=== PATIENT | male | born 1945 | race Caucasian/White ===

== ENCOUNTER 2017-02-13 12:50 | Inpatient (IN) | payer OTHER, MEDICARE ==
[~2017-02-13] VITALS: Ht 165.1 cm; Wt 78.1 kg
[~2017-02-13 12:50] MED LIST: ADVIN25050; ALBU1AER9; BAYER ASPIRIN PO; CARV3.122 PO; CENTRU2 PO; CHOL1000 PO; GABA-112 PO; GLC500 PO; NTRGSL/4 UT; PANT40TA PO; PLV75 PO; ROSU40TA PO
[2017-02-13] MEDS ORDERED: SODIUM CHLORIDE 0.9% 1000ML 500 ML IV STA (13:47)
[2017-02-13] MEDS ORDERED: SODIUM CHLORIDE 0.9% 1000ML 1,000 ML IV STA (13:47)
[2017-02-13 13:49] LABS: ISTAT CREATININE 1.4 mg/dl (0.6-1.3); ISTAT HEMOGLOBIN 10.5 g/dl (14.0-18.0); ISTAT IONIZED CALCIUM 1.14 mmol/l (1.12-1.32)
[2017-02-13 14:01] LABS: HEMATOCRIT 30.3 % (42-52); MEAN CELL VOLUME 107.4 fL (80-100); MEAN CORPUSCULAR HEMOGLOBIN 36.5 pg (25-34); MEAN PLATELET VOLUME 11.5 fL (7.4-10.4); PLATELET COUNT 134 K/uL (130-400); RED BLOOD COUNT 2.82 M/uL (4.7-6.1)
[2017-02-13 14:11] LABS: ALT/SGPT 18 U/L (12-78); AST/SGOT 21 U/L (15-37); BLOOD UREA NITROGEN 19 mg/dl (7-18); BUN/CREATININE RATIO 12.9 (10-20); CALCIUM 8.2 mg/dl (8.5-10.1); CARBON DIOXIDE 24 mmol/L (21-32); CHLORIDE 100 mmol/L (98-107); GLUCOSE 162 mg/dl (70-99); MAGNESIUM 1.4 mg/dl (1.8-2.4); POTASSIUM 3.2 mmol/L (3.5-5.1); SODIUM 133 mmol/L (136-145)
[2017-02-13 14:16] LABS: ALB/GLOB RATIO 0.6 (0.9-2); ALKALINE PHOSPHATASE 67 U/L (45-117)
[2017-02-13 14:19] LABS: BASO ABS # 0.01 K/uL (0-0.2); COMPLETE YES; DOHLE BODIES 1+; HYPOSEGMENTED POLYS 1+; IG% 0.6 %; LYMPH % 6.1 %; LYMPH ABS # 1.32 K/uL (1.2-3.4); MONO % 2.7 %; NEUT % 90.6 %
--- NOTE | 2017-02-13 14:25 | DIAGNOSTIC IMAGING REPORT ---
CHEST ONE VIEW PORTABLE CLINICAL HISTORY: FEVER, WEAKNESS, SOB dyspnea COMPARISON STUDY: 02/13/2017 FINDINGS: Mild interstitial change throughout both hemithoraces. No prior exam. Diaphragms smooth. Calcifications are sharp. IMPRESSION: Prominent basilar interstitial change possibly inflammatory. Electronically signed by: Shawn Gold M.D. 02/13/2017 2:23 PM Dictated Date/Time: 02/13/2017 2:22 PM
[2017-02-13] MEDS ORDERED: ATOR-26 PO (14:33)
[2017-02-13] MEDS ORDERED: ALBUAER INH (14:33)
[2017-02-13] MEDS ORDERED: ASPI81TA28 PO (14:33)
[2017-02-13] MEDS ORDERED: SYMIN160 INH (14:33)
[2017-02-13] MEDS ORDERED: LISI-729 PO (14:34)
[2017-02-13] MEDS ORDERED: ALBUT/IPRATROP 3MG/0.5MG NEB 3 ML VIAL INH STA (14:34)
[2017-02-13 14:45] LABS: URINE APPEARANCE CLEAR (CLEAR); URINE BILIRUBIN NEG (NEG); URINE COLOR YELLOW; URINE NITRITE NEG (NEG); URINE PH 6.5 (4.5-7.5); URINE SPECIFIC GRAVITY 1.007 (1.000-1.030); UROBILINOGEN NEG (NEG)
[2017-02-13 14:47] LABS: MANUAL MICROSCOPIC REQUIRED? NO; REVIEW REQ? NO
--- NOTE | 2017-02-13 15:00 | EMERGENCY ROOM VISIT NOTE ---
ED Visit Note First contact with patient: 13:29 I did evaluate and examine this patient myself. I did guide management for the patient. I agree with the PA's assessment as discussed. Please see the PAs dictation for further details. I did independently review the 12-lead EKG, chest x-ray and blood work. He is presenting with fever and malaise for the past several days. He feels very weak and cannot function normally at home. His white count is over 20,000. Chest x-ray demonstrates questionable and filtrates at the bases. Urinalysis on unremarkable. We will consult the hospitalist for further evaluation and care in the hospital.
[2017-02-13] MEDS ORDERED: CEFTRIAXONE SOD INJ 1 GM ADDVIAL IV STA (15:07)
[2017-02-13] MEDS ORDERED: AZITHROMYCIN IV 500 MG in DEXTROSE 5% 250ML 250 ML IV ONE (15:15)
[2017-02-13] MEDS ORDERED: POTASSIUM CHLORIDE 10 MEQ TABCR PO STA (15:47)
[2017-02-13] MEDS ORDERED: ONDANSETRON INJ 2 MG/ML 2 ML VIAL IV PRN (16:45)
[2017-02-13] MEDS ORDERED: MULTTAB58 PO (16:59)
[2017-02-13] MEDS ORDERED: FURO40TA3 PO (16:59)
[2017-02-13] MEDS ORDERED: TRAM-10 PO (16:59)
[2017-02-13] MEDS ORDERED: FEXO1TAB46 PO (16:59)
[2017-02-13] MEDS ORDERED: GLUCOSE 10 TABS/TUBE PO PRN (17:00)
[2017-02-13] MEDS ORDERED: GLUCOSE 40% GEL 15 GM TUBE PO PRN (17:00)
[2017-02-13] MEDS ORDERED: TRAMADOL HCL 50 MG TAB PO PRN (17:00)
[2017-02-13] MEDS ORDERED: NITROGLYCERIN 0.4 MG SL PER TAB CHARGE UT PRN (17:00)
[2017-02-13] MEDS ORDERED: FEXOFENADINE HCL 180 MG TAB PO PRN (17:00)
[2017-02-13] MEDS ORDERED: DEXTROSE 50% 50 ML SYR IV PRN (17:00)
[2017-02-13] MEDS ORDERED: LEVALBUTEROL/IPRATROPIUM NEB INH PRN (17:00)
[2017-02-13] MEDS ORDERED: GLUCAGON FOR INJ 1 MG VIAL SQ PRN (17:00)
[2017-02-13 17:41] LABS: FERRITIN 526.4 ng/ml (8.0-388.0); THYROID STIMULATING HORMONE 0.44 uIu/ml (0.300-4.500)
[2017-02-13 18:25] VITALS: BP 94/62; PULSE 102; TEMP 38.2; O2SAT 93; Ht 165.1 cm; Wt 78.1 kg
[2017-02-13] MEDS ORDERED: NICOTINE 21 MG/24 HR TDSY TD ONE (19:04)
[2017-02-13] MEDS ORDERED: IPRATROPIUM BROMIDE NEB SOLN 0.02% 2.5 ML VIAL INH PRN (19:15)
[2017-02-13] MEDS ORDERED: LEVALBUTEROL 0.63MG/3 ML NEB INH PRN (19:15)
[2017-02-13] MEDS: MAGNESIUM SULFATE 1GM / D5W 1 GM in PREMIXED IN D5W 100 ML IV SCH ×4 (19:16→22:27)
[2017-02-13] MEDS: SODIUM CHLORIDE 0.9% 1000ML 1,000 ML IV SCH (19:16)
[2017-02-13 19:23] LABS: INR 1.2 (0.9-1.1); PROTHROMBIN TIME (PATIENT) 12.7 SECONDS (9.0-12.0)
[2017-02-13 19:46] VITALS: BP 116/66; PULSE 98; TEMP 37.2; O2SAT 92
--- NOTE | 2017-02-13 20:27 | History and Physical ---
History & Physical Date & Time of Service: Feb 13, 2017 at 17:03 Chief Complaint: Fever,Cold Sx, Shaking,Low Blood Pres, Weak Primary Care Physician: Abdoul Gordon M.D. History of Present Illness Source: patient, spouse ( at bedside), clinic records This is a 71 year old male with PMH of CAD s/p CABG and stent, ? chronic systolic CHF, EF 55-60% on echo 06/2013, COPD, HTN, PAD, DM 2, and other problems listed below who was sent to the ED for fever. Patient reports illness for 3 days with generalized weakness, ambulatory dysfunction, fever up to 103F, chills, diffuse myalgias, increased SANCHEZ from baseline, decreased PO intake. Had 3 episodes of liquid diarrhea this am [employer] and 1 episode in ER. Had central chest pain which over past few days, but not today. No exacerbating factors including exertion or deep inspiration. States had similar pain in the past. Denies increase in occasional baseline cough. No sputum production. Patient was seen by Phuong Bermudez PA-C in clinic today, noted to have fever 103.4, HR 100s, and was sent to the ER. Pt denies nasal congestion, sore throat, swallowing difficulty, palpitations, abdominal pain, N/V, GI bleeding, dysuria, frequency, calf pain, edema, wounds, abnormal bleeding, falls. No significant weight loss noted in Epic trend. Pt was recently treated for complicated bronchitis by Dr. Gordon in mid- December with course of Augmentin and prednisone. Lisinopril and carvedilol were held at that time due to hypotension (80/50). Patient was feeling back to baseline until 3 days ago. No sick contact or recent hospitalization. Past Medical/Surgical History Medical Problems: (1) ACEI/ARB contraindicated Permanent Comment: due to hypotension Status: Chronic (2) CAD (coronary artery disease) Status: Chronic (3) Calculus Of Kidney Status: Chronic (4) Carotid Artery Occlusion W O Cerebral Infarction Status: Chronic (5) Carotid stenosis Status: Chronic (6) Chr Airway Obstruct Nec Status: Chronic (7) Chronic systolic CHF (congestive heart failure) Permanent Comment: as per Epic problem list, although last 2 echo's in system had normal EF; (55-60% in 06/2013) + grade I diastolic dysfunction Status: Chronic (8) COPD (chronic obstructive pulmonary disease) Status: Chronic (9) Coron Atheroscler Nos Type Vessel, Rosebud Or Graft Status: Chronic (10) Diab Sofie Wo Compl, Type Ii Or Unspec Type, Not Uncntrld Status: Chronic (11) Diverticulosis Colon (W/O Ment Of Hemorrhage) Status: Chronic (12) DM type 2 (diabetes mellitus, type 2) Status: Chronic (13) Dyslipidemia Status: Chronic (14) Esophageal Reflux Status: Chronic (15) GERD (gastroesophageal reflux disease) Status: Chronic (16) HTN (hypertension) Status: Chronic (17) Hyperlipidemia Nec/Nos Status: Chronic (18) Hypertension Nos Status: Chronic (19) PAD (peripheral artery disease) Status: Chronic (20) Renal Artery Aneurysm Status: Chronic (21) Subclavian artery stenosis, right Status: Chronic (22) Tobacco abuse Status: Chronic Surgical Problems: (1) Aortocoronary Bypass Status: Resolved (2) H/O maze procedure Status: Chronic (3) History of left-sided carotid endarterectomy Status: Chronic (4) Hx of CABG Status: Chronic (5) Percutaneous Translum Coron Angioplasty Status Status: Resolved (6) S/P coronary artery stent placement Status: Chronic (7) S/p lumbar spinal surgery Status: Chronic (8) Status post femoral-popliteal bypass surgery Permanent Comment: right Status: Chronic Family History FH: CAD (coronary artery disease) FATHER FH: cancer MOTHER Social History Smoking Status: Current Every Day Smoker (1 ppd x 60 years. counselled about smoking cessation.) Alcohol Use: occasionally (2 beers 2x per week) Drug Use: none Marital Status: Housing status: lives with family Immunizations History of Influenza Vaccine: Yes Influenza Vaccine Date: Aug 07, 2012 History of Tetanus Vaccine?: Yes History of Pneumococcal: Yes Pneumococcal Date: Aug 07, 2012 History of Hepatitis B Vaccine: Yes Hepatitis Immunization Date: Sep 22, 2000 Multi-Drug Resistant Organisms History of MDRO: No Allergies Coded Allergies: No Known Allergies (Verified , 02/13/17) Home Medications Scheduled Albuterol Sulfate (Proventil Hfa), 2 PUFFS INH Q4 Aspirin (Aspirin Ec), 81 MG PO DAILY Atorvastatin (Lipitor), 80 MG PO DAILY Budesonide/Formoterol Fumarate (Symbicort 160/4.5 Inhaler ), 2 PUFFS INH BID Cholecalciferol (Vitamin D3), 1,000 UNITS PO DAILY Furosemide (Lasix), 40 MG PO DAILY Gabapentin (Neurontin), 200 MG PO BID Metformin Hcl (Glucophage *), 500 MG PO BID Multiple Vitamin (Multivitamin), 1 TAB PO DAILY Nitroglycerin (Nitrostat), 0.4 MG UT PRN Pantoprazole Sodium (Protonix), 40 MG PO DAILY Scheduled PRN Fexofenadine Hcl (Joi), 180 MG PO DAILY PRN for Itching Tramadol (Ultram), 50 MG PO Q6 PRN for Pain Review of Systems Ten point ROS performed with pertinent positives and negatives noted in HPI. Physical Exam Vital Signs Date Time Temp Pulse Resp B/P Pulse Ox O2 Delivery O2 Flow Rate FiO2 02/13/17 16:09 108 20 97/50 93 Room Air 02/13/17 14:34 36.7 95 24 125/66 95 Room Air 02/13/17 14:09 97 18 128/70 95 Room Air 100 118/84 107 96/60 02/13/17 13:58 97 02/13/17 13:37 95 Room Air 02/13/17 12:56 37.5 102 20 110/66 94 Room Air General Appearance: WD/WN, no apparent distress, + pertinent finding (alert 71 year old male, appears acutely ill but not in distress, at bedside) Head: normocephalic, atraumatic Eyes: normal inspection, PERRL, EOMI ENT: hearing grossly normal, TMs normal, pharynx normal Neck: supple, no JVD, trachea midline Respiratory/Chest: no respiratory distress, no accessory muscle use, + wheezing (trace scattered wheezes) Cardiovascular: no murmur, + tachycardia (regular, rate 100's) Abdomen/GI: normal bowel sounds, non tender, soft Extremities/Musculoskelatal: no calf tenderness, normal capillary refill, no pedal edema Neurologic/Psych: alert, normal mood/affect, oriented x 3, + pertinent finding (strength 5/5 all extremities) Skin: normal color, warm/dry, + pertinent finding (small healing scab on RUE) Diagnostics Laboratory Results Results Past 24 Hours Test 02/13/17 13:20 02/13/17 13:33 02/13/17 13:36 02/13/17 13:47 Range/Units White Blood Count 21.60 4.8-10.8 K/uL Red Blood Count 2.82 4.7-6.1 M/uL Hemoglobin 10.3 14.0-18.0 g/dL Hematocrit 30.3 42-52 % Mean Corpuscular Volume 107.4 80-100 fL Mean Corpuscular Hemoglobin 36.5 25-34 pg Mean Corpuscular Hemoglobin Concent 34.0 32-36 g/dl Platelet Count 134 130-400 K/uL Mean Platelet Volume 11.5 7.4-10.4 fL Neutrophils (%) (Auto) 90.6 % Lymphocytes (%) (Auto) 6.1 % Monocytes (%) (Auto) 2.7 % Eosinophils (%) (Auto) 0.0 % Basophils (%) (Auto) 0.0 % Neutrophils # (Auto) 19.55 1.4-6.5 K/uL Lymphocytes # (Auto) 1.32 1.2-3.4 K/uL Monocytes # (Auto) 0.59 0.11-0.59 K/uL Eosinophils # (Auto) 0.00 0-0.5 K/uL Basophils # (Auto) 0.01 0-0.2 K/uL RDW Standard Deviation 66.6 36.4-46.3 fL RDW Coefficient of Variation 17.1 11.5-14.5 % Immature Granulocyte % (Auto) 0.6 % Immature Granulocyte # (Auto) 0.13 0.00-0.02 K/uL Nucleated RBC Absolute Count (auto) 0.04 0-0 K/uL Nucleated Red Blood Cells % 0.2 % Hyposegmented Neutrophils 1+ Dohle Bodies 1+ Sodium Level 133 136-145 mmol/L Potassium Level 3.2 3.5-5.1 mmol/L Chloride Level 100 98-107 mmol/L Carbon Dioxide Level 24 21-32 mmol/L Anion Gap 9.0 19.0 16-25 mmol/L Blood Urea Nitrogen 19 7-18 mg/dl Creatinine 1.50 0.60-1.40 mg/dl Est Creatinine Clear Calc Drug Dose 44.2 ml/min Estimated GFR () 53.9 Estimated GFR (Non- 46.5 BUN/Creatinine Ratio 12.9 10-20 Random Glucose 162 70-99 mg/dl Calcium Level 8.2 8.5-10.1 mg/dl Magnesium Level 1.4 1.8-2.4 mg/dl Total Bilirubin 0.7 0.2-1 mg/dl Aspartate Amino Transf (AST/SGOT) 21 15-37 U/L Alanine Aminotransferase (ALT/SGPT) 18 12-78 U/L Alkaline Phosphatase 67 45-117 U/L Total Creatine Kinase 129 39-308 U/L Creatine Kinase MB < 0.5 0.5-3.6 ng/ml Creatine Kinase MB Ratio 0-3.0 Troponin I 0.019 0-0.045 ng/ml Pro-B-Type Natriuretic Peptide 2126 0-900 pg/ml Total Protein 7.8 6.4-8.2 gm/dl Albumin 3.0 3.4-5.0 gm/dl Globulin 4.8 2.5-4.0 gm/dl Albumin/Globulin Ratio 0.6 0.9-2 Bedside Lactic Acid Venous 1.68 0.90-1.70 mmol/L Bedside Hemoglobin 10.5 14.0-18.0 g/dl Bedside Hematocrit 31 42-52 % Bedside Sodium 133 135-144 mEq/L Bedside Potassium 3.1 3.3-5.0 mEq/L Bedside Chloride 97 101-112 mEq/L Bedside Total CO2 21 24-31 mEq/l Bedside Blood Urea Nitrogen 20 7-18 mg/dl Bedside Creatinine 1.4 0.6-1.3 mg/dl Bedside Glucose (other) 165 70-99 mg/dl Bedside Ionized Calcium (Madeleine) 1.14 1.12-1.32 mmol/l Test 02/13/17 13:50 02/13/17 16:45 Range/Units Urine Color YELLOW Urine Appearance CLEAR CLEAR Urine pH 6.5 4.5-7.5 Urine Specific [place] 1.007 1.000-1.030 Urine Protein 1+ NEG Urine Glucose (UA) NEG NEG Urine Ketones NEG NEG Urine Occult Blood 1+ NEG Urine Nitrite NEG NEG Urine Bilirubin NEG NEG Urine Urobilinogen NEG NEG Urine Leukocyte Esterase NEG NEG Urine WBC (Auto) 0 0-5 /hpf Urine RBC (Auto) 0-4 0-4 /hpf Urine Hyaline Casts (Auto) 0 0-5 /lpf Urine Epithelial Cells (Auto) 5-10 0-5 /lpf Urine Bacteria (Auto) NEG NEG Influenza Type A Antigen Neg for Influ A NEG Influenza Type B Antigen Neg for Influ B NEG Transferrin % Saturation 20-50 % Microbiology Results 02/13/17 Blood Culture, Received Pending 02/13/17 Blood Culture, Received Pending Diagnostic Radiology CHEST ONE VIEW PORTABLE CLINICAL HISTORY: FEVER, WEAKNESS, SOB dyspnea COMPARISON STUDY: 02/13/2017 FINDINGS: Mild interstitial change throughout both hemithoraces. No prior exam. Diaphragms smooth. Calcifications are sharp. IMPRESSION: Prominent basilar interstitial change possibly inflammatory. EKG sinus tachycardia with occasional PVC, rate 101, otherwise normal EKG as confirmed by cardiology read Impression Assessment and Plan SEPSIS Presents with fever 38.2, leukocytosis (WBC 21.6), tachycardia; lactic acid WNL , no hypotension No clear source- CXR- no infiltrate, UA does not appear infected; no apparent skin infection, no meningeal signs/symptoms, checking stool WBC's stool cx, C. diff; influenza antigen neg; check influenza PCR and monospot, blood cultures pending Treated with empiric ceftriaxone and azithromycin in ER Continue current antibiotics for now IVF's continued at 125 mL/hour Consult infectious disease HYPOKALEMIA/ HYPOMAGNESEMIA From poor PO intake and diarrhea Replace and monitor MACROCYTIC ANEMIA Hg 10.3; was 10.5 in 12/18/16; prior to that ran 11's-13's since 2011 Check B12, iron studies, peripheral smear Monitor CBC HX HYPERTENSION BP running low normal DARRIUS-I and BB stopped 1 month ago due to hypotension Hold Lasix Continue IVF's ? CHRONIC SYSTOLIC CHF Chart hx systolic CHF in Epic EF 55-60% on echo 06/2013 Currently hypovolemic, getting IVF's Monitor volume status CAD S/P CABG, STENT Stable; continue aspirin, statin DARRIUS-I and BB stopped 1 month ago due to hypotension DM Hold metformin during hospitalization Insulin sliding scale coverage Check A1c COPD Not in acute exacerbation Continue home inhaler GERD Continue PPI TOBACCO ABUSE Counselled for smoking cessation Nicotine patch ordered DVT PROPHYLAXIS Heparin SQ CODE STATUS Full code per my discussion with the patient. States he would not want prolonged life support. Patient seen in collaboration with Dr. Ho. Please see her addendum. I have seen and examined the patient and agree with the provider as stated above. Vic, DO Level of Care Telemetry Resuscitation Status FULL RESUSCITATION VTE Prophylaxis VTE Risk Assessment Done? Y/N: Yes Risk Level: Moderate Given or contraindicated: Unfractionated heparin SQ Social Service Consult None Apply
[2017-02-13] MEDS: GABAPENTIN 100 MG CAP PO SCH (20:36)
[2017-02-13] MEDS: BUDESONIDE/FORMOTEROL FUMARATE 160/4.5 60 PUFFS/INHALER INH SCH (20:37)
[2017-02-13] MEDS: HEPARIN SOD 5000 UNIT/0.5 ML CARP SQ SCH (21:39)
[2017-02-13] MEDS: INSULIN ASPART 100 UNITS/ML 3 ML PEN SC SCH (21:39)
--- NOTE | 2017-02-13 22:55 | EMERGENCY ROOM VISIT NOTE ---
History First contact with patient: 13:29 Chief Complaint: FLU LIKE SX Stated Complaint: FEVER,COLD SX, SHAKING,LOW BLOOD PRES, WEAK History of Present Illness Patient is a 71-year-old white male with extensive past medical history including coronary artery disease status post ID, status post CABG, hypertension , dyslipidemia, diabetes, COPD, history of CHF, among other medical problems who presents the emergency department from his primary care doctor's office for evaluation of weakness 2 days. Patient states that he had been feeling well was in his usual state of health until Thursday, 2 days ago. He states that he really just felt generally weak and very fatigued. He was in bed all day, and states that all he did was sleep. When he would try to get up, he noted feeling wobbly and off balance. patient's states that he seems like he "can't catch his breath" although the patient denies feeling short of breath. He has chronic chest pain and did experience some midsternal chest pain that radiated through to his back yesterday, but is chest pain-free presently. He states that this pain happens frequently and he "ignores it." He reported a fever of 103F last evening for which she took acetaminophen. checked his blood pressure on his home monitor and noted to be in the 90s systolic. He denies any cough or sputum production. He does not feel like he is wheezing. He does note a slight headache. He denies any abdominal pain, nausea or vomiting. He did have an episode of diarrhea this morning. He admits to anorexia. He denies any urinary symptoms. No skin rashes, swelling or pain in the lower extremities. He denies any sick contacts recently. He did receive a flu shot this season. He traveled to [place] 2 weeks ago and stayed in a hotel. He was at his primary care doctor's office today and was sent to the emergency department for evaluation. Review of Systems Review of systems as per HPI. All other systems reviewed were negative. 10 systems reviewed. Past Medical/Surgical History Medical Problems: (1) ACEI/ARB contraindicated (2) CAD (coronary artery disease) (3) Calculus Of Kidney (4) Carotid Artery Occlusion W O Cerebral Infarction (5) Carotid stenosis (6) Chr Airway Obstruct Nec (7) Chronic systolic CHF (congestive heart failure) (8) COPD (chronic obstructive pulmonary disease) (9) Coron Atheroscler Nos Type Vessel, [place] Or Graft (10) Diab Sofie Wo Compl, Type Ii Or Unspec Type, Not Uncntrld (11) Diverticulosis Colon (W/O Ment Of Hemorrhage) (12) DM type 2 (diabetes mellitus, type 2) (13) Dyslipidemia (14) Esophageal Reflux (15) Fever (16) GERD (gastroesophageal reflux disease) (17) HTN (hypertension) (18) Hyperlipidemia Nec/Nos (19) Hypertension Nos (20) PAD (peripheral artery disease) (21) Renal Artery Aneurysm (22) Sepsis (23) Subclavian artery stenosis, right (24) Tobacco abuse Surgical Problems: (1) Aortocoronary Bypass (2) H/O maze procedure (3) History of left-sided carotid endarterectomy (4) Hx of CABG (5) Percutaneous Translum Coron Angioplasty Status (6) S/P coronary artery stent placement (7) S/p lumbar spinal surgery (8) Status post femoral-popliteal bypass surgery Electronic medical records are reviewed and summarized as above/below. See Problem List. Social History Smoking Status: Former Smoker Marital Status: Housing Status: lives with significant other Occupation Status: retired Current/Historical Medications Scheduled Albuterol Sulfate (Proventil Hfa), 2 PUFFS INH Q4 Aspirin (Aspirin Ec), 81 MG PO DAILY Atorvastatin (Lipitor), 80 MG PO DAILY Budesonide/Formoterol Fumarate (Symbicort 160/4.5 Inhaler ), 2 PUFFS INH BID Cholecalciferol (Vitamin D3), 1,000 UNITS PO DAILY Furosemide (Lasix), 40 MG PO DAILY Gabapentin (Neurontin), 200 MG PO BID Metformin Hcl (Glucophage *), 500 MG PO BID Multiple Vitamin (Multivitamin), 1 TAB PO DAILY Nitroglycerin (Nitrostat), 0.4 MG UT PRN Pantoprazole Sodium (Protonix), 40 MG PO DAILY Scheduled PRN Fexofenadine Hcl (Joi), 180 MG PO DAILY PRN for Itching Tramadol (Ultram), 50 MG PO Q6 PRN for Pain Allergies Coded Allergies: No Known Allergies (Verified , 02/13/17) Physical Exam Vital Signs Date Time Temp Pulse Resp B/P Pulse Ox O2 Delivery O2 Flow Rate FiO2 02/13/17 16:09 108 20 97/50 93 Room Air 02/13/17 14:34 36.7 95 24 125/66 95 Room Air 02/13/17 14:09 97 18 128/70 95 Room Air 100 118/84 107 96/60 02/13/17 13:58 97 02/13/17 13:37 95 Room Air 02/13/17 12:56 37.5 102 20 110/66 94 Room Air Physical Exam CONSTITUTIONAL: Patient is an ill although nontoxic appearing 71-year-old white male who is awake and alert and laying on the gurney in no acute distress. Temperature 37.5C orally in triage. Oxygen saturation 94% on room air. EYES: Pupils equal, round, reactive to light and accommodation. EOMs intact without nystagmus. Sclera are anicteric. ENT: Tympanic membranes intact, with normal landmarks. External canals are clear. Oral and nasopharynx are clear. Mucous membranes are moist, no lesions , tongue and gums appear normal. NECK: No bruits auscultated. Supple without lymphadenopathy. No thyromegaly. No meningeal signs. Full active range of motion without discomfort. CARDIOVASCULAR: Well-healed sternotomy scar. Regular rate and rhythm. No carotid bruits auscultated. No JVD. Peripheral pulses easy to palpable. RESPIRATORY: Expiratory wheezes noted posteriorly. Full and equal chest expansion without accessory muscle use or retractions. GI: Bowel sounds are present. Abdomen is soft, nontender, nondistended. No organomegaly. No pulsatile masses. No guarding or rebound. MUSCULOSKELETAL: Full range of motion of extremities x 4 with good strength. No cyanosis, edema, joint tenderness or swelling. No deformity. INTEGUMENTARY: No lesions or rash, normal skin turgor. NEUROLOGICAL: Alert, oriented, and cooperative. Cranial nerves, sensation and strength grossly intact. Pupils round, equal, and react to light, EOMs are full. LYMPH: No lymphadenopathy. Medical Decision & Procedures ER Provider Diagnostic Interpretation: CHEST ONE VIEW PORTABLE CLINICAL HISTORY: FEVER, WEAKNESS, SOB dyspnea COMPARISON STUDY: 02/13/2017 FINDINGS: Mild interstitial change throughout both hemithoraces. No prior exam. Diaphragms smooth. Calcifications are sharp. IMPRESSION: Prominent basilar interstitial change possibly inflammatory. Laboratory Results 02/13/17 13:20 Red Blood Count 2.82, Mean Corpuscular Volume 107.4, Mean Corpuscular Hemoglobin 36.5, Mean Corpuscular Hemoglobin Concent 34.0, Mean Platelet Volume 11.5, Neutrophils (%) (Auto) 90.6, Lymphocytes (%) (Auto) 6.1, Monocytes (%) ( Auto) 2.7, Eosinophils (%) (Auto) 0.0, Basophils (%) (Auto) 0.0, Neutrophils # ( Auto) 19.55, Lymphocytes # (Auto) 1.32, Monocytes # (Auto) 0.59, Eosinophils # ( Auto) 0.00, Basophils # (Auto) 0.01 02/13/17 13:20 Test 02/13/17 13:20 02/13/17 13:33 02/13/17 13:36 02/13/17 13:47 White Blood Count 21.60 K/uL (4.8-10.8) Red Blood Count 2.82 M/uL (4.7-6.1) Hemoglobin 10.3 g/dL (14.0-18.0) Hematocrit 30.3 % (42-52) Mean Corpuscular Volume 107.4 fL (80-100) Mean Corpuscular Hemoglobin 36.5 pg (25-34) Mean Corpuscular Hemoglobin Concent 34.0 g/dl (32-36) Platelet Count 134 K/uL (130-400) Mean Platelet Volume 11.5 fL (7.4-10.4) Neutrophils (%) (Auto) 90.6 % Lymphocytes (%) (Auto) 6.1 % Monocytes (%) (Auto) 2.7 % Eosinophils (%) (Auto) 0.0 % Basophils (%) (Auto) 0.0 % Neutrophils # (Auto) 19.55 K/uL (1.4-6.5) Lymphocytes # (Auto) 1.32 K/uL (1.2-3.4) Monocytes # (Auto) 0.59 K/uL (0.11-0.59) Eosinophils # (Auto) 0.00 K/uL (0-0.5) Basophils # (Auto) 0.01 K/uL (0-0.2) RDW Standard Deviation 66.6 fL (36.4-46.3) RDW Coefficient of Variation 17.1 % (11.5-14.5) Immature Granulocyte % (Auto) 0.6 % Immature Granulocyte # (Auto) 0.13 K/uL (0.00-0.02) Nucleated RBC Absolute Count (auto) 0.04 K/uL (0-0) Nucleated Red Blood Cells % 0.2 % Hyposegmented Neutrophils 1+ Dohle Bodies 1+ Prothrombin Time 12.7 SECONDS (9.0-12.0) Prothromb Time International Ratio 1.2 (0.9-1.1) Est Creatinine Clear Calc Drug Dose 44.2 ml/min Estimated GFR () 53.9 Estimated GFR (Non- 46.5 BUN/Creatinine Ratio 12.9 (10-20) Calcium Level 8.2 mg/dl (8.5-10.1) Magnesium Level 1.4 mg/dl (1.8-2.4) Total Bilirubin 0.7 mg/dl (0.2-1) Aspartate Amino Transf (AST/SGOT) 21 U/L (15-37) Alanine Aminotransferase (ALT/SGPT) 18 U/L (12-78) Alkaline Phosphatase 67 U/L (45-117) Total Creatine Kinase 129 U/L (39-308) Creatine Kinase MB < 0.5 ng/ml (0.5-3.6) Troponin I 0.019 ng/ml (0-0.045) Pro-B-Type Natriuretic Peptide 2126 pg/ml (0-900) Total Protein 7.8 gm/dl (6.4-8.2) Albumin 3.0 gm/dl (3.4-5.0) Globulin 4.8 gm/dl (2.5-4.0) Albumin/Globulin Ratio 0.6 (0.9-2) Monoscreen NEG (NEG) Bedside Lactic Acid Venous 1.68 mmol/L (0.90-1.70) Bedside Hemoglobin 10.5 g/dl (14.0-18.0) Bedside Hematocrit 31 % (42-52) Bedside Sodium 133 mEq/L (135-144) Bedside Potassium 3.1 mEq/L (3.3-5.0) Bedside Chloride 97 mEq/L (101-112) Bedside Total CO2 21 mEq/l (24-31) Anion Gap 19.0 mmol/L (16-25) Bedside Blood Urea Nitrogen 20 mg/dl (7-18) Bedside Creatinine 1.4 mg/dl (0.6-1.3) Bedside Glucose (other) 165 mg/dl (70-99) Bedside Ionized Calcium (Madeleine) 1.14 mmol/l (1.12-1.32) Creatine Kinase MB Ratio (0-3.0) Test 02/13/17 13:50 Urine Color YELLOW Urine Appearance CLEAR (CLEAR) Urine pH 6.5 (4.5-7.5) Urine Specific [place] 1.007 (1.000-1.030) Urine Protein 1+ (NEG) Urine Glucose (UA) NEG (NEG) Urine Ketones NEG (NEG) Urine Occult Blood 1+ (NEG) Urine Nitrite NEG (NEG) Urine Bilirubin NEG (NEG) Urine Urobilinogen NEG (NEG) Urine Leukocyte Esterase NEG (NEG) Urine WBC (Auto) 0 /hpf (0-5) Urine RBC (Auto) 0-4 /hpf (0-4) Urine Hyaline Casts (Auto) 0 /lpf (0-5) Urine Epithelial Cells (Auto) 5-10 /lpf (0-5) Urine Bacteria (Auto) NEG (NEG) Influenza Type A Antigen Neg for Influ A (NEG) Influenza Type B Antigen Neg for Influ B (NEG) Medications Administered Medications (Trade) Dose Ordered Sig/Timbo Route Start Time Stop Time Status Last Admin Dose Admin Sodium Chloride 500 ml @ 999 mls/hr Q31M STAT IV 02/13/17 13:47 02/13/17 14:17 DC 02/13/17 14:43 999 MLS/HR Sodium Chloride (Nss 1000ml) 1,000 ml @ 200 mls/hr Q5H STAT IV 02/13/17 13:47 02/13/17 18:46 DC 02/13/17 14:43 200 MLS/HR Albuterol/ Ipratropium (Duoneb) 3 ml NOW STAT INH 02/13/17 14:34 02/13/17 14:35 DC 02/13/17 14:42 3 ML Ceftriaxone Sodium 1 gm 1 gm NOW STAT IV 02/13/17 15:07 02/13/17 15:08 DC 02/13/17 15:19 1 GM Azithromycin/ Dextrose (Zithromax IV/D5 250ml) 255 ml @ 125 mls/hr ONE ONCE IV 02/13/17 15:15 02/13/17 17:17 DC 02/13/17 16:08 125 MLS/HR Potassium Chloride (Klor-Con M10) 40 meq NOW STAT PO 02/13/17 15:47 02/13/17 16:04 DC 02/13/17 16:08 40 MEQ ECG Indication: SOB/dyspnea, weakness Rate (beats per minute): 101 Rhythm: sinus tachycardia Findings: PVC, no acute ischemic change Change: no significant change ED Course The patient was seen and evaluated as above. His old records were reviewed. He was noted to be afebrile upon presentation in the emergency department, slightly tachycardic. IV access was obtained. Laboratory studies were collected. Given his cardiac history and history of CHF, he was given a 500 mL bolus of normal saline solution, then ordered 200 mL per hour. He was given a DuoNeb treatment. EKG was performed and was as noted above. Laboratory studies were collected including CBC with differential, CMP, magnesium, BNP, CK, CK-MB and troponin, urinalysis, [id number] lactic acid and blood cultures 2. [id number]-[id number] lactic acid was nondistended above acidosis at 1.68. White count was markedly elevated at 21,600, with left shift. He was noted to be anemic with an H&H of 10 and 30. Electrolytes noted a sodium of 133, potassium 3.2, chloride 100, contact the 24, BUN 19 and creatinine 1.5, which do appear to be an increase from his baseline, likely related to some mild dehydration due to poor oral intake and his recent diarrhea. Magnesium also slightly low at 1.4. Rapid influenza swab was negative. Urinalysis is not overly indicative of infectious process. Orthostatic vital signs were performed and the patient was noted to be orthostatic and symptomatic with position changes. Chest x-ray was not overly indicative of infectious process, prominent basilar interstitial changes possibly inflammatory in nature. All laboratory and diagnostic imaging studies were reviewed with attending physician, who also independently evaluated the patient. His presentation is concerning for infection, source is unclear at this time, I suspect due to the fever, cough and wheezing could be pulmonary in nature and therefore was given azithromycin 500 mg IV and ceftriaxone 1 g IV. The patient otherwise remained hemodynamically stable while in the emergency department. Heart rate was in the 90s. Temperature was rechecked and he remained afebrile. Patient was reviewed with the manager cleaning, [facility]. Differential diagnoses entertained included viral illness including influenza, pneumonia, COPD exacerbation, congestive heart failure, ACS, sepsis, SIRS, UTI, pyelonephritis, infectious versus inflammatory colitis/enteritis, food borne illness, among others. Medical Decision See ED course. Impression Primary Impression: Acute febrile illness Additional Impression: Leukocytosis Departure Information Referrals Abdoul Gordon M.D. (PCP) Patient Instructions My [facility] Problem Qualifiers
[2017-02-13 22:59] VITALS: BP 93/54; PULSE 89; TEMP 38.2; O2SAT 94
[2017-02-13] MEDS: POTASSIUM CHLR 10 MEQ / WTR 10 MEQ in PREMIXED WATER 100 ML IV SCH (23:38)
[2017-02-13 23:59] VITALS: O2SAT 94
[2017-02-14] VITALS (14 sets, daily range): BP systolic 95–108; BP diastolic 52–62; PULSE 62–94; TEMP 36.3–39.4; O2SAT 96–99
[2017-02-14] MEDS: SODIUM CHLORIDE 0.9% 1000ML 1,000 ML IV SCH (00:47)
[2017-02-14] MEDS: POTASSIUM CHLR 10 MEQ / WTR 10 MEQ in PREMIXED WATER 100 ML IV SCH (00:47)
[2017-02-14 01:13] LABS: INFLUENZA A PCR Neg for Influ A (NEG); INFLUENZA B PCR Neg for Influ B (NEG)
[2017-02-14] MEDS: ACETAMINOPHEN 325 MG TAB PO PRN ×2 (02:45→12:30)
[2017-02-14] MEDS: HEPARIN SOD 5000 UNIT/0.5 ML CARP SQ SCH ×2 (05:59→13:43)
[2017-02-14 06:14] LABS: MEAN CELL VOLUME 108.1 fL (80-100); MEAN CORPUSCULAR HEMOGLOBIN 37.1 pg (25-34); MEAN CORPUSCULAR HGB CONC 34.3 g/dl (32-36); MEAN PLATELET VOLUME 11.4 fL (7.4-10.4); PLATELET COUNT 105 K/uL (130-400); RED BLOOD COUNT 2.59 M/uL (4.7-6.1); WHITE BLOOD COUNT 14.62 K/uL (4.8-10.8)
[2017-02-14 06:36] LABS: BUN/CREATININE RATIO 11.8 (10-20); CALCIUM 7.8 mg/dl (8.5-10.1); CREATININE 1.1 mg/dl (0.60-1.40); MAGNESIUM 2.6 mg/dl (1.8-2.4); POTASSIUM 3.6 mmol/L (3.5-5.1)
[2017-02-14 06:51] LABS: COMPLETE YES; DOHLE BODIES 1+; HYPOSEGMENTED POLYS 1+; LYMPH ABS # 0.89 K/uL (1.2-3.4); LYMPHOCYTE % 6.1 %; NEUTROPHILS % 89.6 %
[2017-02-14] MEDS: INSULIN ASPART 100 UNITS/ML 3 ML PEN SC SCH ×4 (07:00→21:00)
[2017-02-14] MEDS: BUDESONIDE/FORMOTEROL FUMARATE 160/4.5 60 PUFFS/INHALER INH SCH ×2 (08:11→19:29)
[2017-02-14] MEDS: MULTIVITAMIN TAB PO SCH (08:12)
[2017-02-14] MEDS: PANTOprazole SOD 40 MG TAB PO SCH (08:12)
[2017-02-14] MEDS: CHOLECALCIFEROL 1000 INTER.UNIT TAB PO SCH (08:12)
[2017-02-14] MEDS: GABAPENTIN 100 MG CAP PO SCH ×2 (08:12→19:30)
[2017-02-14] MEDS: ATORVASTATIN 40 MG TAB PO SCH (08:12)
[2017-02-14] MEDS: NICOTINE 21 MG/24 HR TDSY TD SCH (08:13)
[2017-02-14] MEDS ORDERED: ASPIRIN 81 MG ECTAB PO SCH (09:00)
[2017-02-14 10:43] LABS: ESTIMATED AVERAGE GLUCOSE 120 mg/dl; HA1C FLAG Normal (Normal)
--- NOTE | 2017-02-14 11:08 | Progress Note ---
Progress Note Date of Service Feb 14, 2017. Progress Note ID Consult Dictated #[id number] A/P: 1. Fever 2. Leukocytosis -? source, GI (? viral illness) ? bronchitis -Continue abx, pt asking to go home, feeling better today, would like to be [facility] -If pt to be d/c home, would complete course yennifer espanai -thank you
--- NOTE | 2017-02-14 13:16 | INFECT. DISEASE CONSULTATION ---
DATE OF CONSULTATION: 02/14/2017 DATE OF CONSULTATION: 02/14/2017. REQUESTING PHYSICIAN: Dr. Ho. HISTORY OF PRESENT ILLNESS: This is a 71-year-old gentleman who was admitted yesterday after he had 1-2 days of feeling weak and having fevers up to 103 degrees at home. He states he had poor p.o. intake but denies any vomiting or nausea. He did have some diarrhea prior to admission. this is resolving. His fevers have resolved. His fatigue has resolved. He is currently with his family at the bedside and he has been up ambulating in the room this morning and is feeling "100% better". He was started initially on Rocephin and azithromycin for question bronchitis versus early pneumonia. The chest x-ray did show interstitial inflammation. He states he has chronic shortness of breath secondary to tobacco use but he has not had productive cough. He denies any headache or visual changes. He denies any neck stiffness or swollen glands. He denies any chest pain or dyspnea on exertion. He has no pleuritic chest pain. He has no cough. He denies any nausea or vomiting. He did have clear liquids for breakfast and he is hungry and is asking for solid food. He denies any additional diarrhea. He has no urinary symptoms. Urinalysis was unremarkable. He is asking to go home. Blood cultures were obtained in the Emergency Room and are pending. All remaining review of systems are reviewed and are negative. PAST MEDICAL HISTORY: Significant for coronary artery disease, kidney stones, carotid artery occlusion, carotid stenosis, CHF, COPD, type 2 diabetes, diverticulosis, dyslipidemia, GERD, hypertension, peripheral arterial disease, renal artery aneurysm, subclavian stenosis. PAST SURGICAL HISTORY: Significant for aortocoronary bypass Maze procedure, left sided carotid endarterectomy, CABG, angioplasty, stent placement, lumbar surgery, fem-pop bypass. FAMILY HISTORY: Noncontributory. SOCIAL HISTORY: Significant for daily tobacco use. He drinks occasionally. He is and lives with his family. He denies any sick contacts. He states he did have flu vaccine this year. He has no known drug allergies. CURRENT MEDICATIONS: Include azithromycin, ceftriaxone, aspirin, Lipitor, vitamin D, multivitamins, Protonix, nicotine patch, subQ heparin, Symbicort, Neurontin, Atrovent, Xopenex, Joi, ultram, Zofran, Tylenol. PHYSICAL EXAMINATION: VITAL SIGNS: Current temperature is 37.6, T-max overnight is 39.4, pulse 62, respiratory rate 20, blood pressure 95/59, oxygen saturation 98% on 2 liters. He is awake, alert and oriented x3. He is in no acute distress. HEAD, EYES, EARS, NOSE, AND THROAT: Mucous membranes are moist. Extraocular muscles are intact. There is no cervical lymphadenopathy. HEART: Regular. LUNGS: Clear bilaterally. There is no wheezing. ABDOMEN: Soft, nontender, nondistended. There is no lower extremity edema bilaterally. Skin is without rash. LABORATORY DATA: CBC today reveals a white blood cell count of 14.6 down from 21.6 yesterday. Hemoglobin 9.7, platelets 105, chemistry panel reveals a sodium of 238, potassium 3.6, chloride 107, bicarb 25, BUN 13, creatinine 1.1, glucose 107. LFTs are within normal limits. On admission lactic acid was normal at 1.6, urinalysis is negative. A mono screen is negative. Flu swab is negative. C. diff specimen was done and is negative. Stool culture is pending. Blood cultures are ordered and are pending. The chest x-ray again shows interstitial inflammation but no consolidative changes. ASSESSMENT AND PLAN: 1. Fever. 2. Leukocytosis improved. At this time I do not see any clear source of bacterial infection. Certainly this could be early pneumonia and/or bronchitis. He is on appropriate antibiotics for this. He does not have any clinical findings to suggest sinusitis. This certainly could be a viral GI illness. His stool culture is pending but he has had significant improvement in symptoms. He can continue on IV antibiotics. If the decision is made to discharge the patient to home he could complete a course of azithromycin for suspected bronchitis. Thank you for this consultation.
[2017-02-14] MEDS ORDERED: CEFTRIAXONE SOD INJ 1 GM in DEXTROSE 5% ADD-VANTAGE 50ML 50 ML IV SCH (14:00)
[2017-02-14] MEDS ORDERED: AZITHROMYCIN IV 500 MG in DEXTROSE 5% 250ML 250 ML IV SCH (16:00)
--- NOTE | 2017-02-14 17:59 | Discharge Instructions ---
Discharge Instructions Date of Service Feb 14, 2017. Admission Reason for Admission: Fever, Sepsis Discharge Discharge Diagnosis / Problem: SEPSIS /CAMPYLOBACTER JEJUNI GASTROENTERITIS Discharge Goals Goal(s): Improve function, Improve disease control, Diagnostic testing, Therapeutic intervention Activity Recommendations Activity Limitations: resume your previous activity . Instructions / Follow-Up Instructions / Follow-Up HOSPITAL FOLLOW UP WITH DR ZAVALETA , OFFICE WILL CALL WITH APPOINTMENT CONTINUE TO DRINK PLENTY OF FLUID -SPORTS DRINK -GATORADE IS BETTER -HAS ELECTROLYTE SUPPLEMENTS TAKE LACTOBACILLUS ( OVER THE COUNTER ) FOR 1 WEEK OR TILL DIARRHEA IS BETTER PLEASE AVOID MILK /DAIRY PRODUCTS FOR AT LEAST 1 WEEK OR TILL YOUR DIARRHEA GETS BETTER AVOID TAKING IMODIUM -WITH INFECTION IN STOOL PLEASE NOTIFY YOUR FAMILY PHYSICIAN IF YOUR ARE DEVELOPING FEVER , CHILL , WORSENING OF ABDOMINAL PAIN , NAUSEA , ONGOING DIARRHEA WITH BLOOD IN STOOL CAN FOLLOW BRAT DIET ( BREAD/RICE /APPLE SAUCE /TEA ) BLAND DIET FOR 2-3 DAYS TILL DIARRHEA GETS BETTER Current Hospital Diet Patient's current hospital diet: AHA Diet Discharge Diet Recommended Diet: AHA Diet (Heart Healthy), Low Lactose Diet Pending Studies Studies pending at discharge: no Laboratory Results Hemoglobin A1c Test 02/14/17 05:52 Range/Units Estimated Average Glucose 120 mg/dl Hemoglobin A1c 5.8 H 4.5-5.6 % Medical Emergencies . Who to Call and When: Medical Emergencies: If at any time you feel your situation is an emergency, please call 911 immediately. . Non-Emergent Contact Non-Emergency issues call your: Primary Care Provider . . "Provider Documentation" section prepared by Ifeoma Lott. VTE Core Measure Inpt VTE Proph given/why not?: Unfractionated heparin SQ
--- NOTE | 2017-02-14 18:43 | Progress Note ---
Internal Med Progress Note Date of Service: Feb 14, 2017. Provider Documentation: SUBJECTIVE: feels much better today no cough or SOB still having loose stool , but improved from prior had minimum pain in lower abdomen no fever or chills OBJECTIVE: Vital Signs-as noted below Exam: General-no sign of distress Eyes-sclera non icteric Lungs-CTA Heart-regular S1/S2 Abdomen-soft, mild tenderness on lower abdomen Extremities-no lower ext edema Neuro-no focal neurological deficit Lab data as noted below. ASSESSMENT & PLAN: SEPSIS Presents with fever 38.2, leukocytosis (WBC 21.6), tachycardia; lactic acid WNL , no hypotension improved since admission afebrile , Leukocytosis has improved 21 -> 14 K possible GI source ? stool C diff negative, stool gram stain positive for Campylobacter culture shows no growth pt presented with typical picture of sever gastroenteritis , diarrhea, lower abdominal pain , weakness .fever and chills on Zithromax which will provide adequate coverage for Campylobacter D/C Rocephin follow blood culture , check CBC in AM appreciate input form ID CT abdomen /pelvis ordered to asses for Colitis HYPOKALEMIA/ HYPOMAGNESEMIA corrected From poor PO intake and diarrhea MACROCYTIC ANEMIA Hg 10.3; was 10.5 in 12/18/16; prior to that ran 11's-13's since 2011 B12, iron studies, peripheral smear-wnl Monitor CBC added Fe supplement out pt colonoscopy CAD S/P CABG, STENT Stable; continue aspirin, statin DARRIUS-I and BB stopped 1 month ago due to hypotension DM Hold metformin during hospitalization Insulin sliding scale coverage COPD Not in acute exacerbation Continue home inhaler GERD Continue PPI TOBACCO ABUSE Counselled for smoking cessation Nicotine patch ordered DVT PROPHYLAXIS scd and teds ambulate hold Sub q Heparin for mild thrombocytopenia CODE STATUS Full code DISPOSITION Discharge home when medically stable Vital Signs: Date Time Temp Pulse Resp B/P Pulse Ox O2 Delivery O2 Flow Rate FiO2 02/14/17 16:00 98 Room Air 02/14/17 15:42 36.3 69 18 104/62 96 Room Air 02/14/17 12:00 98 Nasal Cannula 2.0 02/14/17 11:42 36.4 76 20 104/56 98 Room Air 02/14/17 08:00 98 Nasal Cannula 2.0 02/14/17 07:50 36.3 62 20 95/59 98 Nasal Cannula 2.0 02/14/17 04:01 36.8 02/14/17 04:00 97 Nasal Cannula 2.0 02/14/17 03:50 94 22 107/58 97 Room Air 02/14/17 02:45 39.4 02/13/17 23:59 94 Room Air 02/13/17 22:59 38.2 89 19 93/54 94 Room Air 02/13/17 19:46 37.2 98 18 116/66 92 Room Air Lab Results: Results Past 24 Hours Test 02/13/17 20:45 02/13/17 23:40 02/14/17 05:52 02/14/17 06:27 Range/Units Bedside Glucose 178 101 70-99 mg/dl Influenza Type A (RT-PCR) Neg for Influ A NEG Influenza Type B (RT-PCR) Neg for Influ B NEG White Blood Count 14.62 4.8-10.8 K/uL Red Blood Count 2.59 4.7-6.1 M/uL Hemoglobin 9.6 14.0-18.0 g/dL Hematocrit 28.0 42-52 % Mean Corpuscular Volume 108.1 80-100 fL Mean Corpuscular Hemoglobin 37.1 25-34 pg Mean Corpuscular Hemoglobin Concent 34.3 32-36 g/dl Platelet Count 105 130-400 K/uL Mean Platelet Volume 11.4 7.4-10.4 fL RDW Standard Deviation 67.3 36.4-46.3 fL RDW Coefficient of Variation 17.2 11.5-14.5 % Neutrophils % (Manual) 89.6 % Lymphocytes % (Manual) 6.1 % Monocytes % (Manual) 4.3 % Neutrophils # (Manual) 13.10 1.4-6.5 K/uL Total Absolute Neutrophils 13.10 1.4-6.5 K/uL Lymphocytes # (Manual) 0.89 1.2-3.4 K/uL Total Absolute Lymphocytes 0.89 1.2-3.4 K/uL Monocytes # (Manual) 0.63 0.11-0.59 K/uL Hyposegmented Neutrophils 1+ Dohle Bodies 1+ Sodium Level 138 136-145 mmol/L Potassium Level 3.6 3.5-5.1 mmol/L Chloride Level 107 98-107 mmol/L Carbon Dioxide Level 25 21-32 mmol/L Anion Gap 6.0 3-11 mmol/L Blood Urea Nitrogen 13 7-18 mg/dl Creatinine 1.10 0.60-1.40 mg/dl Est Creatinine Clear Calc Drug Dose 60.3 ml/min Estimated GFR () 78.4 Estimated GFR (Non- 67.7 BUN/Creatinine Ratio 11.8 10-20 Random Glucose 106 70-99 mg/dl Estimated Average Glucose 120 mg/dl Hemoglobin A1c 5.8 4.5-5.6 % Calcium Level 7.8 8.5-10.1 mg/dl Magnesium Level 2.6 1.8-2.4 mg/dl Test 02/14/17 10:52 02/14/17 16:29 Range/Units Bedside Glucose 148 116 70-99 mg/dl Microbiology Results 02/13/17 C.difficile Toxin B Gene (PCR) - Final, Complete No C. difficile toxin B gene detected 02/13/17 WBC Smear - Final, Resulted 02/13/17 Shiga Toxin Test - Preliminary, Resulted 02/13/17 Stool Culture - Preliminary, Resulted NO SALMONELLA ISOLATED TO DATE,...
[2017-02-14] MEDS ORDERED: SODIUM CHLORIDE 0.9% 1000ML 1,000 ML IV SCH (19:00)
--- NOTE | 2017-02-14 21:53 | DIAGNOSTIC IMAGING REPORT ---
CT OF THE ABDOMEN AND PELVIS WITH ORAL CONTRAST CT DOSE: 427.12 mGy.cm CLINICAL HISTORY: Sepsis. Fever and diarrhea. TECHNIQUE: Axial images of the abdomen and pelvis were obtained without IV contrast. Oral contrast was administered. COMPARISON STUDY: CT of the abdomen and pelvis December 15, 2008 and right upper quadrant ultrasound July 01, 2012. FINDINGS: Imaged portions of the lower chest partially visualize a left lower lobe nodular airspace opacity which measures at least 1.3 cm. Hyperdense material along the pericardium is noted. There is fatty infiltration of the liver. A 1.9 cm left adrenal nodule is unchanged. This represents an adenoma. Unenhanced images of the right adrenal gland and pancreas are normal as is the left kidney. There are calcifications within the right kidney. There is multifocal scarring of the right kidney. There is no hydronephrosis. No pneumatosis, free air or portal venous gas is present. There is moderate atherosclerotic plaque of the abdominal aorta and branch vessels. There is moderate wall thickening of the ascending colon as well as the proximal to mid transverse colon. There is mild wall thickening of the remainder of the colon. The appendix is mildly dilated, measuring 8 mm in caliber. However, there is no periappendiceal infiltration. There is no evidence for acute appendicitis. No lymphadenopathy is present. IMPRESSION: 1. Moderate wall thickening of the ascending colon and transverse colon with mild wall thickening of the remainder of the colon. The findings reflect a nonspecific colitis. 2. Mild appendiceal dilatation. No periappendiceal infiltration. No evidence of acute appendicitis. 3. Partially visualized left lower lobe nodular opacity. This could reflect an area of pneumonia. However, a follow-up chest CT in one month is recommended to exclude a nodule. Electronically signed by: Maninder Meyer M.D. 02/14/2017 9:50 PM Dictated Date/Time: 02/14/2017 9:40 PM
[2017-02-15 04:00] VITALS: BP 103/59; PULSE 67; TEMP 37; O2SAT 97
[2017-02-15] MEDS: INSULIN ASPART 100 UNITS/ML 3 ML PEN SC SCH ×2 (07:00→11:00)
[2017-02-15 07:27] VITALS: BP 103/64; PULSE 69; TEMP 37.4; O2SAT 96
[2017-02-15] MEDS: LACTOBACILLUS ACIDOPHILUS (FLORANEX) TAB PO SCH ×2 (08:08→11:49)
[2017-02-15] MEDS: MULTIVITAMIN TAB PO SCH (08:09)
[2017-02-15] MEDS: GABAPENTIN 100 MG CAP PO SCH (08:09)
[2017-02-15] MEDS: PANTOprazole SOD 40 MG TAB PO SCH (08:09)
[2017-02-15] MEDS: BUDESONIDE/FORMOTEROL FUMARATE 160/4.5 60 PUFFS/INHALER INH SCH (08:09)
[2017-02-15] MEDS: ATORVASTATIN 40 MG TAB PO SCH (08:10)
[2017-02-15] MEDS: CHOLECALCIFEROL 1000 INTER.UNIT TAB PO SCH (08:10)
[2017-02-15] MEDS: NICOTINE 21 MG/24 HR TDSY TD SCH (08:10)
[2017-02-15] MEDS ORDERED: AZITHROMYCIN 250 MG TAB PO SCH ×3 (09:00→11:45)
[2017-02-15 09:45] LABS: HEMATOCRIT 27.4 % (42-52); MEAN CELL VOLUME 109.2 fL (80-100); MEAN CORPUSCULAR HEMOGLOBIN 37.1 pg (25-34); MEAN CORPUSCULAR HGB CONC 33.9 g/dl (32-36); MEAN PLATELET VOLUME 11.4 fL (7.4-10.4); PLATELET COUNT 107 K/uL (130-400); RED BLOOD COUNT 2.51 M/uL (4.7-6.1); WHITE BLOOD COUNT 4.18 K/uL (4.8-10.8)
[2017-02-15 09:55] VITALS: BP 132/76; PULSE 75; O2SAT 96
[2017-02-15 11:12] VITALS: BP 132/76; PULSE 75; TEMP 37.4; O2SAT 96
[2017-02-15] MEDS ORDERED: NURSING VERBAL MED ORDER ONE (11:15)
[2017-02-15] MEDS ORDERED: AZIT500T PO (11:40)
[2017-02-15] MEDS ORDERED: LCTX PO (11:40)
--- NOTE | 2017-02-15 12:55 | Discharge Summary ---
Discharge Summary Date of Service Feb 15, 2017. Discharge Summary Admission Date: Feb 13, 2017 at 16:27 Discharge Date: Feb 15, 2017 Discharge Disposition: Home Principal Diagnosis: SEPSIS /CAMPYLOBACTER JEJUNI GASTROENTERITIS Procedures: CT ABDOMEN /PELVIS WITH PO CONTRAST : IMPRESSION: 1. Moderate wall thickening of the ascending colon and transverse colon with mild wall thickening of the remainder of the colon. The findings reflect a nonspecific colitis. 2. Mild appendiceal dilatation. No periappendiceal infiltration. No evidence of acute appendicitis. 3. Partially visualized left lower lobe nodular opacity. This could reflect an area of pneumonia. However, a follow-up chest CT in one month is recommended to exclude a nodule. Consultations: ID DR CARRASCO Pending Studies/Follow-Up: HOSPITAL FOLLOW UP WITH DR ZAVALETA , OFFICE WILL CALL WITH APPOINTMENT CONTINUE TO DRINK PLENTY OF FLUID -SPORTS DRINK -GATORADE IS BETTER -HAS ELECTROLYTE SUPPLEMENTS TAKE LACTOBACILLUS ( OVER THE COUNTER ) FOR 1 WEEK OR TILL DIARRHEA IS BETTER PLEASE AVOID MILK /DAIRY PRODUCTS FOR AT LEAST 1 WEEK OR TILL YOUR DIARRHEA GETS BETTER AVOID TAKING IMODIUM -WITH INFECTION IN STOOL PLEASE NOTIFY YOUR FAMILY PHYSICIAN IF YOUR ARE DEVELOPING FEVER , CHILL , WORSENING OF ABDOMINAL PAIN , NAUSEA , ONGOING DIARRHEA WITH BLOOD IN STOOL CAN FOLLOW BRAT DIET ( BREAD/RICE /APPLE SAUCE /TEA ) BLAND DIET FOR 2-3 DAYS TILL DIARRHEA GETS BETTER Medication Reconciliation New Medications: Azithromycin (Zithromax) 500 Mg Tab 1 TAB PO DAILY for 3 Days, #3 TAB Lactobacillus Acidophilus (Lactinex) Tab 1 TAB PO TIDM for 7 Days, TAB OVER THE COUNTER Continued Medications: Albuterol Sulfate (Proventil Hfa) 108 Mcg/Act Aer 2 PUFFS INH Q4 Aspirin (Aspirin Ec) 81 Mg Tab 81 MG PO DAILY Atorvastatin (Lipitor) 80 Mg Tab 80 MG PO DAILY, TAB Budesonide/Formoterol Fumarate (Symbicort 160/4.5 Inhaler ) Aero 2 PUFFS INH BID, INHALER Cholecalciferol (Vitamin D3) 1,000 Unit Tab 1000 UNITS PO DAILY Fexofenadine Hcl (Joi) 180 Mg Tab 180 MG PO DAILY PRN for Itching, TAB Furosemide (Lasix) 40 Mg Tab 40 MG PO DAILY, TAB Gabapentin (Neurontin) 100 Mg Cap 200 MG PO BID, CAP Metformin Hcl (Glucophage *) 500 Mg Tab 500 MG PO BID, 0 Refills Multiple Vitamin (Multivitamin) 1 Tab Tab 1 TAB PO DAILY for 90 Days, #90 TAB 3 Refills Nitroglycerin (Nitrostat) 0.4 Mg Tab 0.4 MG UT PRN, BTL NEEDED FOR CHEST PAIN - ONE TABLET UNDER THE TONGUE EVERY 5 MINUTES UP TO THREE DOSES. Pantoprazole Sodium (Protonix) 40 Mg Tab 40 MG PO DAILY, TAB Tramadol (Ultram) 50 Mg Tab 50 MG PO Q6 PRN for Pain, TAB Admission Information HPI (per Admitting provider): This is a 71 year old male with PMH of CAD s/p CABG and stent, ? chronic systolic CHF, EF 55-60% on echo 06/2013, COPD, HTN, PAD, DM 2, and other problems listed below who was sent to the ED for fever. Patient reports illness for 3 days with generalized weakness, ambulatory dysfunction, fever up to 103F, chills, diffuse myalgias, increased SANCHEZ from baseline, decreased PO intake. 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 Had central chest pain which over past few days, but not today. No exacerbating factors including exertion or deep inspiration. States had similar pain in the past. Denies increase in occasional baseline cough. No sputum production. Patient was seen by Phuong Bermudez PA-C in clinic today, noted to have fever 103.4, HR 100s, and was sent to the ER. Pt denies nasal congestion, sore throat, swallowing difficulty, palpitations, abdominal pain, N/V, GI bleeding, dysuria, frequency, calf pain, edema, wounds, abnormal bleeding, falls. No significant weight loss noted in Epic trend. Pt was recently treated for complicated bronchitis by Dr. Gordon in mid- December with course of Augmentin and prednisone. Lisinopril and carvedilol were held at that time due to hypotension (80/50). Patient was feeling back to baseline until 3 days ago. No sick contact or recent hospitalization. Physical Exam (per Admitting): General Appearance: WD/WN, no apparent distress, + pertinent finding (alert 71 year old male, appears acutely ill but not in distress, at bedside) Head: normocephalic, atraumatic Eyes: normal inspection, PERRL, EOMI ENT: hearing grossly normal, TMs normal, pharynx normal Neck: supple, no JVD, trachea midline Respiratory/Chest: no respiratory distress, no accessory muscle use, + wheezing (trace scattered wheezes) Cardiovascular: no murmur, + tachycardia (regular, rate 100's) Abdomen/GI: normal bowel sounds, non tender, soft Extremities/Musculoskelatal: no calf tenderness, normal capillary refill, no pedal edema Neurologic/Psych: alert, normal mood/affect, oriented x 3, + pertinent finding (strength 5/5 all extremities) Skin: normal color, warm/dry, + pertinent finding (small healing scab on RUE ) Hospital Course SEPSIS resolved Presents with fever 38.2, leukocytosis (WBC 21.6), tachycardia; lactic acid WNL , no hypotension improved since admission afebrile , Leukocytosis resolved 21 -> 14 K -> 4 K possible GI source stool C diff negative, stool culture positive for Campylobacter pt presented with typical picture of sever gastroenteritis , diarrhea, lower abdominal pain , weakness .fever and chills on Zithromax which will provide adequate coverage for Campylobacter appreciate input form ID CT abdomen /pelvis shows -colonic wall thickening -suggestive of non specific colitis symptomatically improved, no fever , abdominal pain or nausea Diarrhea has improved had 2 soft bowel movement earlier this AM no blood is stool pt will be discharged with PO Zithromax ( concern for increased quinolone resistance-Ciprofloxacin/Levaquin avoided ) out pt follow up with Family physician pt is asked to continue to take Lactobacillus HYPOKALEMIA/ HYPOMAGNESEMIA corrected From poor PO intake and diarrhea MACROCYTIC ANEMIA Hg 10.3; was 10.5 in 12/18/16; prior to that ran 11's-13's since 2011 B12, iron studies, peripheral smear-wnl Monitor CBC added Fe supplement will need out pt colonoscopy CAD S/P CABG, STENT Stable; continue aspirin, statin DARRIUS-I and BB stopped 1 month ago due to hypotension DM 2 HB a1C 5.8 Hold metformin during hospitalization will be resumed on discharged Insulin sliding scale coverage COPD Not in acute exacerbation Continue home inhaler GERD Continue PPI TOBACCO ABUSE Counselled for smoking cessation Nicotine patch ordered DVT PROPHYLAXIS scd and teds ambulate hold Sub q Heparin for mild thrombocytopenia CODE STATUS Full code DISPOSITION Discharge home TODAY Total time spent on discharge = 3O MINS This includes examination of the patient, discharge planning, medication reconciliation, and communication with other providers. Discharge Instructions Discharge Instructions Date of Service Feb 14, 2017. Admission Reason for Admission: Fever, Sepsis Discharge Discharge Diagnosis / Problem: SEPSIS /CAMPYLOBACTER JEJUNI GASTROENTERITIS Discharge Goals Goal(s): Improve function, Improve disease control, Diagnostic testing, Therapeutic intervention Activity Recommendations Activity Limitations: resume your previous activity . Instructions / Follow-Up Instructions / Follow-Up HOSPITAL FOLLOW UP WITH DR ZAVALETA , OFFICE WILL CALL WITH APPOINTMENT CONTINUE TO DRINK PLENTY OF FLUID -SPORTS DRINK -GATORADE IS BETTER -HAS ELECTROLYTE SUPPLEMENTS TAKE LACTOBACILLUS ( OVER THE COUNTER ) FOR 1 WEEK OR TILL DIARRHEA IS BETTER PLEASE AVOID MILK /DAIRY PRODUCTS FOR AT LEAST 1 WEEK OR TILL YOUR DIARRHEA GETS BETTER AVOID TAKING IMODIUM -WITH INFECTION IN STOOL PLEASE NOTIFY YOUR FAMILY PHYSICIAN IF YOUR ARE DEVELOPING FEVER , CHILL , WORSENING OF ABDOMINAL PAIN , NAUSEA , ONGOING DIARRHEA WITH BLOOD IN STOOL CAN FOLLOW BRAT DIET ( BREAD/RICE /APPLE SAUCE /TEA ) BLAND DIET FOR 2-3 DAYS TILL DIARRHEA GETS BETTER Current Hospital Diet Patient's current hospital diet: AHA Diet Discharge Diet Recommended Diet: AHA Diet (Heart Healthy), Low Lactose Diet Pending Studies Studies pending at discharge: no Laboratory Results Hemoglobin A1c Test 02/14/17 05:52 Range/Units Estimated Average Glucose 120 mg/dl Hemoglobin A1c 5.8 H 4.5-5.6 % Medical Emergencies . Who to Call and When: Medical Emergencies: If at any time you feel your situation is an emergency, please call 911 immediately. . Non-Emergent Contact Non-Emergency issues call your: Primary Care Provider . . "Provider Documentation" section prepared by Ifeoma Lott. VTE Core Measure Inpt VTE Proph given/why not?: Unfractionated heparin SQ Additional Copies To Abdoul Gordon M.D. Patterson, Jennifer., D.O.
[2017-02-18 18:37] LABS: UFH HIGH DOSE 100 IU/ML 0 % Release; UFH SEROTONIN RELEASING ASSAY Negative (Negative)
[2017-08-03] MEDS ORDERED: ONDA8TAB62 SL (14:01)
[2017-08-03] MEDS ORDERED: AMOX875T PO (14:01)
== END 2017-02-15 12:22 | disposition home or self-care (01) | DRG 872 ==
LOC: ENRESERVTM → ENRESERVDT → C.EDB 12:53 → C.2T 16:27
PROVIDERS: ADMIT Hospitalist; ATTEND Hospitalist
DX: A41.9 Sepsis, unspecified organism (principal); I50.22 Chronic systolic (congestive) heart failure; E83.42 Hypomagnesemia; E87.6 Hypokalemia; D53.9 Nutritional anemia, unspecified; I25.10 Atherosclerotic heart disease of native coronary artery without angina pectoris; J44.9 Chronic obstructive pulmonary disease, unspecified; E11.9 Type 2 diabetes mellitus without complications; K21.9 Gastro-esophageal reflux disease without esophagitis; E78.5 Hyperlipidemia, unspecified; I10 Essential (primary) hypertension; D72.829 Elevated white blood cell count, unspecified; F17.200 Nicotine dependence, unspecified, uncomplicated; Z79.82 Long term (current) use of aspirin; Z95.1 Presence of aortocoronary bypass graft

== ENCOUNTER → 2017-07-17 | Outpatient (CLI) | payer OTHER, MEDICARE ==
[~2017-07-17] MED LIST changes: -ADVIN25050; -ALBU1AER9; +ALBUAER INH; +AMOX875T PO; +ASPI81TA28 PO; +ATOR-26 PO; +AZIT500T PO; -BAYER ASPIRIN PO; -CARV3.122 PO; -CENTRU2 PO; +FEXO1TAB46 PO; +FURO40TA3 PO; +MULTTAB58 PO; +ONDA8TAB62 SL; -PLV75 PO; -ROSU40TA PO; +SYMIN160 INH; +TRAM-10 PO
[2017-07-17 17:10] LABS: BLOOD UREA NITROGEN 25 mg/dl (7-18)
== END | disposition home or self-care (01) ==
LOC: C.LABPBG 11:24
PROVIDERS: ATTEND Surgery Vascular Surgery
DX: I70.213 Atherosclerosis of native arteries of extremities with intermittent claudication, bilateral legs (principal); I65.23 Occlusion and stenosis of bilateral carotid arteries; I77.1 Stricture of artery

== ENCOUNTER → 2017-07-21 | Outpatient (CLI) | payer OTHER, MEDICARE ==
[~2017-07-21] MED LIST changes: +OPTIRAY 320 IV PRN
--- NOTE | 2017-07-21 13:48 | DIAGNOSTIC IMAGING REPORT ---
CT ANGIO AA NEIL LE RUNOFF CT DOSE: 2080.46 mGy.cm CLINICAL HISTORY: Bilateral claudication TECHNIQUE: CT angiography was performed of the abdominal aorta and lower extremities in a dynamic helical fashion during intravenous administration 118 cc of Optiray 320. MIP imaging was performed. A dose lowering technique was utilized adhering to the principles of ALARA. COMPARISON STUDY: None. FINDINGS: The visualized portions the lung bases are unremarkable. No hepatic masses are visualized the central phase study. No splenic masses are visualized. No gallbladder abnormalities are visualized. No pancreatic lesions are visualized. There are multiple nonobstructing right renal calculi. No solid renal masses are visualized this arterial phase study. There is a 19 mm left adrenal adenoma. The prostate is enlarged. There are no transition zones indicate bowel obstruction. There is no evidence of pathologic adenopathy. 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 There is a 25% diameter narrowing of the proximal superior mesenteric artery. There is dense calcific plaque at the arch in the right renal artery, but a unilaterally significant stenosis is not identified. There is no evidence of left renal artery stenosis. There are advanced atheromatous changes present within the abdominal aorta, with multifocal ulcerated plaques. There is mild to moderate atheromatous disease within the right common and external iliac artery, without evidence of a healed internally significant stenosis. There is moderate atheromatous disease within the common femoral artery on the right. There is a 70% diameter stenosis of the proximal right superficial femoral artery. There is moderate diffuse atheromatous disease within the superficial femoral artery with multifocal moderate stenoses. There is moderate atheromatous disease within the popliteal with a estimated 80% stenotic lesion. There is multifocal atheromatous change within the runoff vessels which can be followed down to the distal calf region. The posterior tibial artery can be followed to the ankle. On the left, there is an ulcerated plaque within the common iliac artery. There is moderate multifocal atheromatous disease. There is no hidden avidly significant stenosis within the left common or external iliac artery. There is a 40% diameter narrowing of the left common femoral artery. There is moderate multifocal disease within the left superficial femoral artery with a 90% mid to distal narrowing. There are multifocal atheromatous changes in the popliteal with several 50% stenotic lesions. There is multifocal atheromatous disease within the left calf runoff vessels, which can be followed to the level the ankle. IMPRESSION: 1. 8% diameter stenosis of celiac artery 2. Advanced atheromatous changes within the abdominal aorta with multifocal ulcerated plaques 3. Moderately extensive bilateral runoff disease with multifocal superficial femoral artery stenoses bilaterally, bilateral popliteal stenoses, and multifocal atheromatous disease within the runoff vessels bilaterally Electronically signed by: Vamshi Gar M.D. 07/21/2017 1:47 PM Dictated Date/Time: 07/21/2017 1:33 PM
== END | disposition home or self-care (01) ==
LOC: C.CTS 10:56
PROVIDERS: ATTEND Physician Assistant
DX: I70.213 Atherosclerosis of native arteries of extremities with intermittent claudication, bilateral legs (principal); I65.23 Occlusion and stenosis of bilateral carotid arteries; I77.1 Stricture of artery

== ENCOUNTER 2017-07-30 14:41 | Inpatient (IN) | payer OTHER, MEDICARE ==
[~2017-07-30] VITALS: Ht 162.6 cm; Wt 77.1 kg
[~2017-07-30 14:41] MED LIST changes: -AMOX875T PO; -ONDA8TAB62 SL; -OPTIRAY 320 IV PRN
[2017-07-30] MEDS ORDERED: ALBUT/IPRATROP 3MG/0.5MG NEB 3 ML VIAL INH STA (15:16)
[2017-07-30] MEDS ORDERED: SODIUM CHLORIDE 0.9% 500ML 500 ML IV STA (15:16)
--- NOTE | 2017-07-30 15:18 | EMERGENCY ROOM VISIT NOTE ---
History Report prepared by Idalmis: Merlene Abebe Under the Supervision of: Dr. Zaire Ross M.D. First contact with patient: 15:00 Chief Complaint: ILLNESS Stated Complaint: FEVER, LOW BP, LOW SUGAR, DIZZY History of Present Illness The patient is a 71 year old male who presents to the Emergency Room with complaints of weakness beginning 1 week ago. The patient has also had fevers, vomiting, a cough, dizziness, and low glucose levels. The patient also reports having a loss of appetite, and states that he becomes nauseous when he does eat. He denies having diarrhea, abdominal pain, or any urinary symptoms. The patient states that he was diagnosed with lung cancer in May, and that he has had had 5 radiation treatments, the last of which was June 30. He denies any surgeries for his lung cancer or any chemotherapy. He reports that his oncologist is Dr. Orozco and his radiologist is Dr. Galvez at [facility]. Per his niece, the patient has had double bypass surgery. The patient states that he is on a water pill, but does not believe that he is on any blood thinners. Source of History: patient, family (niece) Onset: 1 week ago Position: other (global) Quality: other (weakness ) Associated Symptoms: + fevers, + cough, + nausea, + vomiting, No abdominal pain, No diarrhea, No urinary symptoms Note: additional symptoms: dizziness and low glucose Review of Systems See HPI for pertinent positives and negatives. A total of ten systems were reviewed and were otherwise negative. Past Medical & Surgical Medical Problems: (1) ACEI/ARB contraindicated (2) CAD (coronary artery disease) (3) Calculus Of Kidney (4) Carotid Artery Occlusion W O Cerebral Infarction (5) Carotid stenosis (6) Chr Airway Obstruct Nec (7) Chronic systolic CHF (congestive heart failure) (8) COPD (chronic obstructive pulmonary disease) (9) Coron Atheroscler Nos Type Vessel, [place] Or Graft (10) Diab Sofie Wo Compl, Type Ii Or Unspec Type, Not Uncntrld (11) Diverticulosis Colon (W/O Ment Of Hemorrhage) (12) DM type 2 (diabetes mellitus, type 2) (13) Dyslipidemia (14) Esophageal Reflux (15) Fever (16) GERD (gastroesophageal reflux disease) (17) HCAP (healthcare-associated pneumonia) (18) HTN (hypertension) (19) Hyperlipidemia Nec/Nos (20) Hypertension Nos (21) Lung cancer (22) PAD (peripheral artery disease) (23) Renal Artery Aneurysm (24) Sepsis (25) Subclavian artery stenosis, right (26) Tobacco abuse Surgical Problems: (1) Aortocoronary Bypass (2) H/O maze procedure (3) History of left-sided carotid endarterectomy (4) Hx of CABG (5) Percutaneous Translum Coron Angioplasty Status (6) S/P coronary artery stent placement (7) S/p lumbar spinal surgery (8) Status post femoral-popliteal bypass surgery Family History FH: CAD (coronary artery disease) FATHER FH: cancer MOTHER Social History Smoking Status: Current Every Day Smoker Drug Use: none Marital Status: Housing Status: lives with significant other Occupation Status: retired Current/Historical Medications Scheduled Albuterol Sulfate (Proventil Hfa), 2 PUFFS INH Q4 Aspirin (Aspirin Ec), 81 MG PO DAILY Atorvastatin (Lipitor), 40 MG PO BID Budesonide/Formoterol Fumarate (Symbicort 160/4.5 Inhaler ), 2 PUFFS INH BID Cholecalciferol (Vitamin D3), 1,000 UNITS PO DAILY Furosemide (Lasix), 40 MG PO DAILY Gabapentin (Neurontin), 200 MG PO BID Multiple Vitamin (Multivitamin), 1 TAB PO DAILY Nitroglycerin (Nitrostat), 0.4 MG UT PRN Pantoprazole Sodium (Protonix), 40 MG PO DAILY Scheduled PRN Fexofenadine Hcl (Joi), 180 MG PO DAILY PRN for Itching Tramadol (Ultram), 50 MG PO Q6 PRN for Pain Allergies Coded Allergies: No Known Allergies (Verified , 07/30/17) Physical Exam Vital Signs Date Time Temp Pulse Resp B/P (MAP) Pulse Ox O2 Delivery O2 Flow Rate FiO2 07/30/17 21:14 85 07/30/17 20:07 80 18 87/54 93 07/30/17 18:15 85 18 109/43 91 Room Air 07/30/17 16:31 82/45 07/30/17 16:31 76/52 07/30/17 16:23 90 20 65/45 94 Room Air 07/30/17 15:56 83 17 76/47 92 Room Air 07/30/17 15:52 92 Room Air 07/30/17 15:49 96 9/28/17 15:47 92 Room Air 07/30/17 14:44 37.1 58 24 84/54 94 Room Air Physical Exam GENERAL: Awake, alert, well-appearing, in no distress HENT: Normocephalic, atraumatic. Oropharynx unremarkable. Dry mucous membranes. EYES: Normal conjunctiva. Sclera non-icteric. NECK: Supple. No nuchal rigidity. FROM. No JVD. RESPIRATORY: Diminished at bases and scattered wheezes. CARDIAC: Regular rate and rhythm, 2/6 systolic murmur. Extremities warm and well perfused. Pulses equal. ABDOMEN: Soft, non-distended. No tenderness to palpation. No rebound or guarding. No masses. RECTAL: Deferred. MUSCULOSKELETAL: Chest examination reveals no tenderness. The back is symmetrical on inspection without obvious abnormality. There is no CVA tenderness to palpation. No joint edema. LOWER EXTREMITIES: Calves are equal size bilaterally and non-tender. No edema. No discoloration. NEURO: Normal sensorium. No sensory or motor deficits noted. SKIN: Slight jaundice to skin. No rash noted. Medical Decision & Procedures ER Provider Diagnostic Interpretation: X-ray: Per my interpretation, radiologist review. CHEST ONE VIEW PORTABLE CLINICAL HISTORY: 71 years-old Male presenting with CHEST PAIN. TECHNIQUE: Portable upright AP view of the chest was obtained. COMPARISON: 02/13/2017. FINDINGS: Cardiomediastinal silhouette normal. Left mid and lower lung hazy and reticular opacities stable to slightly increased in prominence since the prior exam. Right lung essentially clear. No pleural effusion or pneumothorax. Degenerative changes of the thoracic spine. Upper abdomen normal. IMPRESSION: 1. Stable to slight interval decrease in left mid and lower lung hazy and reticular opacities, which suggest underlying chronic lung disease. Electronically signed by: Clifford Wiseman M.D. 07/30/2017 3:38 PM Dictated Date/Time: 07/30/2017 3:37 PM BEDSIDE US: Completely collapsed LVC. Mildly dilated RV and LV, but grossly preserved function. No overt signs of heart strain. Radiology results as stated below per my review and radiologist interpretation: (CHEST FOR PE) ANGIO WITH CT DOSE: 1132.96 mGycm HISTORY: Chest pain dyspnea TECHNIQUE: Multiaxial CT images of the chest were performed following the intravenous administration of contrast to evaluate the pulmonary arteries. Maximal intensity projection images were also obtained. A dose lowering technique was utilized adhering to the principles of ALARA. COMPARISON STUDY: None. FINDINGS: Thoracic aorta is normal in course and caliber. Mild left ischemic change thoracic aorta with no evidence for aneurysm or dissection. Baseline emphysematous changes present. Pulmonary vasculature enhances appropriately. There are no significant filling defects. There is a diffuse infiltrative process throughout the left mid to lower lung. There is a focus of consolidation medial aspect left lower lobe measuring 3.5 x 3.0 cm. There is a trace amount pleural fluid left lung base. Mild peribronchial prominence is noted bilaterally. Moderate mediastinal adenopathy is noted. Precarinal nodes measuring up to 9 mm are present. Several subcarinal nodes measuring to 1 cm present. Several periaortic as well as aortopulmonary window nodes are also present. Pulmonary apices show mild emphysematous and interstitial change. No focal infiltrative changes. Minimal 3 mm nodularity posterior aspect superior segment right lower lobe are present. Limited evaluation of the upper abdomen shows a 2.3 cm left adrenal nodule. The right adrenal is unremarkable. IMPRESSION: 1. Study is negative for pulmonary embolus. 2. Emphysematous change with mild interstitial and peribronchial prominence throughout both hemithoraces. 3. Diffuse left mid to lower lung infiltrate with evidence for a 3.5 cm consolidative focus medial left lower lobe. 4. This should be closely monitored to exclude any possibility of underlying neoplastic process. 5. Trace pleural fluid left lung base. 6. Moderate mediastinal adenopathy 7. Left adrenal nodule. The above report was generated using voice recognition software. It may contain grammatical, syntax or spelling errors. Electronically signed by: Shawn Gold M.D. 07/30/2017 6:01 PM Dictated Date/Time: 07/30/2017 5:43 PM ABDOMEN AND PELVIS CT WITH IV CONTRAST CT DOSE: HISTORY: sob, hypoglycemia r/o metastases. TECHNIQUE: Multiaxial CT images of the abdomen and pelvis were performed following the use of intravenous contrast. A dose lowering technique was utilized adhering to the principles of ALARA. COMPARISON STUDY: CTA abdomen and pelvis 07/21/2017. FINDINGS: Emphysema at the lung bases. Progressive left lower lobe airspace opacity which are partially visualized on this study. Trace left pleural effusion. This is better appreciated on the same day chest CTA. No pneumoperitoneum. No pneumatosis. Posterior decompression fusion at L4-L5 with pedicle screws and rods. Small amount of pericardial calcifications. This remains unchanged. Small hiatus hernia. The liver, spleen, right adrenal gland, and pancreas are unremarkable. Stable 1.9 cm left adrenal gland nodule. Moderate atrophy plaque within the abdominal aorta. 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 No retroperitoneal lymphadenopathy. Normal bladder. Colonic diverticulosis. No bowel wall thickening or obstruction. Normal appendix. Multiple right renal punctate calcifications, unchanged. The majority of these appear to be cortical calcifications. A few may represent renal stones. No ureteral stones. Mild fullness within the bilateral ureters is not significantly changed. IMPRESSION: 1. Progressive airspace opacities and a trace left pleural effusion within the left lung base. This is only partially imaged on this study. This is better appreciated on the same day chest CTA. 2. No bowel wall thickening or obstruction. 3. Normal appendix. 4. Colonic diverticulosis. 5. Stable right renal calculi. No hydronephrosis. 6. Stable left adrenal gland nodule. Electronically signed by: Colby Yeboah M.D. 07/30/2017 6:17 PM Dictated Date/Time: 07/30/2017 6:02 PM Laboratory Results 07/30/17 15:20 Red Blood Count 2.26, Mean Corpuscular Volume 107.5, Mean Corpuscular Hemoglobin 35.0, Mean Corpuscular Hemoglobin Concent 32.5, Mean Platelet Volume 9.8, Neutrophils (%) (Auto) 66.1, Lymphocytes (%) (Auto) 19.1, Monocytes (%) ( Auto) 8.7, Eosinophils (%) (Auto) 5.4, Basophils (%) (Auto) 0.0, Neutrophils # ( Auto) 1.97, Lymphocytes # (Auto) 0.57, Monocytes # (Auto) 0.26, Eosinophils # ( Auto) 0.16, Basophils # (Auto) 0.00 07/30/17 20:30 07/30/17 15:20 Test 07/30/17 15:20 07/30/17 15:26 07/30/17 17:35 07/30/17 19:30 White Blood Count 2.98 K/uL (4.8-10.8) Red Blood Count 2.26 M/uL (4.7-6.1) Hemoglobin 7.9 g/dL (14.0-18.0) Hematocrit 24.3 % (42-52) Mean Corpuscular Volume 107.5 fL (80-100) Mean Corpuscular Hemoglobin 35.0 pg (25-34) Mean Corpuscular Hemoglobin Concent 32.5 g/dl (32-36) Platelet Count 184 K/uL (130-400) Mean Platelet Volume 9.8 fL (7.4-10.4) Neutrophils (%) (Auto) 66.1 % Lymphocytes (%) (Auto) 19.1 % Monocytes (%) (Auto) 8.7 % Eosinophils (%) (Auto) 5.4 % Basophils (%) (Auto) 0.0 % Neutrophils # (Auto) 1.97 K/uL (1.4-6.5) Lymphocytes # (Auto) 0.57 K/uL (1.2-3.4) Monocytes # (Auto) 0.26 K/uL (0.11-0.59) Eosinophils # (Auto) 0.16 K/uL (0-0.5) Basophils # (Auto) 0.00 K/uL (0-0.2) RDW Standard Deviation 61.8 fL (36.4-46.3) RDW Coefficient of Variation 15.9 % (11.5-14.5) Immature Granulocyte % (Auto) 0.7 % Immature Granulocyte # (Auto) 0.02 K/uL (0.00-0.02) Dohle Bodies 1+ Anion Gap 9.0 mmol/L (3-11) Est Creatinine Clear Calc Drug Dose 40.6 ml/min Estimated GFR () 49.9 Estimated GFR (Non- 43.0 BUN/Creatinine Ratio 13.4 (10-20) Calcium Level 8.9 mg/dl (8.5-10.1) Phosphorus Level 2.8 mg/dl (2.5-4.9) Magnesium Level 1.8 mg/dl (1.8-2.4) Total Bilirubin 0.6 mg/dl (0.2-1) Direct Bilirubin 0.2 mg/dl (0-0.2) Aspartate Amino Transf (AST/SGOT) 24 U/L (15-37) Alanine Aminotransferase (ALT/SGPT) 21 U/L (12-78) Alkaline Phosphatase 89 U/L (45-117) Troponin I < 0.015 ng/ml (0-0.045) Pro-B-Type Natriuretic Peptide 521 pg/ml (0-900) Total Protein 8.1 gm/dl (6.4-8.2) Albumin 2.6 gm/dl (3.4-5.0) Lipase 148 U/L (73-393) Thyroid Stimulating Hormone (TSH) 2.720 uIu/ml (0.300-4.500) Activated Partial Thromboplast Time 32.9 SECONDS (21.0-31.0) Partial Thromboplastin Ratio 1.3 Urine Color YELLOW Urine Appearance CLEAR (CLEAR) Urine pH 6.0 (4.5-7.5) Urine Specific [place] 1.010 (1.000-1.030) Urine Protein NEG (NEG) Urine Glucose (UA) NEG (NEG) Urine Ketones NEG (NEG) Urine Occult Blood NEG (NEG) Urine Nitrite NEG (NEG) Urine Bilirubin NEG (NEG) Urine Urobilinogen NEG (NEG) Urine Leukocyte Esterase NEG (NEG) Lactic Acid Level 1.3 mmol/L (0.4-2.0) Laboratory results reviewed by me Medications Administered Medications (Trade) Dose Ordered Sig/Timbo Route Start Time Stop Time Status Last Admin Dose Admin Sodium Chloride 500 ml @ 999 mls/hr Q31M STAT IV 07/30/17 15:16 07/30/17 15:46 DC 07/30/17 15:16 999 MLS/HR Albuterol/ Ipratropium (Duoneb) 3 ml NOW STAT INH 07/30/17 15:16 07/30/17 15:19 DC 07/30/17 15:55 3 ML Sodium Chloride 1,000 ml @ 999 mls/hr Q1H1M STAT IV 07/30/17 16:27 07/30/17 17:27 DC 07/30/17 16:27 999 MLS/HR Sodium Chloride 1,000 ml @ 125 mls/hr Q8H STAT IV 07/30/17 18:57 07/30/17 22:09 DC 07/30/17 18:57 125 MLS/HR Piperacillin Sod/ Tazobactam Sod (Zosyn Iv) 4.5 gm NOW STAT IV 07/30/17 18:57 07/30/17 18:59 DC 07/30/17 19:49 4.5 GM Vancomycin HCl 1500 mg/Sodium Chloride 530 ml @ 200 mls/hr ONE STAT IV 07/30/17 19:03 07/30/17 21:41 DC 07/30/17 20:36 200 MLS/HR ECG Indication: weakness Rate (beats per minute): 80 Rhythm: normal sinus Findings: no acute ischemic change, other (normal axis) ED Course 1503: The patient was evaluated in room C5. A complete history and physical exam was performed. 1516: Ordered Duoneb 3 ml INH, Sodium Chloride 500 ml @ 999 mls/hr IV. 1627: Ordered Sodium Chloride 1,000 ml @ 999 mls/hr IV. 1700: I performed a bedside ultrasound. 1857: Ordered Zosyn Iv 4.5 gm IV, Vancomycin HCl 1.5 mg/Sodium Chloride 500.03ml @ 200 mls/hr IV, Sodium Chloride 1,000 ml @ 125 mls/hr IV. 190: Discussed the patient's case with Es Giraldo PA-C. The patient will be evaluated for further treatment and disposition. 1902: Ordered Vancomycin HCl 1,500 mg/Sodium Chloride 530 ml @ 200 mls/hr IV. 1910: Upon reexamination, the patient was resting. I discussed the test results and treatment plan with him. The patient will be evaluated for further management. Medical Decision I reviewed the patient's past medical history, medications, and the nursing notes as described above. Differentials include: worsening malignancy, pneumonia , bronchitis, pulmonary embolism, CHF, ACS, biliary etiology, pancreatic tumor , and gastroenteritis. The patient is a 71-year-old gentleman with a past medical history of lung cancer who presents emergency Department with fatigue, low blood sugars and worsening shortness of breath per history of present illness. On arrival the patient is uncomfortable but in no acute distress, afebrile, stable vital signs. Labs show mild leukopenia but not neutropenic. Cr at baseline. CT shows Diffuse left mid to lower lung infiltrate with evidence for a 3.5 cm consolidative focus medial left lower lobe concerning for infection vs new/ worse malignancy. Given broad spectrum ABX given comorbidities and leukopenia. Of note patient did developed brief hypotension with SBP 70s however likely somewhat inacurrate 2/2 known PAD. However, bedside US shows collapsed IVC indicated intravascular depletion. Given IVF bolus with good effect. Otherwise, mentating normally and HD stable thereafter. Case d/w Es Giraldo PA-C who will admit the patient to medicine service for further management. Medication Reconcilliation Current Medication List: was personally reviewed by me Blood Pressure Screening Patient's blood pressure: Low blood pressure Consults Time Called: 1849 Consulting Physician: Janes Kingston PA-C Returned Call: [phone] Discussed the patient's case. The patient will be evaluated for further treatment and disposition. Impression Primary Impression: Pneumonia Scribe Attestation The scribe's documentation has been prepared under my direction and personally reviewed by me in its entirety. I confirm that the note above accurately reflects all work, treatment, procedures, and medical decision making performed by me. Departure Information Dispostion Being Evaluated By Hospitalist Referrals Abdoul Gordon M.D. (PCP) Patient Instructions [facility]
[2017-07-30 15:37] LABS: EOS % 5.4 %; HEMATOCRIT 24.3 % (42-52); IG% 0.7 %; LYMPH % 19.1 %; LYMPH ABS # 0.57 K/uL (1.2-3.4); MEAN CELL VOLUME 107.5 fL (80-100); MEAN CORPUSCULAR HGB CONC 32.5 g/dl (32-36); MEAN PLATELET VOLUME 9.8 fL (7.4-10.4); MONO % 8.7 %; NEUT % 66.1 %; PLATELET COUNT 184 K/uL (130-400); RED BLOOD COUNT 2.26 M/uL (4.7-6.1); WHITE BLOOD COUNT 2.98 K/uL (4.8-10.8)
--- NOTE | 2017-07-30 15:39 | DIAGNOSTIC IMAGING REPORT ---
CHEST ONE VIEW PORTABLE CLINICAL HISTORY: 71 years-old Male presenting with CHEST PAIN. TECHNIQUE: Portable upright AP view of the chest was obtained. COMPARISON: 02/13/2017. FINDINGS: Cardiomediastinal silhouette normal. Left mid and lower lung hazy and reticular opacities stable to slightly increased in prominence since the prior exam. Right lung essentially clear. No pleural effusion or pneumothorax. Degenerative changes of the thoracic spine. Upper abdomen normal. IMPRESSION: 1. Stable to slight interval decrease in left mid and lower lung hazy and reticular opacities, which suggest underlying chronic lung disease. Electronically signed by: Clifford Wiseman M.D. 07/30/2017 3:38 PM Dictated Date/Time: 07/30/2017 3:37 PM
[2017-07-30 15:55] LABS: ALT/SGPT 21 U/L (12-78); AST/SGOT 24 U/L (15-37); BLOOD UREA NITROGEN 22 mg/dl (7-18); BUN/CREATININE RATIO 13.4 (10-20); CALCIUM 8.9 mg/dl (8.5-10.1); CARBON DIOXIDE 22 mmol/L (21-32); CHLORIDE 100 mmol/L (98-107); GLUCOSE 82 mg/dl (70-99); MAGNESIUM 1.8 mg/dl (1.8-2.4); POTASSIUM 4.5 mmol/L (3.5-5.1); SODIUM 131 mmol/L (136-145)
[2017-07-30 15:58] LABS: ALKALINE PHOSPHATASE 89 U/L (45-117); PHOSPHORUS 2.8 mg/dl (2.5-4.9)
[2017-07-30 16:11] LABS: COMPLETE YES; DOHLE BODIES 1+
[2017-07-30] MEDS ORDERED: OPTIRAY 320 IV PRN (16:15)
[2017-07-30] MEDS ORDERED: SODIUM CHLORIDE 0.9% 1000ML 1,000 ML IV STA ×2 (16:27→18:57)
[2017-07-30 17:56] LABS: URINE APPEARANCE CLEAR (CLEAR); URINE BILIRUBIN NEG (NEG); URINE COLOR YELLOW; URINE NITRITE NEG (NEG); UROBILINOGEN NEG (NEG); ZZUR CULT IF INDIC CLEAN CATCH NO
[2017-07-30 17:57] LABS: MANUAL MICROSCOPIC REQUIRED? NO; REVIEW REQ? NO
--- NOTE | 2017-07-30 18:02 | DIAGNOSTIC IMAGING REPORT ---
(CHEST FOR PE) ANGIO WITH CT DOSE: 1132.96 mGycm HISTORY: Chest pain dyspnea TECHNIQUE: Multiaxial CT images of the chest were performed following the intravenous administration of contrast to evaluate the pulmonary arteries. Maximal intensity projection images were also obtained. A dose lowering technique was utilized adhering to the principles of ALARA. COMPARISON STUDY: None. FINDINGS: Thoracic aorta is normal in course and caliber. Mild left ischemic change thoracic aorta with no evidence for aneurysm or dissection. Baseline emphysematous changes present. Pulmonary vasculature enhances appropriately. There are no significant filling defects. There is a diffuse infiltrative process throughout the left mid to lower lung. There is a focus of consolidation medial aspect left lower lobe measuring 3.5 x 3.0 cm. There is a trace amount pleural fluid left lung base. Mild peribronchial prominence is noted bilaterally. Moderate mediastinal adenopathy is noted. Precarinal nodes measuring up to 9 mm are present. Several subcarinal nodes measuring to 1 cm present. Several periaortic as well as aortopulmonary window nodes are also present. Pulmonary apices show mild emphysematous and interstitial change. No focal infiltrative changes. Minimal 3 mm nodularity posterior aspect superior segment right lower lobe are present. Limited evaluation of the upper abdomen shows a 2.3 cm left adrenal nodule. The right adrenal is unremarkable. IMPRESSION: 1. Study is negative for pulmonary embolus. 2. Emphysematous change with mild interstitial and peribronchial prominence throughout both hemithoraces. 3. Diffuse left mid to lower lung infiltrate with evidence for a 3.5 cm consolidative focus medial left lower lobe. 4. This should be closely monitored to exclude any possibility of underlying neoplastic process. 5. Trace pleural fluid left lung base. 6. Moderate mediastinal adenopathy 7. Left adrenal nodule. The above report was generated using voice recognition software. It may contain grammatical, syntax or spelling errors. Electronically signed by: Shawn Gold M.D. 07/30/2017 6:01 PM Dictated Date/Time: 07/30/2017 5:43 PM
--- NOTE | 2017-07-30 18:18 | DIAGNOSTIC IMAGING REPORT ---
ABDOMEN AND PELVIS CT WITH IV CONTRAST CT DOSE: HISTORY: sob, hypoglycemia r/o metastases. TECHNIQUE: Multiaxial CT images of the abdomen and pelvis were performed following the use of intravenous contrast. A dose lowering technique was utilized adhering to the principles of ALARA. COMPARISON STUDY: CTA abdomen and pelvis 07/21/2017. FINDINGS: Emphysema at the lung bases. Progressive left lower lobe airspace opacity which are partially visualized on this study. Trace left pleural effusion. This is better appreciated on the same day chest CTA. No pneumoperitoneum. No pneumatosis. Posterior decompression fusion at L4-L5 with pedicle screws and rods. Small amount of pericardial calcifications. This remains unchanged. Small hiatus hernia. The liver, spleen, right adrenal gland, and pancreas are unremarkable. Stable 1.9 cm left adrenal gland nodule. Moderate atrophy plaque within the abdominal aorta. 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 No retroperitoneal lymphadenopathy. Normal bladder. Colonic diverticulosis. No bowel wall thickening or obstruction. Normal appendix. Multiple right renal punctate calcifications, unchanged. The majority of these appear to be cortical calcifications. A few may represent renal stones. No ureteral stones. Mild fullness within the bilateral ureters is not significantly changed. IMPRESSION: 1. Progressive airspace opacities and a trace left pleural effusion within the left lung base. This is only partially imaged on this study. This is better appreciated on the same day chest CTA. 2. No bowel wall thickening or obstruction. 3. Normal appendix. 4. Colonic diverticulosis. 5. Stable right renal calculi. No hydronephrosis. 6. Stable left adrenal gland nodule. Electronically signed by: Colby Yeboah M.D. 07/30/2017 6:17 PM Dictated Date/Time: 07/30/2017 6:02 PM
[2017-07-30] MEDS ORDERED: VANCOMYCIN IV STA (18:57)
[2017-07-30] MEDS ORDERED: PIPERACILLIN/TAZOBACTAM 4.5 GM/100ML D5W IV STA (18:57)
[2017-07-30] MEDS ORDERED: SODIUM CHLORIDE 0.9% IV STA (18:57)
[2017-07-30] MEDS ORDERED: VANCOMYCIN INJ 1,500 MG in SODIUM CHLORIDE 0.9% 500ML 500 ML IV STA (19:03)
[2017-07-30 20:35] LABS: PARTIAL THROMBOPLASTIN RATIO 1.3
[2017-07-30 20:41] LABS: HEMATOCRIT 21.7 % (42-52)
--- NOTE | 2017-07-30 21:15 | DIAGNOSTIC IMAGING REPORT ---
HEAD CT NONCONTRAST CT DOSE: 601.98 mGy.cm HISTORY: Headache. TECHNIQUE: Multiaxial CT images of the head were performed without the use of intravenous contrast. Automated exposure control was utilized for this study. A dose lowering technique was utilized adhering to the principles of ALARA. Comparison: Head CT 06/06/2013. Findings: The paranasal sinuses and mastoid air cells are clear. The calvarium and skull base are intact. The ventricles and sulci are within normal limits. There is no mass, hematoma, midline shift, or acute infarct. Small amount of residual contrast within the brain. This limits evaluation for intracranial hemorrhage. Impression: No definite acute intracranial abnormality. Electronically signed by: Colby Yeboah M.D. 07/30/2017 9:14 PM Dictated Date/Time: 07/30/2017 9:04 PM
[2017-07-30] MEDS ORDERED: TRAMADOL HCL 50 MG TAB PO PRN (22:00)
[2017-07-30] MEDS ORDERED: HYDROmorphone INJ 0.5 MG/0.5 ML SYR IV PRN (22:00)
[2017-07-30] MEDS ORDERED: PROMETHAZINE HCL INJ 12.5 MG in SODIUM CHLORIDE 0.9% 50ML 50 ML IV PRN (22:00)
[2017-07-30] MEDS ORDERED: ALBUT/IPRATROP 3MG/0.5MG NEB 3 ML VIAL INH PRN (22:00)
[2017-07-30] MEDS ORDERED: AMPICILLIN/SULBACTAM CONSULT ACTIVE PRN ×2 (22:15)
[2017-07-30 22:24] VITALS: BP 108/48; PULSE 119; TEMP 39; O2SAT 91; BMI 29.6
[2017-07-30 22:45] VITALS: TEMP 39.4
[2017-07-30] MEDS: ACETAMINOPHEN 325 MG TAB PO PRN (22:45)
[2017-07-30] MEDS ORDERED: SODIUM CHLORIDE 0.9% 500ML 500 ML IV ONE (23:00)
[2017-07-30 23:54] VITALS: TEMP 36.9
[2017-07-31] VITALS (12 sets, daily range): BP systolic 93–110; BP diastolic 41–64; PULSE 77–96; TEMP 36.2–38; O2SAT 91–96; Ht 162.6 cm; Wt 77.1 kg
[2017-07-31] MEDS: AMPICILLIN/SULBACTAM SOD INJ 3,000 MG in SODIUM CHLORIDE 0.9% 100ML 100 ML IV SCH ×4 (00:38→17:24)
[2017-07-31 05:37] LABS: BASO % 0.3 %; BASO ABS # 0.01 K/uL (0-0.2); EOS % 6.2 %; HEMATOCRIT 25.8 % (42-52); IG% 0.3 %; LYMPH % 13.6 %; LYMPH ABS # 0.48 K/uL (1.2-3.4); MEAN CELL VOLUME 105.3 fL (80-100); MEAN CORPUSCULAR HEMOGLOBIN 35.9 pg (25-34); MEAN CORPUSCULAR HGB CONC 34.1 g/dl (32-36); MONO % 6.5 %; NEUT % 73.1 %; PLATELET COUNT 164 K/uL (130-400); RED BLOOD COUNT 2.45 M/uL (4.7-6.1); WHITE BLOOD COUNT 3.54 K/uL (4.8-10.8)
[2017-07-31 06:01] LABS: COMPLETE YES; DOHLE BODIES 1+; POLYCHROMASIA 1+
--- NOTE | 2017-07-31 06:27 | HISTORY & PHYSICAL EXAMINATION ---
DATE OF ADMISSION: 07/30/2017 PRIMARY CARE DOCTOR: Dr. Gordon CHIEF COMPLAINT: Cough, shortness of breath. HISTORY OF PRESENT ILLNESS: History was obtained from the patient's records and family. Medical history is significant for chronic systolic/diastolic heart failure with EF of 55% in 2013. recent diagnosis of non-small cell lung cancer status post radiation, CAD sp CABG, PVD, HTN, COPD, past tobacco abuse, chronic anemia (baseline hemoglobin of 9), prediabetes, Recent confinement was last January 2017 for sepsis secondary to campylobacter jejuni gastroenteritis. One week's history of generalized weakness, fever and vomiting later followed by junky cough, dizziness and poor appetite. No chest pain. some sob. Had some shortness of breath. Denies abdominal pain or diarrhea. Blood pressure is on the lower side. Hypoglycemic at home. Patient also complaining of posterior headache symptoms en route to the hospital. Patient was brought to the hospital. At the Emergency Room, CT scan of the chest showed progressive airspace opacity in the left lung base. Patient received Vancomycin and Zosyn in the Emergency Room. MEDICAL HISTORY: As above. 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 PET-CT showed a pleural based mass and hilar lymph nodes. MRI of brain; negative for malignancy. Patient has undergone radiotherapy in [place]. Last RT was about last month. SURGERIES: He has had CABG vascular procedures and back surgery. MAZE procedure. HOME MEDICATIONS: Include; Lasix, Neurontin, multivitamins, Nitrostat, Protonix, Ultram, aspirin, Proventil, Lipitor, Symbicort, vitamin D3 and Joi. ALLERGIES: No known drug allergies. FAMILY HISTORY: Heart disease and colon cancer. PERSONAL AND SOCIAL HISTORY: Past tobacco abuse. 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 REVIEW OF SYSTEMS: As per HPI, all other ROS negative. PHYSICAL EXAMINATION: VITAL SIGNS: Blood pressure was noted to be initially 65/45 later 109/43, pulse rate 90, RR 18, temperature 36.3 and O2 sats 92 on room air. GENERAL: Noted to be comfortable, in no respiratory distress. SKIN: Pallor, dry skin HEENT: Pale palpebral conjunctivae. Dry mucosa. NECK: Short neck. No tenderness. CHEST: Decreased breath sounds. No tenderness. HEART: Regular rate and rhythm, palpable LE pulses CV: Some distention, nontender. No hepatomegaly. EXTREMITIES: No edema, no tenderness on exam. NEUROLOGIC: No gross focality, coherent. LABORATORIES: Hemoglobin was noted to be 7.9, hematocrit 24.3, white cell count 2.98 and platelets 184. Sodium was noted to be 131, potassium 4.5, chloride 100, CO2 22, BUN 20 creatinine 1.6. Lactic acid was normal. CT of the head; no acute pathology. CT abdomen and pelvis; progressive airspace opacities, no bowel wall thickening. CT chest; negative for PE and COPD. Interstitial peribronchial prominence, left lower lobe infiltrate, pneumonia, adenopathy ASSESSMENT: 1. Postobstructive pneumonia/possible aspiration pneumonia on account of patient history history of NSCLC sp radiation No sepsis. 2. Hypertension SBP has been on the lower side since January 2017 3. acute on chronic anemia rule out occult GI bleed 4. coronary artery disease status post coronary artery bypass graft 5. peripheral vascular disease 6. chronic obstructive pulmonary disease, not in acute exacerbation 7. ARF 2 to illness 8. past tobacco abuse 9. prediabetes PLAN. F Unasyn. Hold home diuretics for now. Monitor creatinine response IV fluids. Anemia workup. Transfuse pRBC to maintain hemoglobin greater than 8. (hx CAD/ PVD) Resume home aspirin until occult GI bleed ruled out. PT/OT eval. DVT prophylaxis, SCDs RE anemia. DNR. Patient's is requesting for updates from providers. Mrs. Mirna Kirkland at [phone] and [phone]. Secondary contacts : Toshia (px niece) at [phone]. Power (px son) at [phone]. [facility]
[2017-07-31 06:29] LABS: BUN/CREATININE RATIO 12.3 (10-20); CALCIUM 8.4 mg/dl (8.5-10.1); CREATININE 1.5 mg/dl (0.60-1.40); POTASSIUM 4.6 mmol/L (3.5-5.1)
[2017-07-31 06:34] LABS: FERRITIN 750.3 ng/ml (8.0-388.0)
[2017-07-31 06:56] LABS: ESTIMATED AVERAGE GLUCOSE 123 mg/dl; HA1C FLAG Normal (Normal)
[2017-07-31] MEDS: BUDESONIDE/FORMOTEROL FUMARATE 160/4.5 60 PUFFS/INHALER INH SCH ×2 (07:07→19:48)
[2017-07-31] MEDS: MULTIVITAMIN TAB PO SCH (07:08)
[2017-07-31] MEDS: PANTOprazole SOD 40 MG TAB PO SCH (07:08)
[2017-07-31] MEDS: GABAPENTIN 100 MG CAP PO SCH ×2 (07:09→19:49)
[2017-07-31] MEDS: ATORVASTATIN 40 MG TAB PO SCH ×2 (07:09→19:49)
[2017-07-31] MEDS ORDERED: INFLUENZA ADMINISTRATION CHARGE ONE (08:00)
[2017-07-31] MEDS ORDERED: INFLUENZA VACCINE HIGH DOSE 65+ 0.5 ML SYR IM. ONE (08:00)
[2017-07-31] MEDS ORDERED: PNEUMOCOCCAL ADMINISTRATION CHARGE ONE (08:00)
[2017-07-31] MEDS ORDERED: PNEUMOCOCCAL POLYSACCHARIDES 25 MCG/0.5 ML VIAL/SYR IM. ONE (08:00)
[2017-07-31 12:43] LABS: HEMATOCRIT 25.3 % (42-52)
[2017-07-31] MEDS: ACETAMINOPHEN 325 MG TAB PO PRN ×2 (13:35→19:47)
--- NOTE | 2017-07-31 17:06 | Progress Note ---
Subjective Date of Service: Jul 31, 2017. Problem List Medical Problems: (1) Acute febrile illness Status: Acute (2) Calculus Of Kidney Status: Chronic (3) Carotid Artery Occlusion W O Cerebral Infarction Status: Chronic (4) Chr Airway Obstruct Nec Status: Chronic (5) Coron Atheroscler Nos Type Vessel, [place] Or Graft Status: Chronic (6) Diab Sofie Wo Compl, Type Ii Or Unspec Type, Not Uncntrld Status: Chronic (7) Diverticulosis Colon (W/O Ment Of Hemorrhage) Status: Chronic (8) Esophageal Reflux Status: Chronic (9) Hyperlipidemia Nec/Nos Status: Chronic (10) Hypertension Nos Status: Chronic (11) Leukocytosis Status: Acute (12) PAD (peripheral artery disease) Status: Chronic (13) Pneumonia Status: Acute (14) Renal Artery Aneurysm Status: Chronic Objective Vital Signs Date Time Temp Pulse Resp B/P (MAP) Pulse Ox O2 Delivery O2 Flow Rate FiO2 07/31/17 15:43 37.1 93 20 107/52 (70) 92 07/31/17 13:30 37.7 07/31/17 11:31 36.9 90 20 110/64 (79) 95 07/31/17 08:00 Nasal Cannula 2.0 07/31/17 07:40 36.8 96 20 104/58 (73) 96 Nasal Cannula 2.0 07/31/17 07:15 37.1 07/31/17 03:19 36.2 92 18 96/52 (67) 91 Nasal Cannula 1.0 07/31/17 02:15 36.9 81 19 93/41 (58) 94 Nasal Cannula 1.0 07/31/17 01:15 36.8 91 18 94/53 (67) 93 Nasal Cannula 1.0 07/31/17 00:50 36.8 77 17 101/56 (71) 94 Nasal Cannula 1.0 07/31/17 00:34 36.9 83 18 97/55 (69) 94 Nasal Cannula 1.0 07/31/17 00:15 36.8 91 18 94/53 93 1.0 07/31/17 00:00 Nasal Cannula 1.0 07/30/17 23:54 36.9 07/30/17 22:45 39.4 07/30/17 22:24 39.0 119 20 108/48 91 Nasal Cannula 9/28/17 21:35 129/56 07/30/17 21:14 85 07/30/17 20:07 80 18 87/54 93 07/30/17 18:15 85 18 109/43 91 Room Air Laboratory Results Last 24 Hours Test 07/30/17 17:35 07/30/17 19:30 07/30/17 20:30 07/30/17 21:26 Urine Color YELLOW Urine Appearance CLEAR Urine pH 6.0 Urine Specific [place] 1.010 Urine Protein NEG Urine Glucose (UA) NEG Urine Ketones NEG Urine Occult Blood NEG Urine Nitrite NEG Urine Bilirubin NEG Urine Urobilinogen NEG Urine Leukocyte Esterase NEG Lactic Acid Level 1.3 mmol/L Hemoglobin 7.2 g/dL Hematocrit 21.7 % Bedside Glucose 72 mg/dl Test 07/31/17 05:20 07/31/17 12:20 White Blood Count 3.54 K/uL Red Blood Count 2.45 M/uL Hemoglobin 8.8 g/dL 8.5 g/dL Hematocrit 25.8 % 25.3 % Mean Corpuscular Volume 105.3 fL Mean Corpuscular Hemoglobin 35.9 pg Mean Corpuscular Hemoglobin Concent 34.1 g/dl Platelet Count 164 K/uL Mean Platelet Volume 10.0 fL Neutrophils (%) (Auto) 73.1 % Lymphocytes (%) (Auto) 13.6 % Monocytes (%) (Auto) 6.5 % Eosinophils (%) (Auto) 6.2 % Basophils (%) (Auto) 0.3 % Neutrophils # (Auto) 2.59 K/uL Lymphocytes # (Auto) 0.48 K/uL Monocytes # (Auto) 0.23 K/uL Eosinophils # (Auto) 0.22 K/uL Basophils # (Auto) 0.01 K/uL RDW Standard Deviation 67.2 fL RDW Coefficient of Variation 17.3 % Immature Granulocyte % (Auto) 0.3 % Immature Granulocyte # (Auto) 0.01 K/uL Dohle Bodies 1+ Polychromasia 1+ Macrocytosis PRESENT Absolute Reticulocyte Count 0.03 10^6/uL Percent Reticulocyte Count 1.4 % Sodium Level 138 mmol/L Potassium Level 4.6 mmol/L Chloride Level 109 mmol/L Carbon Dioxide Level 22 mmol/L Anion Gap 7.0 mmol/L Blood Urea Nitrogen 19 mg/dl Creatinine 1.50 mg/dl Est Creatinine Clear Calc Drug Dose 43.1 ml/min Estimated GFR () 53.9 Estimated GFR (Non- 46.5 BUN/Creatinine Ratio 12.3 Random Glucose 78 mg/dl Calcium Level 8.4 mg/dl Iron Level 38 mcg/dl Total Iron Binding Capacity 151 mcg/dl Transferrin 123 mg/dl Transferrin % Saturation 22 % Ferritin 750.3 ng/ml Vitamin B12 Level 545 pg/mL Folate 6.87 ng/mL Assessment and Plan This is a 71 year old male with a PMH of non-small cell lung carcinoma s/p radiation, hx. of tobacco use and mild COPD, CKD stage 3, HTN, HLD, chronic systolic CHF, CAD s/p CABG presents with weakness, lethargy, nausea - found to have pneumonia Pneumonia possible HCAPs vs. radiation-induced will treat with empiric antibiotics monitor WBC and labs will need 1-2 days of IV antibiotics prior to switching to PO Anemia of Chronic Disease, Acute on Chronic unsure of the cause of Hgb drop; no active bleed patient does have cancer and chronic disease and infection will likely do this s/p one unit PRBCs Hgb >8 currently, monitor H/H hold Aspirin for today, restart in AM if Hgb stable HTN blood pressure on the lower side last SBP >100 CKD stage 3 creatinine is around 1.5 today, close to baseline avoid nephrotoxic agents when able Chronic Systolic CHF hold Lasix restart in 1-2 days, when BP and infection better controlled DVT ppx SCDs DNR
[2017-07-31] MEDS ORDERED: PIPERACILLIN/TAZOBACTAM 4.5 GM/100ML D5W IV STA (21:51)
[2017-07-31] MEDS ORDERED: PIPERACILL/TAZOBAC CONSULT ACTIVE PRN (22:00)
[2017-08-01] VITALS (7 sets, daily range): BP systolic 99–115; BP diastolic 51–67; PULSE 83–94; TEMP 36.8–37.8; O2SAT 90–97
[2017-08-01] MEDS: ACETAMINOPHEN 325 MG TAB PO PRN ×2 (00:17→23:35)
[2017-08-01] MEDS: PIPERACILL/TAZOBAC IV 3.375 GM in DEXTROSE 5% 100ML IV SCH ×3 (04:27→19:41)
[2017-08-01 06:57] LABS: HEMATOCRIT 24.2 % (42-52); MEAN CELL VOLUME 105.2 fL (80-100); MEAN CORPUSCULAR HEMOGLOBIN 33.9 pg (25-34); MEAN CORPUSCULAR HGB CONC 32.2 g/dl (32-36); PLATELET COUNT 134 K/uL (130-400); WHITE BLOOD COUNT 8.07 K/uL (4.8-10.8)
[2017-08-01 07:29] LABS: BUN/CREATININE RATIO 12.3 (10-20); CALCIUM 8.3 mg/dl (8.5-10.1); CREATININE 1.5 mg/dl (0.60-1.40); POTASSIUM 3.9 mmol/L (3.5-5.1)
[2017-08-01 07:41] LABS: BASO % 0.1 %; BASO ABS # 0.01 K/uL (0-0.2); COMPLETE YES; EOS % 1.9 %; IG% 0.4 %; LYMPH % 8.4 %; LYMPH ABS # 0.68 K/uL (1.2-3.4); MONO % 4.7 %; NEUT % 84.5 %
[2017-08-01] MEDS: BUDESONIDE/FORMOTEROL FUMARATE 160/4.5 60 PUFFS/INHALER INH SCH ×2 (08:09→19:41)
[2017-08-01] MEDS: GABAPENTIN 100 MG CAP PO SCH ×2 (08:09→19:41)
[2017-08-01] MEDS: PANTOprazole SOD 40 MG TAB PO SCH (08:09)
[2017-08-01] MEDS: ATORVASTATIN 40 MG TAB PO SCH ×2 (08:09→19:41)
[2017-08-01] MEDS: MULTIVITAMIN TAB PO SCH (08:09)
--- NOTE | 2017-08-01 17:38 | Progress Note ---
Subjective Date of Service: Aug 01, 2017. Subjective Pt evaluation today including: conversation w/ patient, physical exam, lab review, review of studies, review of inpatient medication list Saw/examined the patient in room 416 He's doing well today +weak no fevers/chills no cough, no diarrhea Problem List Medical Problems: (1) Acute febrile illness Status: Acute (2) Calculus Of Kidney Status: Chronic (3) Carotid Artery Occlusion W O Cerebral Infarction Status: Chronic (4) Chr Airway Obstruct Nec Status: Chronic (5) Coron Atheroscler Nos Type Vessel, [place] Or Graft Status: Chronic (6) Diab Sofie Wo Compl, Type Ii Or Unspec Type, Not Uncntrld Status: Chronic (7) Diverticulosis Colon (W/O Ment Of Hemorrhage) Status: Chronic (8) Esophageal Reflux Status: Chronic (9) Hyperlipidemia Nec/Nos Status: Chronic (10) Hypertension Nos Status: Chronic (11) Leukocytosis Status: Acute (12) PAD (peripheral artery disease) Status: Chronic (13) Pneumonia Status: Acute (14) Renal Artery Aneurysm Status: Chronic Review of Systems Constitutional: + weakness, No fever, No chills Respiratory: No cough, No sputum, No shortness of breath Cardiac: No chest pain Abdomen: No pain, No nausea, No vomiting, No diarrhea Medications Current Inpatient Medications Medications (Trade) Dose Ordered Sig/Timbo Route Start Time Stop Time Status Last Admin Dose Admin Ioversol (Optiray 320) 125 ml UD PRN IV 07/30/17 16:15 08/03/17 16:14 Acetaminophen (Tylenol Tab) 650 mg Q4H PRN PO 07/30/17 22:00 08/29/17 21:59 08/01/17 00:17 650 MG Tramadol HCl (Ultram Tab) 25 mg Q6H PRN PO 07/30/17 22:00 08/29/17 21:59 Hydromorphone HCl (Dilaudid Inj) 0.5 mg Q3H PRN IV 07/30/17 22:00 08/13/17 21:59 Atorvastatin Calcium (Lipitor Tab) 40 mg BID PO 07/31/17 08:00 08/30/17 07:59 08/01/17 08:09 40 MG Budesonide/ Formoterol Fumarate (Symbicort 160/ 4.5 Inh) 2 puffs BID INH 07/31/17 08:00 08/30/17 07:59 08/01/17 08:09 2 PUFFS Gabapentin (Neurontin Cap) 200 mg BID PO 07/31/17 08:00 08/30/17 07:59 08/01/17 08:09 200 MG Multivitamins (Multivitamin Tab) 1 tab DAILY PO 07/31/17 08:00 08/30/17 07:59 08/01/17 08:09 1 TAB Pantoprazole Sodium (Protonix Tab) 40 mg DAILY PO 07/31/17 08:00 08/30/17 07:59 08/01/17 08:09 40 MG Albuterol/ Ipratropium (Duoneb) 3 ml Q2H PRN INH 07/30/17 22:00 08/29/17 21:59 Promethazine HCl 12.5 mg/Sodium Chloride 50.5 ml @ 204 mls/hr Q6H PRN IV 07/30/17 22:00 08/29/17 21:59 Piperacillin Sod/ Tazobactam Sod (Consult) 1 ea UD PRN N/A 07/31/17 22:00 08/30/17 21:59 Piperacillin Sod/ Tazobactam Sod 3.375 gm/Dextrose 115 ml @ 28.75 mls/ hr Q8H IV 08/01/17 04:00 08/08/17 03:59 08/01/17 11:30 28.75 MLS/HR Objective Vital Signs Date Time Temp Pulse Resp B/P (MAP) Pulse Ox O2 Delivery O2 Flow Rate FiO2 08/01/17 16:31 36.8 84 16 107/62 (77) 97 Nasal Cannula 2.0 08/01/17 11:31 89 16 102/51 (68) 96 Nasal Cannula 2.0 08/01/17 11:29 37.2 94 20 99/51 (67) 94 Nasal Cannula 2.0 08/01/17 08:00 Nasal Cannula 2.0 08/01/17 04:10 37.3 85 20 100/54 (69) 95 Nasal Cannula 2.0 08/01/17 00:26 37.5 90 20 101/59 (73) 95 Nasal Cannula 2.0 08/01/17 00:00 Nasal Cannula 2.0 07/31/17 20:00 Nasal Cannula 2.0 07/31/17 19:15 38.0 93 20 105/52 (69) 92 Nasal Cannula 2.0 Physical Exam General Appearance: no apparent distress Respiratory/Chest: lungs clear, normal breath sounds, no respiratory distress, no accessory muscle use Cardiovascular: regular rate, rhythm, no edema, no murmur Laboratory Results Last 24 Hours Test 07/31/17 20:00 08/01/17 06:18 Stool Occult Blood NEGATIVE White Blood Count 8.07 K/uL Red Blood Count 2.30 M/uL Hemoglobin 7.8 g/dL Hematocrit 24.2 % Mean Corpuscular Volume 105.2 fL Mean Corpuscular Hemoglobin 33.9 pg Mean Corpuscular Hemoglobin Concent 32.2 g/dl Platelet Count 134 K/uL Mean Platelet Volume 10.0 fL Neutrophils (%) (Auto) 84.5 % Lymphocytes (%) (Auto) 8.4 % Monocytes (%) (Auto) 4.7 % Eosinophils (%) (Auto) 1.9 % Basophils (%) (Auto) 0.1 % Neutrophils # (Auto) 6.82 K/uL Lymphocytes # (Auto) 0.68 K/uL Monocytes # (Auto) 0.38 K/uL Eosinophils # (Auto) 0.15 K/uL Basophils # (Auto) 0.01 K/uL RDW Standard Deviation 67.3 fL RDW Coefficient of Variation 17.6 % Immature Granulocyte % (Auto) 0.4 % Immature Granulocyte # (Auto) 0.03 K/uL Red Blood Cell Morphology Unremarkable Sodium Level 136 mmol/L Potassium Level 3.9 mmol/L Chloride Level 105 mmol/L Carbon Dioxide Level 22 mmol/L Anion Gap 9.0 mmol/L Blood Urea Nitrogen 18 mg/dl Creatinine 1.50 mg/dl Est Creatinine Clear Calc Drug Dose 43.0 ml/min Estimated GFR () 53.9 Estimated GFR (Non- 46.5 BUN/Creatinine Ratio 12.3 Random Glucose 91 mg/dl Calcium Level 8.3 mg/dl Assessment and Plan This is a 71 year old male with a PMH of non-small cell lung carcinoma s/p radiation, hx. of tobacco use and mild COPD, CKD stage 3, HTN, HLD, chronic systolic CHF, CAD s/p CABG presents with weakness, lethargy, nausea - found to have pneumonia Pneumonia 08/01 continue IV abx today possibly switch to PO abx. in AM (Augmentin) d/c planning in 1-2 days 07/31 possible HCAPs vs. radiation-induced will treat with empiric antibiotics monitor WBC and labs will need 1-2 days of IV antibiotics prior to switching to PO Anemia of Chronic Disease, Acute on Chronic unsure of the cause of Hgb drop; no active bleed patient does have cancer and chronic disease and infection will likely do this s/p one unit PRBCs Hgb >8 currently, monitor H/H hold Aspirin for today, restart in AM if Hgb stable HTN blood pressure on the lower side last SBP >100 CKD stage 3 creatinine is around 1.5 today, close to baseline avoid nephrotoxic agents when able Chronic Systolic CHF hold Lasix restart in 1-2 days, when BP and infection better controlled DVT ppx SCDs DNR
[2017-08-02 03:44] VITALS: BP 96/56; PULSE 71; TEMP 36.5; O2SAT 91
[2017-08-02] MEDS: PIPERACILL/TAZOBAC IV 3.375 GM in DEXTROSE 5% 100ML IV SCH ×3 (03:54→19:53)
[2017-08-02 06:37] LABS: BASO % 0.2 %; BASO ABS # 0.01 K/uL (0-0.2); EOS % 2.1 %; HEMATOCRIT 22.5 % (42-52); IG% 0.3 %; LYMPH % 11.7 %; LYMPH ABS # 0.68 K/uL (1.2-3.4); MEAN CELL VOLUME 105.6 fL (80-100); MEAN CORPUSCULAR HEMOGLOBIN 36.2 pg (25-34); MEAN CORPUSCULAR HGB CONC 34.2 g/dl (32-36); MEAN PLATELET VOLUME 10.4 fL (7.4-10.4); NEUT % 80.7 %; PLATELET COUNT 119 K/uL (130-400); RED BLOOD COUNT 2.13 M/uL (4.7-6.1)
[2017-08-02 07:03] LABS: BUN/CREATININE RATIO 12.9 (10-20); CALCIUM 8.3 mg/dl (8.5-10.1); CREATININE 1.5 mg/dl (0.60-1.40); POTASSIUM 3.8 mmol/L (3.5-5.1)
[2017-08-02] MEDS: BUDESONIDE/FORMOTEROL FUMARATE 160/4.5 60 PUFFS/INHALER INH SCH ×2 (07:28→19:53)
[2017-08-02] MEDS: PANTOprazole SOD 40 MG TAB PO SCH (07:29)
[2017-08-02] MEDS: MULTIVITAMIN TAB PO SCH (07:29)
[2017-08-02] MEDS: GABAPENTIN 100 MG CAP PO SCH ×2 (07:29→19:54)
[2017-08-02] MEDS: ATORVASTATIN 40 MG TAB PO SCH ×2 (07:29→19:53)
[2017-08-02 07:37] LABS: COMPLETE YES; DOHLE BODIES 1+; ECHINOCYTES 1+
[2017-08-02 08:32] VITALS: BP 91/54; PULSE 72; TEMP 36.1; O2SAT 93
--- NOTE | 2017-08-02 11:35 | Progress Note ---
Subjective Date of Service: Aug 02, 2017. Subjective Pt evaluation today including: conversation w/ patient, physical exam, lab review, review of studies, review of inpatient medication list Saw/examined the patient in room 416 he states he's doing well while laying down, no SOB; no chest pain he gets short of breath with short distances and exertion Problem List Medical Problems: (1) Acute febrile illness Status: Acute (2) Calculus Of Kidney Status: Chronic (3) Carotid Artery Occlusion W O Cerebral Infarction Status: Chronic (4) Chr Airway Obstruct Nec Status: Chronic (5) Coron Atheroscler Nos Type Vessel, [place] Or Graft Status: Chronic (6) Diab Sofie Wo Compl, Type Ii Or Unspec Type, Not Uncntrld Status: Chronic (7) Diverticulosis Colon (W/O Ment Of Hemorrhage) Status: Chronic (8) Esophageal Reflux Status: Chronic (9) Hyperlipidemia Nec/Nos Status: Chronic (10) Hypertension Nos Status: Chronic (11) Leukocytosis Status: Acute (12) PAD (peripheral artery disease) Status: Chronic (13) Pneumonia Status: Acute (14) Renal Artery Aneurysm Status: Chronic Review of Systems Constitutional: No fever, No chills Respiratory: + shortness of breath, + dyspnea on exertion, No cough, No sputum , No wheezing, No dyspnea at rest, No hemoptysis Cardiac: No chest pain, No edema, No palpitations Abdomen: No pain, No nausea, No vomiting, No diarrhea Medications Current Inpatient Medications Medications (Trade) Dose Ordered Sig/Timbo Route Start Time Stop Time Status Last Admin Dose Admin Ioversol (Optiray 320) 125 ml UD PRN IV 07/30/17 16:15 08/03/17 16:14 Acetaminophen (Tylenol Tab) 650 mg Q4H PRN PO 07/30/17 22:00 08/29/17 21:59 08/01/17 23:35 650 MG Tramadol HCl (Ultram Tab) 25 mg Q6H PRN PO 07/30/17 22:00 08/29/17 21:59 Hydromorphone HCl (Dilaudid Inj) 0.5 mg Q3H PRN IV 07/30/17 22:00 08/13/17 21:59 Atorvastatin Calcium (Lipitor Tab) 40 mg BID PO 07/31/17 08:00 08/30/17 07:59 08/02/17 07:29 40 MG Budesonide/ Formoterol Fumarate (Symbicort 160/ 4.5 Inh) 2 puffs BID INH 07/31/17 08:00 08/30/17 07:59 08/02/17 07:28 2 PUFFS Gabapentin (Neurontin Cap) 200 mg BID PO 07/31/17 08:00 08/30/17 07:59 08/02/17 07:29 200 MG Multivitamins (Multivitamin Tab) 1 tab DAILY PO 07/31/17 08:00 08/30/17 07:59 08/02/17 07:29 1 TAB Pantoprazole Sodium (Protonix Tab) 40 mg DAILY PO 07/31/17 08:00 08/30/17 07:59 08/02/17 07:29 40 MG Albuterol/ Ipratropium (Duoneb) 3 ml Q2H PRN INH 07/30/17 22:00 08/29/17 21:59 Promethazine HCl 12.5 mg/Sodium Chloride 50.5 ml @ 204 mls/hr Q6H PRN IV 07/30/17 22:00 08/29/17 21:59 Piperacillin Sod/ Tazobactam Sod (Consult) 1 ea UD PRN N/A 07/31/17 22:00 08/30/17 21:59 Piperacillin Sod/ Tazobactam Sod 3.375 gm/Dextrose 115 ml @ 28.75 mls/ hr Q8H IV 08/01/17 04:00 08/08/17 03:59 08/02/17 03:54 28.75 MLS/HR Objective Vital Signs Date Time Temp Pulse Resp B/P (MAP) Pulse Ox O2 Delivery O2 Flow Rate FiO2 08/02/17 08:32 36.1 72 18 91/54 (66) 93 Room Air 08/02/17 08:00 Room Air 08/02/17 03:44 36.5 71 20 96/56 (69) 91 Room Air 08/02/17 00:00 Room Air 08/01/17 23:44 37.8 83 20 108/61 (77) 93 Nasal Cannula 2.0 08/01/17 20:00 Room Air 08/01/17 19:21 37.2 89 18 115/67 (83) 90 Room Air 08/01/17 16:31 36.8 84 16 107/62 (77) 97 Nasal Cannula 2.0 08/01/17 16:00 Nasal Cannula 2.0 08/01/17 11:31 89 16 102/51 (68) 96 Nasal Cannula 2.0 Physical Exam General Appearance: no apparent distress Respiratory/Chest: chest non-tender, lungs clear, normal breath sounds, no respiratory distress, no accessory muscle use Cardiovascular: regular rate, rhythm, no edema, no murmur Abdomen: normal bowel sounds, non tender, soft Extremities: normal range of motion, non-tender, normal inspection, no pedal edema, no calf tenderness Neurologic/Psychiatric: no motor/sensory deficits, alert, normal mood/affect Laboratory Results Last 24 Hours Test 08/02/17 06:19 White Blood Count 5.80 K/uL Red Blood Count 2.13 M/uL Hemoglobin 7.7 g/dL Hematocrit 22.5 % Mean Corpuscular Volume 105.6 fL Mean Corpuscular Hemoglobin 36.2 pg Mean Corpuscular Hemoglobin Concent 34.2 g/dl Platelet Count 119 K/uL Mean Platelet Volume 10.4 fL Neutrophils (%) (Auto) 80.7 % Lymphocytes (%) (Auto) 11.7 % Monocytes (%) (Auto) 5.0 % Eosinophils (%) (Auto) 2.1 % Basophils (%) (Auto) 0.2 % Neutrophils # (Auto) 4.68 K/uL Lymphocytes # (Auto) 0.68 K/uL Monocytes # (Auto) 0.29 K/uL Eosinophils # (Auto) 0.12 K/uL Basophils # (Auto) 0.01 K/uL RDW Standard Deviation 66.0 fL RDW Coefficient of Variation 17.0 % Immature Granulocyte % (Auto) 0.3 % Immature Granulocyte # (Auto) 0.02 K/uL Dohle Bodies 1+ Echinocytes 1+ Sodium Level 138 mmol/L Potassium Level 3.8 mmol/L Chloride Level 109 mmol/L Carbon Dioxide Level 23 mmol/L Anion Gap 6.0 mmol/L Blood Urea Nitrogen 19 mg/dl Creatinine 1.50 mg/dl Est Creatinine Clear Calc Drug Dose 42.8 ml/min Estimated GFR () 53.9 Estimated GFR (Non- 46.5 BUN/Creatinine Ratio 12.9 Random Glucose 172 mg/dl Calcium Level 8.3 mg/dl Assessment and Plan This is a 71 year old male with a PMH of non-small cell lung carcinoma s/p radiation, hx. of tobacco use and mild COPD, CKD stage 3, HTN, HLD, chronic systolic CHF, CAD s/p CABG presents with weakness, lethargy, nausea - found to have pneumonia Pneumonia 08/[address] plan to check a two step in the AM continue IV abx. for now, switch to Augmentin on discharge likely d/c on 08/03 08/01 continue IV abx today possibly switch to PO abx. in AM (Augmentin) d/c planning in 1-2 days 07/31 possible HCAPs vs. radiation-induced will treat with empiric antibiotics monitor WBC and labs will need 1-2 days of IV antibiotics prior to switching to PO Anemia of Chronic Disease, Acute on Chronic 08/02 Hgb = 7.7 today monitor and transfuse as needed 08/01 unsure of the cause of Hgb drop; no active bleed patient does have cancer and chronic disease and infection will likely do this s/p one unit PRBCs Hgb >8 currently, monitor H/H hold Aspirin for today, restart in AM if Hgb stable HTN blood pressure on the lower side last SBP >100 CKD stage 3 creatinine is around 1.5 today, close to baseline avoid nephrotoxic agents when able Chronic Systolic CHF hold Lasix restart in 1-2 days, when BP and infection better controlled DVT ppx SCDs DNR
[2017-08-02 12:07] VITALS: BP 101/66; PULSE 87; TEMP 36.4; O2SAT 98
[2017-08-02] MEDS: ACETAMINOPHEN 325 MG TAB PO PRN (13:40)
[2017-08-02 16:18] VITALS: BP 105/56; PULSE 77; TEMP 36.6; O2SAT 95
[2017-08-02 19:48] VITALS: BP 111/61; PULSE 76; TEMP 36.4; O2SAT 98
[2017-08-02] MEDS: BuPROPion XL 150 MG TABCR PO SCH (19:54)
[2017-08-03 00:08] VITALS: BP 124/64; PULSE 81; TEMP 36.1; O2SAT 92
[2017-08-03] MEDS: PIPERACILL/TAZOBAC IV 3.375 GM in DEXTROSE 5% 100ML IV SCH ×2 (03:38→12:18)
[2017-08-03 04:22] VITALS: BP 107/55; PULSE 96; TEMP 37; O2SAT 92
[2017-08-03 07:12] LABS: EOS % 5.5 %; HEMATOCRIT 23.8 % (42-52); IG% 0.3 %; LYMPH ABS # 0.69 K/uL (1.2-3.4); MEAN CELL VOLUME 104.8 fL (80-100); MEAN CORPUSCULAR HEMOGLOBIN 34.4 pg (25-34); MEAN CORPUSCULAR HGB CONC 32.8 g/dl (32-36); MEAN PLATELET VOLUME 10.4 fL (7.4-10.4); MONO % 7.5 %; NEUT % 66.7 %; PLATELET COUNT 135 K/uL (130-400); RED BLOOD COUNT 2.27 M/uL (4.7-6.1); WHITE BLOOD COUNT 3.45 K/uL (4.8-10.8)
[2017-08-03 07:40] LABS: BUN/CREATININE RATIO 11.8 (10-20); CREATININE 1.4 mg/dl (0.60-1.40); POTASSIUM 3.6 mmol/L (3.5-5.1)
[2017-08-03 07:50] LABS: ANISOCYTOSIS PRESENT; COMPLETE YES; DOHLE BODIES 1+; GIANT PLATELETS 1+; VACUOLIZATION 1+
[2017-08-03 07:58] VITALS: BP 130/58; PULSE 74; TEMP 36.6; O2SAT 93
[2017-08-03] MEDS: PANTOprazole SOD 40 MG TAB PO SCH (08:24)
[2017-08-03] MEDS: BuPROPion XL 150 MG TABCR PO SCH (08:24)
[2017-08-03] MEDS: MULTIVITAMIN TAB PO SCH (08:24)
[2017-08-03] MEDS: GABAPENTIN 100 MG CAP PO SCH (08:24)
[2017-08-03] MEDS: ATORVASTATIN 40 MG TAB PO SCH (08:24)
[2017-08-03] MEDS: BUDESONIDE/FORMOTEROL FUMARATE 160/4.5 60 PUFFS/INHALER INH SCH (08:24)
[2017-08-03 08:30] VITALS: O2SAT 93
[2017-08-03 11:06] VITALS: BP 116/64; PULSE 75; TEMP 37; O2SAT 93
--- NOTE | 2017-08-03 13:57 | Progress Note ---
Subjective Date of Service: Aug 03, 2017. Subjective Pt evaluation today including: conversation w/ patient, physical exam, lab review, review of studies, review of inpatient medication list Saw/examined the patient in room 416 He is feeling much better, no weakness, eating his lunch, good PO intake Ambulated in the hallways with some dyspnea on exertion, which is chronic two-step performed and did well No other issues to note; eager to go home Problem List Medical Problems: (1) Acute febrile illness Status: Acute (2) Calculus Of Kidney Status: Chronic (3) Carotid Artery Occlusion W O Cerebral Infarction Status: Chronic (4) Chr Airway Obstruct Nec Status: Chronic (5) Coron Atheroscler Nos Type Vessel, [place] Or Graft Status: Chronic (6) Diab Sofie Wo Compl, Type Ii Or Unspec Type, Not Uncntrld Status: Chronic (7) Diverticulosis Colon (W/O Ment Of Hemorrhage) Status: Chronic (8) Esophageal Reflux Status: Chronic (9) Hyperlipidemia Nec/Nos Status: Chronic (10) Hypertension Nos Status: Chronic (11) Leukocytosis Status: Acute (12) PAD (peripheral artery disease) Status: Chronic (13) Pneumonia Status: Acute (14) Renal Artery Aneurysm Status: Chronic Review of Systems Constitutional: No fever, No chills, No weakness Respiratory: No cough, No sputum, No shortness of breath Cardiac: No chest pain Abdomen: No pain, No nausea, No vomiting, No diarrhea Heme: No abnormal bleeding/bruising Medications Current Inpatient Medications Medications (Trade) Dose Ordered Sig/Timbo Route Start Time Stop Time Status Last Admin Dose Admin Ioversol (Optiray 320) 125 ml UD PRN IV 07/30/17 16:15 08/03/17 16:14 Acetaminophen (Tylenol Tab) 650 mg Q4H PRN PO 07/30/17 22:00 08/29/17 21:59 08/02/17 13:40 650 MG Tramadol HCl (Ultram Tab) 25 mg Q6H PRN PO 07/30/17 22:00 08/29/17 21:59 Hydromorphone HCl (Dilaudid Inj) 0.5 mg Q3H PRN IV 07/30/17 22:00 08/13/17 21:59 Atorvastatin Calcium (Lipitor Tab) 40 mg BID PO 07/31/17 08:00 08/30/17 07:59 08/03/17 08:24 40 MG Budesonide/ Formoterol Fumarate (Symbicort 160/ 4.5 Inh) 2 puffs BID INH 07/31/17 08:00 08/30/17 07:59 08/03/17 08:24 2 PUFFS Gabapentin (Neurontin Cap) 200 mg BID PO 07/31/17 08:00 08/30/17 07:59 08/03/17 08:24 200 MG Multivitamins (Multivitamin Tab) 1 tab DAILY PO 07/31/17 08:00 08/30/17 07:59 08/03/17 08:24 1 TAB Pantoprazole Sodium (Protonix Tab) 40 mg DAILY PO 07/31/17 08:00 08/30/17 07:59 08/03/17 08:24 40 MG Albuterol/ Ipratropium (Duoneb) 3 ml Q2H PRN INH 07/30/17 22:00 08/29/17 21:59 Promethazine HCl 12.5 mg/Sodium Chloride 50.5 ml @ 204 mls/hr Q6H PRN IV 07/30/17 22:00 08/29/17 21:59 Piperacillin Sod/ Tazobactam Sod (Consult) 1 ea UD PRN N/A 07/31/17 22:00 08/30/17 21:59 Piperacillin Sod/ Tazobactam Sod 3.375 gm/Dextrose 115 ml @ 28.75 mls/ hr Q8H IV 08/01/17 04:00 08/08/17 03:59 08/03/17 12:18 28.75 MLS/HR Bupropion HCl (Wellbutrin-Xl Tab) 150 mg BID PO 08/02/17 20:00 09/01/17 19:59 08/03/17 08:24 150 MG Objective Vital Signs Date Time Temp Pulse Resp B/P (MAP) Pulse Ox O2 Delivery O2 Flow Rate FiO2 08/03/17 11:06 37.0 75 18 116/64 (81) 93 08/03/17 08:30 93 Room Air 08/03/17 07:58 36.6 74 18 130/58 (82) 93 Room Air 08/03/17 04:22 37.0 96 20 107/55 (72) 92 Room Air 08/03/17 00:08 36.1 81 20 124/64 (84) 92 Room Air 08/03/17 00:00 Room Air 08/02/17 20:00 Room Air 08/02/17 19:48 36.4 76 20 111/61 (78) 98 Room Air 08/02/17 16:18 36.6 77 18 105/56 (72) 95 Room Air Physical Exam General Appearance: no apparent distress Respiratory/Chest: lungs clear, normal breath sounds, no respiratory distress, no accessory muscle use Cardiovascular: regular rate, rhythm, no edema, no murmur Abdomen: normal bowel sounds, non tender, soft Extremities: normal inspection, no pedal edema Laboratory Results Last 24 Hours Test 08/03/17 06:57 White Blood Count 3.45 K/uL Red Blood Count 2.27 M/uL Hemoglobin 7.8 g/dL Hematocrit 23.8 % Mean Corpuscular Volume 104.8 fL Mean Corpuscular Hemoglobin 34.4 pg Mean Corpuscular Hemoglobin Concent 32.8 g/dl Platelet Count 135 K/uL Mean Platelet Volume 10.4 fL Neutrophils (%) (Auto) 66.7 % Lymphocytes (%) (Auto) 20.0 % Monocytes (%) (Auto) 7.5 % Eosinophils (%) (Auto) 5.5 % Basophils (%) (Auto) 0.0 % Neutrophils # (Auto) 2.30 K/uL Lymphocytes # (Auto) 0.69 K/uL Monocytes # (Auto) 0.26 K/uL Eosinophils # (Auto) 0.19 K/uL Basophils # (Auto) 0.00 K/uL RDW Standard Deviation 64.1 fL RDW Coefficient of Variation 16.7 % Immature Granulocyte % (Auto) 0.3 % Immature Granulocyte # (Auto) 0.01 K/uL Toxic Vacuolation 1+ Dohle Bodies 1+ Giant Platelets 1+ Anisocytosis PRESENT Macrocytosis PRESENT Sodium Level 138 mmol/L Potassium Level 3.6 mmol/L Chloride Level 107 mmol/L Carbon Dioxide Level 21 mmol/L Anion Gap 10.0 mmol/L Blood Urea Nitrogen 17 mg/dl Creatinine 1.40 mg/dl Est Creatinine Clear Calc Drug Dose 46.1 ml/min Estimated GFR () 58.6 Estimated GFR (Non- 50.5 BUN/Creatinine Ratio 11.8 Random Glucose 106 mg/dl Calcium Level 9.0 mg/dl Assessment and Plan This is a 71 year old male with a PMH of non-small cell lung carcinoma s/p radiation, hx. of tobacco use and mild COPD, CKD stage 3, HTN, HLD, chronic systolic CHF, CAD s/p CABG presents with weakness, lethargy, nausea - found to have pneumonia Pneumonia 08/03 two step = O2 saturation remained above 90%, no need for supplemental O2 switch to Augmentin for another 7 days as outpatient will d/c home today with Zofran tablets as well 08/02 ambulate in hallways plan to check a two step in the AM continue IV abx. for now, switch to Augmentin on discharge likely d/c on 08/03 08/01 continue IV abx today possibly switch to PO abx. in AM (Augmentin) d/c planning in 1-2 days 07/31 possible HCAPs vs. radiation-induced will treat with empiric antibiotics monitor WBC and labs will need 1-2 days of IV antibiotics prior to switching to PO Anemia of Chronic Disease, Acute on Chronic 08/02 Hgb = 7.7 today monitor and transfuse as needed 08/01 unsure of the cause of Hgb drop; no active bleed patient does have cancer and chronic disease and infection will likely do this s/p one unit PRBCs Hgb >8 currently, monitor H/H hold Aspirin for today, restart in AM if Hgb stable HTN blood pressure on the lower side last SBP >100 CKD stage 3 creatinine is around 1.5 today, close to baseline avoid nephrotoxic agents when able Chronic Systolic CHF hold Lasix restart in 1-2 days, when BP and infection better controlled DVT ppx SCDs DNR
[2017-08-03] MEDS ORDERED: ONDA8TAB62 SL (14:01)
[2017-08-03] MEDS ORDERED: AMOX875T PO (14:01)
--- NOTE | 2017-08-03 14:12 | Discharge Instructions ---
Discharge Instructions Date of Service Aug 03, 2017. Admission Reason for Admission: HCAP Discharge Discharge Diagnosis / Problem: HCAP Discharge Goals Goal(s): Decrease discomfort, Improve function, Diagnostic testing, Therapeutic intervention Activity Recommendations Activity Limitations: resume your previous activity . Instructions / Follow-Up Instructions / Follow-Up Please follow-up with Dr. Gordon on August 06 at 2:45PM * You will be on Augmentin (antibiotic) twice a day for the next seven days * Primary care should recheck blood work (CBC) - to check Hgb * You will be prescribed Zofran, only take this as needed for nausea * Follow-up with radiation oncology and hematology/oncology specialists at [facility] [place] Diet Patient's current hospital diet: AHA Diet (Heart Healthy) Discharge Diet Recommended Diet: AHA Diet (Heart Healthy) Pending Studies Studies pending at discharge: no Laboratory Results Hemoglobin A1c Test 07/30/17 15:20 Range/Units Estimated Average Glucose 123 mg/dl Hemoglobin A1c 5.9 H 4.5-5.6 % Medical Emergencies . Who to Call and When: Medical Emergencies: If at any time you feel your situation is an emergency, please call 911 immediately. . Non-Emergent Contact Non-Emergency issues call your: Primary Care Provider Call Non-Emergent contact if: you have a fever, temperature is above 101 . . "Provider Documentation" section prepared by Siva Luna. . VTE Core Measure Inpt VTE Proph given/why not?: SCD's
[2017-08-03 14:19] VITALS: BP 116/64; PULSE 75; TEMP 37; O2SAT 93
--- NOTE | 2017-08-03 14:21 | Discharge Summary ---
Discharge Summary Date of Service Aug 03, 2017. Discharge Summary Admission Date: Jul 30, 2017 at 21:18 Discharge Date: Aug 03, 2017 Discharge Disposition: Home Principal Diagnosis: Health Care Associated Pneumonia Anemia of Chronic Disease Medication Reconciliation New Medications: Amoxicillin & Pot Clavulanate (Augmentin 875-125 mg) 1 Tab Tab 1 TAB PO BID for 7 Days, #14 TAB Ondansetron Odt (Zofran Odt) 8 Mg Soltab 8 MG SL Q6H PRN for Nausea for 10 Days, #40 TAB Continued Medications: Albuterol Sulfate (Proventil Hfa) 108 Mcg/Act Aer 2 PUFFS INH Q4 Aspirin (Aspirin Ec) 81 Mg Tab 81 MG PO DAILY Atorvastatin (Lipitor) 80 Mg Tab 40 MG PO BID, TAB Budesonide/Formoterol Fumarate (Symbicort 160/4.5 Inhaler ) Aero 2 PUFFS INH BID, INHALER Cholecalciferol (Vitamin D3) 1,000 Unit Tab 1000 UNITS PO DAILY Fexofenadine Hcl (Joi) 180 Mg Tab 180 MG PO DAILY PRN for Itching, TAB Furosemide (Lasix) 40 Mg Tab 40 MG PO DAILY, TAB Gabapentin (Neurontin) 100 Mg Cap 200 MG PO BID, CAP Multiple Vitamin (Multivitamin) 1 Tab Tab 1 TAB PO DAILY for 90 Days, #90 TAB 3 Refills Nitroglycerin (Nitrostat) 0.4 Mg Tab 0.4 MG UT PRN, BTL NEEDED FOR CHEST PAIN - ONE TABLET UNDER THE TONGUE EVERY 5 MINUTES UP TO THREE DOSES. Pantoprazole Sodium (Protonix) 40 Mg Tab 40 MG PO DAILY, TAB Tramadol (Ultram) 50 Mg Tab 50 MG PO Q6 PRN for Pain, TAB Admission Information HPI (per Admitting provider): DATE OF ADMISSION: 07/30/2017 PRIMARY CARE DOCTOR: Dr. Gordon CHIEF COMPLAINT: Cough, shortness of breath. HISTORY OF PRESENT ILLNESS: History was obtained from the patient's records and family. Medical history is significant for chronic systolic/diastolic heart failure with EF of 55% in 2012. recent diagnosis of non-small cell lung cancer status post radiation, CAD sp CABG, PVD, HTN, COPD, past tobacco abuse, chronic anemia (baseline hemoglobin of 9), prediabetes, Recent confinement was last January 2017 for sepsis secondary to campylobacter jejuni gastroenteritis. One week's history of generalized weakness, fever and vomiting later followed by junky cough, dizziness and poor appetite. No chest pain. some sob. Had some shortness of breath. Denies abdominal pain or diarrhea. Blood pressure is on the lower side. Hypoglycemic at home. Patient also complaining of posterior headache symptoms en route to the hospital. Patient was brought to the hospital. At the Emergency Room, CT scan of the chest showed progressive airspace opacity in the left lung base. Patient received Vancomycin and Zosyn in the Emergency Room. MEDICAL HISTORY: As above. 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 PET-CT showed a pleural based mass and hilar lymph nodes. MRI of brain; negative for malignancy. Patient has undergone radiotherapy in [place]. Last RT was about last month. SURGERIES: He has had CABG vascular procedures and back surgery. MAZE procedure. HOME MEDICATIONS: Include; Lasix, Neurontin, multivitamins, Nitrostat, Protonix, Ultram, aspirin, Proventil, Lipitor, Symbicort, vitamin D3 and Joi. ALLERGIES: No known drug allergies. FAMILY HISTORY: Heart disease and colon cancer. PERSONAL AND SOCIAL HISTORY: Past tobacco abuse. 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 REVIEW OF SYSTEMS: As per HPI, all other ROS negative. PHYSICAL EXAMINATION: VITAL SIGNS: Blood pressure was noted to be initially 65/45 later 109/43, pulse rate 90, RR 18, temperature 36.3 and O2 sats 92 on room air. GENERAL: Noted to be comfortable, in no respiratory distress. SKIN: Pallor, dry skin HEENT: Pale palpebral conjunctivae. Dry mucosa. NECK: Short neck. No tenderness. CHEST: Decreased breath sounds. No tenderness. HEART: Regular rate and rhythm, palpable LE pulses CV: Some distention, nontender. No hepatomegaly. EXTREMITIES: No edema, no tenderness on exam. NEUROLOGIC: No gross focality, coherent. LABORATORIES: Hemoglobin was noted to be 7.9, hematocrit 24.3, white cell count 2.98 and platelets 184. Sodium was noted to be 131, potassium 4.5, chloride 100, CO2 22, BUN 20 creatinine 1.6. Lactic acid was normal. CT of the head; no acute pathology. CT abdomen and pelvis; progressive airspace opacities, no bowel wall thickening. CT chest; negative for PE and COPD. Interstitial peribronchial prominence, left lower lobe infiltrate, pneumonia, adenopathy ASSESSMENT: 1. Postobstructive pneumonia/possible aspiration pneumonia on account of patient history history of NSCLC sp radiation No sepsis. 2. Hypertension SBP has been on the lower side since January 2017 3. acute on chronic anemia rule out occult GI bleed 4. coronary artery disease status post coronary artery bypass graft 5. peripheral vascular disease 6. chronic obstructive pulmonary disease, not in acute exacerbation 7. ARF 2 to illness 8. past tobacco abuse 9. prediabetes PLAN. GMF Unasyn. Hold home diuretics for now. Monitor creatinine response IV fluids. Anemia workup. Transfuse pRBC to maintain hemoglobin greater than 8. (hx CAD/ PVD) Resume home aspirin until occult GI bleed ruled out. PT/OT eval. DVT prophylaxis, SCDs RE anemia. DNR. Patient's is requesting for updates from providers. Mrs. Mirna Kirkland at [phone] and [phone]. Secondary contacts : Toshia (px niece) at [phone]. Power (px son) at [phone]. Hospital Course This is a 71 year old male with a PMH of non-small cell lung carcinoma s/p radiation, hx. of tobacco use and mild COPD, CKD stage 3, HTN, HLD, chronic systolic CHF, CAD s/p CABG presents with weakness, lethargy, nausea - found to have pneumonia Pneumonia 08/03 two step = O2 saturation remained above 90%, no need for supplemental O2 switch to Augmentin for another 7 days as outpatient will d/c home today with Zofran tablets as well 08/02 ambulate in hallways plan to check a two step in the AM continue IV abx. for now, switch to Augmentin on discharge likely d/c on 08/03 08/01 continue IV abx today possibly switch to PO abx. in AM (Augmentin) d/c planning in 1-2 days 07/31 possible HCAPs vs. radiation-induced will treat with empiric antibiotics monitor WBC and labs will need 1-2 days of IV antibiotics prior to switching to PO Anemia of Chronic Disease, Acute on Chronic 08/02 Hgb = 7.7 today monitor and transfuse as needed 08/01 unsure of the cause of Hgb drop; no active bleed patient does have cancer and chronic disease and infection will likely do this s/p one unit PRBCs Hgb >8 currently, monitor H/H hold Aspirin for today, restart in AM if Hgb stable HTN blood pressure on the lower side last SBP >100 CKD stage 3 creatinine is around 1.5 today, close to baseline avoid nephrotoxic agents when able Chronic Systolic CHF hold Lasix restart in 1-2 days, when BP and infection better controlled DVT ppx SCDs DNR Total time spent on discharge = 45 minutes This includes examination of the patient, discharge planning, medication reconciliation, and communication with other providers. Discharge Instructions Please follow-up with Dr. Gordon on August 06 at 2:45PM * You will be on Augmentin (antibiotic) twice a day for the next seven days * Primary care should recheck blood work (CBC) - to check Hgb * You will be prescribed Zofran, only take this as needed for nausea * Follow-up with radiation oncology and hematology/oncology specialists at [facility]
== END 2017-08-03 17:24 | disposition home or self-care (01) | DRG 194 ==
LOC: C.EDB 14:42 → C.4E 21:18 → ENRESERV 21:26
PROVIDERS: ADMIT Family Medicine; ATTEND Family Medicine
DX: J18.9 Pneumonia, unspecified organism (principal); I50.22 Chronic systolic (congestive) heart failure; D62 Acute posthemorrhagic anemia; N17.9 Acute kidney failure, unspecified; C34.92 Malignant neoplasm of unspecified part of left bronchus or lung; Z66 Do not resuscitate; I12.9 Hypertensive chronic kidney disease with stage 1 through stage 4 chronic kidney disease, or unspecified chronic kidney disease; I25.10 Atherosclerotic heart disease of native coronary artery without angina pectoris; J44.9 Chronic obstructive pulmonary disease, unspecified; E11.9 Type 2 diabetes mellitus without complications; E78.5 Hyperlipidemia, unspecified; K21.9 Gastro-esophageal reflux disease without esophagitis; F17.200 Nicotine dependence, unspecified, uncomplicated; N18.3 Chronic kidney disease, stage 3 (moderate); I73.9 Peripheral vascular disease, unspecified; Z95.1 Presence of aortocoronary bypass graft; Z87.01 Personal history of pneumonia (recurrent); Z79.82 Long term (current) use of aspirin

== ENCOUNTER 2017-10-12 05:54 | Day surgery (SDC) | payer OTHER, MEDICARE ==
[~2017-10-12] VITALS: Ht 165.1 cm; Wt 82.0 kg
[2017-10-12] VITALS (8 sets, daily range): BP systolic 97–143; BP diastolic 49–68; PULSE 66–81; TEMP 36.6–37.2; O2SAT 94–98; Ht 165.1 cm; Wt 82.0 kg
[~2017-10-12 05:54] MED LIST changes: -AZIT500T PO; +CEFAZOLIN 1000MG IV PUSH 5 ML IV SCH; -GLC500 PO; +SODIUM CHLORIDE 0.9% 1000ML 1,000 ML IV SCH
[2017-10-12] MEDS ORDERED: CEFAZOLIN 1000MG IV PUSH 5 ML IV SCH (06:00)
[2017-10-12] MEDS ORDERED: SODIUM CHLORIDE 0.9% 1000ML IV SCH (06:00)
--- NOTE | 2017-10-12 06:25 | History and Physical ---
History & Physical Date Oct 12, 2017. Chief Complaint Severe bilateral leg claudication History of Present Illness The patient is a 71 year old male with bilateral lower extremity claudication. The patient recently underwent a CT angiography which demonstrates scattered atherosclerotic disease throughout his bilateral lower extremities as well as his abdomen to some extent. The patient is complaining of bilateral calf claudication at short distances and states that this is impeding his normal daily activities and is problematic for him. He is requesting intervention if possible. He denies any rest pain, nonhealing wounds or ulcers or other discoloration of his foot or toes. Allergies Coded Allergies: No Known Allergies (Verified , 07/30/17) Home Medications Scheduled Albuterol Sulfate (Proventil Hfa), 2 PUFFS INH Q4 Aspirin (Aspirin Ec), 81 MG PO DAILY Atorvastatin (Lipitor), 40 MG PO BID Budesonide/Formoterol Fumarate (Symbicort 160/4.5 Inhaler ), 2 PUFFS INH BID Cholecalciferol (Vitamin D3), 1,000 UNITS PO DAILY Furosemide (Lasix), 40 MG PO DAILY Gabapentin (Neurontin), 200 MG PO BID Multiple Vitamin (Multivitamin), 1 TAB PO DAILY Nitroglycerin (Nitrostat), 0.4 MG UT PRN Pantoprazole Sodium (Protonix), 40 MG PO DAILY Scheduled PRN Fexofenadine Hcl (Joi), 180 MG PO DAILY PRN for Itching Tramadol (Ultram), 50 MG PO Q6 PRN for Pain Problem List Medical Problems: (1) ACEI/ARB contraindicated (2) CAD (coronary artery disease) (3) Calculus Of Kidney (4) Carotid Artery Occlusion W O Cerebral Infarction (5) Carotid stenosis (6) Chr Airway Obstruct Nec (7) Chronic systolic CHF (congestive heart failure) (8) COPD (chronic obstructive pulmonary disease) (9) Coron Atheroscler Nos Type Vessel, [place] Or Graft (10) Diab Sofie Wo Compl, Type Ii Or Unspec Type, Not Uncntrld (11) Diverticulosis Colon (W/O Ment Of Hemorrhage) (12) DM type 2 (diabetes mellitus, type 2) (13) Dyslipidemia (14) Esophageal Reflux (15) Fever (16) GERD (gastroesophageal reflux disease) (17) HCAP (healthcare-associated pneumonia) (18) HTN (hypertension) (19) Hyperlipidemia Nec/Nos (20) Hypertension Nos (21) Lung cancer (22) PAD (peripheral artery disease) (23) Renal Artery Aneurysm (24) Sepsis (25) Subclavian artery stenosis, right (26) Tobacco abuse Surgical Problems: (1) Aortocoronary Bypass (2) H/O maze procedure (3) History of left-sided carotid endarterectomy (4) Hx of CABG (5) Percutaneous Translum Coron Angioplasty Status (6) S/P coronary artery stent placement (7) S/p lumbar spinal surgery (8) Status post femoral-popliteal bypass surgery Surgical / Medical History Hx Cardiac Surgery: Yes Hx Abdominal Surgery: Yes Hx Cancer Surgery: No Hx Thoracic Surgery: No Hx Orthopedic: No Hx Urinary Tract Surgery: No Family History FH: CAD (coronary artery disease) FATHER FH: cancer MOTHER Social History Smoking Status: Former Smoker Hx Tobacco Use In Past Year?: Yes Hx Alcohol Use - Type & Amnt: Yes (beer ) Hx Substance Use -Type & Amnt: No Review of Systems Constitutional: No chills, No diaphoresis, No fever, No malaise, No weakness, No weight gain, No weight loss, No sweats, No fatigue, No problem reported Respiratory: No cough, No cyanosis, No SANCHEZ, No hemoptysis, No orthopnea, No PND , No short of breath, No sputum production, No stridor, No wheezing, No dyspnea , No problem reported Cardiovascular: No chest pain, No chest tightness, No chest pressure, No palpitations, No syncope, No diaphoresis, No edema, No intermittent claudication , No orthopnea, No cyanosis, No mumur, No lightheadedness, No paroxysmal nocturnal dyspnea, No problem reported Gastrointestinal: No abdominal pain, No constipation, No diarrhea, No nausea, No vomiting, No anorexia, No appetite changes, No belching, No flatulence, No food intolerance, No hematemesis, No hemorrhoids, No hematochezia, No stool changes, No heartburn, No indigestion, No dysphagia, No rectal bleeding, No problem reported Musculoskeletal: + muscle pain Neurologic: No dizziness, No weakness, No headache, No lethargy, No numbness, No paresthesia, No pre-existing deficit, No seizures, No tics, No tingling, No tremors, No vertigo, No memory loss, No LOC, No problem reported Psychiatric: No anxiety, No alcohol abuse, No auditory hallucinations, No depression, No drug abuse, No homicidal ideation, No mood changes, No suicidal ideation, No visual hallucinations, No problem reported Physical Exam Constitutional: General Apperance: well-nourished, well-developed Level of Distress: NAD Ambulation: ambulating normally Psychiatric: Mental Status: active & alert, normal mood, normal affect Orientation: oriented except where noted, to time, to place, to person Memory: recent memory normal, remote memory normal Neck: supple Lungs: Auscultation: breath sounds normal Cardiovascular: Heart Auscultation: RRR Peripheral Pulses: Radial Pulse: normal on the left, decreased on the right Femoral Pulse: normal on the left, normal on the right Posterior Tibialis Pulse: absent on the left, absent on the right Dorsalis Pedis Pulse: absent on the left, absent on the right Abdomen: Inspection & Palpation: soft, non-distended Extremities: Upper Right: no cyanosis, no edema, no varicosities, no palpable cord, no clubbing, no ulcers, no mottling Upper Left: no cyanosis, no edema, no varicosities, no palpable cord, no clubbing, no ulcers, no mottling Lower Right: no cyanosis, no edema, no varicosities, no palpable cord, no clubbing, no ulcers, no mottling Lower Left: no cyanosis, no edema, no varicosities, no palpable cord, no clubbing, no ulcers, no mottling Neurologic: Cranial Nerves: grossly intact Assessment and Plan Imp: Bilateral superficial femoral artery occlusions with severe claudication Plan: Patient is admitted for arteriography with possible intervention. I have discussed the risks options and benefits of the procedure with the patient. The patient understands the risks options and benefits and agrees to the procedure.
[2017-10-12 07:51] LABS: CREATININE 1.11 mg/dl (0.60-1.40)
--- NOTE | 2017-10-12 07:54 | Procedure Note ---
Pre-Mod Sedation Assessment General Date of Moderate Sedation: Oct 12, 2017. Vital Signs: Vital Signs Past 12 Hours Date Time Temp Pulse Resp B/P (MAP) Pulse Ox O2 Delivery O2 Flow Rate FiO2 10/12/17 06:45 36.8 66 20 143/67 (92) 97 Room Air Pre-Sedation Airway Assessment Oral Cavity: Dentures Hx of Sleep Apnea: No Smoking Status: Former Smoker Mallampati Classification: Class I ASA Classification: Class III Notes The planned sedation has been discussed with the patient and consent obtained. I have identified the patient, determined the appropriateness of sedation and have assessed the patient immediately prior to the procedure. All medicine(s) and interventions are by my order.
--- NOTE | 2017-10-12 07:54 | History & Physical Bridge Note ---
H&P Re-Evaluation Bridge Note: I have examined the patient, reviewed the History & Physical and in the interval since the performance of the History & Physical I have noted the following changes of clinical significance: No changes noted
[2017-10-12] MEDS ORDERED: HEPARIN SOD (PORCINE) 1000 UNIT/ML 10 ML VIAL ONE (09:23)
[2017-10-12] MEDS ORDERED: FENTANYL CITRATE INJ 50 MCG/1 ML 2 ML VIAL ONE ×2 (09:23→10:12)
[2017-10-12] MEDS ORDERED: MIDAZOLAM HCL 1 MG/ML 2ML VIAL ONE ×2 (09:24→09:49)
[2017-10-12] MEDS ORDERED: CEFAZOLIN SOD 2000MG/10 ML IV PUSH IV ONE (09:30)
[2017-10-12] MEDS ORDERED: MIDAZOLAM HCL 1 MG/ML 2ML VIAL IV ONE (09:51)
[2017-10-12] MEDS ORDERED: LIDOCAINE HCL 1% 20 ML VIAL INFIL ONE (09:57)
[2017-10-12] MEDS ORDERED: FENTANYL CITRATE INJ 50 MCG/1 ML 2 ML VIAL IV ONE (10:13)
[2017-10-12] MEDS ORDERED: IODIXANOL (VISIPAQUE) 270 MG/ML 150ML IV ONE (10:16)
--- NOTE | 2017-10-12 10:20 | [facility] Post Operative Brief Note ---
Immediate Operative Summary Operative Date Oct 12, 2017. Pre-Operative Diagnosis Bilateral superficial femoral artery occlusions with severe claudication Post-Operative Diagnosis Same Procedure(s) Performed Right Lower Extremity Angiogram Machanical Closure of Left Femoral Artery Moderate Sedation [id number] Surgeon Thelma Regasification Plant Operator Surgeon(s) Brandi Estimated Blood Loss 5 Findings Right common femoral artery stenosis Specimens None Anesthesia Local with sedation Complication(s) None Disposition
--- NOTE | 2017-10-12 10:22 | Discharge Instructions ---
Discharge Instructions Date of Service Oct 12, 2017. Visit Reason for Visit: Rle Peripheral Artery Disease W/Claudication Discharge Discharge Diagnosis / Problem: Severe claudication right lower extremity Discharge Goals Goal(s): Diagnostic testing Activity Recommendations Activity Limitations: per Instructions/Follow-up section Anesthesia . Post Anesthesia Instructions: If you have had General Anesthesia or IV Sedation: * Do not drive today. * Resume driving when surgeon permits. * Do not make important decisions or sign legal documents today. * Call surgeon for: 1. Temperature elevations greater than 101 degrees F. 2. Uncontrollable pain. 3. Excessive bleeding. 4. Persistent nausea and vomiting. 5. Medication intolerance (nausea, vomiting or rash). * For nausea and vomiting use only clear liquids such as: tea, soda, bouillon until nausea subsides, then gradually increase diet as tolerated. * If you have any concerns or questions, call your surgeon's office. If physician is unavailable and it is an emergency, call 911 or go to the nearest emergency room. . Instructions / Follow-Up Instructions / Follow-Up Call [phone] to schedule a follow up appointment if one not already scheduled. SPECIAL CARE INSTRUCTIONS: Medications: * Continue to take your medications as directed. If you have been given a prescription for Plavix, please fill it immediately and take as directed. Incision Care: * Your puncture site may have some bruising and minor swelling for about one week. * You will have a small dressing covering your puncture site. You may remove the dressing after 24 hours and shower. You may let the warm soapy water run over it, but be sure to dry the puncture site well and keep it dry. * DO NOT IMMERSE THE INCISION IN A TUB/POOL/etc. UNTIL HEALED. * Puncture sites should be kept covered with a band-aid until it begins to heal. Restrictions: * Depending on whether you leg or arm was punctured to access the arteries, you will be required to lay flat, hold your arm still, or both, for about 4 hours after the procedure to prevent bleeding. * Limit your activity for the first 48 hours. You may walk and go up and down steps. Avoid excessive bending or movement at the puncture site. Possible Complications: * Excessive Swelling - after blood flow is improved you may notice increased swelling in the lower legs. This is a normal response. This usually depends on the amount of blockages in the leg, how long they have been there prior to your procedure and how much blood flow was restored. Elevating your legs will help to improve this. Please notify our office ([phone] ) if the swelling does not go away after lying in bed overnight. * Infection/Drainage/Bleeding - Drainage or bleeding from the puncture site should be minimal. If you have excessive bleeding or drainage, call our office ([phone]) right away. * Pain - You may experience some mild pain or soreness at your puncture site. If your pain does not improve, please contact our office ([phone]). Call your doctor and seek emergent treatment if you develop: * Temperature above 101 degrees * Any fever or chills * Any redness or purulent drainage from the puncture site * Any new dusky/blue colored toes or feet with coolness or sharp or aching pain. SKIN IRRITATION: * You may experience some redness and/or swelling in the area where radiation was administered. If any skin irritation occurs, please contact your family physician. FOLLOW UP VISIT: Keep any scheduled doctor appointments. Diet Recommendations Recommended Home Diet: resume previous diet Procedures Procedures Performed: Right Lower Extremity Angiogram Machanical Closure of Left Femoral Artery Moderate Sedation [id number] Pending Studies Studies pending at discharge: no Medical Emergencies . Who to Call and When: Medical Emergencies: If at any time you feel your situation is an emergency, please call 911 immediately. . Non-Emergent Contact Non-Emergency issues call your: Surgeon . . "Provider Documentation" section prepared by Cedrick Renee. .
--- NOTE | 2017-10-12 10:23 | Procedure Note ---
Post-Moderate Sedation Plan General Date of Moderate Sedation Oct 12, 2017. Vital Signs: Vital Signs Past 12 Hours Date Time Temp Pulse Resp B/P (MAP) Pulse Ox O2 Delivery O2 Flow Rate FiO2 10/12/17 09:25 36.8 66 20 143/67 97 Room Air 10/12/17 06:45 36.8 66 20 143/67 (92) 97 Room Air Review - Discharge Plan Post Moderate Sedation Plan: On clinical assessment, the patient appears to have tolerated the conscious sedation without complications. Patient is recovering as anticipated. Patient will continue to be monitored by nursing and may be discharged when conscious sedation discharge criteria are met.
--- NOTE | 2017-10-12 10:46 | DIAGNOSTIC IMAGING REPORT ---
DATE OF PROCEDURE: 10/12/2017 PREOPERATIVE DIAGNOSIS: Right lower extremity claudication. POSTOPERATIVE DIAGNOSIS: Same. PROCEDURE: 1. Ultrasound guided left common femoral arterial access. 2. Right lower extremity angiogram. 3. Percutaneous closure with StarClose device. 4. Conscious sedation for 40 minutes. ANESTHESIA: Local plus conscious sedation. ESTIMATED BLOOD LOSS: 5. CONTRAST: 32 mL. FLUOROSCOPY TIME: 1.5 minutes. MILLIGRAYS: 95. COMPLICATIONS: None apparent. CONDITION: Stable to recovery room. INDICATIONS: Mr. Josh Cat is a 71-year-old male with right lower extremity claudication. This was life limiting and he was advised of the risks, benefits of undergoing an angiogram. He agreed to undergo said procedure and was brought to the operative suite. DESCRIPTION OF PROCEDURE: The patient was placed in the operative suite. He was prepped and draped in usual fashion. A timeout occurred. The left common femoral artery was identified under ultrasound. Lidocaine was instilled and the left common femoral artery was percutaneously accessed. A 5-[place]vian sheath was inserted. A 0.25 Glidewire was then inserted into the aorta and a rim catheter was placed over this. The rim catheter was used to catheterize the right external iliac artery. Multiple angiograms were then taken. This demonstrated a widely patent right common iliac, right external iliac artery. His right common femoral artery had multiple areas of significant calcification and stenosis. His profunda and his SFA all were patent. The SFA had areas of eccentric plaque, but none greater than 50%. His popliteal was patent. His AT occludes proximally. His PT is his main runoff to the foot. The peroneal filled sluggishly and reconstitutes the dorsalis pedis at the foot. At this point, it was determined that he would need to undergo a common femoral endarterectomy so all catheter and wires were withdrawn. The left common femoral angiogram was taken. This showed that the catheter was in the common femoral artery and it was deemed acceptable for a StarClose device. The artery was closed with a StarClose device. Pressure was held. Hemostasis was obtained. The patient tolerated the procedure well and was brought to the recovery room in stable condition. Dr. Cedrick Renee was present for the entirety of this case. [facility] MEDICAL CENTERFrancisca
== END 2017-10-12 13:45 | disposition home or self-care (01) ==
LOC: C.ACU 05:54
PROVIDERS: ATTEND Surgery Vascular Surgery
DX: I70.211 Atherosclerosis of native arteries of extremities with intermittent claudication, right leg (principal); I73.9 Peripheral vascular disease, unspecified; I25.10 Atherosclerotic heart disease of native coronary artery without angina pectoris; I10 Essential (primary) hypertension; J44.9 Chronic obstructive pulmonary disease, unspecified; K21.9 Gastro-esophageal reflux disease without esophagitis; E11.9 Type 2 diabetes mellitus without complications; E78.5 Hyperlipidemia, unspecified; Z79.82 Long term (current) use of aspirin; Z79.899 Other long term (current) drug therapy; F17.200 Nicotine dependence, unspecified, uncomplicated; Z98.890 Other specified postprocedural states; Z95.1 Presence of aortocoronary bypass graft; Z82.49 Family history of ischemic heart disease and other diseases of the circulatory system; Z80.9 Family history of malignant neoplasm, unspecified

== ENCOUNTER → 2017-10-22 | Outpatient (CLI) | payer OTHER, MEDICARE ==
[~2017-10-22] VITALS: Ht 165.1 cm; Wt 83.7 kg
[~2017-10-22] MED LIST changes: +BUPR75TA20 PO; -CEFAZOLIN 1000MG IV PUSH 5 ML IV SCH; +CEFAZOLIN 2000MG IV PUSH 10 ML IV SCH
[2017-10-22 13:36] VITALS: Ht 165.1 cm; Wt 83.7 kg
--- NOTE | 2017-10-22 14:21 | PAT Medication Instructions ---
Service Date Oct 22, 2017. Current Home Medication List Albuterol Sulfate (Proventil Hfa), 2 PUFFS INH Q4 Aspirin (Aspirin Ec), 81 MG PO QAM Atorvastatin (Lipitor), 40 MG PO QAM Budesonide/Formoterol Fumarate (Symbicort 160/4.5 Inhaler ), 2 PUFFS INH BID Bupropion (Wellbutrin), 150 MG PO BID Cholecalciferol (Vitamin D3), 1,000 UNITS PO BID Gabapentin (Neurontin), 200 MG PO BID Multiple Vitamin (Multivitamin), 1 TAB PO QAM Nitroglycerin (Nitrostat), 0.4 MG UT PRN Pantoprazole Sodium (Protonix), 40 MG PO QAM Tramadol (Ultram), 50 MG PO Q6 PRN for Pain Medication Instructions For Your Scheduled Surgery - Continue as directed: Nitroglycerin (Nitrostat), 0.4 MG UT PRN - Hold the following medications the morning of surgery: Multiple Vitamin (Multivitamin), 1 TAB PO QAM Cholecalciferol (Vitamin D3), 1,000 UNITS PO BID - Take the following medications the morning of surgery with a sip of water OTHERWISE NOTHING TO EAT OR DRINK AFTER MIDNIGHT: Pantoprazole Sodium (Protonix), 40 MG PO QAM Aspirin (Aspirin Ec), 81 MG PO QAM (okay per surgeon) Tramadol (Ultram), 50 MG PO Q6 PRN for Pain (may take if needed up to 4 hours prior to surgery) Budesonide/Formoterol Fumarate (Symbicort 160/4.5 Inhaler ), 2 PUFFS INH BID Albuterol Sulfate (Proventil Hfa), 2 PUFFS INH Q4h (use if needed;BRING TO HOSPITAL) (red one) Atorvastatin (Lipitor), 40 MG PO QAM Bupropion (Wellbutrin), 150 MG PO BID Gabapentin (Neurontin), 200 MG PO BID - Take the following medications as scheduled the night before surgery: Tramadol (Ultram), 50 MG PO Q6 PRN for Pain Budesonide/Formoterol Fumarate (Symbicort 160/4.5 Inhaler ), 2 PUFFS INH BID Albuterol Sulfate (Proventil Hfa), 2 PUFFS INH Q4h Cholecalciferol (Vitamin D3), 1,000 UNITS PO BID Bupropion (Wellbutrin), 150 MG PO BID Gabapentin (Neurontin), 200 MG PO BID If you have any questions please call us at [phone] or [phone] or [phone]
--- NOTE | 2017-10-22 15:13 | DIAGNOSTIC IMAGING REPORT ---
CHEST 2 VIEWS ROUTINE CLINICAL HISTORY: Preoperative chest COMPARISON STUDY: 07/22/2017 FINDINGS: The cardiac and mediastinal contours remain stable. There are progressive left lower lobe airspace opacities consistent with a pneumonia. Follow-up document resolution is recommended to exclude an underlying mass. There are no significant pleural effusions.[ IMPRESSION: 1. Progressive left lower lobe airspace opacities consistent with a pneumonia. Films subsequent to treatment are recommended in follow-up. 2. Emphysema Electronically signed by: Vamshi Gar M.D. 10/22/2017 3:11 PM Dictated Date/Time: 10/22/2017 3:08 PM
[2017-10-22 15:14] LABS: BASO % 0.2 %; BASO ABS # 0.01 K/uL (0-0.2); EOS ABS # 0.18 K/uL (0-0.5); HEMATOCRIT 36.4 % (42-52); IG# 0.07 K/uL (0.00-0.02); LYMPH % 34.5 %; LYMPH ABS # 2.04 K/uL (1.2-3.4); MEAN CELL VOLUME 111.7 fL (80-100); MEAN CORPUSCULAR HEMOGLOBIN 36.8 pg (25-34); MEAN PLATELET VOLUME 11.1 fL (7.4-10.4); MONO % 7.1 %; MONO ABS # 0.42 K/uL (0.11-0.59); PLATELET COUNT 151 K/uL (130-400); RED CELL DISTRIBUTION WIDTH CV 16.8 % (11.5-14.5); RED CELL DISTRIBUTION WIDTH SD 67.7 fL (36.4-46.3); WHITE BLOOD COUNT 5.92 K/uL (4.8-10.8)
[2017-10-22 15:22] LABS: CALCIUM 9.3 mg/dl (8.5-10.1); CREATININE 1.73 mg/dl (0.60-1.40); POTASSIUM 4.7 mmol/L (3.5-5.1)
[2017-10-22 15:30] LABS: PTT PATIENT 25.4 SECONDS (21.0-31.0)
== END | disposition home or self-care (01) ==
LOC: C.LAB 08:00 → EDSTATUS 11-04 07:30
PROVIDERS: ATTEND Surgery Vascular Surgery
DX: Z01.818 Encounter for other preprocedural examination (principal)

== ENCOUNTER → 2017-11-09 | Outpatient (CLI) | payer OTHER, MEDICARE ==
[~2017-11-09] MED LIST changes: -CEFAZOLIN 2000MG IV PUSH 10 ML IV SCH; -FEXO1TAB46 PO; -FURO40TA3 PO; -SODIUM CHLORIDE 0.9% 1000ML 1,000 ML IV SCH
[2017-11-09 12:01] LABS: BASO % 0.3 %; BASO ABS # 0.02 K/uL (0-0.2); EOS ABS # 0.18 K/uL (0-0.5); HEMATOCRIT 33.1 % (42-52); HEMOGLOBIN 10.9 g/dL (14.0-18.0); IG# 0.12 K/uL (0.00-0.02); LYMPH % 38.4 %; LYMPH ABS # 2.34 K/uL (1.2-3.4); MEAN CORPUSCULAR HEMOGLOBIN 37.2 pg (25-34); MEAN CORPUSCULAR HGB CONC 32.9 g/dl (32-36); MEAN PLATELET VOLUME 10.8 fL (7.4-10.4); MONO % 9.9 %; NEUT % 46.4 %; NEUT ABS # 2.83 K/uL (1.4-6.5); NUCLEATED RED BLOOD CELL ABS 0.02 K/uL (0-0); PLATELET COUNT 204 K/uL (130-400); RED CELL DISTRIBUTION WIDTH CV 15.8 % (11.5-14.5); RED CELL DISTRIBUTION WIDTH SD 63.1 fL (36.4-46.3); WHITE BLOOD COUNT 6.09 K/uL (4.8-10.8)
[2017-11-09 12:10] LABS: BLOOD UREA NITROGEN 18 mg/dl (7-18); CALCIUM 9.4 mg/dl (8.5-10.1); CARBON DIOXIDE 27 mmol/L (21-32); CREATININE 1.35 mg/dl (0.60-1.40); GLUCOSE 120 mg/dl (70-99); POTASSIUM 4.3 mmol/L (3.5-5.1); SODIUM 137 mmol/L (136-145)
== END | disposition home or self-care (01) ==
LOC: C.LAB1850 10:57
PROVIDERS: ATTEND Physician Assistant
DX: R05 Cough (principal)

== ENCOUNTER → 2017-11-23 | Outpatient (CLI) | payer OTHER, MEDICARE ==
--- NOTE | 2017-11-23 10:30 | DIAGNOSTIC IMAGING REPORT ---
TWO VIEW CHEST CLINICAL HISTORY: Cough. FINDINGS: PA and lateral chest radiographs are compared to study dated 10/22/2017 and correlated with chest CT dated 07/30/2017. The cardiomediastinal silhouette is unremarkable. There is atherosclerotic calcification of the thoracic aorta. Advanced emphysema and chronic interstitial thickening are similar to previous. Airspace consolidation is seen at the left lung base. There is no pleural effusion or pneumothorax. The skeletal structures are osteopenic. Degenerative changes noted throughout the thoracic spine. Surgical clips are seen in the left lower neck mediastinum. IMPRESSION: 1. Advanced emphysema. 2. Airspace consolidation is again seen at the left lung base. The appearance is typical for pneumonia. Radiographic follow-up to resolution is recommended. Electronically signed by: Amor Jewell M.D. 11/23/2017 10:29 AM Dictated Date/Time: 11/23/2017 10:27 AM
== END | disposition home or self-care (01) ==
LOC: C.RAD1850 10:11
PROVIDERS: ATTEND Physician Assistant
DX: R05 Cough (principal); J43.9 Emphysema, unspecified; R91.8 Other nonspecific abnormal finding of lung field

== ENCOUNTER 2017-12-20 11:30 | Emergency (ER) | payer OTHER, MEDICARE ==
[~2017-12-20] VITALS: Ht 165.1 cm; Wt 84.8 kg
[2017-12-20 11:33] VITALS: TEMP 36.9; Ht 165.1 cm; Wt 84.8 kg
[2017-12-20 11:50] VITALS: O2SAT 97
--- NOTE | 2017-12-20 11:52 | EMERGENCY ROOM VISIT NOTE ---
History Report prepared by Scribe: Clary Reilly Under the Supervision of: Dr. Iban Lindsay M.D. First contact with patient: 11:41 Chief Complaint: FEVER Stated Complaint: FEVER,TROUBLE BREATHING,WEAK,CLOGGED ARTERIES History of Present Illness The patient is a 72 year old male who presents to the Emergency Room with complaints of a worsening shortness of breath for the past 4 days. He states "I always have trouble breathing, but it keeps getting worse". He has a history of lung cancer and was a smoker from the age of 17 until this past June when he quit. His inhalers have provided minimal relief. He states he is unable to walk because of chronic knee pain and bilateral lower extremity claudication. The patient has also had a fever since last night. He last had Tylenol earlier this morning. He states he only has chest pain with deep inspiration. He denies any nausea, vomiting or recent syncopal episodes. He denies any recent sick contacts and states he did get a flu shot this year. 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 A total of 10 systems reviewed and were otherwise negative. Past Medical & Surgical Medical Problems: (1) ACEI/ARB contraindicated (2) CAD (coronary artery disease) (3) Calculus Of Kidney (4) Carotid Artery Occlusion W O Cerebral Infarction (5) Carotid stenosis (6) Chr Airway Obstruct Nec (7) Chronic systolic CHF (congestive heart failure) (8) COPD (chronic obstructive pulmonary disease) (9) Coron Atheroscler Nos Type Vessel, [place] (10) Diab Sofie Wo Compl, Type Ii Or Unspec Type, Not Uncntrld (11) Diverticulosis Colon (W/O Ment Of Hemorrhage) (12) DM type 2 (diabetes mellitus, type 2) (13) Dyslipidemia (14) Esophageal Reflux (15) Fever (16) GERD (gastroesophageal reflux disease) (17) HCAP (healthcare-associated pneumonia) (18) HTN (hypertension) (19) Hyperlipidemia Nec/Nos (20) Hypertension Nos (21) Lung cancer (22) PAD (peripheral artery disease) (23) Renal Artery Aneurysm (24) Sepsis (25) Subclavian artery stenosis, right (26) Tobacco abuse Surgical Problems: (1) Aortocoronary Bypass (2) H/O maze procedure (3) History of left-sided carotid endarterectomy (4) Hx of CABG (5) Percutaneous Translum Coron Angioplasty Status (6) S/P coronary artery stent placement (7) S/p lumbar spinal surgery (8) Status post femoral-popliteal bypass surgery Family History FH: CAD (coronary artery disease) FATHER FH: cancer MOTHER Social History Smoking Status: Former Smoker Drug Use: none Marital Status: Housing Status: lives with significant other Occupation Status: retired Current/Historical Medications Scheduled Albuterol Sulfate (Proventil Hfa), 2 PUFFS INH Q4 Aspirin (Aspirin Ec), 81 MG PO QAM Budesonide/Formoterol Fumarate (Symbicort 160/4.5 Inhaler ), 2 PUFFS INH BID Bupropion (Wellbutrin), 150 MG PO BID Carvedilol (Coreg), 12.5 MG PO BID Cholecalciferol (Vitamin D3), 1,000 UNITS PO BID Clopidogrel (Plavix), 75 MG PO DAILY Doxycycline Hyclate (Vibramycin), 100 MG PO BID Fexofenadine Hcl (Joi Allergy), 1 TAB PO DAILY Gabapentin (Neurontin), 200 MG PO BID Methylprednisolone (Medrol Dosepak), 1 PKT PO UD Multiple Vitamin (Multivitamin), 1 TAB PO QAM Nitroglycerin (Nitrostat), 0.4 MG UT PRN Pantoprazole Sodium (Protonix), 40 MG PO QAM Rosuvastatin Calcium (Crestor), 40 MG PO DAILY Scheduled PRN Tramadol (Ultram), 50 MG PO Q6 PRN for Pain Allergies Coded Allergies: No Known Allergies (Verified , 12/20/17) Physical Exam Vital Signs Date Time Temp Pulse Resp B/P (MAP) Pulse Ox O2 Delivery O2 Flow Rate FiO2 12/20/17 13:46 89 22 98/47 94 Room Air 12/20/17 13:24 92 20 100/66 94 Room Air 12/20/17 12:42 91 20 95 Room Air 12/20/17 11:57 86 12/20/17 11:50 97 Room Air 12/20/17 11:33 36.9 95 20 127/91 94 Room Air Physical Exam GENERAL: Patient is chronically unwell appearing and in mild distress. HEENT: No acute trauma, normocephalic atraumatic, mucous membranes moist, no nasal congestion, no scleral icterus. NECK: No stridor, no adenopathy, no meningismus, trachea is midline. LUNGS: Dyspneic, prolonged expiratory time with mild wheezing. No rhonchi. HEART: Regular rate and rhythm. No murmurs, rubs, gallops appreciated. ABDOMEN: Soft, nontender, bowel sounds positive, no masses appreciated, no peritonitis. BACK: No midline tenderness, no CVA tenderness EXTREMITIES: Poor pulses in the feet bilaterally, states chronic. Normal motion all extremities, no cyanosis, no edema. NEUROLOGIC: Alert and oriented, no acute motor or sensory deficits, no focal weakness, cranial nerves grossly intact. SKIN: No rash, no jaundice, no diaphoresis. Medical Decision & Procedures ER Provider Diagnostic Interpretation: Radiology results and stated below per my review and radiologist interpretation: CHEST ONE VIEW PORTABLE CLINICAL HISTORY: COPD Exacerbation COMPARISON STUDY: Chest CT September 25, 2017 and chest radiograph November 23, 2017. FINDINGS: Mediastinal surgical clips are noted. Cardiomediastinal silhouette is stable. No pneumothorax is present. Left lower lung opacity and interstitial thickening has slightly increased. Right lung is clear. There is emphysema. There is no evidence for pulmonary edema. There may be a trace left pleural effusion. IMPRESSION: 1. Increase in left basilar airspace opacity and interstitial thickening at site of suspicious lesion shown on PET/CT of May 06, 2017. This could reflect pneumonia, post radiation change or recurrent tumor. 2. Trace left pleural fusion. 3. No evidence of pulmonary edema. Electronically signed by: Maninder Meyer M.D. 12/20/2017 12:19 PM Laboratory Results 12/20/17 12:00 Red Blood Count 2.69, Mean Corpuscular Volume 114.5, Mean Corpuscular Hemoglobin 37.5, Mean Corpuscular Hemoglobin Concent 32.8, Mean Platelet Volume 11.4, Neutrophils (%) (Auto) 66.9, Lymphocytes (%) (Auto) 23.4, Monocytes (%) ( Auto) 7.7, Eosinophils (%) (Auto) 1.4, Basophils (%) (Auto) 0.0, Neutrophils # ( Auto) 5.92, Lymphocytes # (Auto) 2.07, Monocytes # (Auto) 0.68, Eosinophils # ( Auto) 0.12, Basophils # (Auto) 0.00 12/20/17 12:00 Test 12/20/17 11:45 12/20/17 12:00 Influenza Type A Antigen Neg for Influ A (NEG) Influenza Type B Antigen Neg for Influ B (NEG) White Blood Count 8.84 K/uL (4.8-10.8) Red Blood Count 2.69 M/uL (4.7-6.1) Hemoglobin 10.1 g/dL (14.0-18.0) Hematocrit 30.8 % (42-52) Mean Corpuscular Volume 114.5 fL (80-100) Mean Corpuscular Hemoglobin 37.5 pg (25-34) Mean Corpuscular Hemoglobin Concent 32.8 g/dl (32-36) Platelet Count 170 K/uL (130-400) Mean Platelet Volume 11.4 fL (7.4-10.4) Neutrophils (%) (Auto) 66.9 % Lymphocytes (%) (Auto) 23.4 % Monocytes (%) (Auto) 7.7 % Eosinophils (%) (Auto) 1.4 % Basophils (%) (Auto) 0.0 % Neutrophils # (Auto) 5.92 K/uL (1.4-6.5) Lymphocytes # (Auto) 2.07 K/uL (1.2-3.4) Monocytes # (Auto) 0.68 K/uL (0.11-0.59) Eosinophils # (Auto) 0.12 K/uL (0-0.5) Basophils # (Auto) 0.00 K/uL (0-0.2) RDW Standard Deviation 69.9 fL (36.4-46.3) RDW Coefficient of Variation 16.9 % (11.5-14.5) Immature Granulocyte % (Auto) 0.6 % Immature Granulocyte # (Auto) 0.05 K/uL (0.00-0.02) Nucleated RBC Absolute Count (auto) 0.04 K/uL (0-0) Nucleated Red Blood Cells % 0.4 % Macrocytosis PRESENT Venous Blood pH 7.42 (7.36-7.41) Venous Blood Partial Pressure CO2 44 mmHg (38.0-50.0) Venous Blood Partial Pressure O2 33 mmHg Venous Blood HCO3 28 mmol/L Venous Blood Oxygen Saturation < 60.0 % Venous Blood Base Excess 3.4 mEq/L Anion Gap 8.0 mmol/L (3-11) Est Creatinine Clear Calc Drug Dose 46.8 ml/min Estimated GFR () 55.8 Estimated GFR (Non- 48.1 BUN/Creatinine Ratio 9.6 (10-20) Calcium Level 9.2 mg/dl (8.5-10.1) Troponin I < 0.015 ng/ml (0-0.045) Laboratory results as reviewed by me. Medications Administered Medications (Trade) Dose Ordered Sig/Timbo Route Start Time Stop Time Status Last Admin Dose Admin Albuterol/ Ipratropium (Duoneb) 12 ml ONE ONCE INH 12/20/17 12:00 12/20/17 12:01 DC 12/20/17 12:42 12 ML Dexamethasone Sodium Phosphate (Dexamethasone Inj Pf) 10 mg NOW ONCE IV 12/20/17 12:00 12/20/17 12:01 DC 12/20/17 12:01 10 MG Doxycycline Hyclate (Vibramycin Cap) 100 mg ONE ONCE PO 12/20/17 13:30 12/20/17 13:31 DC 12/20/17 13:48 100 MG ECG Per My Interpretation Indication: SOB/dyspnea Rate (beats per minute): 77 Rhythm: sinus rhythm Findings: ST depression (Mild ST depressions laterally), no ectopy, other ( Periodic dropped beats, no STEMI) ED Course 1144: The patient was evaluated in room C9. A complete history and physical exam was performed. 1200: Dexamethasone Sodium Phosphate 10 mg IV, DuoNeb 12 ml INH. 1320: I reevaluated the patient. He feels vastly improved. His lung exam is clear. He was able to ambulate without difficulty and states he feels well enough to go home. I discussed his results and discharge instructions and he verbalized complete understanding and agreement. 1330: Vibramycin 100 mg PO. Medical Decision Differential: Infectious, Reactive Airway Disease, Pneumonia, Pneumothorax, COPD , CHF, ACS, Pulmonary Embolism, MSK, GI, Dissection, amongst other etiologies entertained. 72 yr old pleasant male with long COPD history arrives with worsening SHOB last day or so. Vastly improved with hour neb and ambulating well. He does not wish admission which seems reasonable. CXR clear other than LLL findings which I suspect are scar related. Labs unremarkable. Flu negative and symptoms more consistent with COPD. Will go ahead and start doxy for abx coverage given COPD. Steroids as well reasonable. Breathing comfortably on room air. Has inhalers at home. Discussed symptoms requiring RTED. O2 sats and vitals good at discharge. Medication Reconcilliation Current Medication List: was personally reviewed by me Blood Pressure Screening Patient's blood pressure: Normal blood pressure Blood pressure disposition: Did not require urgent referral Impression Primary Impression: COPD with exacerbation Scribe Attestation The scribe's documentation has been prepared under my direction and personally reviewed by me in its entirety. I confirm that the note above accurately reflects all work, treatment, procedures, and medical decision making performed by me. Departure Information Dispostion Home / Self-Care Prescriptions Methylprednisolone (MEDROL DOSEPAK) 4 Mg Bong 1 PKT PO UD for 6 Days, #1 PKT Prov: Iban Lindsay M.D. 12/20/17 Doxycycline Hyclate (VIBRAMYCIN) 100 Mg Cap 100 MG PO BID for 7 Days, #14 CAP Prov: Iban Lindsay M.D. 12/20/17 Referrals Abdoul Gordon M.D. (PCP) Patient Instructions COPD Teja, My [facility]
[2017-12-20] MEDS ORDERED: ALBUT/IPRATROP 3MG/0.5MG NEB 3 ML VIAL INH ONE (12:00)
[2017-12-20] MEDS ORDERED: DEXAMETHASONE **PF** INJ 10 MG/ML VIAL IV ONE (12:00)
[2017-12-20] MEDS ORDERED: FEXO1TAB49 PO (12:07)
[2017-12-20] MEDS ORDERED: CLOP1TAB15 PO (12:07)
[2017-12-20] MEDS ORDERED: CARV12.52 PO (12:07)
[2017-12-20] MEDS ORDERED: ROSU40TA PO (12:07)
[2017-12-20 12:13] LABS: HEMATOCRIT 30.8 % (42-52); HEMOGLOBIN 10.1 g/dL (14.0-18.0); MEAN CELL VOLUME 114.5 fL (80-100); MEAN CORPUSCULAR HEMOGLOBIN 37.5 pg (25-34); MEAN CORPUSCULAR HGB CONC 32.8 g/dl (32-36); MEAN PLATELET VOLUME 11.4 fL (7.4-10.4); NUCLEATED RED BLOOD CELL ABS 0.04 K/uL (0-0); PLATELET COUNT 170 K/uL (130-400); RED CELL DISTRIBUTION WIDTH CV 16.9 % (11.5-14.5); RED CELL DISTRIBUTION WIDTH SD 69.9 fL (36.4-46.3); WHITE BLOOD COUNT 8.84 K/uL (4.8-10.8)
--- NOTE | 2017-12-20 12:20 | DIAGNOSTIC IMAGING REPORT ---
CHEST ONE VIEW PORTABLE CLINICAL HISTORY: COPD Exacerbation COMPARISON STUDY: Chest CT September 25, 2017 and chest radiograph November 23, 2017. FINDINGS: Mediastinal surgical clips are noted. Cardiomediastinal silhouette is stable. No pneumothorax is present. Left lower lung opacity and interstitial thickening has slightly increased. Right lung is clear. There is emphysema. There is no evidence for pulmonary edema. There may be a trace left pleural effusion. IMPRESSION: 1. Increase in left basilar airspace opacity and interstitial thickening at site of suspicious lesion shown on PET/CT of May 06, 2017. This could reflect pneumonia, post radiation change or recurrent tumor. 2. Trace left pleural fusion. 3. No evidence of pulmonary edema. Electronically signed by: Maninder Meyer M.D. 12/20/2017 12:19 PM Dictated Date/Time: 12/20/2017 12:16 PM
[2017-12-20 12:30] LABS: BLOOD UREA NITROGEN 14 mg/dl (7-18); CALCIUM 9.2 mg/dl (8.5-10.1); CARBON DIOXIDE 26 mmol/L (21-32); CREATININE 1.45 mg/dl (0.60-1.40); GLUCOSE 126 mg/dl (70-99); POTASSIUM 3.7 mmol/L (3.5-5.1); SODIUM 134 mmol/L (136-145)
[2017-12-20 12:37] LABS: EOS % 1.4 %; EOS ABS # 0.12 K/uL (0-0.5); IG# 0.05 K/uL (0.00-0.02); LYMPH % 23.4 %; LYMPH ABS # 2.07 K/uL (1.2-3.4); MONO % 7.7 %; MONO ABS # 0.68 K/uL (0.11-0.59); NEUT % 66.9 %; NEUT ABS # 5.92 K/uL (1.4-6.5)
[2017-12-20 12:42] VITALS: PULSE 91; O2SAT 95
[2017-12-20 12:52] LABS: INFLUENZA B ANTIGEN Neg for Influ B (NEG)
[2017-12-20] MEDS ORDERED: DOXYCYCLINE HYCLATE 100 MG CAP PO ONE (13:30)
[2017-12-20] MEDS ORDERED: METH4PAK PO (13:31)
[2017-12-20] MEDS ORDERED: DOXY100C PO (13:31)
[2017-12-20 13:46] VITALS: BP 98/47; PULSE 89; O2SAT 94
[2017-12-24] MEDS ORDERED: LISI-729 PO (08:26)
[2017-12-24] MEDS ORDERED: METH1TAB81 PO (08:26)
[2017-12-24] MEDS ORDERED: ATOR-26 PO (08:26)
[2017-12-24] MEDS ORDERED: DOXY100C76 PO (08:26)
== END 2017-12-20 13:56 | disposition home or self-care (01) ==
LOC: C.EDB 11:32 → C.EDC 13:56
DX: J44.1 Chronic obstructive pulmonary disease with (acute) exacerbation (principal); R91.8 Other nonspecific abnormal finding of lung field; I50.9 Heart failure, unspecified; I11.0 Hypertensive heart disease with heart failure; E11.9 Type 2 diabetes mellitus without complications; K21.9 Gastro-esophageal reflux disease without esophagitis; E78.5 Hyperlipidemia, unspecified; I73.9 Peripheral vascular disease, unspecified; Z85.118 Personal history of other malignant neoplasm of bronchus and lung; Z87.891 Personal history of nicotine dependence; Z79.82 Long term (current) use of aspirin; Z82.49 Family history of ischemic heart disease and other diseases of the circulatory system

== ENCOUNTER 2018-01-04 05:02 | Inpatient (IN) | payer OTHER, MEDICARE ==
[2017-12-24 08:09] VITALS: Ht 162.6 cm; Wt 88.4 kg
[~2018-01-04] VITALS: Ht 162.6 cm; Wt 88.4 kg
[~2018-01-04 05:02] MED LIST changes: +DOXY100C76 PO; +LISI-729 PO; +METH1TAB81 PO; -TRAM-10 PO
[2018-01-04 05:44] VITALS: BP 128/62; PULSE 88; TEMP 36.8; O2SAT 96
[2018-01-04] MEDS ORDERED: CEFAZOLIN 2000MG IV PUSH 15 ML IV SCH (06:00)
[2018-01-04] MEDS ORDERED: CEFAZOLIN SOD 2000MG/15 ML IV PUSH IV ONE (06:03)
[2018-01-04] MEDS ORDERED: LACTATED RINGER'S 1000ML 1,000 ML IV SCH (06:15)
[2018-01-04] MEDS ORDERED: SODIUM CHLORIDE 0.9% 1000ML 1,000 ML IV SCH (06:15)
[2018-01-04] MEDS ORDERED: FENTANYL CITRATE INJ 50 MCG/1 ML 2 ML VIAL ONE ×2 (07:04→09:14)
[2018-01-04] MEDS ORDERED: MIDAZOLAM HCL 1 MG/ML 2ML VIAL ONE (07:04)
--- NOTE | 2018-01-04 07:20 | History and Physical ---
History & Physical Date of Service Jan 04, 2018. History & Physical Chief Complaint Severe bilateral leg claudication History of Present Illness Mr. Josh Cat is a 72-year-old gentleman with history of carotid stenosis status post carotid endarterectomy, coronary artery disease status post CABG, peripheral vascular disease of the bilateral lower extremities. Patient says that he has significant short-distance claudication in both of his lower extremities, the right side is worse than the left side. He experiences symptoms at approximately 15-20 feet. He additionally says that for the past month he has been experiencing rest pain in his right foot. This occurs every night. He underwent a right lower extremity diagnostic angiogram on October, that was significant for common femoral disease of the right lower extremity. Patient says that he is experiencing flu-like symptoms and presented to the Emergency Department yesterday. He was diagnosed with a COPD exacerbation and given a breathing treatment. He was started on antibiotics, and says that he feels better. He says that he has scarring of his left lower lobe of his lung secondary to cancer for which he received radiation therapy. He does note that he in addition to having claudication symptoms at 20 feet, he additionally has shortness of breath at 20 feet. Medications were reviewed and include albuterol, aspirin, atorvastatin, Symbicort, bupropion, vitamin D3, doxycycline, gabapentin, lisinopril, Solu- Medrol Dosepak, Nitrostat, Protonix, promethazine. Allergies Coded Allergies: No Known Allergies (Verified , 07/30/17) Problem List Medical Problems: (1) ACEI/ARB contraindicated (2) CAD (coronary artery disease) (3) Calculus Of Kidney (4) Carotid Artery Occlusion W O Cerebral Infarction (5) Carotid stenosis (6) Chr Airway Obstruct Nec (7) Chronic systolic CHF (congestive heart failure) (8) COPD (chronic obstructive pulmonary disease) (9) Coron Atheroscler Nos Type Vessel, [place] Or Graft (10) Diab Sofie Wo Compl, Type Ii Or Unspec Type, Not Uncntrld (11) Diverticulosis Colon (W/O Ment Of Hemorrhage) (12) DM type 2 (diabetes mellitus, type 2) (13) Dyslipidemia (14) Esophageal Reflux (15) Fever (16) GERD (gastroesophageal reflux disease) (17) HCAP (healthcare-associated pneumonia) (18) HTN (hypertension) (19) Hyperlipidemia Nec/Nos (20) Hypertension Nos (21) Lung cancer (22) PAD (peripheral artery disease) (23) Renal Artery Aneurysm (24) Sepsis (25) Subclavian artery stenosis, right (26) Tobacco abuse Surgical Problems: (1) Aortocoronary Bypass (2) H/O maze procedure (3) History of left-sided carotid endarterectomy (4) Hx of CABG (5) Percutaneous Translum Coron Angioplasty Status (6) S/P coronary artery stent placement (7) S/p lumbar spinal surgery (8) Status post femoral-popliteal bypass surgery Surgical / Medical History Hx Cardiac Surgery: Yes Hx Abdominal Surgery: Yes Hx Cancer Surgery: No Hx Thoracic Surgery: No Hx Orthopedic: No Hx Urinary Tract Surgery: No Family History FH: CAD (coronary artery disease) FATHER FH: cancer MOTHER Social History Smoking Status: Former Smoker Hx Tobacco Use In Past Year?: Yes Hx Alcohol Use - Type & Amnt: Yes (beer ) Hx Substance Use -Type & Amnt: No Review of Systems Constitutional: No chills, No diaphoresis, No fever, No malaise, No weakness, No weight gain, No weight loss, No sweats, No fatigue, No problem reported Respiratory: No cough, No cyanosis, No SANCHEZ, No hemoptysis, No orthopnea, No PND , No short of breath, No sputum production, No stridor, No wheezing, No dyspnea , No problem reported Cardiovascular: No chest pain, No chest tightness, No chest pressure, No palpitations, No syncope, No diaphoresis, No edema, No intermittent claudication , No orthopnea, No cyanosis, No mumur, No lightheadedness, No paroxysmal nocturnal dyspnea, No problem reported Gastrointestinal: No abdominal pain, No constipation, No diarrhea, No nausea, No vomiting, No anorexia, No appetite changes, No belching, No flatulence, No food intolerance, No hematemesis, No hemorrhoids, No hematochezia, No stool changes, No heartburn, No indigestion, No dysphagia, No rectal bleeding, No problem reported Musculoskeletal: + muscle pain Neurologic: No dizziness, No weakness, No headache, No lethargy, No numbness, No paresthesia, No pre-existing deficit, No seizures, No tics, No tingling, No tremors, No vertigo, No memory loss, No LOC, No problem reported Psychiatric: No anxiety, No alcohol abuse, No auditory hallucinations, No depression, No drug abuse, No homicidal ideation, No mood changes, No suicidal ideation, No visual hallucinations, No problem reported Physical Exam On physical exam, the patient's heart rate is 84 and blood pressure is 104/46, oxygen saturation is 97% on room air. He is awake, alert, and pleasant. Lungs are clear to auscultation bilaterally. His heart is regular rate and rhythm. His abdomen is soft, nontender, nondistended with positive bowel sounds. His femoral pulses are palpable bilaterally, slightly weaker on the right. I was unable to palpate pulses in the bilateral feet; however, he does have dopplerable PT signal on the right and AT and PT on the left. He has motor and sensation intact in the bilateral lower extremities. He does appear to have a small amount of ecchymosis on the dorsal lateral aspect of his right foot. This area is not tender to palpation. There are no wounds over either foot. Assessment and Plan Imp: Bilateral superficial femoral artery occlusions with severe claudication Plan: Patient is admitted for a right common femoral artery endarterectomy with arteriography with possible intervention of the right lower extremity. I have discussed the risks options and benefits of the procedure with the patient. The patient understands the risks options and benefits and agrees to the procedure.
[2018-01-04] MEDS ORDERED: BUPIVACAINE/EPINEPHRINE 0.5% MPF 1:200,000 30 ML VIAL ONE (08:14)
[2018-01-04] MEDS ORDERED: LIDOCAINE HCL 1% 20 ML VIAL ONE (08:14)
[2018-01-04] MEDS ORDERED: PAPAVERINE HCL INJ 30 MG/ML 2 ML VIAL ONE (08:15)
[2018-01-04] MEDS ORDERED: CEFAZOLIN SOD 1 GM VIAL ONE (08:15)
[2018-01-04] MEDS ORDERED: HEPARIN SOD (PORCINE) 1000 UNIT/ML 10 ML VIAL ONE ×2 (08:16→10:22)
[2018-01-04] MEDS ORDERED: GELATIN SPONGE SZ 100 ONE (08:16)
[2018-01-04] MEDS ORDERED: ATROPINE SULFATE 0.1 MG/ML 5ML SYR IV PRN (08:30)
[2018-01-04] MEDS ORDERED: ONDANSETRON INJ 2 MG/ML 2 ML VIAL IV PRN ×2 (08:30→11:30)
[2018-01-04] MEDS ORDERED: HYDROmorphone INJ 2 MG/ML SYR/VIAL IV PRN (08:30)
[2018-01-04] MEDS ORDERED: LABETALOL HCL IV 5 MG/ML 20ML IV PRN (08:30)
[2018-01-04] MEDS ORDERED: LIDOCAINE HCL 2% 2 ML VIAL (20MG/ML) ONE (10:22)
[2018-01-04] MEDS ORDERED: NEOSTIGMINE METHYLSULFATE 5 MG/5 ML SYR ONE (10:22)
[2018-01-04] MEDS ORDERED: ROCURONIUM BROMIDE 10 MG/ML 5 ML VIAL IV ONE (10:22)
[2018-01-04] MEDS ORDERED: PROPOFOL IV EMULSION 10 MG/ML 20 ML VIAL IV ONE (10:22)
[2018-01-04] MEDS ORDERED: GLYCOPYRROLATE INJ 0.2 MG/ML VIAL ONE (10:22)
[2018-01-04] MEDS ORDERED: ONDANSETRON INJ 2 MG/ML 2 ML VIAL ONE (10:22)
[2018-01-04] MEDS: THROMBIN 5000 UNITS KIT ONE (11:25)
[2018-01-04] MEDS ORDERED: NITROGLYCERIN 0.4 MG SL PER TAB CHARGE UT PRN (11:30)
[2018-01-04] MEDS ORDERED: D5W AND 1/2NSS 1,000 ML IV SCH (11:30)
--- NOTE | 2018-01-04 11:30 | [facility] Post Operative Brief Note ---
Immediate Operative Summary Operative Date Jan 04, 2018. Pre-Operative Diagnosis Right Common Femoral Artery Stenosis Post-Operative Diagnosis Right Common Femoral Artery Stenosis Procedure(s) Performed Right Common Femoral Artery Endarterectomy with Patch; Bilateral Lower Extremity Angiogram Surgeon Dr. Renee Shellfish Weigher Surgeon(s) Noa Paz MD. Kalie Francis, PAC Estimated Blood Loss 150 Findings Consistent with Post-Op Diagnosis Specimens plaque Drains None Anesthesia Type General Complication(s) none Disposition Accompanied Pt To Recover: no Disposition: Recovery Room / PACU
[2018-01-04] MEDS ORDERED: IODIXANOL (VISIPAQUE) 270 MG/ML 150ML IV ONE (11:40)
[2018-01-04] MEDS ORDERED: LABETALOL HCL IV 5 MG/ML 20ML IV ONE (12:23)
--- NOTE | 2018-01-04 12:26 | OPERATIVE REPORT ---
DATE OF OPERATION: 01/04/2018 PREOPERATIVE DIAGNOSES: Right lower extremity claudication and right common femoral artery stenosis. POSTOPERATIVE DIAGNOSIS: Same. PROCEDURE: 1. Right common femoral endarterectomy. 2. Diagnostic bilateral lower extremity angiograms. SURGEON: Dr. Cedrick Renee. CAMPUS SECURITY DIRECTOR: Noa Paz MD and Kalie Francis PA-C. ANESTHESIA: General endotracheal intubation. ESTIMATED BLOOD LOSS: 150 mL. FLUIDS: 1400 crystalloid. URINE OUTPUT: 200 mL. CONTRAST: 59 mL. FLUOROSCOPY TIME: 0.6 minutes. Milligrays 60. INDICATIONS: Mr. Cat is a 72-year-old male who has bilateral lower extremity claudication, right worse than left. He originally underwent an angiogram in October, which demonstrated a significant right common femoral disease. He was advised of the risks and benefits of undergoing a femoral endarterectomy and agreed to undergo above procedure. DESCRIPTION OF PROCEDURE: The patient was brought to the operative suite. A timeout occurred. During preparation of the patient, an original Best was placed and put out jimbo blood. There was intraoperative consult for urology in which we placed a 22 3-way Best. Once this was placed, there was a clear urine. After discussion, it was decided that the case, would continue. The patient was prepped in the usual fashion. An incision was made in the right groin over the right femoral artery. This was deepened. The artery was exposed. There, we palpated a significant plaque within the common femoral artery. There appeared to be a soft spot clamp in the SFA and in the common. The patient was heparinized with 7000 units of heparin. An arteriotomy was made with an 11 blade. This was extended proximally and distally with Gabriel scissors. The common femoral was endarterectomized. A bovine pericardial patch was fashioned to fit. This was sewn in a continuous fashion. There was significant amount of calcific plaque. The endarterectomy was carried into the common femoral and the profunda. There was brisk backbleeding from the profunda. The distal endarterectomy was carried down into the SFA. The distal end points were tacked with 6-0 tacking sutures. Calcified plaque was pulled from the common femoral. Once any loose plaque was removed. Once the artery was deemed suitable, a patch was fashioned out of bovine pericardium. This was sewn in a continuous fashion with a 5-0 Prolene. Prior to the last stitches being placed common femoral, profunda and SFA were flushed. Hemostasis was obtained. A [employer]ics introducer needle was used to puncture the patch and a wire was advanced. A 5-Stateless sheath was placed. A Glidewire was advanced into the aorta. A pigtail catheter was placed over the wire into the aorta. Bilateral lower extremity angiograms were then obtained. This demonstrated diffuse calcific disease without evidence of hemodynamically significant stenosis in the bilateral common and external iliacs. The left common femoral artery was patent. Bilateral SFAs patent and bilateral profundas were patent. Bilateral popliteal arteries were patent. The right lower extremity made runoff was the PT artery, last the PT and AT. There was no lesion deemed a necessary intervention at this time. The wires and catheters were removed. The 5-Stateless sheath was removed and repaired with a 5-0 Prolene. The vein was expected for hemostasis was obtained and it was closed with 2-0 and 3-0 Vicryl and kenia. The patient had Dopplerable DP and PTS bilaterally at the end of the case. He tolerated the procedure well, was extubated and transferred to the PACU. Dr. Cedrick Renee was present for the entirety of this case. I attest to the content of the Intraoperative Record and any orders documented therein. Any exception s are noted below.
--- NOTE | 2018-01-04 13:06 | Anesthesiology Progress Note ---
Anesthesia Post Op Note Date & Time Jan 04, 2018 at 13:06 Vital Signs Pain Intensity: 0 Vital Signs Past 12 Hours Date Time Temp Pulse Resp B/P (MAP) Pulse Ox O2 Delivery O2 Flow Rate FiO2 01/04/18 13:00 72 16 99/45 96 Nasal Cannula 3 01/04/18 12:50 72 16 92/53 96 Nasal Cannula 3 01/04/18 12:40 75 16 82/49 96 Nasal Cannula 3 01/04/18 12:30 83 16 97/48 94 Nasal Cannula 3 01/04/18 12:20 78 16 104/51 94 Nasal Cannula 3 01/04/18 12:12 36.5 77 16 113/56 98 Nasal Cannula 3 01/04/18 05:44 36.8 88 20 128/62 96 Room Air Notes Mental Status: alert / awake / arousable, participated in evaluation Pt Amnestic to Procedure: Yes Nausea / Vomiting: adequately controlled Pain: adequately controlled Airway Patency, RR, SpO2: stable & adequate BP & HR: stable & adequate Hydration State: stable & adequate Anesthetic Complications: no major complications apparent
[2018-01-04 13:19] LABS: BASO % 0.5 %; BASO ABS # 0.03 K/uL (0-0.2); EOS % 1.2 %; EOS ABS # 0.07 K/uL (0-0.5); HEMOGLOBIN 8.4 g/dL (14.0-18.0); IG# 0.03 K/uL (0.00-0.02); LYMPH % 27.4 %; LYMPH ABS # 1.59 K/uL (1.2-3.4); MEAN CELL VOLUME 111.1 fL (80-100); MEAN CORPUSCULAR HEMOGLOBIN 37.3 pg (25-34); MEAN CORPUSCULAR HGB CONC 33.6 g/dl (32-36); MEAN PLATELET VOLUME 11.4 fL (7.4-10.4); MONO ABS # 0.29 K/uL (0.11-0.59); NEUT % 65.4 %; PLATELET COUNT 161 K/uL (130-400); RED CELL DISTRIBUTION WIDTH CV 16.5 % (11.5-14.5); RED CELL DISTRIBUTION WIDTH SD 66.2 fL (36.4-46.3); WHITE BLOOD COUNT 5.81 K/uL (4.8-10.8)
[2018-01-04 15:00] VITALS: BP 109/74; PULSE 79; O2SAT 91
[2018-01-04] MEDS ORDERED: NURSING VERBAL MED ORDER ONE (15:00)
[2018-01-04] MEDS: OXYCODONE/ACETAMINOPHEN 5-325 TAB PO PRN (15:03)
[2018-01-04] MEDS: MoRPHine SULFATE 4 MG/ML 1 ML CARP\\VIAL IV PRN (15:03)
--- NOTE | 2018-01-04 16:29 | Urology Consultation ---
History General Date of Service: Jan 04, 2018. Primary Care Physician: Abdoul Gordon M.D. History of Present Illness Difficult rondon intraoperative consult. Catheter placed at bedside. 3 way 22 fr hematuria catheter. Clear yellow urine received. Question false passage at bulbar urethra. Tolerated well. Laboratory Labs were reviewed and are within normal limits unless listed below. Labs are available in the chart and at [facility] Problem List Medical Problems: (1) Acute febrile illness Status: Acute (2) Calculus Of Kidney Status: Chronic (3) Carotid Artery Occlusion W O Cerebral Infarction Status: Chronic (4) Chr Airway Obstruct Nec Status: Chronic (5) COPD with exacerbation Status: Acute (6) Coron Atheroscler Nos Type Vessel, [place] Or Graft Status: Chronic (7) Diab Sofie Wo Compl, Type Ii Or Unspec Type, Not Uncntrld Status: Chronic (8) Diverticulosis Colon (W/O Ment Of Hemorrhage) Status: Chronic (9) Esophageal Reflux Status: Chronic (10) Hyperlipidemia Nec/Nos Status: Chronic (11) Hypertension Nos Status: Chronic (12) Leukocytosis Status: Acute (13) PAD (peripheral artery disease) Status: Chronic (14) Pneumonia Status: Acute (15) Renal Artery Aneurysm Status: Chronic Family History FH: CAD (coronary artery disease) FATHER FH: cancer MOTHER Social History Hx Tobacco Use In Past Year?: Yes (QUIT 06/16/17. HX OF 2PPD X 40+YEARS) Marital status: Housing status: lives with family Occupation status: retired Immunizations History of Influenza Vaccine: Yes Influenza Vaccine Date: Aug 07, 2012 History of Tetanus Vaccine?: Yes History of Pneumococcal: Yes Pneumococcal Date: Aug 07, 2012 History of Hepatitis B Vaccine: Yes Hepatitis Immunization Date: Sep 22, 2000 History of MDRO No Allergies Coded Allergies: No Known Allergies (Verified , 01/04/18) Medications Home Medications: Home Meds and Scripts Medications Dose Route/Sig Max Daily Dose Days Date Category Dose Instructions Prinivil (Lisinopril) 5 Mg Tab 5 Mg PO HS 12/24/17 Reported Lipitor (Atorvastatin Calcium) 80 Mg Tab 80 Mg PO QAM 12/24/17 Reported Monodox (Doxycycline Monohydrate) 100 Mg Cap 100 Mg PO BID 12/24/17 Reported Wellbutrin (Bupropion HCl) 75 Mg Tab 150 Mg PO BID 10/22/17 Reported Multivitamin (Multiple Vitamin) 1 Tab Tab 1 Tab PO QAM 02/13/17 Reported Proventil Hfa (Albuterol Sulfate) 108 Mcg/Act Aer 2 Puffs INH Q4 02/13/17 Reported Aspirin Ec (Aspirin) 81 Mg Tab 81 Mg PO QAM 02/13/17 Reported Symbicort 160/4.5 Inhaler (Budesonide/Formoterol Fumarate) Aero 2 Puffs INH BID 02/13/17 Reported Nitrostat (Nitroglycerin) 0.4 Mg Tab 0.4 Mg UT PRN 06/06/13 Reported NEEDED FOR CHEST PAIN - ONE TABLET UNDER THE TONGUE EVERY 5 MINUTES UP TO THREE DOSES. Vitamin D3 (Cholecalciferol) 1,000 Unit Tab 1,000 Units PO BID 06/06/13 Reported Neurontin (Gabapentin) 100 Mg Cap 200 Mg PO BID 06/06/13 Reported Protonix (Pantoprazole Sodium) 40 Mg Tab 40 Mg PO QAM 06/29/12 Reported Inpatient Medications: Current Inpatient Medications Medications (Trade) Dose Ordered Sig/Timbo Route Start Time Stop Time Status Last Admin Dose Admin Sodium Chloride 1,000 ml @ 50 mls/hr Q20H IV 01/04/18 06:15 01/05/18 02:14 01/04/18 06:24 50 MLS/HR Lactated Ringer's 1,000 ml @ 15 mls/hr Q24H IV 01/04/18 06:15 01/05/18 06:14 Acetaminophen (Tylenol Tab) 650 mg Q4H PRN PO 01/04/18 11:30 02/03/18 11:29 Oxycodone/ Acetaminophen (Percocet 5-325mg Tab) `1-2 TABS FOR MODER... Q4H PRN PO 01/04/18 11:30 01/18/18 11:29 01/04/18 15:03 1 TAB Morphine Sulfate (MoRPHine SULFATE INJ) If PO analgesic is orde... Q2H PRN IV 01/04/18 11:30 01/18/18 11:29 01/04/18 15:03 2 MG Ondansetron HCl (Zofran Inj) 4 mg Q6H PRN IV 01/04/18 11:30 02/03/18 11:29 Pantoprazole Sodium 40 mg/ Syringe 10 ml @ 5 mls/min DAILY@11 IV 01/05/18 11:00 01/08/18 11:01 Cefazolin Sodium 1000 mg/Syringe 7.5 ml @ 2.5 mls/min Q8H IV 01/04/18 16:00 01/05/18 00:02 Enoxaparin Sodium (Lovenox Inj) 30 mg Q12 SQ 01/05/18 08:00 02/04/18 07:59 UNV Dextrose/Sodium Chloride 1,000 ml @ 125 mls/hr Q8H IV 01/04/18 11:30 01/04/18 19:29 01/04/18 15:23 125 MLS/HR Albuterol (Ventolin Hfa Inhaler) 2 puffs Q4 INH 01/04/18 16:00 02/03/18 15:59 Aspirin (Ecotrin Tab) 81 mg QAM PO 01/05/18 09:00 02/04/18 08:59 Atorvastatin Calcium (Lipitor Tab) 80 mg QAM PO 01/05/18 09:00 02/04/18 08:59 Budesonide/ Formoterol Fumarate (Symbicort 160/ 4.5 Inh) 2 puffs BID INH 01/04/18 21:00 02/03/18 20:59 Bupropion HCl (Wellbutrin Tab) 150 mg BID PO 01/04/18 21:00 02/03/18 20:59 Cholecalciferol (Vitamin D Tab) 1,000 inter.unit BID PO 01/04/18 21:00 02/03/18 20:59 Gabapentin (Neurontin Cap) 200 mg BID PO 01/04/18 21:00 02/03/18 20:59 Lisinopril (Zestril Tab) 5 mg HS PO 01/04/18 21:00 02/03/18 20:59 Multivitamins (Multivitamin Tab) 1 tab QAM PO 01/05/18 09:00 02/04/18 08:59 Nitroglycerin (Nitrostat Tab) 0.4 mg PRN PRN UT 01/04/18 11:30 02/03/18 11:29 Physical Exam Vital Signs: Vital Signs Past 12 Hours Date Time Temp Pulse Resp B/P (MAP) Pulse Ox O2 Delivery O2 Flow Rate FiO2 01/04/18 15:00 79 16 109/74 (86) 91 Room Air 01/04/18 14:00 71 16 110/57 97 Nasal Cannula 3 01/04/18 13:50 71 16 99/55 97 Nasal Cannula 3 01/04/18 13:40 36.2 69 18 109/50 93 Nasal Cannula 3 01/04/18 13:30 69 16 110/59 96 Nasal Cannula 3 01/04/18 13:20 66 16 125/55 96 Nasal Cannula 3 01/04/18 13:10 68 16 120/53 96 Nasal Cannula 3 Arterial Line 01/04/18 13:00 72 16 99/45 96 Nasal Cannula 3 01/04/18 12:50 72 16 92/53 96 Nasal Cannula 3 01/04/18 12:40 75 16 82/49 96 Nasal Cannula 3 01/04/18 12:30 83 16 97/48 94 Nasal Cannula 3 01/04/18 12:20 78 16 104/51 94 Nasal Cannula 3 01/04/18 12:12 36.5 77 16 113/56 98 Nasal Cannula 3 01/04/18 05:44 36.8 88 20 128/62 96 Room Air Physical Exam: General Appearance: no apparent distress Eyes: bilateral eyes normal inspection Neck: no adenopathy, no JVD Respiratory/Chest: no respiratory distress, no accessory muscle use Cardiovascular: regular rate, rhythm, no edema Genitourinary - Male: Penis: normal penis Urethral Meatus: normal urethral meatus Neurologic/Psychiatric: no motor/sensory deficits Skin: normal color, warm/dry Lymphatic: no adenopathy Assessment & Plan Assessment & Plan 1. Difficult Rondon 2. Hematuria. Clear urine with placement of catheter. May have been false passage. [address] with drainage occuring. NO issues. No CBI> Maintain for approx 1-2 weeks. Follow up in office for catheter removal. Will likely need scope at some point. Call if any issues. Monitor for return of hematuria, erik if anticoagulated. Call if any issues.
[2018-01-04] MEDS: CEFAZOLIN IV 1,000 MG in SYRINGE 0 ML IV SCH (16:53)
[2018-01-04] MEDS: ALBUTEROL HFA 8 GM INHALER INH SCH ×2 (16:53→20:10)
[2018-01-04 19:17] VITALS: BP 109/70; PULSE 89; TEMP 36.7; O2SAT 91
[2018-01-04 20:00] VITALS: O2SAT 96
[2018-01-04] MEDS ORDERED: LISINOPRIL 5 MG TAB PO SCH (21:00)
[2018-01-04] MEDS: CHOLECALCIFEROL 1000 INTER.UNIT TAB PO SCH (21:18)
[2018-01-04] MEDS: GABAPENTIN 100 MG CAP PO SCH (21:19)
[2018-01-04] MEDS: BUDESONIDE/FORMOTEROL FUMARATE 160/4.5 60 PUFFS/INHALER INH SCH (21:20)
[2018-01-05] VITALS (20 sets, daily range): BP systolic 82–133; BP diastolic 46–72; PULSE 88–113; TEMP 36.7–38.4; O2SAT 90–96
[2018-01-05] MEDS: CEFAZOLIN IV 1,000 MG in SYRINGE 0 ML IV SCH (00:28)
[2018-01-05] MEDS: OXYCODONE/ACETAMINOPHEN 5-325 TAB PO PRN (00:29)
[2018-01-05] MEDS ORDERED: NURSING VERBAL MED ORDER ONE (03:15)
[2018-01-05] MEDS ORDERED: SODIUM CHLORIDE 0.9% 1000ML 1,000 ML IV SCH (03:30)
[2018-01-05] MEDS: ALBUTEROL HFA 8 GM INHALER INH SCH ×6 (04:00→20:07)
--- NOTE | 2018-01-05 07:49 | Anesthesiology Progress Note ---
Anesthesia Post Op Note Date & Time Jan 05, 2018 at 07:49 Vital Signs Pain Intensity: 1.0 Vital Signs Past 12 Hours Date Time Temp Pulse Resp B/P (MAP) Pulse Ox O2 Delivery O2 Flow Rate FiO2 01/05/18 06:05 36.8 91 20 133/72 95 2.0 01/05/18 05:05 37.3 88 20 94/56 96 2.0 01/05/18 04:35 36.9 88 20 91/49 92 2.0 01/05/18 04:18 37.3 97 18 94/70 92 01/05/18 04:00 92 Nasal Cannula 2.0 01/05/18 03:10 37.3 90 18 82/48 (59) 92 Room Air 01/05/18 00:14 36.7 89 16 103/53 (70) 95 Room Air 01/05/18 00:00 96 Room Air 3.0 01/04/18 20:00 96 Room Air Notes Mental Status: alert / awake / arousable, participated in evaluation Pt Amnestic to Procedure: Yes Nausea / Vomiting: adequately controlled Pain: adequately controlled Airway Patency, RR, SpO2: stable & adequate BP & HR: stable & adequate Hydration State: stable & adequate Anesthetic Complications: no major complications apparent
[2018-01-05] MEDS: ATORVASTATIN 40 MG TAB PO SCH (08:01)
[2018-01-05] MEDS: BUDESONIDE/FORMOTEROL FUMARATE 160/4.5 60 PUFFS/INHALER INH SCH ×2 (08:01→20:07)
[2018-01-05] MEDS: CHOLECALCIFEROL 1000 INTER.UNIT TAB PO SCH (08:01)
[2018-01-05] MEDS: MULTIVITAMIN TAB PO SCH (08:01)
[2018-01-05] MEDS: GABAPENTIN 100 MG CAP PO SCH ×2 (08:02→20:07)
[2018-01-05] MEDS ORDERED: OPTIRAY 320 IV PRN (08:15)
--- NOTE | 2018-01-05 08:22 | Clinical Documentation Query ---
Dr. ROSS WALDORF : CLINICAL DOCUMENTATION QUERIES QUERY 1 OF 2 Admission BUN and creatinine were 14 mg/dl and 1.45 mg/dl. Estimated GFR range from 02/13/17 to present of 43-68 ml/min. Please clarify as clinically appropriate. In your clinical opinion is this patient being managed for: (x ) Chronic kidney disease, stage 3 ( ) Not Agree ( ) Other explanation of clinical findings (Please Explain) ( ) Unable to determine (Please Define) ( ) Need to Discuss The medical record reflects the following clinical findings, treatment, and risk factors. Clinical Indicators: As above Treatment: Serial chemistries Risk Factors: Age, CAD, chronic systolic CHF, DM, hypertension, tobacco abuse QUERY 2 OF 2 POD #0, H&H was 8.4 g/dl and 25%. Values 10/22/17 were 12.0 g/dl and 36.4%. EBL for the procedure was 150 ml's and net I/O is positive for 2,049 ml's at this time. Please clarify as clinically appropriate. In your clinical opinion is this patient being managed for: ( x ) Acute blood loss and hemodilutional anemia ( ) Not Agree ( ) Other explanation of clinical findings (Please Explain) ( ) Unable to determine (Please Define) ( ) Need to Discuss The medical record reflects the following clinical findings, treatment, and risk factors. Clinical Indicators: As above Treatment: I/O, serial hematology Risk Factors: Acute blood loss, IVF administration. Please clarify and document your clinical opinion in the progress notes and discharge summary. Terms such as "probable", "suspected", "likely", "questionable", "possible", or "still to be ruled out" are acceptable. IF IN AGREEMENT, YOU MUST DOCUMENT ABOVE DIAGNOSTIC STATEMENT IN DAILY PROGRESS NOTES AND DISCHARGE SUMMARY. This document is not part of the patient's record. Thank You, Marin Soares, RN [phone]
[2018-01-05 08:36] LABS: HEMATOCRIT 27.7 % (42-52); HEMOGLOBIN 9.2 g/dL (14.0-18.0); MEAN CELL VOLUME 109.1 fL (80-100); MEAN CORPUSCULAR HEMOGLOBIN 36.2 pg (25-34); MEAN CORPUSCULAR HGB CONC 33.2 g/dl (32-36); MEAN PLATELET VOLUME 10.7 fL (7.4-10.4); NUCLEATED RED BLOOD CELL ABS 0.03 K/uL (0-0); PLATELET COUNT 133 K/uL (130-400); RED CELL DISTRIBUTION WIDTH CV 20.2 % (11.5-14.5); RED CELL DISTRIBUTION WIDTH SD 79.2 fL (36.4-46.3); WHITE BLOOD COUNT 7.94 K/uL (4.8-10.8)
[2018-01-05 08:44] LABS: INR 1.1 (0.9-1.1); PTT PATIENT 26.7 SECONDS (21.0-31.0)
[2018-01-05 08:56] LABS: BASO % 0.1 %; BASO ABS # 0.01 K/uL (0-0.2); EOS % 1.5 %; EOS ABS # 0.12 K/uL (0-0.5); IG# 0.05 K/uL (0.00-0.02); LYMPH % 25.1 %; LYMPH ABS # 1.99 K/uL (1.2-3.4); MONO % 8.3 %; MONO ABS # 0.66 K/uL (0.11-0.59); NEUT % 64.4 %; NEUT ABS # 5.11 K/uL (1.4-6.5)
[2018-01-05] MEDS: ENOXAPARIN 30 MG/0.3 ML SYR SQ SCH ×3 (09:00→20:07)
[2018-01-05 09:01] LABS: CREATININE 1.63 mg/dl (0.60-1.40)
--- NOTE | 2018-01-05 09:18 | Progress Note ---
Progress Note Date of Service: Jan 05, 2018. Subjective Complains of abd discomfort and penile discomfort. 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 (7) Diab Sofie Wo Compl, Type Ii Or Unspec Type, Not Uncntrld Status: Chronic (8) Diverticulosis Colon (W/O Ment Of Hemorrhage) Status: Chronic (9) Esophageal Reflux Status: Chronic (10) Hyperlipidemia Nec/Nos Status: Chronic (11) Hypertension Nos Status: Chronic (12) Leukocytosis Status: Acute (13) PAD (peripheral artery disease) Status: Chronic (14) Pneumonia Status: Acute (15) Renal Artery Aneurysm Status: Chronic Objective Vital Signs Vital Signs Past 12 Hours Date Time Temp Pulse Resp B/P (MAP) Pulse Ox O2 Delivery O2 Flow Rate FiO2 01/05/18 08:00 92 Nasal Cannula 2.0 01/05/18 07:40 38.0 90 22 105/53 (70) 94 Nasal Cannula 2.0 01/05/18 06:05 36.8 91 20 133/72 95 2.0 01/05/18 05:05 37.3 88 20 94/56 96 2.0 01/05/18 04:35 36.9 88 20 91/49 92 2.0 01/05/18 04:18 37.3 97 18 94/70 92 01/05/18 04:00 92 Nasal Cannula 2.0 01/05/18 03:10 37.3 90 18 82/48 (59) 92 Room Air 01/05/18 00:14 36.7 89 16 103/53 (70) 95 Room Air 01/05/18 00:00 96 Room Air 3.0 Exam Awake and alert VSS this am. BP better. T 38 this am Abd distended. Tender to palpation but no peritoneal signs. Right foot warm with good cap refill and palp PT pulse Dressing intact. Hgb stable. Adequate urine output. Laboratory and Microbiology Results Past 24 Hours Test 01/04/18 12:41 01/04/18 16:39 01/05/18 06:50 01/05/18 08:12 Range/Units White Blood Count 5.81 7.94 4.8-10.8 K/uL Red Blood Count 2.25 2.54 4.7-6.1 M/uL Hemoglobin 8.4 9.2 14.0-18.0 g/dL Hematocrit 25.0 27.7 42-52 % Mean Corpuscular Volume 111.1 109.1 80-100 fL Mean Corpuscular Hemoglobin 37.3 36.2 25-34 pg Mean Corpuscular Hemoglobin Concent 33.6 33.2 32-36 g/dl Platelet Count 161 133 130-400 K/uL Mean Platelet Volume 11.4 10.7 7.4-10.4 fL Neutrophils (%) (Auto) 65.4 64.4 % Lymphocytes (%) (Auto) 27.4 25.1 % Monocytes (%) (Auto) 5.0 8.3 % Eosinophils (%) (Auto) 1.2 1.5 % Basophils (%) (Auto) 0.5 0.1 % Neutrophils # (Auto) 3.80 5.11 1.4-6.5 K/uL Lymphocytes # (Auto) 1.59 1.99 1.2-3.4 K/uL Monocytes # (Auto) 0.29 0.66 0.11-0.59 K/uL Eosinophils # (Auto) 0.07 0.12 0-0.5 K/uL Basophils # (Auto) 0.03 0.01 0-0.2 K/uL RDW Standard Deviation 66.2 79.2 36.4-46.3 fL RDW Coefficient of Variation 16.5 20.2 11.5-14.5 % Immature Granulocyte % (Auto) 0.5 0.6 % Immature Granulocyte # (Auto) 0.03 0.05 0.00-0.02 K/uL Macrocytosis PRESENT Tear Drop Cells OCCASIONAL Bedside Glucose 120 136 70-99 mg/dl Nucleated RBC Absolute Count (auto) 0.03 0-0 K/uL Nucleated Red Blood Cells % 0.4 % Anisocytosis PRESENT Prothrombin Time 11.1 9.0-12.0 SECONDS Prothromb Time International Ratio 1.1 0.9-1.1 Activated Partial Thromboplast Time 26.7 21.0-31.0 SECONDS Partial Thromboplastin Ratio 1.0 Sodium Level 135 136-145 mmol/L Potassium Level 4.0 3.5-5.1 mmol/L Chloride Level 104 98-107 mmol/L Carbon Dioxide Level 24 21-32 mmol/L Anion Gap 7.0 3-11 mmol/L Blood Urea Nitrogen 14 7-18 mg/dl Creatinine 1.63 0.60-1.40 mg/dl Est Creatinine Clear Calc Drug Dose 41.7 ml/min Estimated GFR () 48.4 Estimated GFR (Non- 41.8 BUN/Creatinine Ratio 8.8 10-20 Random Glucose 149 70-99 mg/dl Calcium Level 8.0 8.5-10.1 mg/dl Microbiology Results 01/04/18 MRSA DNA Surveillance Screen - Final, Complete Specimen Negative for MRSA by DNA Probe Imp: Post right femoral endart with patch Post op abd distension Plan: Will order CT of abd and pelvis. No active bleeding appreciated. Will increase activity today.
[2018-01-05] MEDS: ASPIRIN 81 MG ECTAB PO SCH (09:47)
--- NOTE | 2018-01-05 09:48 | DIAGNOSTIC IMAGING REPORT ---
ADDENDUM Addendum: There is a voice recognition error in the body of the report. Under the vascular description, the sentence reading there is trace perinephric vascular hemorrhage, should read there is trace perivascular hemorrhage, at the level of the proximal superficial femoral artery.. Electronically signed by: Vamshi Gar M.D. 01/05/2018 11:44 AM Dictated Date/Time: 01/05/2018 11:[address] ABD/PELVIS COMBO CLINICAL HISTORY: Abdominal pain. Increasing abdominal girth. Possible acute hemorrhage. COMPARISON STUDY: 07/30/2017 TECHNIQUE: Unenhanced images were obtained to the abdomen and pelvis. The patient was then scanned in a dynamic helical fashion during intravenous administration of 92 cc Optiray 320. A dose lowering technique was utilized adhering to the principles of ALARA. CT DOSE: 1371.24 mGy.cm FINDINGS: Lower chest: There is pulmonary emphysema. There is left lower lobe pulmonary consolidation with air bronchograms. Liver: There is mild hepatic steatosis. No focal masses are visualized. Gallbladder: The gallbladder is contracted. This likely explains the mild gallbladder wall thickening. Spleen: Normal in size and attenuation. Pancreas: Unremarkable. Adrenal glands: There is a 21 mm left adrenal gland adenoma Kidneys: Right renal calculi and parenchymal calcifications remain stable. There is no hydronephrosis. Bowel: There are no transition zones indicate bowel obstruction. The appendix appears normal. There is colonic diverticulosis. Peritoneum: There is no intraperitoneal free air or abdominal ascites. Vasculature: There is no evidence of abdominal aortic aneurysm. Moderate atheromatous changes are present within the aorta and iliac and mesenteric vessels. There are postsurgical changes in the right inguinal region. There is air present within the soft tissues. There is trace perinephric vascular hemorrhage. No large hematomas are visualized. Adenopathy: None. Pelvic viscera: There is an indwelling Best catheter. There is mild prosthetic enlargement Skeletal structures: Postsurgical changes are present at the L4-5 level IMPRESSION: 1. Left lower lobe pulmonary consolidation with air bronchograms 2. No evidence of bowel obstruction. No evidence of free air 3. Postsurgical changes in the right inguinal region 4. No evidence of intraperitoneal or significant retroperitoneal hemorrhage 5. Normal appendix 6. Stable left adrenal gland adenoma 7. Stable right renal calculi and parenchymal calcifications Electronically signed by: Vamshi Gar M.D. 01/05/2018 9:47 AM Dictated Date/Time: 01/05/2018 9:41 AM
--- NOTE | 2018-01-05 09:53 | Progress Note ---
Subjective Date of Service: Jan 05, 2018. Subjective Pt evaluation today including: conversation w/ patient, chart review, lab review Voiding: rondon catheter in place (patent, draining clear, yellow urine ) Pt s/p difficult rondon placement in the OR by Dr. Marcelino yesterday. Gross hematuria has resolved. Pt c/o some bladder and penile discomfort with rondon catheter in place. He states he feels a strong urge to void intermittently. Pt reports baseline urgency and nocturia 2x per night pre-op. Denies weak stream or hesitancy. He states that he had surgery previously at [facility], and was a difficult rondon placement at that time, but has never seen a urologist. 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 (7) Diab Sofie Wo Compl, Type Ii Or Unspec Type, Not Uncntrld Status: Chronic (8) Diverticulosis Colon (W/O Ment Of Hemorrhage) Status: Chronic (9) Esophageal Reflux Status: Chronic (10) Hyperlipidemia Nec/Nos Status: Chronic (11) Hypertension Nos Status: Chronic (12) Leukocytosis Status: Acute (13) PAD (peripheral artery disease) Status: Chronic (14) Pneumonia Status: Acute (15) Renal Artery Aneurysm Status: Chronic Review of Systems Constitutional: No fever, No chills Respiratory: No shortness of breath Cardiac: No chest pain Abdomen: No pain, No nausea, No vomiting Male : No hematuria Heme: No abnormal bleeding/bruising Objective Vital Signs Date Time Temp Pulse Resp B/P (MAP) Pulse Ox O2 Delivery O2 Flow Rate FiO2 01/05/18 08:00 92 Nasal Cannula 2.0 01/05/18 07:40 38.0 90 22 105/53 (70) 94 Nasal Cannula 2.0 01/05/18 06:05 36.8 91 20 133/72 95 2.0 01/05/18 05:05 37.3 88 20 94/56 96 2.0 01/05/18 04:35 36.9 88 20 91/49 92 2.0 01/05/18 04:18 37.3 97 18 94/70 92 01/05/18 04:00 92 Nasal Cannula 2.0 01/05/18 03:10 37.3 90 18 82/48 (59) 92 Room Air 01/05/18 00:14 36.7 89 16 103/53 (70) 95 Room Air 01/05/18 00:00 96 Room Air 3.0 01/04/18 20:00 96 Room Air 01/04/18 19:17 36.7 89 18 109/70 (83) 91 Room Air 01/04/18 16:00 Room Air 01/04/18 15:00 79 16 109/74 (86) 91 Room Air 01/04/18 14:00 71 16 110/57 97 Nasal Cannula 3 01/04/18 13:50 71 16 99/55 97 Nasal Cannula 3 01/04/18 13:40 36.2 69 18 109/50 93 Nasal Cannula 3 01/04/18 13:30 69 16 110/59 96 Nasal Cannula 3 01/04/18 13:20 66 16 125/55 96 Nasal Cannula 3 01/04/18 13:10 68 16 120/53 96 Nasal Cannula 3 Arterial Line 01/04/18 13:00 72 16 99/45 96 Nasal Cannula 3 01/04/18 12:50 72 16 92/53 96 Nasal Cannula 3 01/04/18 12:40 75 16 82/49 96 Nasal Cannula 3 01/04/18 12:30 83 16 97/48 94 Nasal Cannula 3 01/04/18 12:20 78 16 104/51 94 Nasal Cannula 3 01/04/18 12:12 36.5 77 16 113/56 98 Nasal Cannula 3 Physical Exam General Appearance: no apparent distress Eyes: normal inspection ENT: hearing grossly normal Neck: no JVD Respiratory/Chest: no respiratory distress, no accessory muscle use Cardiovascular: no JVD Extremities: normal inspection Neurologic/Psychiatric: alert, normal mood/affect, oriented x 3 Skin: normal color Laboratory Results Last 24 Hours Test 01/04/18 12:41 01/04/18 16:39 01/05/18 06:50 01/05/18 08:12 White Blood Count 5.81 K/uL 7.94 K/uL Red Blood Count 2.25 M/uL 2.54 M/uL Hemoglobin 8.4 g/dL 9.2 g/dL Hematocrit 25.0 % 27.7 % Mean Corpuscular Volume 111.1 fL 109.1 fL Mean Corpuscular Hemoglobin 37.3 pg 36.2 pg Mean Corpuscular Hemoglobin Concent 33.6 g/dl 33.2 g/dl Platelet Count 161 K/uL 133 K/uL Mean Platelet Volume 11.4 fL 10.7 fL Neutrophils (%) (Auto) 65.4 % 64.4 % Lymphocytes (%) (Auto) 27.4 % 25.1 % Monocytes (%) (Auto) 5.0 % 8.3 % Eosinophils (%) (Auto) 1.2 % 1.5 % Basophils (%) (Auto) 0.5 % 0.1 % Neutrophils # (Auto) 3.80 K/uL 5.11 K/uL Lymphocytes # (Auto) 1.59 K/uL 1.99 K/uL Monocytes # (Auto) 0.29 K/uL 0.66 K/uL Eosinophils # (Auto) 0.07 K/uL 0.12 K/uL Basophils # (Auto) 0.03 K/uL 0.01 K/uL RDW Standard Deviation 66.2 fL 79.2 fL RDW Coefficient of Variation 16.5 % 20.2 % Immature Granulocyte % (Auto) 0.5 % 0.6 % Immature Granulocyte # (Auto) 0.03 K/uL 0.05 K/uL Macrocytosis PRESENT Tear Drop Cells OCCASIONAL Bedside Glucose 120 mg/dl 136 mg/dl Nucleated RBC Absolute Count (auto) 0.03 K/uL Nucleated Red Blood Cells % 0.4 % Anisocytosis PRESENT Prothrombin Time 11.1 SECONDS Prothromb Time International Ratio 1.1 Activated Partial Thromboplast Time 26.7 SECONDS Partial Thromboplastin Ratio 1.0 Sodium Level 135 mmol/L Potassium Level 4.0 mmol/L Chloride Level 104 mmol/L Carbon Dioxide Level 24 mmol/L Anion Gap 7.0 mmol/L Blood Urea Nitrogen 14 mg/dl Creatinine 1.63 mg/dl Est Creatinine Clear Calc Drug Dose 41.7 ml/min Estimated GFR () 48.4 Estimated GFR (Non- 41.8 BUN/Creatinine Ratio 8.8 Random Glucose 149 mg/dl Calcium Level 8.0 mg/dl Assessment and Plan A/P: Difficult rondon placement Will plan to leave rondon catheter in place for 10-14 days. Will arrange for an outpatient TOV. The pt will also need an outpatient cysto for further evaluation. Will arrange. Will add lidocaine jelly and Pyridium PRN for rondon discomfort. Thanks for the consult. No further management at this time. Recall PRN issues. Thanks for allowing us to participate in this pt's care.
[2018-01-05] MEDS ORDERED: BISACODYL 10 MG SUPP PR PRN (10:00)
[2018-01-05] MEDS ORDERED: LIDOCAINE HCL 2% JELLY 30 ML TUBE EXT PRN (10:00)
[2018-01-05] MEDS ORDERED: BISACODYL 10 MG SUPP PR ONE (10:30)
[2018-01-05] MEDS: PANTOprazole INJ 40 MG in SYRINGE 0 ML IV SCH (10:49)
[2018-01-05] MEDS: PHENAZOPYRIDINE HCL 100 MG TAB PO PRN ×2 (11:11→20:08)
[2018-01-05] MEDS ORDERED: FEXO1TAB49 PO (11:43)
[2018-01-05] MEDS ORDERED: CRG125 PO (11:43)
[2018-01-05] MEDS ORDERED: LSX40 PO (11:43)
[2018-01-05] MEDS ORDERED: IPRASOL4 INH ×2 (11:43)
--- NOTE | 2018-01-05 13:07 | Medical Consult ---
Consultation Date of Consultation: Jan 05, 2018. Attending Physician: Cedrick Ross M.D. Reason for Consultation: Medical consult History of Present Illness Pt is 72 y/o M with PMH CAD s/p CABG, carotid stenosis s/p L carotid endarterectomy, PVD LE, COPD, lung CA s/p radiation, GERD, HTN, DM II seen for medical consult at request of Dr Ross for LLL consolidation seen on CT abd/ pelvis today. Pt had R common femoral endarterectomy yesterday by Dr Ross. Estimated blood loss was 150ml. He received 2 doses of ancef. He had BP: 77/42 during night and was given 1L NSS and 1 unit PRBC given. Pt with temp: 38.0C this morning. WBC: 7.9. Hgb: 9.2. Hx COPD. No longer smoking. Pt follows with Dr Herron - pulmonology. He is on Symbicort and was prescribed Spiriva Respimat, however pt never started Spiriva secondary to high cost. He usually uses albuterol inhaler 2-3 times a day. Uses duoneb 1/2 vial BID prior to inhaler use, otherwise has not had to use it. Hx chronic changes LLL seen on previous imaging, following with radiation oncology in [place]. Had CT chest on 09/25/17 showing irregular confluent opacity in LLL and lingula. Residual confluent opacity at the site of LLL mass measures 3.5 x 2.2cm compared to 4.9 x 2.9 cm on prior PET-CT. Pt with hx bronchoscopy 05/22/17 - benign. Pt reports chronic SOB and chronic cough productive clear sputum. Denies any worsening SOB, CP or increased cough. Denies change in color of sputum. Pt's only current complaint is discomfort to penis from Bolton catheter. Pt had intraoperative Bolton placed with difficulty, urology consulted and placed catheter. Today no hematuria. Pt continues to c/o intermittent discomfort and he was ordered Pyridium and lidocaine. He reports some mild discomfort to incision site to right groin, but reports this has decreased from yesterday. Denies any discharge from site. He states was having some lower abdominal pressure, however that has resolved since he had a small formed BM after suppository this morning and pt states passed moderate amount of gas. He has been eating and drinking without difficulty. He has been ambulating in room without any increased SOB from baseline. He reports no pain to right leg with walking since procedure. Denies chills, sweats, diaphoresis, N/V/D, melena, hematochezia, LATHAM, dizziness, syncope , vision changes, neck pain, CP, orthopnea, palpitations, choking, rhinorrhea, extremity edema, rashes. Past Medical/Surgical History Medical Problems: (1) ACEI/ARB contraindicated Permanent Comment: due to hypotension Status: Chronic (2) CAD (coronary artery disease) Status: Chronic (3) Calculus Of Kidney Status: Chronic (4) Carotid Artery Occlusion W O Cerebral Infarction Status: Chronic (5) Carotid stenosis Status: Chronic (6) Chr Airway Obstruct Nec Status: Chronic (7) Chronic systolic CHF (congestive heart failure) Permanent Comment: as per [facility] problem list, although last 2 echo's in system had normal EF; (55-60% in 06/2013) + grade I diastolic dysfunction Status: Chronic (8) COPD (chronic obstructive pulmonary disease) Status: Chronic (9) Coron Atheroscler Nos Type Vessel, [place] Or Graft Status: Chronic (10) Diab Sofie Wo Compl, Type Ii Or Unspec Type, Not Uncntrld Status: Chronic (11) Diverticulosis Colon (W/O Ment Of Hemorrhage) Status: Chronic (12) DM type 2 (diabetes mellitus, type 2) Status: Chronic (13) Dyslipidemia Status: Chronic (14) Esophageal Reflux Status: Chronic (15) GERD (gastroesophageal reflux disease) Status: Chronic (16) HTN (hypertension) Status: Chronic (17) Hyperlipidemia Nec/Nos Status: Chronic (18) Hypertension Nos Status: Chronic (19) Lung cancer Status: Chronic (20) PAD (peripheral artery disease) Status: Chronic (21) Renal Artery Aneurysm Status: Chronic (22) Subclavian artery stenosis, right Status: Chronic (23) Tobacco abuse Status: Chronic Surgical Problems: (1) Aortocoronary Bypass Status: Resolved (2) H/O maze procedure Status: Chronic (3) History of left-sided carotid endarterectomy Status: Chronic (4) Hx of CABG Status: Chronic (5) Percutaneous Translum Coron Angioplasty Status Status: Resolved (6) S/P coronary artery stent placement Status: Chronic (7) S/p lumbar spinal surgery Status: Chronic (8) Status post femoral-popliteal bypass surgery Permanent Comment: right Status: Chronic Family History FH: CAD (coronary artery disease) FATHER FH: cancer MOTHER Social History Smoking Status: Former Smoker (quit 2017. smoked 1ppd x 49 years) Alcohol Use: occasionally Drug Use: none Marital Status: Housing Status: lives with significant other Occupation Status: retired Allergies Coded Allergies: No Known Allergies (Verified , 01/04/18) Current Inpatient Medications Current Inpatient Medications Medications (Trade) Dose Ordered Sig/Timbo Route Start Time Stop Time Status Last Admin Dose Admin Acetaminophen (Tylenol Tab) 650 mg Q4H PRN PO 01/04/18 11:30 02/03/18 11:29 Oxycodone/ Acetaminophen (Percocet 5-325mg Tab) `1-2 TABS FOR MODER... Q4H PRN PO 01/04/18 11:30 01/18/18 11:29 01/05/18 00:29 1 TAB Morphine Sulfate (MoRPHine SULFATE INJ) If PO analgesic is orde... Q2H PRN IV 01/04/18 11:30 01/18/18 11:29 01/04/18 15:03 2 MG Ondansetron HCl (Zofran Inj) 4 mg Q6H PRN IV 01/04/18 11:30 02/03/18 11:29 Pantoprazole Sodium 40 mg/ Syringe 10 ml @ 5 mls/min DAILY@11 IV 01/05/18 11:00 01/08/18 11:01 01/05/18 10:49 5 MLS/MIN Enoxaparin Sodium (Lovenox Inj) 30 mg Q12 SQ 01/05/18 08:00 02/04/18 07:59 01/05/18 09:48 30 MG Albuterol (Ventolin Hfa Inhaler) 2 puffs Q4 INH 01/04/18 16:00 02/03/18 15:59 01/05/18 08:01 2 PUFFS Aspirin (Ecotrin Tab) 81 mg QAM PO 01/05/18 09:00 02/04/18 08:59 01/05/18 09:47 81 MG Atorvastatin Calcium (Lipitor Tab) 80 mg QAM PO 01/05/18 09:00 02/04/18 08:59 01/05/18 08:01 80 MG Budesonide/ Formoterol Fumarate (Symbicort 160/ 4.5 Inh) 2 puffs BID INH 01/04/18 21:00 02/03/18 20:59 01/05/18 08:01 2 PUFFS Bupropion HCl (Wellbutrin Tab) 150 mg BID PO 01/04/18 21:00 02/03/18 20:59 01/05/18 08:01 150 MG Cholecalciferol (Vitamin D Tab) 1,000 inter.unit BID PO 01/04/18 21:00 02/03/18 20:59 01/05/18 08:01 1,000 INTER.UNIT Gabapentin (Neurontin Cap) 200 mg BID PO 01/04/18 21:00 02/03/18 20:59 01/05/18 08:02 200 MG Lisinopril (Zestril Tab) 5 mg HS PO 01/04/18 21:00 02/03/18 20:59 01/04/18 21:19 5 MG Multivitamins (Multivitamin Tab) 1 tab QAM PO 01/05/18 09:00 02/04/18 08:59 01/05/18 08:01 1 TAB Nitroglycerin (Nitrostat Tab) 0.4 mg PRN PRN UT 01/04/18 11:30 02/03/18 11:29 Ioversol (Optiray 320) 100 ml UD PRN IV 01/05/18 08:15 01/09/18 08:14 Lidocaine HCl (Xylocaine Jelly 2%) 5 ml PRN PRN EXT 01/05/18 10:00 02/04/18 09:59 Phenazopyridine HCl (Pyridium Tab) 100 mg TID PRN PO 01/05/18 10:00 02/04/18 09:59 Bisacodyl (Dulcolax Supp) 10 mg DAILY PRN CA 01/05/18 10:00 02/04/18 09:59 Review of Systems Constitutional: + fever (see HPI) Eyes: No worsening of vision, No eye pain, No redness, No diplopia ENT: No unusual epistaxis, No nasal symptoms, No sore throat, No trouble swallowing Respiratory: + cough, + shortness of breath, + problem reported (see HPI), No hemoptysis Cardiovascular: No chest pain, No edema, No palpitations Abdomen: + problem reported (see HPI) Genitourinary - Male: + problem reported (see HPI) Neurologic: No numbness/tingling, No vertigo, No balance problems Endocrine: No excessive thirst Physical Exam Date Time Temp Pulse Resp B/P (MAP) Pulse Ox O2 Delivery O2 Flow Rate FiO2 01/05/18 08:00 92 Nasal Cannula 2.0 01/05/18 07:40 38.0 90 22 105/53 (70) 94 Nasal Cannula 2.0 01/05/18 06:05 36.8 91 20 133/72 95 2.0 01/05/18 05:05 37.3 88 20 94/56 96 2.0 01/05/18 04:35 36.9 88 20 91/49 92 2.0 01/05/18 04:18 37.3 97 18 94/70 92 01/05/18 04:00 92 Nasal Cannula 2.0 01/05/18 03:10 37.3 90 18 82/48 (59) 92 Room Air 01/05/18 00:14 36.7 89 16 103/53 (70) 95 Room Air 01/05/18 00:00 96 Room Air 3.0 01/04/18 20:00 96 Room Air 01/04/18 19:17 36.7 89 18 109/70 (83) 91 Room Air 01/04/18 16:00 Room Air 01/04/18 15:00 79 16 109/74 (86) 91 Room Air 01/04/18 14:00 71 16 110/57 97 Nasal Cannula 3 01/04/18 13:50 71 16 99/55 97 Nasal Cannula 3 01/04/18 13:40 36.2 69 18 109/50 93 Nasal Cannula 3 01/04/18 13:30 69 16 110/59 96 Nasal Cannula 3 01/04/18 13:20 66 16 125/55 96 Nasal Cannula 3 01/04/18 13:10 68 16 120/53 96 Nasal Cannula 3 Arterial Line 01/04/18 13:00 72 16 99/45 96 Nasal Cannula 3 01/04/18 12:50 72 16 92/53 96 Nasal Cannula 3 01/04/18 12:40 75 16 82/49 96 Nasal Cannula 3 01/04/18 12:30 83 16 97/48 94 Nasal Cannula 3 01/04/18 12:20 78 16 104/51 94 Nasal Cannula 3 01/04/18 12:12 36.5 77 16 113/56 98 Nasal Cannula 3 General Appearance: WD/WN, no apparent distress, + pertinent finding (pt ambulating in room when entered, sitting in bedside chair) Head: normocephalic, atraumatic Eyes: normal inspection, PERRL, EOMI, sclerae normal ENT: hearing grossly normal, pharynx normal, + pertinent finding (mucous membranes moist) Neck: supple, no JVD, trachea midline Respiratory/Chest: no respiratory distress, no accessory muscle use, + decreased breath sounds (throughout with some rhonchi bilateral bases) Cardiovascular: regular rate, rhythm, no murmur, normal peripheral pulses Abdomen/GI: normal bowel sounds, non tender, soft Genitourinary - Male: no urethral discharge (bolton catheter in place) Extremities/Musculoskelatal: no calf tenderness, no pedal edema, normal range of motion, non-tender Neurologic/Psych: alert, normal mood/affect, oriented x 3 Skin: normal color, warm/dry, + pertinent finding (r groin with incision site, without discharge, bleeding or surrounding erythema or edema) Laboratory Results Last 24 Hours Test 01/04/18 12:41 01/04/18 16:39 01/05/18 06:50 01/05/18 08:12 White Blood Count 5.81 K/uL 7.94 K/uL Red Blood Count 2.25 M/uL 2.54 M/uL Hemoglobin 8.4 g/dL 9.2 g/dL Hematocrit 25.0 % 27.7 % Mean Corpuscular Volume 111.1 fL 109.1 fL Mean Corpuscular Hemoglobin 37.3 pg 36.2 pg Mean Corpuscular Hemoglobin Concent 33.6 g/dl 33.2 g/dl Platelet Count 161 K/uL 133 K/uL Mean Platelet Volume 11.4 fL 10.7 fL Neutrophils (%) (Auto) 65.4 % 64.4 % Lymphocytes (%) (Auto) 27.4 % 25.1 % Monocytes (%) (Auto) 5.0 % 8.3 % Eosinophils (%) (Auto) 1.2 % 1.5 % Basophils (%) (Auto) 0.5 % 0.1 % Neutrophils # (Auto) 3.80 K/uL 5.11 K/uL Lymphocytes # (Auto) 1.59 K/uL 1.99 K/uL Monocytes # (Auto) 0.29 K/uL 0.66 K/uL Eosinophils # (Auto) 0.07 K/uL 0.12 K/uL Basophils # (Auto) 0.03 K/uL 0.01 K/uL RDW Standard Deviation 66.2 fL 79.2 fL RDW Coefficient of Variation 16.5 % 20.2 % Immature Granulocyte % (Auto) 0.5 % 0.6 % Immature Granulocyte # (Auto) 0.03 K/uL 0.05 K/uL Macrocytosis PRESENT Tear Drop Cells OCCASIONAL Bedside Glucose 120 mg/dl 136 mg/dl Nucleated RBC Absolute Count (auto) 0.03 K/uL Nucleated Red Blood Cells % 0.4 % Anisocytosis PRESENT Prothrombin Time 11.1 SECONDS Prothromb Time International Ratio 1.1 Activated Partial Thromboplast Time 26.7 SECONDS Partial Thromboplastin Ratio 1.0 Sodium Level 135 mmol/L Potassium Level 4.0 mmol/L Chloride Level 104 mmol/L Carbon Dioxide Level 24 mmol/L Anion Gap 7.0 mmol/L Blood Urea Nitrogen 14 mg/dl Creatinine 1.63 mg/dl Est Creatinine Clear Calc Drug Dose 41.7 ml/min Estimated GFR () 48.4 Estimated GFR (Non- 41.8 BUN/Creatinine Ratio 8.8 Random Glucose 149 mg/dl Calcium Level 8.0 mg/dl Hepatitis C Antibody Screen NEG CT ABD/PELVIS: IMPRESSION: 1. Left lower lobe pulmonary consolidation with air bronchograms 2. No evidence of bowel obstruction. No evidence of free air 3. Postsurgical changes in the right inguinal region 4. No evidence of intraperitoneal or significant retroperitoneal hemorrhage 5. Normal appendix 6. Stable left adrenal gland adenoma 7. Stable right renal calculi and parenchymal calcifications Assessment & Plan HX PVD. Pt POST OP DAY #1 S/P R COMMON FEMORAL ENDARTERECTOMY By DR ROSS -pain management per vascular surgeon -wound management per vascular surgeon -PT/OT as appropriate -DVT prophylaxis per vascular surgeon -incentive spirometry -Pt received 1unit PRBC during night. Hgb: 9.2 this morning. Continue to monitor H&H for acute blood loss anemia. pt with hx chronic anemia FEVER DDX: post-op fever, pneumonia, UTI, surgical site infection. WBC: 7.9 today. T: 38.0C this am. Pt with no worsening SOB or cough from baseline COPD. At this time surgical site without erythema, edema or discharge. Pt does not appear toxic. CT ABD/PELVIS today showing LLL pulmonary consolidation with air bronchograms, pulmonary emphysema -Ordered CXR with comparison to CXR 12/2017 to help distinguish if opacity chronic or worsening indicating possible pneumonia -procalcitonin added to help r/o infection. if elevated will add blood cultures and consider antibiotics -U/A ordered -continue to monitor -repeat cbc in am HX COPD No CP. No increased cough, SOB or sputum production from baseline. -xopenex/atrovent neb -continue symbicort HX LUNG CA S/P RADIATION pt with chronic opacity LLL seen on CT scans since HX CAD C/P CABG No CP. Had dobutamine stress test 01/01/18 - negative for inducible ischemia -continue statin, continue carvedilol with holding parameters -hold lasix and lisinopril currently HTN Pt with noted lower BP's previous admissions. BP low 100's systolic currently -hold lasix, lisinopril. continue carvedilol with holding parameters DIFFICULT BOLTON INTRAOPERATIVELY Pt with difficult bolton cath yesterday with hematuria. Urology consulted and placed bolton. Was question if false passage at urethra. no gross hematuria noted in bolton bag today. -urology following DM II - DIET CONTROLLED HA1C 5.7 on 08/18. Glucose 120-136 in hospital. Continue accuchecks DEPRESSION -Stable. Continue wellbutrin GERD -continue PPI CKD III Cr: 1.6. Was 1.45 on 12/20/17 -continue to monitor renal functions -avoid nephrotoxic agents when possible -may need to consider additional IVF DVT Prophylaxis -per vascular surgeon Disposition admitted tele Follows with Dr Gordon for routine care Pt was seen with Dr Oconnor. See addendum Pt will be followed by Dr Carter throughout remaining hospital course SUPERVISING PHYSICIAN'S ADDENDUM Record reviewed. Patient interviewed and examined. Care coordinated with Micki March PA-C. Please refer to her documentation for patient's history. Briefly, this 72-year-old male who underwent right femoral endarterectomy yesterday. Febrile this morning with maximum temperature of 38.0. No pharyngitis. Chronic cough unchanged. Has some abdominal distention without nausea, vomiting, diarrhea. Bolton catheter placed yesterday by Urology; experiencing penile discomfort. EXAM: General- elderly male, somewhat uncomfortable, no acute distress Lungs- clear to auscultation; no respiratory distress Cardiovascular- RRR; I/ systolic murmur at base; no gallop appreciated; no JVD ; no pretibial edema Abdomen- moderately distended, + bowel sounds, soft, nontender - Bolton cath Extremities-right femoral incision without erythema or drainage; no cyanosis; no calf tenderness Neuro- alert, oriented Skin- warm & dry DATA: Hemoglobin 9.2, white count 7940, platelet count 133,000. BUN 14, creatinine 1.63, glucose 149. Procalcitonin 0.07. Urinalysis demonstrated 3+ protein, trace ketones, 3+ occult blood, positive nitrites, moderate leukocyte esterase, greater than 30 WBCs, greater than 30 RBCs, 1-5 hyaline casts, 5-10 epithelial cells. Other lab studies as noted. CT of abdomen and pelvis demonstrated left lower lobe pulmonary consolidation, no evidence of bowel obstruction or free air, postsurgical changes in right inguinal region, normal appendix, stable left adrenal adenoma, right renal calculi without evidence of obstruction. Chest x-ray showed emphysematous changes, left basilar densities similar to study performed on 12/20/17, small left pleural effusion. ASSESSMENT AND PLAN: Febrile this morning. Pulmonary symptoms and chest x-ray appear to be stable. Urinalysis shows nitrites, leukocyte esterase, and WBCs. BP's relatively low, improved with IV fluids. Does not appear to be septic. Procalcitonin normal. Urine sent for culture and sensitivity. IV levofloxacin pending culture results. Creatinine this morning 1.63. Recent labs reviewed. Creatinine tends to fluctuate with recent results as low as 1.1. Received IV fluids during the night. Additional bolus of normal saline 500 mL's were ordered. Follow. Please refer to FELISA Medeiros's documentation for discussion of other issues. Thank you for this consultation. We will follow the patient with you during their hospital stay. Dr. Carter will be assuming medical management starting on Thursday01/06/18. You can reach a member of the [facility] Medicine Team 25/05 via pager @ [phone]. You can reach me via cell @ [phone]. Flex Oocnnor MD . Additional Copies To Abdoul Gordon M.D.
[2018-01-05] MEDS: MoRPHine SULFATE 4 MG/ML 1 ML CARP\\VIAL IV PRN (13:17)
--- NOTE | 2018-01-05 13:18 | DIAGNOSTIC IMAGING REPORT ---
TWO VIEW CHEST CLINICAL HISTORY: History of lung cancer status post radiation. FINDINGS: PA and lateral chest radiographs are compared to study dated 12/20/2017. Correlation is made with chest CT dated 07/30/2017. The heart is top normal for projection. There is atherosclerotic calcification of the thoracic aorta. The pulmonary vasculature is noncongested. Emphysema and chronic interstitial thickening are similar to previous. Airspace consolidation is seen at the left lung base and there is a small left pleural effusion. There is no pneumothorax. The bony thorax appears intact. IMPRESSION: 1. Emphysema. 2. Consolidative change/opacities at the left lung base are similar to the 12/20/2017 examination. Differential considerations remain pneumonia, fibrosis/scarring, and/or recurrent/residual neoplasm. 3. There is a small left pleural effusion. 4. The right lung appears clear. Electronically signed by: Amor Jewell M.D. 01/05/2018 1:16 PM Dictated Date/Time: 01/05/2018 1:14 PM
[2018-01-05] MEDS: LEVALBUTEROL 1.25MG/0.5ML NEB INH SCH ×2 (14:27→19:22)
[2018-01-05] MEDS: IPRATROPIUM BROMIDE NEB SOLN 0.02% 2.5 ML VIAL INH SCH ×2 (14:27→19:21)
[2018-01-05] MEDS ORDERED: LEVALBUTEROL/IPRATROPIUM NEB INH SCH (15:00)
[2018-01-05] MEDS: MAGNESIUM HYDROXIDE SUSP 30 ML UDC PO PRN ×2 (16:07→23:17)
[2018-01-05] MEDS ORDERED: SODIUM CHLORIDE 0.9% 500ML 500 ML IV SCH (19:00)
[2018-01-05] MEDS ORDERED: LEVOFLOXACIN / D5W 500 MG in PREMIXED IN D5W 100 ML IV SCH (19:00)
[2018-01-05] MEDS ORDERED: LEVOFLOXACIN CONSULT ACTIVE PRN (19:45)
[2018-01-05] MEDS: ACETAMINOPHEN 325 MG TAB PO PRN (20:05)
[2018-01-05] MEDS: LEVOFLOXACIN 750MG / D5W IV SCH (20:06)
[2018-01-06] VITALS (10 sets, daily range): BP systolic 88–106; BP diastolic 49–66; PULSE 86–101; TEMP 36.4–38.1; O2SAT 90–95
[2018-01-06] MEDS: IPRATROPIUM BROMIDE NEB SOLN 0.02% 2.5 ML VIAL INH SCH ×4 (02:09→20:05)
[2018-01-06] MEDS: LEVALBUTEROL 1.25MG/0.5ML NEB INH SCH ×4 (02:09→20:06)
[2018-01-06] MEDS: ACETAMINOPHEN 325 MG TAB PO PRN (02:11)
[2018-01-06] MEDS: ALBUTEROL HFA 8 GM INHALER INH SCH ×7 (04:00→23:59)
[2018-01-06 05:50] LABS: HEMOGLOBIN 8.2 g/dL (14.0-18.0); MEAN CELL VOLUME 109.6 fL (80-100); MEAN CORPUSCULAR HGB CONC 32.8 g/dl (32-36); NUCLEATED RED BLOOD CELL ABS 0.02 K/uL (0-0); PLATELET COUNT 116 K/uL (130-400); RED CELL DISTRIBUTION WIDTH CV 20.2 % (11.5-14.5); RED CELL DISTRIBUTION WIDTH SD 80.5 fL (36.4-46.3); WHITE BLOOD COUNT 8.29 K/uL (4.8-10.8)
[2018-01-06 06:18] LABS: CALCIUM 8.4 mg/dl (8.5-10.1); CREATININE 1.42 mg/dl (0.60-1.40)
[2018-01-06] MEDS: OXYCODONE/ACETAMINOPHEN 5-325 TAB PO PRN ×2 (06:24→15:19)
--- NOTE | 2018-01-06 06:33 | DIAGNOSTIC IMAGING REPORT ---
BILATERAL LOWER EXTREMITY VENOUS DOPPLER HISTORY: Postoperative fever with bilateral lower extremity pain and swelling post-op fever, rule out DVT, thx COMPARISON STUDY: CT abdomen and pelvis 01/05/2018 FINDINGS: There is normal compressibility, flow, and augmentation within the bilateral lower extremity deep venous systems. The patient is unable to tolerate compression within the right common femoral vein secondary to pain from recent postsurgical changes. Oliver and shadowing air foci noted within the right groin, unchanged from comparison. IMPRESSION: No sonographic evidence of deep venous thrombosis within the right or left lower extremity. Electronically signed by: Elliot Mrorissey M.D. 01/06/2018 6:31 AM Dictated Date/Time: 01/06/2018 6:29 AM
[2018-01-06] MEDS: ATORVASTATIN 40 MG TAB PO SCH (07:35)
[2018-01-06] MEDS: CARVEDILOL 12.5 MG TAB PO SCH (07:36)
[2018-01-06] MEDS: GABAPENTIN 100 MG CAP PO SCH ×2 (07:36→19:39)
[2018-01-06] MEDS: CHOLECALCIFEROL 1000 INTER.UNIT TAB PO SCH (07:36)
[2018-01-06] MEDS: ASPIRIN 81 MG ECTAB PO SCH (07:36)
[2018-01-06] MEDS: MULTIVITAMIN TAB PO SCH (07:36)
[2018-01-06] MEDS: BUDESONIDE/FORMOTEROL FUMARATE 160/4.5 60 PUFFS/INHALER INH SCH ×2 (07:37→19:38)
[2018-01-06] MEDS: ENOXAPARIN 30 MG/0.3 ML SYR SQ SCH ×2 (07:37→19:39)
[2018-01-06] MEDS: MAGNESIUM HYDROXIDE SUSP 30 ML UDC PO PRN ×2 (07:43→15:19)
[2018-01-06] MEDS: PHENAZOPYRIDINE HCL 100 MG TAB PO PRN ×2 (07:43→15:20)
--- NOTE | 2018-01-06 08:38 | Progress Note ---
Progress Note Date of Service: Jan 06, 2018. Subjective 72 yo m with multiple medical problems, POD #2 after R common femoral endarterectomy and angiography, seen in f/u today. Pt admits pain in location of rondon catheter and a nearly constant urge to void. Also admits constipation despite suppository and MOM. Pt admits mild pain in R groin surgical area. Denies other complaints. Ambulating in hallway. Taking PO well. Pt febrile and tachycardic, and noted to have UTI. Abx started, and also given pyridium for discomfort. Problem List Medical Problems: (1) Acute febrile illness Status: Acute (2) Calculus Of Kidney Status: Chronic (3) Carotid Artery Occlusion W O Cerebral Infarction Status: Chronic (4) Chr Airway Obstruct Nec Status: Chronic (5) COPD with exacerbation Status: Acute (6) Coron Atheroscler Nos Type Vessel, [place] Or Graft Status: Chronic (7) Diab Sofie Wo Compl, Type Ii Or Unspec Type, Not Uncntrld Status: Chronic (8) Diverticulosis Colon (W/O Ment Of Hemorrhage) Status: Chronic (9) Esophageal Reflux Status: Chronic (10) Hyperlipidemia Nec/Nos Status: Chronic (11) Hypertension Nos Status: Chronic (12) Leukocytosis Status: Acute (13) PAD (peripheral artery disease) Status: Chronic (14) Pneumonia Status: Acute (15) Renal Artery Aneurysm Status: Chronic Objective Vital Signs Vital Signs Past 12 Hours Date Time Temp Pulse Resp B/P (MAP) Pulse Ox O2 Delivery O2 Flow Rate FiO2 01/06/18 07:47 36.9 97 22 91/66 (74) 95 Nasal Cannula 2.0 01/06/18 04:00 93 Nasal Cannula 2.0 01/06/18 03:02 38.1 101 22 106/57 (73) 90 Nasal Cannula 2.0 01/06/18 00:04 95 Nasal Cannula 2.0 01/05/18 22:49 37.4 113 24 103/46 (65) 91 Nasal Cannula 2.0 01/05/18 21:36 37.4 01/05/18 21:05 38.4 Exam CONST: A&O x3, NAD, mildly chronically ill appearing male CHEST: RRR lungs decreased, with occasional wheeze ABD: distended, + bowel sounds EXT: R groin incision C/D/I with kenia. + local edema and tenderness, mild ecchymosis, soft. RLE mild edema, Foot warm and pink, brisk cap refill. + distal pulses. Laboratory and Microbiology Results Past 24 Hours Test 01/05/18 11:35 01/05/18 16:05 01/05/18 17:20 01/06/18 05:42 Range/Units Bedside Glucose 123 191 70-99 mg/dl Urine Color DK YELLOW Urine Appearance CLOUDY CLEAR Urine pH 5.5 4.5-7.5 Urine Specific Brutus > 1.045 1.000-1.030 Urine Protein 3+ NEG Urine Glucose (UA) NEG NEG Urine Ketones TRACE NEG Urine Occult Blood 3+ NEG Urine Nitrite POS NEG Urine Bilirubin NEG NEG Urine Urobilinogen NEG NEG Urine Leukocyte Esterase MODERATE NEG Urine WBC (Auto) >30 0-5 /hpf Urine RBC (Auto) >30 0-4 /hpf Urine Hyaline Casts (Auto) 1-5 0-5 /lpf Urine Epithelial Cells (Auto) 5-10 0-5 /lpf Urine Bacteria (Auto) NEG NEG White Blood Count 8.29 4.8-10.8 K/uL Red Blood Count 2.28 4.7-6.1 M/uL Hemoglobin 8.2 14.0-18.0 g/dL Hematocrit 25.0 42-52 % Mean Corpuscular Volume 109.6 80-100 fL Mean Corpuscular Hemoglobin 36.0 25-34 pg Mean Corpuscular Hemoglobin Concent 32.8 32-36 g/dl RDW Standard Deviation 80.5 36.4-46.3 fL RDW Coefficient of Variation 20.2 11.5-14.5 % Platelet Count 116 130-400 K/uL Mean Platelet Volume 11.0 7.4-10.4 fL Nucleated RBC Absolute Count (auto) 0.02 0-0 K/uL Nucleated Red Blood Cells % 0.3 % Sodium Level 135 136-145 mmol/L Potassium Level 4.0 3.5-5.1 mmol/L Chloride Level 104 98-107 mmol/L Carbon Dioxide Level 26 21-32 mmol/L Anion Gap 5.0 3-11 mmol/L Blood Urea Nitrogen 18 7-18 mg/dl Creatinine 1.42 0.60-1.40 mg/dl Est Creatinine Clear Calc Drug Dose 48.0 ml/min Estimated GFR () 57.2 Estimated GFR (Non- 49.3 BUN/Creatinine Ratio 12.4 10-20 Random Glucose 143 70-99 mg/dl Calcium Level 8.4 8.5-10.1 mg/dl Microbiology Results 01/05/18 Urine Culture, Received Pending ASSESSMENT and PLAN: s/p RLE comm fem endarterectomy R comm fem art stenosis/occlusion UTI Expected post op anemia Pt doing generally well post operatively. Anemic at 8.2 today, will discuss with Thelma whether to transfuse pt further, as baseline is chronically anemic around 8. Pt asymptomatic at present, although is mildly hypotensive and intermittently tachycardic. Continue to monitor UTI/fever. Add miralax and colace for constipation.
[2018-01-06] MEDS: DOCUSATE SODIUM 100 MG CAP PO SCH ×2 (08:48→19:38)
[2018-01-06] MEDS: POLYETHYLENE (MIRALAX) 17 GM PACK PO SCH (08:48)
[2018-01-06] MEDS: PANTOprazole INJ 40 MG in SYRINGE 0 ML IV SCH (10:24)
[2018-01-06] MEDS: MoRPHine SULFATE 4 MG/ML 1 ML CARP\\VIAL IV PRN ×2 (10:24→19:36)
[2018-01-07] VITALS (10 sets, daily range): BP systolic 100–110; BP diastolic 46–60; PULSE 78–98; TEMP 36.6–36.9; O2SAT 90–95
[2018-01-07] MEDS: OXYCODONE/ACETAMINOPHEN 5-325 TAB PO PRN
[2018-01-07] MEDS: ALBUTEROL HFA 8 GM INHALER INH SCH ×5 (03:40→19:11)
[2018-01-07] MEDS: IPRATROPIUM BROMIDE NEB SOLN 0.02% 2.5 ML VIAL INH SCH ×3 (06:55→19:06)
[2018-01-07] MEDS: LEVALBUTEROL 1.25MG/0.5ML NEB INH SCH ×3 (06:55→19:06)
[2018-01-07] MEDS: BUDESONIDE/FORMOTEROL FUMARATE 160/4.5 60 PUFFS/INHALER INH SCH ×2 (07:45→19:11)
[2018-01-07] MEDS: MULTIVITAMIN TAB PO SCH (07:46)
[2018-01-07] MEDS: CHOLECALCIFEROL 1000 INTER.UNIT TAB PO SCH (07:46)
[2018-01-07] MEDS: GABAPENTIN 100 MG CAP PO SCH ×2 (07:46→19:12)
[2018-01-07] MEDS: PANTOprazole SOD 40 MG TAB PO SCH (07:46)
[2018-01-07] MEDS: ENOXAPARIN 30 MG/0.3 ML SYR SQ SCH ×2 (07:46→19:10)
[2018-01-07] MEDS: ATORVASTATIN 40 MG TAB PO SCH (07:46)
[2018-01-07] MEDS: DOCUSATE SODIUM 100 MG CAP PO SCH ×2 (07:47→19:11)
[2018-01-07] MEDS: POLYETHYLENE (MIRALAX) 17 GM PACK PO SCH (07:47)
[2018-01-07] MEDS: ASPIRIN 81 MG ECTAB PO SCH (07:47)
[2018-01-07] MEDS: CARVEDILOL 12.5 MG TAB PO SCH (07:47)
--- NOTE | 2018-01-07 08:33 | Progress Note ---
Internal Med Progress Note Date of Service: Jan 06, 2018. Provider Documentation: This is the bill for 01/06/18 SUBJECTIVE: The patient was seen and examined Complained pain in Urinary bladder No pain at the surgery site OBJECTIVE: Vital Signs-as noted below Exam: General-Minimal distress at rest Eyes-normal ENT-normal Neck-supple Lungs-clear to auscultate bilaterally Heart-Regular Abdomen-Benign,no masses,bowel sound present Extremities-No edema Neuro-AAOx3 Lab data as noted below. ASSESSMENT & PLAN: HX PVD. Pt POST OP DAY #2 S/P R COMMON FEMORAL ENDARTERECTOMY By DR ROSS -pain management per vascular surgeon -wound management per vascular surgeon -DVT prophylaxis per vascular surgeon -incentive spirometry -Pt received 1unit PRBC during night. Hgb: 9.2 this morning. Continue to monitor H&H for acute blood loss anemia. pt with hx chronic anemia -monitor Hb FEVER DDX: post-op fever, pneumonia, UTI, surgical site infection. No worsening SOB or cough from baseline COPD. At this time surgical site without erythema, edema or discharge. CT ABD/PELVIS today showing LLL pulmonary consolidation with air bronchograms, pulmonary emphysema -Ordered CXR with comparison to CXR 12/2017 -no change in LLL change -continue to monitor -May have UTI -On Levaquin HX COPD No CP. No increased cough, SOB or sputum production from baseline. -xopenex/atrovent neb -continue Symbicort -no acute symptoms HX LUNG CA S/P RADIATION pt with chronic opacity LLL seen on CT scans since HX CAD C/P CABG No CP. Had dobutamine stress test 01/01/18 - negative for inducible ischemia -continue statin, continue carvedilol with holding parameters -hold Lasix and lisinopril currently HTN Pt with noted lower BP's previous admissions. BP low 100's systolic currently -hold lasix, lisinopril. continue carvedilol with holding parameters DIFFICULT RONDON INTRAOPERATIVELY Pt with difficult rondon cath yesterday with hematuria. Urology consulted and placed rondon. Was question if false passage at urethra. no gross hematuria noted in rondon bag today. -urology following DM II - DIET CONTROLLED HA1C 5.7 on 08/18. Glucose 120-136 in hospital. Continue accuchecks DEPRESSION -Stable. Continue Wellbutrin GERD -continue PPI CKD III Cr: 1.6. Was 1.45 on 12/20/17 -continue to monitor renal functions -avoid nephrotoxic agents when possible DVT Prophylaxis -per vascular surgeon Disposition admitted tele Follows with Dr Gordon for routine care Vital Signs: Date Time Temp Pulse Resp B/P (MAP) Pulse Ox O2 Delivery O2 Flow Rate FiO2 01/07/18 07:48 36.7 98 22 110/46 (67) 93 Room Air 01/07/18 04:01 36.7 87 18 103/52 (69) 94 2.0 01/07/18 04:00 94 Nasal Cannula 2.0 01/07/18 00:00 92 Nasal Cannula 2.0 01/07/18 00:00 36.8 90 100/60 (73) 92 Nasal Cannula 2.0 01/06/18 20:32 36.9 86 20 99/66 (77) 92 Nasal Cannula 2.0 01/06/18 20:00 Nasal Cannula 2.0 01/06/18 16:10 36.5 88 18 88/55 (66) 94 Nasal Cannula 2.0 01/06/18 16:00 Nasal Cannula 2.0 01/06/18 13:10 95/64 (74) 01/06/18 12:00 94 Nasal Cannula 2.0 01/06/18 11:38 36.4 92 22 89/49 (62) 94 Nasal Cannula 2.0
--- NOTE | 2018-01-07 11:14 | Progress Note ---
Subjective Date of Service: Jan 07, 2018. Subjective Pt evaluation today including: conversation w/ patient, chart review, lab review Voiding: rondon catheter in place 72 yo male s/p difficult rondon placement by Dr. Marcelino in the OR. reconsulted for penile swelling today. Pt c/o some discomfort and swelling with rondon catheter in place. He is not circumcised. Rondon draining light lora/markell colored urine. ? from Pyridium. Problem List Medical Problems: (1) Acute febrile illness Status: Acute (2) Calculus Of Kidney Status: Chronic (3) Carotid Artery Occlusion W O Cerebral Infarction Status: Chronic (4) Chr Airway Obstruct Nec Status: Chronic (5) COPD with exacerbation Status: Acute (6) Coron Atheroscler Nos Type Vessel, [place] Or Graft Status: Chronic (7) Diab Sofie Wo Compl, Type Ii Or Unspec Type, Not Uncntrld Status: Chronic (8) Diverticulosis Colon (W/O Ment Of Hemorrhage) Status: Chronic (9) Esophageal Reflux Status: Chronic (10) Hyperlipidemia Nec/Nos Status: Chronic (11) Hypertension Nos Status: Chronic (12) Leukocytosis Status: Acute (13) PAD (peripheral artery disease) Status: Chronic (14) Pneumonia Status: Acute (15) Renal Artery Aneurysm Status: Chronic Review of Systems Constitutional: No fever, No chills Respiratory: No shortness of breath Cardiac: No chest pain Abdomen: No pain, No nausea, No vomiting Male : + problem reported (penile pain and swelling ) Heme: No abnormal bleeding/bruising Objective Vital Signs Date Time Temp Pulse Resp B/P (MAP) Pulse Ox O2 Delivery O2 Flow Rate FiO2 01/07/18 08:00 94 Nasal Cannula 2.0 01/07/18 07:48 36.7 98 22 110/46 (67) 93 Room Air 01/07/18 04:01 36.7 87 18 103/52 (69) 94 2.0 01/07/18 04:00 94 Nasal Cannula 2.0 01/07/18 00:00 92 Nasal Cannula 2.0 01/07/18 00:00 36.8 90 100/60 (73) 92 Nasal Cannula 2.0 01/06/18 20:32 36.9 86 20 99/66 (77) 92 Nasal Cannula 2.0 01/06/18 20:00 Nasal Cannula 2.0 3/7/18 16:10 36.5 88 18 88/55 (66) 94 Nasal Cannula 2.0 01/06/18 16:00 Nasal Cannula 2.0 01/06/18 13:10 95/64 (74) 01/06/18 12:00 94 Nasal Cannula 2.0 01/06/18 11:38 36.4 92 22 89/49 (62) 94 Nasal Cannula 2.0 Physical Exam General Appearance: no apparent distress Eyes: normal inspection ENT: hearing grossly normal Neck: no JVD Respiratory/Chest: no respiratory distress, no accessory muscle use Cardiovascular: no JVD Extremities: + swelling (non-pitting) Neurologic/Psychiatric: alert, normal mood/affect, oriented x 3 Skin: normal color Comments: Uncircumcised male with swollen penis on exam today. Assessment and Plan A/P: Difficult rondon placement Swollen penis on exam today. No evidence for paraphimosis. Supportive management with scrotal elevation at this time. Continue lidocaine jelly and Pyridium PRN for rondon discomfort. Will plan to leave rondon catheter in place for a total of 10-14 days. Will arrange for an outpatient TOV. The pt will also need an outpatient cysto for further evaluation. Will arrange. Will continue to follow along with primary service.
[2018-01-07] MEDS: MoRPHine SULFATE 4 MG/ML 1 ML CARP\\VIAL IV PRN ×2 (11:32→20:45)
--- NOTE | 2018-01-07 12:56 | Progress Note ---
Internal Med Progress Note Date of Service: Jan 07, 2018. Provider Documentation: SUBJECTIVE: The patient was seen and examined Complained pain in Urinary bladder No pain at the surgery site Complains of some swelling of the Penis Pain is a little better Denies any other symptoms OBJECTIVE: Vital Signs-as noted below Exam: General-Minimal distress at rest Eyes-normal ENT-normal Neck-supple Lungs-clear to auscultate bilaterally Heart-Regular Abdomen-Benign,no masses,bowel sound present Extremities-No edema Some swelling and the Penis and scrotum Neuro-AAOx3 Lab data as noted below. ASSESSMENT & PLAN: HX PVD. Pt POST OP DAY # 3 S/P R COMMON FEMORAL ENDARTERECTOMY By DR ROSS -pain management per vascular surgeon -wound management per vascular surgeon -DVT prophylaxis per vascular surgeon -incentive spirometry -Pt received 1unit PRBC during night. Hgb: 9.2 this morning. Continue to monitor H&H for acute blood loss anemia. pt with hx chronic anemia -monitor Hb -8.2 as of 01/06/18 FEVER-resolved DDX: post-op fever, pneumonia, UTI, surgical site infection. No worsening SOB or cough from baseline COPD. At this time surgical site without erythema, edema or discharge. CT ABD/PELVIS today showing LLL pulmonary consolidation with air bronchograms, pulmonary emphysema -Ordered CXR with comparison to CXR 12/2017 -no change in LLL change -continue to monitor -May have UTI-urine culture-No Growth -On Levaquin-continue for 5 days HX COPD No CP. No increased cough, SOB or sputum production from baseline. -Xopenex/Atrovent neb -continue Symbicort -no acute symptoms HX LUNG CA S/P RADIATION pt with chronic opacity LLL seen on CT scans since HX CAD C/P CABG No CP. Had dobutamine stress test 01/01/18 - negative for inducible ischemia -continue statin, continue carvedilol with holding parameters -hold Lasix and lisinopril currently HTN Pt with noted lower BP's previous admissions. BP low 100's systolic currently -hold Lasix, lisinopril. continue carvedilol with holding parameters DIFFICULT BOLTON INTRAOPERATIVELY Pt with difficult Bolton cath yesterday with hematuria. Urology consulted and placed Bolton. Was question if false passage at urethra. no gross hematuria noted in bolton bag today. -urology following -Need to keep the Bolton in place for 10-14 days DM II - DIET CONTROLLED HA1C 5.7 on 08/18. Glucose 120-136 in hospital. Continue accuchecks DEPRESSION -Stable. Continue Wellbutrin GERD -continue PPI CKD III Cr: 1.6. Was 1.45 on 12/20/17 -continue to monitor renal functions -avoid nephrotoxic agents when possible DVT Prophylaxis -per vascular surgeon Disposition admitted tele Follows with Dr Gordon for routine care Vital Signs: Date Time Temp Pulse Resp B/P (MAP) Pulse Ox O2 Delivery O2 Flow Rate FiO2 01/07/18 12:00 94 Room Air 01/07/18 11:45 36.6 78 16 110/57 (74) 94 Room Air 01/07/18 08:00 94 Nasal Cannula 2.0 01/07/18 07:48 36.7 98 22 110/46 (67) 93 Room Air 01/07/18 04:01 36.7 87 18 103/52 (69) 94 2.0 01/07/18 04:00 94 Nasal Cannula 2.0 01/07/18 00:00 92 Nasal Cannula 2.0 01/07/18 00:00 36.8 90 100/60 (73) 92 Nasal Cannula 2.0 01/06/18 20:32 36.9 86 20 99/66 (77) 92 Nasal Cannula 2.0 01/06/18 20:00 Nasal Cannula 2.0 01/06/18 16:10 36.5 88 18 88/55 (66) 94 Nasal Cannula 2.0 01/06/18 16:00 Nasal Cannula 2.0 01/06/18 13:10 95/64 (74)
--- NOTE | 2018-01-07 15:12 | Progress Note ---
Progress Note Date of Service: Jan 07, 2018. Subjective 72 yo m s/p R comm fem endarterectomy, seen in f/u today. Pt states no longer constipated. Continues to have pain at rondon site, however, believes it is occurring less than yesterday. Denies claudication in RLE. Admits edema BLE. Problem List Medical Problems: (1) Acute febrile illness Status: Acute (2) Calculus Of Kidney Status: Chronic (3) Carotid Artery Occlusion W O Cerebral Infarction Status: Chronic (4) Chr Airway Obstruct Nec Status: Chronic (5) COPD with exacerbation Status: Acute (6) Coron Atheroscler Nos Type Vessel, [place] Or Graft Status: Chronic (7) Diab Sofie Wo Compl, Type Ii Or Unspec Type, Not Uncntrld Status: Chronic (8) Diverticulosis Colon (W/O Ment Of Hemorrhage) Status: Chronic (9) Esophageal Reflux Status: Chronic (10) Hyperlipidemia Nec/Nos Status: Chronic (11) Hypertension Nos Status: Chronic (12) Leukocytosis Status: Acute (13) PAD (peripheral artery disease) Status: Chronic (14) Pneumonia Status: Acute (15) Renal Artery Aneurysm Status: Chronic Objective Vital Signs Vital Signs Past 12 Hours Date Time Temp Pulse Resp B/P (MAP) Pulse Ox O2 Delivery O2 Flow Rate FiO2 01/07/18 12:00 94 Room Air 01/07/18 11:45 36.6 78 16 110/57 (74) 94 Room Air 01/07/18 08:00 94 Nasal Cannula 2.0 01/07/18 07:48 36.7 98 22 110/46 (67) 93 Room Air 01/07/18 04:01 36.7 87 18 103/52 (69) 94 2.0 01/07/18 04:00 94 Nasal Cannula 2.0 Exam CONST: A&O x3, NAD, mildly chronically ill appearing male CHEST: RRR lungs decreased, with occasional wheeze ABD: distended, + bowel sounds EXT: R groin incision C/D/I with kenia. + local edema and tenderness, mild ecchymosis, soft. BLE moderate edema, Foot warm and pink, brisk cap refill. + distal pulses Intake & Output 8-Hour Column 01/07/18 01/07/18 01/08/18 15:59 23:59 07:59 Intake Total 640 ml Output Total 250 ml Balance 390 ml 24-Hour Column 3/9/18 07:59 Intake Total 640 ml Output Total 250 ml Balance 390 ml ASSESSMENT and PLAN: s/p RLE comm fem endarterctomy R comm fem art occlusion Pt doing well pos top. Recheck CBC tomorrow. Continue to monitor. Continues to require IV pain medication for rondon pain.
[2018-01-07] MEDS: LEVOFLOXACIN 750MG / D5W IV SCH (19:09)
[2018-01-07] MEDS: PHENAZOPYRIDINE HCL 100 MG TAB PO PRN (19:12)
[2018-01-08 00:18] VITALS: BP 99/56; PULSE 84; TEMP 36.9; O2SAT 92
[2018-01-08] MEDS: ALBUTEROL HFA 8 GM INHALER INH SCH ×6 (00:18→20:09)
[2018-01-08] MEDS: OXYCODONE/ACETAMINOPHEN 5-325 TAB PO PRN ×2 (01:23→20:13)
[2018-01-08] MEDS: IPRATROPIUM BROMIDE NEB SOLN 0.02% 2.5 ML VIAL INH SCH ×4 (01:43→21:00)
[2018-01-08] MEDS: LEVALBUTEROL 1.25MG/0.5ML NEB INH SCH ×4 (01:43→21:00)
[2018-01-08 03:50] VITALS: BP 94/61; PULSE 77; TEMP 36.3; O2SAT 90
[2018-01-08 06:07] LABS: HEMATOCRIT 23.9 % (42-52); MEAN CELL VOLUME 109.6 fL (80-100); MEAN CORPUSCULAR HEMOGLOBIN 36.7 pg (25-34); MEAN CORPUSCULAR HGB CONC 33.5 g/dl (32-36); MEAN PLATELET VOLUME 10.9 fL (7.4-10.4); PLATELET COUNT 122 K/uL (130-400); RED CELL DISTRIBUTION WIDTH CV 18.5 % (11.5-14.5); WHITE BLOOD COUNT 4.98 K/uL (4.8-10.8)
[2018-01-08 06:39] LABS: CALCIUM 8.8 mg/dl (8.5-10.1); CREATININE 1.44 mg/dl (0.60-1.40)
[2018-01-08 07:43] VITALS: BP 89/52; PULSE 77; TEMP 36.6; O2SAT 97
[2018-01-08] MEDS: MULTIVITAMIN TAB PO SCH (08:14)
[2018-01-08] MEDS: CARVEDILOL 12.5 MG TAB PO SCH (08:14)
[2018-01-08] MEDS: GABAPENTIN 100 MG CAP PO SCH ×2 (08:14→20:10)
[2018-01-08] MEDS: ASPIRIN 81 MG ECTAB PO SCH (08:14)
[2018-01-08] MEDS: ATORVASTATIN 40 MG TAB PO SCH (08:14)
[2018-01-08] MEDS: CHOLECALCIFEROL 1000 INTER.UNIT TAB PO SCH (08:15)
[2018-01-08] MEDS: PANTOprazole SOD 40 MG TAB PO SCH (08:15)
[2018-01-08] MEDS: DOCUSATE SODIUM 100 MG CAP PO SCH ×2 (08:15→20:10)
[2018-01-08] MEDS: POLYETHYLENE (MIRALAX) 17 GM PACK PO SCH (08:16)
[2018-01-08] MEDS: BUDESONIDE/FORMOTEROL FUMARATE 160/4.5 60 PUFFS/INHALER INH SCH ×2 (08:16→20:10)
[2018-01-08] MEDS: ENOXAPARIN 30 MG/0.3 ML SYR SQ SCH ×2 (08:17→20:11)
[2018-01-08] MEDS: PHENAZOPYRIDINE HCL 100 MG TAB PO PRN (08:18)
--- NOTE | 2018-01-08 08:53 | Progress Note ---
Subjective Date of Service: Jan 08, 2018. Subjective Pt evaluation today including: conversation w/ patient, chart review, lab review Voiding: rondon catheter in place (patent draining markell colored urine ) Problem List Medical Problems: (1) Acute febrile illness Status: Acute (2) Calculus Of Kidney Status: Chronic (3) Carotid Artery Occlusion W O Cerebral Infarction Status: Chronic (4) Chr Airway Obstruct Nec Status: Chronic (5) COPD with exacerbation Status: Acute (6) Coron Atheroscler Nos Type Vessel, [place] Or Graft Status: Chronic (7) Diab Sofie Wo Compl, Type Ii Or Unspec Type, Not Uncntrld Status: Chronic (8) Diverticulosis Colon (W/O Ment Of Hemorrhage) Status: Chronic (9) Esophageal Reflux Status: Chronic (10) Hyperlipidemia Nec/Nos Status: Chronic (11) Hypertension Nos Status: Chronic (12) Leukocytosis Status: Acute (13) PAD (peripheral artery disease) Status: Chronic (14) Pneumonia Status: Acute (15) Renal Artery Aneurysm Status: Chronic Review of Systems Constitutional: No fever, No chills Respiratory: No shortness of breath Cardiac: No chest pain Abdomen: + constipation, No pain, No nausea, No vomiting Male : + hematuria Heme: No abnormal bleeding/bruising Objective Vital Signs Date Time Temp Pulse Resp B/P (MAP) Pulse Ox O2 Delivery O2 Flow Rate FiO2 01/08/18 07:43 36.6 77 22 89/52 (64) 97 Room Air 01/08/18 04:00 Room Air 01/08/18 03:50 36.3 77 18 94/61 (72) 90 01/08/18 00:18 36.9 84 18 99/56 (70) 92 Room Air 01/08/18 00:00 Room Air 01/07/18 20:00 Room Air 01/07/18 19:08 36.9 84 20 102/56 (71) 90 Room Air 01/07/18 16:00 95 Room Air 01/07/18 15:22 36.8 80 20 102/59 (73) 90 Room Air 01/07/18 12:00 94 Room Air 01/07/18 11:45 36.6 78 16 110/57 (74) 94 Room Air Physical Exam General Appearance: no apparent distress Eyes: normal inspection ENT: hearing grossly normal Neck: no JVD Respiratory/Chest: no respiratory distress, no accessory muscle use Cardiovascular: no JVD Extremities: normal inspection Neurologic/Psychiatric: alert, normal mood/affect, oriented x 3 Skin: normal color Comments: penile swelling Laboratory Results Last 24 Hours Test 01/08/18 05:54 01/08/18 06:31 White Blood Count 4.98 K/uL Red Blood Count 2.18 M/uL Hemoglobin 8.0 g/dL Hematocrit 23.9 % Mean Corpuscular Volume 109.6 fL Mean Corpuscular Hemoglobin 36.7 pg Mean Corpuscular Hemoglobin Concent 33.5 g/dl RDW Standard Deviation 73.0 fL RDW Coefficient of Variation 18.5 % Platelet Count 122 K/uL Mean Platelet Volume 10.9 fL Sodium Level 132 mmol/L Potassium Level 4.0 mmol/L Chloride Level 100 mmol/L Carbon Dioxide Level 27 mmol/L Anion Gap 5.0 mmol/L Blood Urea Nitrogen 25 mg/dl Creatinine 1.44 mg/dl Est Creatinine Clear Calc Drug Dose 47.4 ml/min Estimated GFR () 56.2 Estimated GFR (Non- 48.5 BUN/Creatinine Ratio 17.1 Random Glucose 162 mg/dl Calcium Level 8.8 mg/dl Bedside Glucose 148 mg/dl Assessment and Plan A/P: Difficult rondon placement Swollen penis on exam today, but slightly better compared with yesterday. No evidence for paraphimosis. Supportive management with scrotal elevation at this time. Continue lidocaine jelly and Pyridium PRN for rondon discomfort. Will plan to leave rondon catheter in place for a total of 10-14 days. Will arrange for an outpatient TOV. The pt will also need an outpatient cysto for further evaluation. Will arrange. Will continue to follow along intermittently with primary service PRN.
[2018-01-08 11:54] VITALS: BP 96/59; PULSE 83; TEMP 36.6
[2018-01-08] MEDS: MoRPHine SULFATE 4 MG/ML 1 ML CARP\\VIAL IV PRN (13:14)
--- NOTE | 2018-01-08 14:28 | Progress Note ---
Progress Note Date of Service: Jan 08, 2018. Subjective No complaints of right leg pain, only complaint is penile pain. Had BM yesterday. Abdomen appear normal size to him. Problem List Medical Problems: (1) Acute febrile illness Status: Acute (2) Calculus Of Kidney Status: Chronic (3) Carotid Artery Occlusion W O Cerebral Infarction Status: Chronic (4) Chr Airway Obstruct Nec Status: Chronic (5) COPD with exacerbation Status: Acute (6) Coron Atheroscler Nos Type Vessel, [place] Or Graft Status: Chronic (7) Diab Sofie Wo Compl, Type Ii Or Unspec Type, Not Uncntrld Status: Chronic (8) Diverticulosis Colon (W/O Ment Of Hemorrhage) Status: Chronic (9) Esophageal Reflux Status: Chronic (10) Hyperlipidemia Nec/Nos Status: Chronic (11) Hypertension Nos Status: Chronic (12) Leukocytosis Status: Acute (13) PAD (peripheral artery disease) Status: Chronic (14) Pneumonia Status: Acute (15) Renal Artery Aneurysm Status: Chronic Objective Vital Signs Vital Signs Past 12 Hours Date Time Temp Pulse Resp B/P (MAP) Pulse Ox O2 Delivery O2 Flow Rate FiO2 01/08/18 12:00 Room Air 01/08/18 11:54 36.6 83 29 96/59 (71) Room Air BiPAP 01/08/18 08:00 Room Air 01/08/18 07:43 36.6 77 22 89/52 (64) 97 Room Air 01/08/18 04:00 Room Air 01/08/18 03:50 36.3 77 18 94/61 (72) 90 Exam Afebrile, VSS Incision clean and dry. Good distal flow Rondon cath in place. Abd distended but non tender Laboratory and Microbiology Results Past 24 Hours Test 01/08/18 05:54 01/08/18 06:31 01/08/18 10:57 Range/Units White Blood Count 4.98 4.8-10.8 K/uL Red Blood Count 2.18 4.7-6.1 M/uL Hemoglobin 8.0 14.0-18.0 g/dL Hematocrit 23.9 42-52 % Mean Corpuscular Volume 109.6 80-100 fL Mean Corpuscular Hemoglobin 36.7 25-34 pg Mean Corpuscular Hemoglobin Concent 33.5 32-36 g/dl RDW Standard Deviation 73.0 36.4-46.3 fL RDW Coefficient of Variation 18.5 11.5-14.5 % Platelet Count 122 130-400 K/uL Mean Platelet Volume 10.9 7.4-10.4 fL Sodium Level 132 136-145 mmol/L Potassium Level 4.0 3.5-5.1 mmol/L Chloride Level 100 98-107 mmol/L Carbon Dioxide Level 27 21-32 mmol/L Anion Gap 5.0 3-11 mmol/L Blood Urea Nitrogen 25 7-18 mg/dl Creatinine 1.44 0.60-1.40 mg/dl Est Creatinine Clear Calc Drug Dose 47.4 ml/min Estimated GFR () 56.2 Estimated GFR (Non- 48.5 BUN/Creatinine Ratio 17.1 10-20 Random Glucose 162 70-99 mg/dl Calcium Level 8.8 8.5-10.1 mg/dl Bedside Glucose 148 153 70-99 mg/dl Imp: Post right mill set up endart with patch Plan: Patient doing well. Possible d/c tomorrow with rondon in place.
[2018-01-08] MEDS: MAGNESIUM HYDROXIDE SUSP 30 ML UDC PO PRN (14:48)
--- NOTE | 2018-01-08 15:29 | Progress Note ---
Internal Med Progress Note Date of Service: Jan 08, 2018. Provider Documentation: SUBJECTIVE: The patient was seen and examined Complained pain in Urinary bladder No pain at the surgery site Complains of some swelling of the Penis Pain is a little better Denies any other symptoms Swelling is a little better Still has some pain OBJECTIVE: Vital Signs-as noted below Exam: General-Minimal distress at rest Eyes-normal ENT-normal Neck-supple Lungs-clear to auscultate bilaterally Heart-Regular Abdomen-Benign,no masses,bowel sound present Extremities-No edema Some swelling and the Penis and scrotum Penile swelling is little better Neuro-AAOx3 Lab data as noted below. ASSESSMENT & PLAN: HX PVD. Pt POST OP DAY # 4 S/P R COMMON FEMORAL ENDARTERECTOMY By DR ROSS -pain management per vascular surgeon -wound management per vascular surgeon -DVT prophylaxis per vascular surgeon -incentive spirometry -Pt received 1unit PRBC during night. Hgb: 9.2 this morning. Continue to monitor H&H for acute blood loss anemia. pt with hx chronic anemia -monitor Hb -8.0 as of 01/08/18 -will recheck in AM before discharge by the Primary FEVER-resolved DDX: post-op fever, pneumonia, UTI, surgical site infection. No worsening SOB or cough from baseline COPD. At this time surgical site without erythema, edema or discharge. CT ABD/PELVIS today showing LLL pulmonary consolidation with air bronchograms, pulmonary emphysema -Ordered CXR with comparison to CXR 12/2017 -no change in LLL change -continue to monitor -May have UTI-urine culture-No Growth -On Levaquin-continue for 5 days in total HX COPD No CP. No increased cough, SOB or sputum production from baseline. -Xopenex/Atrovent neb -continue Symbicort -no acute symptoms HX LUNG CA S/P RADIATION pt with chronic opacity LLL seen on CT scans since HX CAD C/P CABG No CP. Had dobutamine stress test 01/01/18 - negative for inducible ischemia -continue statin, continue carvedilol with holding parameters -hold Lasix and lisinopril currently HTN Pt with noted lower BP's previous admissions. BP low 100's systolic currently -hold Lasix, lisinopril. continue carvedilol with holding parameters DIFFICULT BOLTON INTRAOPERATIVELY Pt with difficult Bolton cath yesterday with hematuria. Urology consulted and placed Bolton. Was question if false passage at urethra. no gross hematuria noted in bolton bag today. -urology following -Need to keep the Bolton in place for 10-14 days as per Urology DM II - DIET CONTROLLED HA1C 5.7 on 08/18. Glucose 120-136 in hospital. Continue accuchecks DEPRESSION -Stable. Continue Wellbutrin GERD -continue PPI CKD III Cr: 1.6. Was 1.45 on 12/20/17 -continue to monitor renal functions -avoid nephrotoxic agents when possible DVT Prophylaxis -per vascular surgeon Disposition admitted tele Follows with Dr Gordon for routine care medically stable Vital Signs: Date Time Temp Pulse Resp B/P (MAP) Pulse Ox O2 Delivery O2 Flow Rate FiO2 01/08/18 12:00 Room Air 01/08/18 11:54 36.6 83 29 96/59 (71) Room Air BiPAP 01/08/18 08:00 Room Air 01/08/18 07:43 36.6 77 22 89/52 (64) 97 Room Air 01/08/18 04:00 Room Air 01/08/18 03:50 36.3 77 18 94/61 (72) 90 01/08/18 00:18 36.9 84 18 99/56 (70) 92 Room Air 01/08/18 00:00 Room Air 01/07/18 20:00 Room Air 01/07/18 19:08 36.9 84 20 102/56 (71) 90 Room Air 01/07/18 16:00 95 Room Air Lab Results: Results Past 24 Hours Test 01/08/18 05:54 01/08/18 06:31 01/08/18 10:57 Range/Units White Blood Count 4.98 4.8-10.8 K/uL Red Blood Count 2.18 4.7-6.1 M/uL Hemoglobin 8.0 14.0-18.0 g/dL Hematocrit 23.9 42-52 % Mean Corpuscular Volume 109.6 80-100 fL Mean Corpuscular Hemoglobin 36.7 25-34 pg Mean Corpuscular Hemoglobin Concent 33.5 32-36 g/dl RDW Standard Deviation 73.0 36.4-46.3 fL RDW Coefficient of Variation 18.5 11.5-14.5 % Platelet Count 122 130-400 K/uL Mean Platelet Volume 10.9 7.4-10.4 fL Sodium Level 132 136-145 mmol/L Potassium Level 4.0 3.5-5.1 mmol/L Chloride Level 100 98-107 mmol/L Carbon Dioxide Level 27 21-32 mmol/L Anion Gap 5.0 3-11 mmol/L Blood Urea Nitrogen 25 7-18 mg/dl Creatinine 1.44 0.60-1.40 mg/dl Est Creatinine Clear Calc Drug Dose 47.4 ml/min Estimated GFR () 56.2 Estimated GFR (Non- 48.5 BUN/Creatinine Ratio 17.1 10-20 Random Glucose 162 70-99 mg/dl Calcium Level 8.8 8.5-10.1 mg/dl Bedside Glucose 148 153 70-99 mg/dl
[2018-01-08 15:40] VITALS: BP 103/56; PULSE 68; TEMP 36.7; O2SAT 97
[2018-01-08 20:31] VITALS: BP 103/50; PULSE 74; TEMP 36.5; O2SAT 98
[2018-01-09 00:04] VITALS: BP 109/44; PULSE 75; TEMP 36.7; O2SAT 92
[2018-01-09] MEDS: ALBUTEROL HFA 8 GM INHALER INH SCH ×6 (00:09→21:10)
[2018-01-09] MEDS: OXYCODONE/ACETAMINOPHEN 5-325 TAB PO PRN ×3 (00:11→23:37)
[2018-01-09] MEDS: LEVALBUTEROL 1.25MG/0.5ML NEB INH SCH ×4 (01:39→19:42)
[2018-01-09] MEDS: IPRATROPIUM BROMIDE NEB SOLN 0.02% 2.5 ML VIAL INH SCH ×4 (01:39→19:42)
[2018-01-09 03:54] VITALS: BP 109/58; PULSE 70; TEMP 36.4; O2SAT 93
[2018-01-09 07:48] VITALS: BP 125/69; PULSE 78; TEMP 36.3; O2SAT 93
[2018-01-09] MEDS: ASPIRIN 81 MG ECTAB PO SCH (07:56)
[2018-01-09] MEDS: DOCUSATE SODIUM 100 MG CAP PO SCH ×2 (07:56→21:08)
[2018-01-09] MEDS: MULTIVITAMIN TAB PO SCH (07:56)
[2018-01-09] MEDS: BUDESONIDE/FORMOTEROL FUMARATE 160/4.5 60 PUFFS/INHALER INH SCH ×2 (07:56→21:10)
[2018-01-09] MEDS: CARVEDILOL 12.5 MG TAB PO SCH (07:57)
[2018-01-09] MEDS: PHENAZOPYRIDINE HCL 100 MG TAB PO PRN ×2 (07:57→19:37)
[2018-01-09] MEDS: ATORVASTATIN 40 MG TAB PO SCH (07:57)
[2018-01-09] MEDS: GABAPENTIN 100 MG CAP PO SCH ×2 (07:57→21:09)
[2018-01-09] MEDS: CHOLECALCIFEROL 1000 INTER.UNIT TAB PO SCH (07:57)
[2018-01-09] MEDS: POLYETHYLENE (MIRALAX) 17 GM PACK PO SCH (07:58)
[2018-01-09] MEDS: ENOXAPARIN 30 MG/0.3 ML SYR SQ SCH ×2 (07:58→21:08)
--- NOTE | 2018-01-09 08:14 | Progress Note ---
Progress Note Date of Service: Jan 09, 2018. Subjective Still with penile discomfort, No leg or groin pain Problem List Medical Problems: (1) Acute febrile illness Status: Acute (2) Calculus Of Kidney Status: Chronic (3) Carotid Artery Occlusion W O Cerebral Infarction Status: Chronic (4) Chr Airway Obstruct Nec Status: Chronic (5) COPD with exacerbation Status: Acute (6) Coron Atheroscler Nos Type Vessel, [place] Or Graft Status: Chronic (7) Diab Sofie Wo Compl, Type Ii Or Unspec Type, Not Uncntrld Status: Chronic (8) Diverticulosis Colon (W/O Ment Of Hemorrhage) Status: Chronic (9) Esophageal Reflux Status: Chronic (10) Hyperlipidemia Nec/Nos Status: Chronic (11) Hypertension Nos Status: Chronic (12) Leukocytosis Status: Acute (13) PAD (peripheral artery disease) Status: Chronic (14) Pneumonia Status: Acute (15) Renal Artery Aneurysm Status: Chronic Objective Vital Signs Vital Signs Past 12 Hours Date Time Temp Pulse Resp B/P (MAP) Pulse Ox O2 Delivery O2 Flow Rate FiO2 01/09/18 07:48 36.3 78 18 125/69 (87) 93 Room Air 01/09/18 04:00 Room Air 01/09/18 03:54 36.4 70 18 109/58 (75) 93 01/09/18 00:04 36.7 75 16 109/44 (65) 92 Room Air 01/09/18 00:01 Room Air 01/08/18 20:31 36.5 74 20 103/50 (67) 98 Room Air Exam Awake and alert VSS, Afebrile Right groin wound clean and dry. Good distal flow. Laboratory and Microbiology Results Past 24 Hours Test 01/08/18 10:57 01/08/18 20:48 01/09/18 06:55 Range/Units Bedside Glucose 153 166 122 70-99 mg/dl Imp: Post right femoral endart with patch Prostatic hypertrophy Plan: Patient for d/c tomorrow.
[2018-01-09 11:29] VITALS: BP 93/51; PULSE 77; TEMP 36.6; O2SAT 92
--- NOTE | 2018-01-09 11:44 | Progress Note ---
Internal Med Progress Note Date of Service: Jan 09, 2018. Provider Documentation: SUBJECTIVE: The patient was seen and examined Complained pain in Urinary bladder No pain at the surgery site Complains of some swelling of the Penis Pain is a little better Denies any other symptoms Swelling of the Penis is a little better Pain is better OBJECTIVE: Vital Signs-as noted below Exam: General-No distress at rest Eyes-normal ENT-normal Neck-supple Lungs-clear to auscultate bilaterally Heart-Regular Abdomen-Benign,no masses,bowel sound present Extremities-No edema Some swelling and the Penis and scrotum Penile swelling is little better Neuro-AAOx3 Lab data as noted below. ASSESSMENT & PLAN: HX PVD. Pt POST OP DAY # 5 S/P R COMMON FEMORAL ENDARTERECTOMY By DR ROSS -pain management per vascular surgeon -wound management per vascular surgeon -DVT prophylaxis per vascular surgeon -incentive spirometry -Pt received 1unit PRBC during night. Hgb: 9.2 this morning. Continue to monitor H&H for acute blood loss anemia. pt with hx chronic anemia -monitor Hb -8.0 as of 01/08/18 -will recheck in AM before discharge by the Primary Penile Swelling Due to Edema No infective process Reviewed by the Urologist Seems improving FEVER-resolved DDX: post-op fever, pneumonia, UTI, surgical site infection. No worsening SOB or cough from baseline COPD. At this time surgical site without erythema, edema or discharge. CT ABD/PELVIS today showing LLL pulmonary consolidation with air bronchograms, pulmonary emphysema -Ordered CXR with comparison to CXR 12/2017 -no change in LLL change -continue to monitor -May have UTI-urine culture-No Growth -On Levaquin-continue for 5 days in total -Will not any Levaquin on discharge tomorrow HX COPD No CP. No increased cough, SOB or sputum production from baseline. -Xopenex/Atrovent neb -continue Symbicort -no acute symptoms HX LUNG CA S/P RADIATION pt with chronic opacity LLL seen on CT scans since HX CAD C/P CABG No CP. Had dobutamine stress test 01/01/18 - negative for inducible ischemia -continue statin, continue carvedilol with holding parameters -hold Lasix and lisinopril currently -Can have usual OP medications on discharge HTN Pt with noted lower BP's previous admissions. BP low 100's systolic currently -hold Lasix, lisinopril. continue carvedilol with holding parameters DIFFICULT BOLTON INTRAOPERATIVELY Pt with difficult Bolton cath yesterday with hematuria. Urology consulted and placed Bolton. Was question if false passage at urethra. no gross hematuria noted in bolton bag today. -urology following -Need to keep the Bolton in place for 10-14 days as per Urology DM II - DIET CONTROLLED HA1C 5.7 on 08/18. Glucose 120-136 in hospital. Continue accuchecks DEPRESSION -Stable. Continue Wellbutrin GERD -continue PPI CKD III Cr: 1.6. Was 1.45 on 12/20/17 -continue to monitor renal functions -avoid nephrotoxic agents when possible Check PRP in AM DVT Prophylaxis -per vascular surgeon Disposition admitted tele Follows with Dr Gordon for routine care medically stable Vital Signs: Date Time Temp Pulse Resp B/P (MAP) Pulse Ox O2 Delivery O2 Flow Rate FiO2 01/09/18 11:29 36.6 77 18 93/51 (65) 92 Room Air 01/09/18 08:00 Room Air 01/09/18 07:48 36.3 78 18 125/69 (87) 93 Room Air 01/09/18 04:00 Room Air 01/09/18 03:54 36.4 70 18 109/58 (75) 93 01/09/18 00:04 36.7 75 16 109/44 (65) 92 Room Air 01/09/18 00:01 Room Air 01/08/18 20:31 36.5 74 20 103/50 (67) 98 Room Air 01/08/18 20:00 Room Air 01/08/18 16:00 Room Air 01/08/18 15:40 36.7 68 18 103/56 (72) 97 Room Air 01/08/18 12:00 Room Air 01/08/18 11:54 36.6 83 29 96/59 (71) Room Air BiPAP Lab Results: Results Past 24 Hours Test 01/08/18 20:48 01/09/18 06:55 01/09/18 10:54 Range/Units Bedside Glucose 166 122 104 70-99 mg/dl
[2018-01-09] MEDS: MoRPHine SULFATE 4 MG/ML 1 ML CARP\\VIAL IV PRN (13:24)
[2018-01-09 15:30] VITALS: BP 113/64; PULSE 75; TEMP 36.7; O2SAT 93
[2018-01-09 19:31] VITALS: BP 114/55; PULSE 70; TEMP 36.7; O2SAT 94
[2018-01-09] MEDS ORDERED: LEVOFLOXACIN 750 MG TAB PO SCH (21:00)
[2018-01-10 00:24] VITALS: BP 101/49; PULSE 74; TEMP 36.6; O2SAT 92
[2018-01-10] MEDS: IPRATROPIUM BROMIDE NEB SOLN 0.02% 2.5 ML VIAL INH SCH ×2 (03:00→07:55)
[2018-01-10] MEDS: LEVALBUTEROL 1.25MG/0.5ML NEB INH SCH ×2 (03:00→07:55)
[2018-01-10] MEDS: ALBUTEROL HFA 8 GM INHALER INH SCH ×3 (04:00→09:05)
[2018-01-10 05:16] VITALS: BP 119/49; PULSE 72; TEMP 37; O2SAT 94
[2018-01-10 07:41] LABS: HEMATOCRIT 25.7 % (42-52); HEMOGLOBIN 8.7 g/dL (14.0-18.0); MEAN CELL VOLUME 109.8 fL (80-100); MEAN CORPUSCULAR HEMOGLOBIN 37.2 pg (25-34); MEAN CORPUSCULAR HGB CONC 33.9 g/dl (32-36); PLATELET COUNT 183 K/uL (130-400); RED CELL DISTRIBUTION WIDTH CV 18.5 % (11.5-14.5); RED CELL DISTRIBUTION WIDTH SD 72.2 fL (36.4-46.3)
[2018-01-10 07:46] VITALS: BP 115/58; PULSE 78; TEMP 37; O2SAT 94
[2018-01-10 08:24] LABS: CALCIUM 9.2 mg/dl (8.5-10.1); CREATININE 1.24 mg/dl (0.60-1.40)
[2018-01-10] MEDS: PHENAZOPYRIDINE HCL 100 MG TAB PO PRN (09:05)
[2018-01-10] MEDS: ATORVASTATIN 40 MG TAB PO SCH (09:05)
[2018-01-10] MEDS: BUDESONIDE/FORMOTEROL FUMARATE 160/4.5 60 PUFFS/INHALER INH SCH (09:05)
[2018-01-10] MEDS: DOCUSATE SODIUM 100 MG CAP PO SCH (09:06)
[2018-01-10] MEDS: ASPIRIN 81 MG ECTAB PO SCH (09:06)
[2018-01-10] MEDS: CHOLECALCIFEROL 1000 INTER.UNIT TAB PO SCH (09:06)
[2018-01-10] MEDS: MULTIVITAMIN TAB PO SCH (09:06)
[2018-01-10] MEDS: POLYETHYLENE (MIRALAX) 17 GM PACK PO SCH (09:06)
[2018-01-10] MEDS: GABAPENTIN 100 MG CAP PO SCH (09:06)
[2018-01-10] MEDS: CARVEDILOL 12.5 MG TAB PO SCH (09:06)
[2018-01-10] MEDS: ENOXAPARIN 30 MG/0.3 ML SYR SQ SCH (09:07)
--- NOTE | 2018-01-10 09:32 | Progress Note ---
Progress Note Date of Service: Jan 10, 2018. Subjective Penile pain improving, no leg pain Problem List Medical Problems: (1) Acute febrile illness Status: Acute (2) Calculus Of Kidney Status: Chronic (3) Carotid Artery Occlusion W O Cerebral Infarction Status: Chronic (4) Chr Airway Obstruct Nec Status: Chronic (5) COPD with exacerbation Status: Acute (6) Coron Atheroscler Nos Type Vessel, Kiana Or Graft Status: Chronic (7) Diab Sofie Wo Compl, Type Ii Or Unspec Type, Not Uncntrld Status: Chronic (8) Diverticulosis Colon (W/O Ment Of Hemorrhage) Status: Chronic (9) Esophageal Reflux Status: Chronic (10) Hyperlipidemia Nec/Nos Status: Chronic (11) Hypertension Nos Status: Chronic (12) Leukocytosis Status: Acute (13) PAD (peripheral artery disease) Status: Chronic (14) Pneumonia Status: Acute (15) Renal Artery Aneurysm Status: Chronic Objective Vital Signs Vital Signs Past 12 Hours Date Time Temp Pulse Resp B/P (MAP) Pulse Ox O2 Delivery O2 Flow Rate FiO2 01/10/18 08:00 Room Air 01/10/18 07:46 37.0 78 18 115/58 (77) 94 Room Air 01/10/18 05:16 37.0 72 22 119/49 (72) 94 Room Air 01/10/18 04:00 Room Air 01/10/18 00:24 36.6 74 21 101/49 (66) 92 Room Air 01/09/18 23:59 Room Air Exam Afebrile, VSS Incision dry and clean Scrotal and penile edema decreasing. Laboratory and Microbiology Results Past 24 Hours Test 01/09/18 10:54 01/09/18 16:14 01/09/18 20:11 01/10/18 07:15 Range/Units Bedside Glucose 104 163 138 70-99 mg/dl White Blood Count 4.10 4.8-10.8 K/uL Red Blood Count 2.34 4.7-6.1 M/uL Hemoglobin 8.7 14.0-18.0 g/dL Hematocrit 25.7 42-52 % Mean Corpuscular Volume 109.8 80-100 fL Mean Corpuscular Hemoglobin 37.2 25-34 pg Mean Corpuscular Hemoglobin Concent 33.9 32-36 g/dl RDW Standard Deviation 72.2 36.4-46.3 fL RDW Coefficient of Variation 18.5 11.5-14.5 % Platelet Count 183 130-400 K/uL Mean Platelet Volume 11.0 7.4-10.4 fL Sodium Level 138 136-145 mmol/L Potassium Level 4.0 3.5-5.1 mmol/L Chloride Level 104 98-107 mmol/L Carbon Dioxide Level 28 21-32 mmol/L Anion Gap 6.0 3-11 mmol/L Blood Urea Nitrogen 20 7-18 mg/dl Creatinine 1.24 0.60-1.40 mg/dl Est Creatinine Clear Calc Drug Dose 54.8 ml/min Estimated GFR () 67.4 Estimated GFR (Non- 58.1 BUN/Creatinine Ratio 15.9 10-20 Random Glucose 96 70-99 mg/dl Calcium Level 9.2 8.5-10.1 mg/dl Magnesium Level 2.3 1.8-2.4 mg/dl Imp: Post femoral endart Plan: Doing well D/C today
[2018-01-10] MEDS ORDERED: PHEN-1042 PO (09:38)
[2018-01-10] MEDS ORDERED: LVQ750 PO (09:38)
[2018-01-10] MEDS ORDERED: OXYC-57 PO (09:38)
[2018-01-10] MEDS ORDERED: XYLG2 EXT (09:38)
--- NOTE | 2018-01-10 09:43 | Discharge Instructions ---
Discharge Instructions Date of Service Jan 10, 2018. Admission Reason for Admission: Cladication In Peripheral Vascular Disease Discharge Discharge Diagnosis / Problem: Peripheral artery occlusive disease Discharge Goals Goal(s): Therapeutic intervention Activity Recommendations Activity Limitations: per Instructions/Follow-up section . Instructions / Follow-Up Instructions / Follow-Up Call [phone] to schedule a follow up appointment if one not already scheduled. ACTIVITY RECOMMENDATIONS: See Above SPECIAL CARE INSTRUCTIONS: Call your doctor if: * Temperature above 101 degrees * Pain not relieved by pain medicine ordered * There is increased drainage or redness from any incision * You have any unanswered questions or concerns. Current Hospital Diet Patient's current hospital diet: AHA Diet (Heart Healthy) Discharge Diet Recommended Diet: AHA Diet (Heart Healthy) Procedures Procedures Performed: Right Common Femoral Artery Endarterectomy with Patch; Bilateral Lower Extremity Angiogram Pending Studies Studies pending at discharge: no Medical Emergencies . Who to Call and When: Medical Emergencies: If at any time you feel your situation is an emergency, please call 911 immediately. . Non-Emergent Contact Non-Emergency issues call your: Surgeon . "Provider Documentation" section prepared by Cedrick Renee. . Television Analyzer Recommendations Television Analyzer Recommendations: Call Dr Marcelino of Urology to schedule an appointment within one week. [place] Drug Monitoring Program Search Results: no issues identified
[2018-01-10 10:06] VITALS: BP 115/58; PULSE 78; TEMP 37; O2SAT 94
[2018-01-10 10:52] VITALS: BP 106/42; PULSE 68; TEMP 36.7; O2SAT 94
[2018-01-10] MEDS: OXYCODONE/ACETAMINOPHEN 5-325 TAB PO PRN (11:19)
== END 2018-01-10 12:28 | disposition home or self-care (01) | DRG 253 ==
LOC: C.ACU 05:02 → C.MSICU 11:34 → ENRESERV 13:21 → C.2E 19:15
PROVIDERS: ADMIT Surgery Vascular Surgery; ATTEND Surgery Vascular Surgery
PROC: 04CK0ZZ Extirpation of Matter from Right Femoral Artery, Open Approach (ICD-10-PCS; principal; 2018-01-04 08:00)
PROC: 04QK0ZZ Repair Right Femoral Artery, Open Approach (ICD-10-PCS; principal; 2018-01-04 08:00)
DX: I77.1 Stricture of artery (principal); C34.90 Malignant neoplasm of unspecified part of unspecified bronchus or lung; I50.22 Chronic systolic (congestive) heart failure; N39.0 Urinary tract infection, site not specified; D62 Acute posthemorrhagic anemia; I25.10 Atherosclerotic heart disease of native coronary artery without angina pectoris; J44.9 Chronic obstructive pulmonary disease, unspecified; E11.9 Type 2 diabetes mellitus without complications; E78.5 Hyperlipidemia, unspecified; K21.9 Gastro-esophageal reflux disease without esophagitis; R31.9 Hematuria, unspecified; F32.9 Major depressive disorder, single episode, unspecified; N18.3 Chronic kidney disease, stage 3 (moderate); R50.82 Postprocedural fever; Z87.01 Personal history of pneumonia (recurrent); Z95.1 Presence of aortocoronary bypass graft; Z87.891 Personal history of nicotine dependence; Z87.442 Personal history of urinary calculi; Z82.49 Family history of ischemic heart disease and other diseases of the circulatory system; Z80.9 Family history of malignant neoplasm, unspecified

== ENCOUNTER → 2018-02-16 | Outpatient (CLI) | payer OTHER, MEDICARE ==
[~2018-02-16] MED LIST changes: +CRG125 PO; -DOXY100C76 PO; +FEXO1TAB49 PO; +IPRASOL4 INH; +LSX40 PO; +LVQ750 PO; -METH1TAB81 PO; +OXYC-57 PO; +PHEN-1042 PO; +XYLG2 EXT
--- NOTE | 2018-02-16 13:16 | DIAGNOSTIC IMAGING REPORT ---
CHEST 2 VIEWS ROUTINE CLINICAL HISTORY: SNORING COMPARISON STUDY: 01/05/2018 FINDINGS: Unchanging parenchymal process left lung base. Differential is as noted previously. Lungs otherwise appear clear. No significant cardiac enlargement. IMPRESSION: Chronic change left lung base. No acute or interval process compared to the prior exam. The above report was generated using voice recognition software. It may contain grammatical, syntax or spelling errors. Electronically signed by: Shawn Gold M.D. 02/16/2018 1:15 PM Dictated Date/Time: 02/16/2018 1:13 PM
== END | disposition home or self-care (01) ==
LOC: C.RAD1850 12:59
PROVIDERS: ATTEND Physician Assistant
DX: R06.83 Snoring (principal)

== ENCOUNTER → 2018-03-12 | Outpatient (CLI) | payer OTHER, MEDICARE ==
--- NOTE | 2018-03-13 06:00 | PAP/PSG TECHNICIAN REPORT ---
[facility] Bulb Sorter Polysomnogram Report Study name: None Report date: 03/13/2018 Study date: 03/12/2018 Referring Physician: Joanna Fan PA-C, PA-C Name: GM CAT Interpreting Physician: Ketan Valencia D.O. Date of : 1945 Bulb Sorter: Maisha Tang [facility]. Sex: Male Age: 72 StudyType: PSG Weight: 190 lbs Height: 72 years, Height 5' 5" BMI: 31.61 Medications: Finasteride 5 mg, Tamsulosin 0.4 mg, Carvedilol 12.5 mg, Ipratropium-Albuterol0.5-2.5, Spiriva 2.5 MCG, Aspirin 81 mg, Crestor 40 mg, Nitro 0.4 mg, Joi 180 mg, Pantoprazole Sodium 40 mg, Plavix 75 mg, Pro Air HFA 108 ( 90 Base), Symbicort 160-4.5 MCG, Vitamin D 3 Patient History 72 yr. old male here for a diagnostic sleep study in room 7. Patient complains of snoring. Patient has a history of COPD, left SCC lung CA, CAD, ID, CABG x2, reflux, HTN, PAD, DM. Patients ESS 05/25. Parameters Monitored NPSG: E1-M2, E2-M1, Fp1-M2, Fp2-M1, F3-M2, F4-M2, F4-M1, C3-M2, C4-M2, C4-M1, O1-M2, O2-M2, O2-M1, T3-M2, T4-M1, P3-M2, P4-M1, CHIN1, CHIN2, HR, EKG, Legs, PFLOW, SNOR, FLOW, CFLOW, Tidal Volume, THOR, ABDO, SpO2, PLTH, CPRESS, ETCO2 Wave, ETCO2, pH Sleep Architecture Sleep Stages Time at Lights Off 10:21:49 PM STAGES Time (min.) TST (%) Time at Lights On 5:48:49 AM Wake 151.5 -- Total Recording Time (TRT) 447.00 min. N1 50.5 17 Total Sleep Period (TSP) 379.0 min. N2 183.5 62 Total Sleep Time (TST) 295.5min. N3 1.0 0 Awake Time 151.5 min. REM 60.5 20 Wake after Sleep Onset 83.5 min. Sleep Efficiency (SE) 66 % Sleep Onset Latency (JERALD) 68.0 min. Number of Stage 1 Shifts None Awakenings 17 Stage Changes 118 Number of REM periods 6 REM 60.5 20 REM Latency 66.5 min. NREM 235.0 80 Body Position Analysis Supine Right Left Side Prone Vertical Total Sleep Time (min.) 98.0 145.1 131.0 276.15 0.0 0.0 Total Sleep Time (%) 7% 49% 44% 93 0% N/A% Total Sleep Time REM (min.) 0.0 20.5 40.0 None 0.0 0.0 Total Sleep Time NREM (min.) 19.4 124.6 91.0 None 0.0 0.0 Intermittent Wake (min.) 78.7 47.8 25.1 None 0.0 0.0 Total Sleep Period (%) 9% None None None None None Arousals Myoclonus (PLM) * Events Count Index Events Count Index Spontaneous 10 2 Events Awake (PLMW) 88 34.9 Respiratory 7 1.4 Events Asleep w/ Arousal (PLMA) 58 11.8 PLM 58 12 Events Asleep w/o Arousal (PLMS) 120 24.4 Snoring 28 6 Total Asleep 178 36.1 Total 102 21 Total 266 36 Respiratory Analysis * CA OA MA CH H RERA Total Count 0 0 1 0 26 0 27 Index 0.0 0.0 0.2 0 5.3 0 5.5 Mean Duration 0.0 0.0 36.8 0.00 22.6 0.0 23.2 Longest Duration 0.0 0.0 36.8 0.00 36.8 0.0 36.8 Respiratory Event Summary Total Supine ~Supine Right Left Prone REM NREM Apneas Count 1 0 1 0 1 N/A 0 1 Index 0.2 0 0 0.0 0.5 N/A 0 0 Hypopneas (4% Desat) Count 26 7 19 7 12 N/A 4 22 Index 5.3 21.7 4 2.9 5.5 N/A 4.0 5.6 Apneas & All Hypopneas Count 27 7 20 7 13 N/A 4 23 Index 5.5 22 4 3 6 N/A 4.0 5.9 Respiratory Events (Barrel Rib Matting Machine Operator+All Hyp+RERA) Count 27 7 20 7 13 N/A 4 23 Index 5.5 22 4 2.9 6.0 N/A 4.0 5.9 Respiratory Related Arousal Count 7 7 3 2 1 N/A 0 7 Index 1.4 12 1 1 0 N/A 0 2 Snoring Analysis Supine Right Left Prone REM NREM Total Snore duration 9.4 min Snores count 46 203 58 N/A 69 238 307 Snore mean duration 1.8 Sec Snores index 143 84 27 N/A 68.4 60.8 62.3 TST with snoring (%) 3.2% Desaturation Event Summary: Minimum %SpO2 Event Count Mean/Min/Max Duration(sec.) Desaturation Index % Time In Bed > 90 61 23.9 / 5.8 / 59.8 11.7 71.9 86 - 90 16 21.3 / 5.8 / 53.8 7.9 27.9 81 - 85 0 N/A 0.0 0.2 76 - 80 0 N/A 0.0 0.0 71 - 75 0 N/A 0.0 0.0 66 - 70 0 N/A 0.0 0.0 61 - 65 0 N/A 0.0 0.0 56 - 60 0 N/A 0.0 0.0 51 - 55 0 N/A 0.0 0.0 < 50 0 N/A 0.0 0.0 Total REM NREM Awake <50% 0.0 min. 0.0 min. 0.0 min. 0.0 min. 51 - 60% 0.0 min. 0.0 min. 0.0 min. 0.0 min. 61 - 70% 0.0 min. 0.0 min. 0.0 min. 0.0 min. 71 - 80% 0.2 min. 0.0 min. 0.0 min. 0.2 min. 81 - 90% 122.4 min. 20.5 min. 78.6 min. 23.4 min. 91 - 100% 313.8 min. 40.1 min. 156.1 min. 117.7 min. Average 91 91 91 92 Minimum SpO2 80 86 85 80 Desaturation Event Index 9.0 4.0 10.2 9.1 # Desat. Events below 89% 31 2 17 12 Time(%) with Saturation below 89% 3.9 1.3 1.2 1.4 Time(min.) with Saturation below 89% 17.0 5.8 5.2 6.1 Time (mins) REM (mins) NREM (mins) % of TST SpO2 Below 90% 36 3 N33 14.2 SpO2 Below 88% 7 0 0 1 Heart Rate Analysis Min (bpm) Max (bpm) Average (bpm) Awake 55 127 73 NREM 54 85 65 REM 54 83 62 Overall 54 85 65 Supplemental O2 Values Minimum O2 level: None Value Start Time End Time Bulb Sorter Comments Mr. Cat slept in the right, left, and supine positions. Cardiac arrhythmia and PLMs noted. No bruxism noted. Snoring was noted and scored as a 2 on a scale of 0 through 5. (0=no snoring, 5=snoring loud enough to be heard through a closed door or down the caballero way) Mr. Cat awoke to use the restroom two times during the night. Mr. Cat stated, I slept a little worse last night, but I slept. The final report will be interpreted and signed by a sleep physician. The completed physician report will then be placed in the patient medical record. Therapy (cm H2O) 0 TIB (min.) 447.0 TST (min.) 295.5 Sleep Onset (min.) 68.0 REM Onset From Sleep (min.) 66.5 Sleep Efficiency % 66 Wakefulness (%) 34 Wakefulness (min.) 151.5 NREM 1 (%) 17 NREM 1 (min.) 50.5 NREM 2 (%) 62 NREM 2 (min.) 183.5 NREM 3 (%) 0 NREM 3 (min.) 1.0 REM (%) 20 REM (min.) 60.5 # Arousals 102 Arousal Index 21 # Snore 307 Snore Index 62.3 AHI 5.5 AHI Supine 22 AHI Non-Supine 4 NREM AHI 5.9 REM AHI 4.0 RDI 5.5 # Obstructive Apnea 0 # Central Apnea 0 # Mixed Apnea 1 # Hypopneas 26 RERAs 0 Total Respiratory Events 27 Time Below SpO2 89% (min.) 11.0 Mean NREM SpO2 (%) 91 Mean REM SpO2 (%) 91 Mean Sleep SpO2 (%) 91 Min NREM SpO2 (%) 85 Min REM SpO2 (%) 86 Position Supine (min.) 98.0 Position Non-supine (min.) 276.1 LM Index Sleep 36.1 LM Index NREM 44.2 LM Index REM 5.0 Mean Heart Rate (bpm) 65 Min Heart Rate (bpm) 54
--- NOTE | 2018-03-17 20:31 | POLYSOMNOGRAPH REPORT ---
CLINICAL DATA: The patient is a 72-year-old male with a history of snoring, nocturnal hypoxia, and daytime sleepiness. His [place] sleepiness scale score is 7. He has a history of COPD and lung CA. This was an in-lab overnight polysomnography. SLEEP ARCHITECTURE: The total sleep period was 379 minutes. The total sleep time was 295.5 minutes. The sleep efficiency was significantly reduced to 66%. The sleep latency was severely prolonged at 68 minutes. Wake after sleep onset was 83.5 minutes. The REM latency was normal at 66.5 minutes. There were 3 REM periods during the night. Sleep consisted of stage N1 of 17%, stage N2 of 62%, stage N3 of 0%, stage REM 20%. AROUSAL DATA: Mr. Cat had a total of 102 arousals including 10 spontaneous arousals, 7 respiratory arousals, 58 PLM arousals, and 28 snoring arousals. The arousal index was 21. PLM DATA: The patient has 178 periodic limb movements of sleep for a PLM index of 36.1. There were 58 arousals, associated with leg movements for a PLM arousal index of 11.8. EKG: The underlying cardiac rhythm was normal sinus. He had relatively rare extrasystoles, some of which appeared to be PVCs and others supraventricular premature contractions. He had a moderate number of brief pauses that were occurring. These appeared to be sinus pauses. They were not occurring during apneic events. None of them were significantly prolonged. The cardiac rates ranged from 54-85 beats per minute with an average heart rate of 65. RESPIRATORY DATA: The patient had a total of 27 respiratory events including 1 mixed apnea and 26 hypopneas. The longest apnea was 36.8 seconds. The mean duration of the hypopneas was 22.6 seconds. The apnea-hypopnea index was mildly elevated at 5.5 events per hour. This reflects mild sleep apnea. OXIMETRY DATA: The average saturation for the night was 91%. The minimum saturation was 80%. There was a total of 17 minutes with saturations less than 89%. 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 Cardiac arrhythmia and PLMs noted. No bruxism noted. Snoring was noted and scored as a 2 on a scale of 0 through 5. Mr. Cat awakened to use the restroom 2 times during the night. He stated that he slept a little worse than usual. IMPRESSION: 1. Obstructive sleep apnea -- mild. 2. Periodic limb movement disorder. 3. Cardiac arrhythmia. COMMENTS: The patient has very mild sleep apnea. He does have a history of COPD and thus may have the overlap syndrome. He also had at least a moderate number of limb movements. Clinical correlation is required in that regard. His EKG was abnormal as noted above. RECOMMENDATIONS: 1. Consideration could be given to treatment with nasal CPAP. 2. Clinical correlation is required regarding the limb movements to determine if he might benefit from treatment. Suggest deferring on that if the patient elects to have a trial of nasal CPAP. 3. The patient had some mild pauses as noted. Consideration could be given to doing a Holter monitor or having a cardiac evaluation. 4. The patient should avoid sleeping in the supine position as there were typically more respiratory events and snoring while supine.
== END | disposition home or self-care (01) ==
LOC: C.NEUR 20:00
PROVIDERS: ATTEND Physician Assistant
DX: G47.33 Obstructive sleep apnea (adult) (pediatric) (principal); G47.61 Periodic limb movement disorder; I49.9 Cardiac arrhythmia, unspecified

== ENCOUNTER 2018-06-01 10:40 | Inpatient (IN) | payer OTHER, MEDICARE ==
[~2018-06-01] VITALS: Ht 165.1 cm; Wt 83.2 kg
[~2018-06-01 10:40] MED LIST changes: +IPRA-64 INH; -IPRASOL4 INH
[2018-06-01] MEDS ORDERED: PIPERACILLIN/TAZOBACTAM 4.5 GM/100ML D5W IV STA (11:13)
[2018-06-01] MEDS ORDERED: SODIUM CHLORIDE 0.9% 1000ML 1,000 ML IV ONE (11:13)
[2018-06-01] MEDS ORDERED: ONDANSETRON INJ 2 MG/ML 2 ML VIAL IV STA (11:13)
[2018-06-01] MEDS: MoRPHine SULFATE 4 MG/ML 1 ML CARP\\VIAL IV PRN ×3 (11:33→13:49)
--- NOTE | 2018-06-01 11:33 | DIAGNOSTIC IMAGING REPORT ---
CHEST ONE VIEW PORTABLE CLINICAL HISTORY: Sepsis dyspnea COMPARISON STUDY: 02/16/2018 FINDINGS: Central catheter place in superior vena cava. No evidence pneumothorax. Infiltrate left base considered chronic. Lungs otherwise appear clear. IMPRESSION: Chronic infiltrate/fibrotic scarring left base. Central catheters placed in the superior vena cava with no evidence of pneumothorax. The above report was generated using voice recognition software. It may contain grammatical, syntax or spelling errors. Electronically signed by: Shawn Gold M.D. 06/01/2018 11:31 AM Dictated Date/Time: 06/01/2018 11:31 AM
[2018-06-01 11:43] LABS: PTT PATIENT 28.9 SECONDS (21.0-31.0)
[2018-06-01 12:02] LABS: ALBUMIN 3.4 gm/dl (3.4-5.0); ALKALINE PHOSPHATASE 72 U/L (45-117); ALT/SGPT 51 U/L (12-78); AST/SGOT 20 U/L (15-37); BLOOD UREA NITROGEN 21 mg/dl (7-18); CALCIUM 8.6 mg/dl (8.5-10.1); CARBON DIOXIDE 26 mmol/L (21-32); CREATININE 1.06 mg/dl (0.60-1.40); GLUCOSE 228 mg/dl (70-99); POTASSIUM 4.2 mmol/L (3.5-5.1); SODIUM 133 mmol/L (136-145); TOTAL PROTEIN 7.1 gm/dl (6.4-8.2)
[2018-06-01 12:03] LABS: HEMATOCRIT 29.8 % (42-52); HEMOGLOBIN 9.9 g/dL (14.0-18.0); MEAN CELL VOLUME 118.7 fL (80-100); MEAN CORPUSCULAR HEMOGLOBIN 39.4 pg (25-34); MEAN CORPUSCULAR HGB CONC 33.2 g/dl (32-36); PLATELET COUNT 31 K/uL (130-400); RED CELL DISTRIBUTION WIDTH CV 17.9 % (11.5-14.5); RED CELL DISTRIBUTION WIDTH SD 77.8 fL (36.4-46.3); WHITE BLOOD COUNT 0.23 K/uL (4.8-10.8)
[2018-06-01] MEDS ORDERED: FINA5TAB PO (12:06)
[2018-06-01] MEDS ORDERED: PROC10TA PO (12:06)
[2018-06-01] MEDS ORDERED: REPA1TAB40 PO (12:06)
[2018-06-01] MEDS ORDERED: TAMS0.4C38 PO (12:06)
[2018-06-01] MEDS ORDERED: ONDA-170 PO (12:06)
[2018-06-01] MEDS ORDERED: MAGNESIUM SULFATE 1GM / D5W 1 GM BAG IV STA (12:06)
[2018-06-01] MEDS ORDERED: PRED20TA PO (12:06)
[2018-06-01] MEDS ORDERED: PRAM1TAB10 PO (12:07)
[2018-06-01] MEDS ORDERED: OPTIRAY 320 IV PRN (13:15)
--- NOTE | 2018-06-01 13:48 | DIAGNOSTIC IMAGING REPORT ---
SOFT TISSUE NECK WITH CLINICAL HISTORY: chest and neck pain, cant swall, hoarse, fever TECHNIQUE: Transaxial acquisition of multi axial reformatted images COMPARISON STUDY: None FINDINGS: No evidence for abnormal mass or collection. The major salivary glands are symmetric. No significant cervical adenopathy. The airway is patent. The glottic and subglottic regions are unremarkable. IMPRESSION: Negative study The above report was generated using voice recognition software. It may contain grammatical, syntax or spelling errors. Electronically signed by: Shawn Gold M.D. 06/01/2018 1:47 PM Dictated Date/Time: 06/01/2018 1:44 PM
--- NOTE | 2018-06-01 13:55 | DIAGNOSTIC IMAGING REPORT ---
CT ANGIOGRAM OF THE CHEST CLINICAL HISTORY: Atypical chest pain. Difficulty swallowing. Fever. Hoarseness. COMPARISON STUDY: 07/30/2017 TECHNIQUE: Following the IV administration of mL of Optiray-320, CT angiogram of the thorax was performed from the thoracic inlet to the lung bases utilizing the pulmonary embolus protocol. Images are reviewed in the axial, sagittal, and coronal planes. IV contrast was administered without complication. MIP imaging was performed. A dose lowering technique was utilized adhering to the principles of ALARA. CT DOSE: 118 FINDINGS: There is an upper pole right renal calculus. There is a proximal celiac artery stenosis. Mediastinal lymph nodes are the upper limits of normal in size. There is no pathologic hilar lymphadenopathy. There is no pathologic axillary lymphadenopathy. There was no evidence of thoracic aortic dilatation. There are coronary calcifications. There were no pulmonary artery filling defects to indicate acute pulmonary embolism. No pleural effusions are visualized. There is pulmonary emphysema. There are progressive left lower lobe pulmonary airspace opacities. There is a new 15 mm right lower lobe pulmonary nodule. In addition there are dependent nodular airspace opacities. While the findings are likely infectious/inflammatory, neoplasm cannot be excluded. A three-month follow-up study subsequent antibiotic therapy is recommended. IMPRESSION: 1. Severe pulmonary emphysema 2. Left lower lobe airspace opacities with air bronchograms suspicious for pneumonia. 3. Interval development of nodular right lower lobe airspace opacities including a 15 mm rounded solid right lower lobe pulmonary nodule. The findings are likely infectious/inflammatory although neoplasm cannot be excluded. A three-month follow-up study since with antibiotics therapy is recommended. 4. Right-sided nephrolithiasis 5. Proximal celiac artery artery stenosis 6. No evidence of acute pulmonary embolism. Electronically signed by: Vamshi Gar M.D. 06/01/2018 1:53 PM Dictated Date/Time: 06/01/2018 1:45 PM
[2018-06-01] MEDS ORDERED: SODIUM CHLORIDE 0.9% 1000ML 1,000 ML IV STA (14:06)
--- NOTE | 2018-06-01 14:28 | EMERGENCY ROOM VISIT NOTE ---
History Report prepared by Idalmis: Wendy Mcclendon Under the Supervision of: Dr. Reed Washington M.D. First contact with patient: 11:03 Chief Complaint: THROAT PAIN/INJURY Stated Complaint: FEELS LIKE THROAT IS TIGHTENING UP ON HIM History of Present Illness The patient is a 72 year old male who presents to the Emergency Room with complaints of worsening throat pain that onset last 3 days ago. The patient notes that his symptoms started to increase after chemotherapy that occurred last week. The patient states that he had been at an appointment with his oncologist this morning who suggested that he go to the ED. The patient notes that he has small cell lung cancer. He states that he had chemotherapy last week and is not currently getting radiation. The patient notes that the pain in his throat with swallowing is rated a 9/10 in severity. The patient complains of difficulty swallowing, a fever, difficulty talking, and coughing. The patient notes that he had a fever of 103 this morning, which came down to 101 after taking Tylenol. He states that he has had an increase of the hoarseness of his voice since his chemotherapy last Thursday. He notes that he is chronically short of breath. Source of History: patient Onset: 3 days ago Position: throat Symptom Intensity: 9/10 severity Timing: worsening Modifying Factors (Worsening): other (swallowing) Associated Symptoms: + fevers, + cough Note: The patient complains of difficulty swallowing and difficulty talking. Review of Systems See HPI for pertinent positives & negatives. A total of 10 systems reviewed and were otherwise negative. Past Medical & Surgical Medical Problems: (1) ACEI/ARB contraindicated (2) BPH (benign prostatic hyperplasia) (3) CAD (coronary artery disease) (4) Calculus Of Kidney (5) Carotid Artery Occlusion W O Cerebral Infarction (6) Carotid stenosis (7) Chr Airway Obstruct Nec (8) Chronic systolic CHF (congestive heart failure) (9) Claudication in peripheral vascular disease (10) COPD (chronic obstructive pulmonary disease) (11) Coron Atheroscler Nos Type Vessel, [place] Or Graft (12) Diab Sofie Wo Compl, Type Ii Or Unspec Type, Not Uncntrld (13) Diverticulosis Colon (W/O Ment Of Hemorrhage) (14) DM type 2 (diabetes mellitus, type 2) (15) Dyslipidemia (16) Esophageal Reflux (17) Fever (18) GERD (gastroesophageal reflux disease) (19) HCAP (healthcare-associated pneumonia) (20) HTN (hypertension) (21) Hyperlipidemia Nec/Nos (22) Hypertension Nos (23) Lung cancer (24) Neutropenic fever (25) PAD (peripheral artery disease) (26) Renal Artery Aneurysm (27) Sepsis (28) Subclavian artery stenosis, right (29) Tobacco abuse Surgical Problems: (1) Aortocoronary Bypass (2) H/O maze procedure (3) History of left-sided carotid endarterectomy (4) Hx of CABG (5) Percutaneous Translum Coron Angioplasty Status (6) S/P coronary artery stent placement (7) S/p lumbar spinal surgery (8) Status post femoral-popliteal bypass surgery Family History FH: CAD (coronary artery disease) FATHER FH: cancer MOTHER Social History Smoking Status: Current Some Day Smoker Drug Use: none Marital Status: Housing Status: lives with significant other Occupation Status: retired Current/Historical Medications Scheduled Albuterol Sulfate (Proventil Hfa), 2 PUFFS INH Q4 Aspirin (Aspirin Ec), 81 MG PO QAM Atorvastatin (Lipitor), 80 MG PO QAM Budesonide/Formoterol Fumarate (Symbicort 160/4.5 Inhaler ), 2 PUFFS INH BID Bupropion (Wellbutrin), 150 MG PO BID Cholecalciferol (Vitamin D3), 2,000 UNITS PO DAILY Finasteride (Proscar), 5 MG PO DAILY Gabapentin (Neurontin), 200 MG PO TID Multiple Vitamin (Multivitamin), 1 TAB PO QAM Nitroglycerin (Nitrostat), 0.4 MG UT PRN Pantoprazole Sodium (Protonix), 40 MG PO QAM Pramipexole Dihydrochloride (Pramipexole Dihydrochlori), 1 MG PO TID Prednisone (Prednisone), 40 MG PO DAILY Tamsulosin Hcl (Flomax), 0.4 MG PO HS Scheduled PRN Ondansetron Hcl (Zofran), 8 MG PO Q8 PRN for Nausea Prochlorperazine Maleate (Compazine), 10 MG PO Q6H PRN for Nausea Allergies Coded Allergies: No Known Allergies (Verified , 06/01/18) Physical Exam Vital Signs Date Time Temp Pulse Resp B/P (MAP) Pulse Ox O2 Delivery O2 Flow Rate FiO2 06/01/18 15:38 119 22 142/89 94 06/01/18 15:27 37.3 126 24 184/98 95 Room Air 06/01/18 13:58 115 06/01/18 13:51 115 16 178/86 97 Nasal Cannula 2.0 06/01/18 12:43 115 18 150/89 93 Room Air 06/01/18 11:38 115 17 116/84 97 Room Air 06/01/18 11:19 95 Room Air 06/01/18 11:11 118 06/01/18 11:11 95 Room Air 06/01/18 10:45 37.4 124 22 124/78 97 Room Air Physical Exam GENERAL: Patient is in no acute distress. Hoarse voice. HEENT: No acute trauma, normocephalic atraumatic, mucous membranes moist, no nasal congestion, no scleral icterus. No throat erythema or posterior pharyngeal swelling. No uvula edema. White patches of presumed thrush noticed. NECK: No stridor, no adenopathy, no meningismus, trachea is midline. LUNGS: Clear to auscultation bilaterally, no wheeze, no rhonchi, breath sounds equal. HEART: Tachycardia with regular rhythm. No murmurs. ABDOMEN: Soft, nontender, bowel sounds positive, no hernias, no peritonitis. EXTREMITIES: No cyanosis or edema, full range of motion of all the joints without pain or difficulty, no signs for acute trauma. NEUROLOGIC: Oriented x 3, no acute motor or sensory deficits, no focal weakness. SKIN: No rash, no jaundice, no diaphoresis. Medical Decision & Procedures ER Provider Diagnostic Interpretation: Radiology results as stated below per my review and radiologist interpretation: SOFT TISSUE NECK WITH CLINICAL HISTORY: chest and neck pain, cant swall, hoarse, fever TECHNIQUE: Transaxial acquisition of multi axial reformatted images COMPARISON STUDY: None FINDINGS: No evidence for abnormal mass or collection. The major salivary glands are symmetric. No significant cervical adenopathy. The airway is patent. The glottic and subglottic regions are unremarkable. IMPRESSION: Negative study The above report was generated using voice recognition software. It may contain grammatical, syntax or spelling errors. Electronically signed by: Shawn Gold M.D. 06/01/2018 1:47 PM Dictated Date/Time: 06/01/2018 1:[address] ANGIOGRAM OF THE CHEST CLINICAL HISTORY: Atypical chest pain. Difficulty swallowing. Fever. Hoarseness. COMPARISON STUDY: 07/30/2017 TECHNIQUE: Following the IV administration of mL of [id number]-[id number], CT angiogram of the thorax was performed from the thoracic inlet to the lung bases utilizing the pulmonary embolus protocol. Images are reviewed in the axial, sagittal, and coronal planes. IV contrast was administered without complication. MIP imaging was performed. A dose lowering technique was utilized adhering to the principles of ALARA. CT DOSE: 118 FINDINGS: There is an upper pole right renal calculus. There is a proximal celiac artery stenosis. Mediastinal lymph nodes are the upper limits of normal in size. There is no pathologic hilar lymphadenopathy. There is no pathologic axillary lymphadenopathy. There was no evidence of thoracic aortic dilatation. There are coronary calcifications. There were no pulmonary artery filling defects to indicate acute pulmonary embolism. No pleural effusions are visualized. There is pulmonary emphysema. There are progressive left lower lobe pulmonary airspace opacities. There is a new 15 mm right lower lobe pulmonary nodule. In addition there are dependent nodular airspace opacities. While the findings are likely infectious/inflammatory, neoplasm cannot be excluded. A three-month follow-up study subsequent antibiotic therapy is recommended. IMPRESSION: 1. Severe pulmonary emphysema 2. Left lower lobe airspace opacities with air bronchograms suspicious for pneumonia. 3. Interval development of nodular right lower lobe airspace opacities including a 15 mm rounded solid right lower lobe pulmonary nodule. The findings are likely infectious/inflammatory although neoplasm cannot be excluded. A three-month follow-up study since with antibiotics therapy is recommended. 4. Right-sided nephrolithiasis 5. Proximal celiac artery artery stenosis 6. No evidence of acute pulmonary embolism. Electronically signed by: Vamshi Gar M.D. 06/01/2018 1:53 PM Dictated Date/Time: 06/01/2018 1:45 PM CHEST ONE VIEW PORTABLE CLINICAL HISTORY: Sepsis dyspnea COMPARISON STUDY: 02/16/2018 FINDINGS: Central catheter place in superior vena cava. No evidence pneumothorax. Infiltrate left base considered chronic. Lungs otherwise appear clear. IMPRESSION: Chronic infiltrate/fibrotic scarring left base. Central catheters placed in the superior vena cava with no evidence of pneumothorax. The above report was generated using voice recognition software. It may contain grammatical, syntax or spelling errors. Electronically signed by: Shawn Gold M.D. 06/01/2018 11:31 AM Dictated Date/Time: 06/01/2018 11:31 AM Laboratory Results 06/01/18 11:00 06/01/18 11:00 Test 06/01/18 11:00 06/01/18 11:22 Red Blood Count 2.51 M/uL (4.7-6.1) Mean Corpuscular Volume 118.7 fL (80-100) Mean Corpuscular Hemoglobin 39.4 pg (25-34) Mean Corpuscular Hemoglobin Concent 33.2 g/dl (32-36) RDW Standard Deviation 77.8 fL (36.4-46.3) RDW Coefficient of Variation 17.9 % (11.5-14.5) Platelet Estimate DECREASED Prothrombin Time 10.5 SECONDS (9.0-12.0) Prothromb Time International Ratio 1.0 (0.9-1.1) Activated Partial Thromboplast Time 28.9 SECONDS (21.0-31.0) Partial Thromboplastin Ratio 1.1 Anion Gap 7.0 mmol/L (3-11) Est Creatinine Clear Calc Drug Dose 63.4 ml/min Estimated GFR () 81.4 Estimated GFR (Non- 70.3 BUN/Creatinine Ratio 19.7 (10-20) Calcium Level 8.6 mg/dl (8.5-10.1) Magnesium Level 1.6 mg/dl (1.8-2.4) Total Bilirubin 2.2 mg/dl (0.2-1) Aspartate Amino Transf (AST/SGOT) 20 U/L (15-37) Alanine Aminotransferase (ALT/SGPT) 51 U/L (12-78) Alkaline Phosphatase 72 U/L (45-117) Troponin I < 0.015 ng/ml (0-0.045) Total Protein 7.1 gm/dl (6.4-8.2) Albumin 3.4 gm/dl (3.4-5.0) Globulin 3.7 gm/dl (2.5-4.0) Albumin/Globulin Ratio 0.9 (0.9-2) Bedside Lactic Acid Venous 1.47 mmol/L (0.90-1.70) Laboratory results reviewed by me. Medications Administered Medications (Trade) Dose Ordered Sig/Timbo Route Start Time Stop Time Status Last Admin Dose Admin Sodium Chloride 1,000 ml @ 999 mls/hr Q1H1M ONCE IV 06/01/18 11:13 06/01/18 12:13 DC 06/01/18 11:34 999 MLS/HR Piperacillin Sod/ Tazobactam Sod (Zosyn Iv) 4.5 gm ONE STAT IV 06/01/18 11:13 06/01/18 11:19 DC 06/01/18 11:33 4.5 GM Morphine Sulfate (MoRPHine SULFATE INJ) 4 mg NOW PRN IV 06/01/18 11:15 06/01/18 17:44 DC 06/01/18 13:49 4 MG Ondansetron HCl (Zofran Inj) 4 mg NOW STAT IV 06/01/18 11:13 06/01/18 11:19 DC 06/01/18 11:31 4 MG Magnesium Sulfate (Magnesium Sulfate 1gm / D5W) 2 gm NOW STAT IV 06/01/18 12:06 06/01/18 12:07 DC 06/01/18 12:43 2 GM Sodium Chloride 1,000 ml @ 999 mls/hr Q1H1M STAT IV 06/01/18 14:06 06/01/18 15:06 DC 06/01/18 14:33 999 MLS/HR Sodium Chloride 1,000 ml @ 100 mls/hr Q10H IV 06/01/18 15:05 07/01/18 15:04 06/01/18 17:09 100 MLS/HR ECG Per My Interpretation Indication: tachycardia Rate (beats per minute): 115 Rhythm: sinus tachycardia Findings: nonspecific-ST abn, other (no ST elevation, No PVC) ED Course 1108: The patient was evaluated in room A10. A complete history and physical exam was performed. 1113: Ordered Zofran 4 mg IV, Zosyn Iv 4.5 gm IV, Sodium Chloride 1000 ml @ 999 mls/ hr. 1115: Ordered Morphine Sulfate 4 m IV. 1206: Ordered Magnesium Sulfate 2 gm IV. 1315: Ordered Ioversol 100 ml IV. 1406: Ordered Sodium Chloride 1000 ml @ 999 mls/hr IV. 1402: I reevaluated the patient. He is feeling better. We discussed the treatment plan. 1410: Discussed the patient's case with Candi Ching- [facility] Hospitalist. The patient will be evaluated for further management. Medical Decision Differential diagnoses include: thrush, abscess, esophageal narrowing, PE, sepsis, [place], pneumonia, dehydration. Patient is quite neutropenic with a total white count of 0.23. He was anemic although this is baseline. Platelet count was low today at 31. Magnesium was low. No kidney failure. No evidence for hepatitis. EKG showed a sinus tachycardia, no acute ischemia. Cardiac enzyme testing 1 was not consistent with acute cardiac injury. Chest film did not show pneumonia, mediastinal widening or free air. Soft tissue neck CT did not show any evidence for airway narrowing or for abscess. Chest CT showed evidence for a bilateral lower lung pneumonia, no PE was seen. Lactic acid level was not elevated making sepsis less likely. Blood cultures are pending. The patient is in need of a hospital stay. He is neutropenic with pneumonia. He complains of a fever and upper chest and neck pain, he cannot swallow and does seem dehydrated clinically. Patient received IV saline, IV magnesium, IV Zofran and IV morphine. Patient received IV Zosyn as antibiotic coverage. The patient does feel improved since treatment. I did speak to the patient and case management. The on-call hospitalist was consulted. Hospitalization is warranted. Medication Reconcilliation Current Medication List: was personally reviewed by me Blood Pressure Screening Patient's blood pressure: Elevated blood pressure Blood pressure disposition: Referred to PCP Consults Time Called: 1405 [facility] Return[facility] Call: [phone] Discussed the patient's case with [facility] The patient will be evaluated for further management. Impression Primary Impression: Difficulty swallowing Additional Impressions: Tachycardia Dehydration Pneumonia Neutropenia Critical Care I have personally spent greater than 30 minutes of critical care time in the direct management of this patient. This includes bedside care, interpretation of diagnostic studies and testing, discussion with consultants, the patient, and family members, and other required patient management activities. This 30 minutes is in excess of all separately billable procedures. Scribe Attestation The scribe's documentation has been prepared under my direction and personally reviewed by me in its entirety. I confirm that the note above accurately reflects all work, treatment, procedures, and medical decision making performed by me. Departure Information Dispostion Being Evaluated By Hospitalist Referrals Abdoul Gordon M.D. (PCP) Forms HOME CARE DOCUMENTATION FORM, IMPORTANT VISIT INFORMATION, WORK / SCHOOL INSTRUCTIONS Patient Instructions My [facility] Problem Qualifiers
[2018-06-01] MEDS ORDERED: ACETAMINOPHEN 325 MG TAB PO PRN (15:15)
[2018-06-01] MEDS ORDERED: LEVALBUTEROL/IPRATROPIUM NEB INH PRN (15:30)
[2018-06-01] MEDS ORDERED: IPRATROPIUM BROMIDE NEB SOLN 0.02% 2.5 ML VIAL INH PRN (15:45)
[2018-06-01] MEDS ORDERED: LEVALBUTEROL 0.63MG/3 ML NEB INH PRN ×2 (15:45→23:15)
[2018-06-01] MEDS ORDERED: DEXTROSE 50% 50 ML SYR IV PRN (16:15)
[2018-06-01] MEDS ORDERED: GLUCAGON FOR INJ 1 MG VIAL SQ PRN (16:15)
[2018-06-01] MEDS ORDERED: GLUCOSE 10 TABS/TUBE PO PRN (16:15)
[2018-06-01] MEDS ORDERED: GLUCOSE 40% GEL 15 GM TUBE PO PRN (16:15)
[2018-06-01] MEDS ORDERED: CARBOHYDRATES FOR HYPOGLYCEMIA PO PRN (16:15)
[2018-06-01] MEDS ORDERED: VANCOMYCIN IV 2,000 MG in SODIUM CHLORIDE 0.9% 500ML 500 ML IV ONE (16:30)
[2018-06-01] MEDS ORDERED: VANCOMYCIN CONSULT ACTIVE PRN (16:30)
--- NOTE | 2018-06-01 16:43 | Pharmacy Progress Note ---
Pharmacy Abx Initial Consult Date of Service Jun 01, 2018. Pharmacy Dosing Scope Date of Consult: 06/01/18 Consultation requested by: FELISA Richards Pharmacy is consulted to initiate vancomycin IV dosing therapy, order appropriate labs and adjust drug dose/frequency. Subjective The patient is a 72 year old male admitted on Jun 01, 2018 at 16:04. Objective Height (Feet): 5 Height (Inches): 5.00 Weight (Kilograms): 83.000 Vital Signs (Past 12Hrs) Vital Signs Past 12 Hours Date Time Temp Pulse Resp B/P (MAP) Pulse Ox O2 Delivery O2 Flow Rate FiO2 06/01/18 15:38 119 22 142/89 94 06/01/18 15:27 37.3 126 24 184/98 95 Room Air 06/01/18 13:58 115 06/01/18 13:51 115 16 178/86 97 Nasal Cannula 2.0 06/01/18 12:43 115 18 150/89 93 Room Air 06/01/18 11:38 115 17 116/84 97 Room Air 06/01/18 11:19 95 Room Air 06/01/18 11:11 118 06/01/18 11:11 95 Room Air 06/01/18 10:45 37.4 124 22 124/78 97 Room Air Lab Results (24Hrs) Laboratory Tests (24 Hours) Test 06/01/18 11:00 White Blood Count 0.23 K/uL (4.8-10.8) *L Micro Results Date/Time Source Procedure Growth Status 06/01/18 11:00 Blood Blood Culture Pending Received 06/01/18 11:00 Blood Blood Culture Pending Received Risk Factors for Resistance * Immunocompromised (chronic steroid therapy, chemotherapy, immunomodulators) Assessment & Plan Assessment * 72 year old male who presented to the ED on 06/01 with throat pain * H/o of small cell lung cancer, on chemotherapy * Per notes, differential diagnoses include: thrush, abscess, esophageal narrowing, PE, sepsis, [place], pneumonia, dehydration. Plan Vancomycin IV * Loading dose: 2,000 mg (25 mg/kg) * Estimated PK parameters: Vd 0.6 L/kg, ke 0.06hr-1, t1/2 12 hr * Maintenance dose: 1250 mg IV (15 mg/kg) every 16 hours * Goal trough level : 15 to 20 mcg/mL * Trough level not ordered as patient's renal function has fluctuated in the past; will re-assess renal function tomorrow and order level as appropriate * A less than traditional dose and/or extended dosing interval has/have been selected due to likelihood of drug accumulation in obese patient Pharmacy will continue to follow and will adjust dose/frequency as necessary. Thank you.
[2018-06-01 16:45] VITALS: BP 117/77; PULSE 126; TEMP 37.6; O2SAT 93; BMI 30.4
[2018-06-01] MEDS: SODIUM CHLORIDE 0.9% 1000ML 1,000 ML IV SCH (17:09)
[2018-06-01] MEDS: CEFEPIME IV 2,000 MG in SYRINGE 7.5 ML IV SCH (17:17)
[2018-06-01] MEDS: FLUCONAZOLE / NSS 200 MG in PREMIXED NSS 100 ML IV SCH (17:18)
[2018-06-01] MEDS: LEVOFLOXACIN / D5W 750 MG in PREMIXED IN D5W 150 ML IV SCH (17:18)
[2018-06-01] MEDS: NYSTATIN SUSP 500,000 U/5 ML UDC PO SCH ×2 (17:18→20:10)
[2018-06-01] MEDS ORDERED: HYDROmorphone INJ 1 MG/ML SYR IV STA (17:56)
[2018-06-01] MEDS ORDERED: HYDROmorphone INJ 1 MG/ML SYR IV PRN (18:00)
[2018-06-01] MEDS ORDERED: SODIUM CHLORIDE 0.9% 500ML 500 ML IV SCH (18:30)
[2018-06-01 18:41] VITALS: BP 101/69; TEMP 39.5
[2018-06-01 19:05] VITALS: BP 113/68; PULSE 131; TEMP 38.6; O2SAT 90
--- NOTE | 2018-06-01 19:26 | History and Physical ---
History & Physical Date & Time of Service: Jun 01, 2018 at 16:17 Chief Complaint: Feels Like Throat Is Tightening Up On Him Primary Care Physician: Abdoul Gordon M.D. 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 is present at bedside. Patient saw Susu Conrad PA-C in office today for consultation, was reported to have fever, odynophagia, poor p.o. intake, dyspnea , tachycardia with HR 120s which patient recommended to be seen in the ED. He reports painful swallowing, decreased appetite and p.o. intake secondary to discomfort, weakness, chest discomfort with swallowing. He has chronic shortness of breath at rest and with exertion; however he feels his breathing is at baseline, chronic productive cough of occasional clear, yellow sputum. He is not on oxygen at home. Overall he feels weak. He denies chills, sweats, lightheadedness, dizziness, chest pain, emesis, diarrhea, abdominal pain, dysuria, increased frequency with urination, increased urgency with urination, hemoptysis, hematochezia, melena. In ED initial evaluation revealed neutropenia , WBC 0.23, macrocytic anemia with H&H 9.9/29.8, platelet count 31, sodium 133, potassium 4.2 BUN 21, creatinine 1.06, mag 1.6, lactic acid 1.4, EKG sinus tachycardia vent rate 115 bpm. Imaging reviewed chest x-ray Chronic infiltrate/ fibrotic scarring left base. Central catheters placed in the superior vena cava , CT neck unremarkable, CTA chest negative for PE, concern for left lower lobe air bronchograms/pneumonia, right lung/left lung nodules noted. Past Medical/Surgical History Medical Problems: (1) ACEI/ARB contraindicated Permanent Comment: due to hypotension Status: Chronic (2) CAD (coronary artery disease) Status: Chronic (3) Calculus Of Kidney Status: Chronic (4) Carotid Artery Occlusion W O Cerebral Infarction Status: Chronic (5) Carotid stenosis Status: Chronic (6) Chr Airway Obstruct Nec Status: Chronic (7) Chronic systolic CHF (congestive heart failure) Permanent Comment: as per Epic problem list, although last 2 echo's in system had normal EF; (55-60% in 06/2013) + grade I diastolic dysfunction Status: Chronic (8) COPD (chronic obstructive pulmonary disease) Status: Chronic (9) Coron Atheroscler Nos Type Vessel, [place] Or Graft Status: Chronic (10) Diab Sofie Wo Compl, Type Ii Or Unspec Type, Not Uncntrld Status: Chronic (11) Diverticulosis Colon (W/O Ment Of Hemorrhage) Status: Chronic (12) DM type 2 (diabetes mellitus, type 2) Status: Chronic (13) Dyslipidemia Status: Chronic (14) Esophageal Reflux Status: Chronic (15) GERD (gastroesophageal reflux disease) Status: Chronic (16) HTN (hypertension) Status: Chronic (17) Hyperlipidemia Nec/Nos Status: Chronic (18) Hypertension Nos Status: Chronic (19) Lung cancer Permanent Comment: LLL SCC s/p Radiation therapy x 5 dx 2016; RUL/RLL Small Cell Lung CA dx 04/2018 Status: Chronic (20) PAD (peripheral artery disease) Status: Chronic (21) Renal Artery Aneurysm Status: Chronic (22) Subclavian artery stenosis, right Status: Chronic (23) Tobacco abuse Status: Chronic Surgical Problems: (1) Aortocoronary Bypass Status: Resolved (2) H/O maze procedure Status: Chronic (3) History of left-sided carotid endarterectomy Status: Chronic (4) Hx of CABG Status: Chronic (5) Percutaneous Translum Coron Angioplasty Status Status: Resolved (6) S/P coronary artery stent placement Status: Chronic (7) S/p lumbar spinal surgery Status: Chronic (8) Status post femoral-popliteal bypass surgery Permanent Comment: right Status: Chronic Family History FH: CAD (coronary artery disease) FATHER, Onset:47 ( at age 47) MOTHER ( at 72 ) FH: cancer Social History Smoking Status: Current Some Day Smoker (Smoked on and off since age 18, approximately [id number] history, currently smoking half a pack per day) Smokeless Tobacco Use: No Alcohol Use: occasionally (Drinks 5 beers a week) Drug Use: none Marital Status: Housing status: lives with family 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) Immunizations History of Influenza Vaccine: Yes Influenza Vaccine Date: Aug 07, 2012 History of Tetanus Vaccine?: Yes History of Pneumococcal: Yes Pneumococcal Date: Aug 07, 2012 History of Hepatitis B Vaccine: Yes Hepatitis Immunization Date: Sep 22, 2000 Allergies Coded Allergies: No Known Allergies (Verified , 06/01/18) Home Medications Scheduled Albuterol Sulfate (Proventil Hfa), 2 PUFFS INH Q4 Aspirin (Aspirin Ec), 81 MG PO QAM Atorvastatin (Lipitor), 80 MG PO QAM Budesonide/Formoterol Fumarate (Symbicort 160/4.5 Inhaler ), 2 PUFFS INH BID Bupropion (Wellbutrin), 150 MG PO BID Cholecalciferol (Vitamin D3), 2,000 UNITS PO DAILY Finasteride (Proscar), 5 MG PO DAILY Gabapentin (Neurontin), 200 MG PO TID Multiple Vitamin (Multivitamin), 1 TAB PO QAM Nitroglycerin (Nitrostat), 0.4 MG UT PRN Pantoprazole Sodium (Protonix), 40 MG PO QAM Pramipexole Dihydrochloride (Pramipexole Dihydrochlori), 1 MG PO TID Prednisone (Prednisone), 40 MG PO DAILY Tamsulosin Hcl (Flomax), 0.4 MG PO HS Scheduled PRN Ondansetron Hcl (Zofran), 8 MG PO Q8 PRN for Nausea Prochlorperazine Maleate (Compazine), 10 MG PO Q6H PRN for Nausea Review of Systems As noted per HPI, 10 systems reviewed and negative unless noted above. Physical Exam Vital Signs Date Time Temp Pulse Resp B/P (MAP) Pulse Ox O2 Delivery O2 Flow Rate FiO2 06/01/18 15:38 119 22 142/89 94 06/01/18 15:27 37.3 126 24 184/98 95 Room Air 06/01/18 13:58 115 06/01/18 13:51 115 16 178/86 97 Nasal Cannula 2.0 06/01/18 12:43 115 18 150/89 93 Room Air 06/01/18 11:38 115 17 116/84 97 Room Air 06/01/18 11:19 95 Room Air 06/01/18 11:11 118 06/01/18 11:11 95 Room Air 06/01/18 10:45 37.4 124 22 124/78 97 Room Air General Appearance: WD/WN, + mild distress, + obese (Elderly male, lying in bed , appears age), + pertinent finding (chronic ill appearing) Head: normocephalic, atraumatic Eyes: normal inspection, PERRL, sclerae normal ENT: hearing grossly normal, + pertinent finding (Mucous membranes moist, thrush noted throughout oral, mucosal and pharyngeal mucosa) Neck: supple, no adenopathy, thyroid normal, no JVD Respiratory/Chest: chest non-tender, normal breath sounds, no respiratory distress, no accessory muscle use, + wheezing (R>L) Cardiovascular: no JVD, no murmur, + tachycardia (with regular rate) Abdomen/GI: normal bowel sounds, non tender, soft, no organomegaly Back: normal inspection, normal range of motion Extremities/Musculoskelatal: normal inspection, normal capillary refill, no pedal edema Neurologic/Psych: alert, normal mood/affect, oriented x 3 Skin: normal color, no rash, + pallor Diagnostics Laboratory Results Results Past 24 Hours Test 06/01/18 11:00 06/01/18 11:22 Range/Units White Blood Count 0.23 4.8-10.8 K/uL Red Blood Count 2.51 4.7-6.1 M/uL Hemoglobin 9.9 14.0-18.0 g/dL Hematocrit 29.8 42-52 % Mean Corpuscular Volume 118.7 80-100 fL Mean Corpuscular Hemoglobin 39.4 25-34 pg Mean Corpuscular Hemoglobin Concent 33.2 32-36 g/dl RDW Standard Deviation 77.8 36.4-46.3 fL RDW Coefficient of Variation 17.9 11.5-14.5 % Platelet Count 31 130-400 K/uL Platelet Estimate DECREASED Prothrombin Time 10.5 9.0-12.0 SECONDS Prothromb Time International Ratio 1.0 0.9-1.1 Activated Partial Thromboplast Time 28.9 21.0-31.0 SECONDS Partial Thromboplastin Ratio 1.1 Sodium Level 133 136-145 mmol/L Potassium Level 4.2 3.5-5.1 mmol/L Chloride Level 100 98-107 mmol/L Carbon Dioxide Level 26 21-32 mmol/L Anion Gap 7.0 3-11 mmol/L Blood Urea Nitrogen 21 7-18 mg/dl Creatinine 1.06 0.60-1.40 mg/dl Est Creatinine Clear Calc Drug Dose 63.4 ml/min Estimated GFR () 81.4 Estimated GFR (Non- 70.3 BUN/Creatinine Ratio 19.7 10-20 Random Glucose 228 70-99 mg/dl Calcium Level 8.6 8.5-10.1 mg/dl Magnesium Level 1.6 1.8-2.4 mg/dl Total Bilirubin 2.2 0.2-1 mg/dl Aspartate Amino Transf (AST/SGOT) 20 15-37 U/L Alanine Aminotransferase (ALT/SGPT) 51 12-78 U/L Alkaline Phosphatase 72 45-117 U/L Troponin I < 0.015 0-0.045 ng/ml Total Protein 7.1 6.4-8.2 gm/dl Albumin 3.4 3.4-5.0 gm/dl Globulin 3.7 2.5-4.0 gm/dl Albumin/Globulin Ratio 0.9 0.9-2 Bedside Lactic Acid Venous 1.47 0.90-1.70 mmol/L Microbiology Results 06/01/18 Blood Culture, Received Pending 06/01/18 Blood Culture, Received Pending Diagnostic Radiology Chest CTA: IMPRESSION: 1. Severe pulmonary emphysema 2. Left lower lobe airspace opacities with air bronchograms suspicious for pneumonia. 3. Interval development of nodular right lower lobe airspace opacities including a 15 mm rounded solid right lower lobe pulmonary nodule. The findings are likely infectious/inflammatory although neoplasm cannot be excluded. A three-month follow-up study since with antibiotics therapy is recommended. 4. Right-sided nephrolithiasis 5. Proximal celiac artery artery stenosis 6. No evidence of acute pulmonary embolism. Chest Xray IMPRESSION: Chronic infiltrate/fibrotic scarring left base. Central catheters placed in the superior vena cava with no evidence of pneumothorax. 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 In ED initial evaluation revealed neutropenia, WBC 0.23, macrocytic anemia with H&H 9.9/29.8, platelet count 31, sodium 133, potassium 4.2 BUN 21, creatinine 1.06, mag 1.6, lactic acid 1.4, EKG sinus tachycardia vent rate 115 bpm. Imaging reviewed chest x-ray Chronic infiltrate/ fibrotic scarring left base. Central catheters placed in the superior vena cava , CT neck unremarkable, CTA chest negative for PE, concern for left lower lobe air bronchograms/pneumonia, right lung/left lung nodules noted. Ddx include: SIRS due to PNA, bacteremia, fungemia, thrush, line sepsis, neutropenia secondary to chemo. -Start empiric antibiotic/antifiungal therapy with Levaquin 750mg q24hr, Cefepime 2g q12, Vanco per pharmacy, Fluconazole 200mg IV qd -await blood cultures, MRSA swab -IVF NS 100cc/hr secondary to poor po intake -CBC, CMP, mag in a.m. -Nystatin swish and swallow q6 for Thrush -Pulmonology consult Dr. Herron secondary to lung ca, CT scan showing PNA; however due to significant hx of lung ca/scarring from radiation unable to determine if this is PNA -ISS secondary to hyperglycemia (2) Pneumonia Assessment & Plan: Plan as noted above (3) Odynophagia Assessment & Plan: Most likely contributing secondary to thrush Start nystatin swish swallow 10 cc every 6 hours routine (4) Thrush Assessment & Plan: -Start nystatin swish and swallow 10 cc every 6 routine (5) Hypomagnesemia Assessment & Plan: -Was given IV mag 2 g in ED -Repeat mag in a.m. 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 Benny Bethea oncology -received 1 cycle of carboplatin/etoposide, neulasta. Finished 05/26/18. Saw Susu Conrad PA-C in outpatient clinic 06/01/18. Spoke with her, no need for C- GSF seconday to recent administration of neulasta -Taking Zofran, Compazine for nausea as needed (7) COPD (chronic obstructive pulmonary disease) Assessment & Plan: -neb treatments prn for SOB/Wheezing -Continue Symbicort -Continue prednisone (8) CAD (coronary artery disease) Assessment & Plan: -Currently denies active chest pain -Continue high-dose statin, aspirin (9) HTN (hypertension) Assessment & Plan: Blood pressure currently under control -on flomax for BPH, no other antihypertensives (10) DM type 2 (diabetes mellitus, type 2) Assessment & Plan: -Last A1c 6.2 on 03/22 -Patient hyperglycemia will add insulin sliding scale per protocol (11) Dyslipidemia Assessment & Plan: -Continue atorvastatin (12) BPH (benign prostatic hyperplasia) Assessment & Plan: Continue Proscar, Flomax (13) GERD (gastroesophageal reflux disease) Assessment & Plan: Continue Protonix Resuscitation Status DNR VTE Prophylaxis Will order VTE Prophylaxis: Yes (SCDS) Reason for no VTE drug order: Contraindicated (Thrombocytopenia, Plt ct 31) Note ATTENDING ADDENDUM Record reviewed. Patient interviewed and examined. Care coordinated with Candi Ching PA-C. Please refer to her documentation for patient's history. Briefly, 72 YO male with history of small cell carcinoma of the lung. Presented to ED with fever, cough, odynophagia. EXAM: General- appears to be acutely and chronically ill VS- as noted HEENT- anicteric; oral thrush Neck- no adenopathy Lungs- diffuse wheezing Heart- RRR, tachy, no murmur or gallop appreciated Abdomen- + BS, soft, nontender Extremities- no pretibial edema or calf tenderness Neuro- alert DATA: Hemoglobin 9.9, white count 230, platelet count 31,000. [id number] lactate 1.47. Other lab studies as noted. EKG performed at 1141 reviewed and demonstrated sinus tachycardia at 115/ minute , [id number]'s. Chest x-ray reviewed by the undersigned interpreted by Radiology. Infiltrate left base, similar to 02/16/18. CT of neck unremarkable. CTA of chest was negative for pulmonary embolism. It did demonstrate severe emphysema, left lower lobe density with air bronchograms suspicious for pneumonia, nodular densities right lower lobe, right -sided nephrolithiasis, proximal stenosis of the celiac artery. ASSESSMENT AND PLAN: Meets criteria for sepsis. As neutropenia after receiving chemotherapy. Suspect pulmonary source, although some of the radiographic findings may be chronic. Consider line sepsis. Tachycardic without hypotension. Serum lactate less than 2. Blood cultures obtained in ED. Received broad-spectrum antibiotic coverage with intravenous piperacillin/ tazobactam. Will change antibiotic therapy to vancomycin, levofloxacin, cefepime for broad coverage pending culture results. Severe odynophagia associated with oral thrush. Probably has Darlyn esophagitis. Consider HSV, CMV. Rx with nystatin oral suspension and IV fluconazole. Consider EGD if no improvement. Patient is neutropenic with a total white count of 230. Received Neulasta with chemotherapy last week. Please refer to FELISA Ching's documentation for discussion of other issues. Flex Oconnor MD .
[2018-06-01] MEDS ORDERED: CEFEPIME IV 2,000 MG in DEXTROSE 5% 100ML 100 ML IV SCH (20:00)
[2018-06-01] MEDS ORDERED: ACETAMINOPHEN IV 100 ML IV PRN (20:00)
[2018-06-01] MEDS: BUDESONIDE/FORMOTEROL FUMARATE 160/4.5 60 PUFFS/INHALER INH SCH (20:10)
[2018-06-01] MEDS: GABAPENTIN 100 MG CAP PO SCH (20:11)
[2018-06-01] MEDS: TAMSULOSIN HCL 0.4 MG CAP PO SCH (20:12)
[2018-06-01] MEDS: PRAMIPEXOLE DIHYDROCHLORIDE 0.5 MG TAB PO SCH (20:12)
[2018-06-01] MEDS: INSULIN ASPART 100 UNITS/ML 3 ML PEN SC SCH (21:00)
[2018-06-01 22:31] VITALS: O2SAT 90
[2018-06-01] MEDS ORDERED: LEVALBUTEROL 0.63MG/3 ML NEB INH STA (23:06)
[2018-06-01 23:26] VITALS: PULSE 112; O2SAT 100
[2018-06-02] VITALS (15 sets, daily range): BP systolic 103–154; BP diastolic 64–78; PULSE 97–115; TEMP 36.4–37.2; O2SAT 94–100; BMI 30.9
[2018-06-02] MEDS ORDERED: METHYLPREDNISOLONE IV 20 MG in SYRINGE 0 ML IV ONE (00:30)
[2018-06-02] MEDS: SODIUM CHLORIDE 0.9% 1000ML 1,000 ML IV SCH (02:12)
[2018-06-02 04:13] LABS: ALBUMIN 2.7 gm/dl (3.4-5.0); CALCIUM 7.6 mg/dl (8.5-10.1); CREATININE 1.03 mg/dl (0.60-1.40); POTASSIUM 4.3 mmol/L (3.5-5.1); TOTAL PROTEIN 6.5 gm/dl (6.4-8.2)
[2018-06-02 04:14] LABS: HEMATOCRIT 25.6 % (42-52); HEMOGLOBIN 8.3 g/dL (14.0-18.0); MEAN CELL VOLUME 120.8 fL (80-100); MEAN CORPUSCULAR HEMOGLOBIN 39.2 pg (25-34); MEAN CORPUSCULAR HGB CONC 32.4 g/dl (32-36); PLATELET COUNT 11 K/uL (130-400); RED CELL DISTRIBUTION WIDTH CV 17.7 % (11.5-14.5); RED CELL DISTRIBUTION WIDTH SD 78.8 fL (36.4-46.3); WHITE BLOOD COUNT 0.17 K/uL (4.8-10.8)
[2018-06-02] MEDS: HYDROmorphone INJ 0.5 MG/0.5 ML SYR IV PRN ×3 (05:15→21:29)
[2018-06-02] MEDS: CEFEPIME IV 2,000 MG in SYRINGE 7.5 ML IV SCH ×2 (05:57→17:42)
[2018-06-02] MEDS: METHYLPREDNISOLONE IV 20 MG in SYRINGE 0 ML IV SCH ×3 (05:58→21:16)
--- NOTE | 2018-06-02 06:49 | Clinical Documentation Query ---
CLINICAL DOCUMENTATION QUERY Per H&P a 72-y/o male who is actively undergoing chemo for lung CA who presents with sepsis 2/2 pneumonia and possible line infection. In your clinical opinion is this patient being managed for: ( x ) Chemotherapy induced pancytopenia ( ) Not Agree ( ) Other explanation of clinical findings (No explanation is considered a No Response) ( ) Unable to determine ( ) Need to Discuss (Phone CDS or qliq) (No discussion is considered a No Response) The medical record reflects the following clinical findings, treatment, and risk factors. Clinical Indicators: WBC0.17, RBC 2.12, Hgb 8.3, Hct 25.6, PLT 11, Treatment: Multiple IV antibiotic and antifungals, daily CBC's Risk Factors: Infection and active cancer patient undergoing chemotherapy. Please clarify and document your clinical opinion in the progress notes and discharge summary. Terms such as "probable", "suspected", "likely", "questionable", "possible", or "still to be ruled out" are acceptable. IF IN AGREEMENT, YOU MUST DOCUMENT ABOVE DIAGNOSTIC STATEMENT IN DAILY PROGRESS NOTES AND DISCHARGE SUMMARY. This document is not part of the patient's record. Thank You, Dao Larose RN [phone] & via qlicCTU[facility] HOSPITALECT
--- NOTE | 2018-06-02 07:06 | DIAGNOSTIC IMAGING REPORT ---
CHEST ONE VIEW PORTABLE CLINICAL HISTORY: hypoxia dyspnea COMPARISON STUDY: 06/01/2018 FINDINGS: Progressive pulmonary vasculature as well as basilar interstitial and parenchymal markings. Diaphragms remain smooth. Costophrenic angles are sharp. IMPRESSION: Developing components of congestive failure with bibasilar infiltrative changes. The above report was generated using voice recognition software. It may contain grammatical, syntax or spelling errors. Electronically signed by: Shawn Gold M.D. 06/02/2018 7:04 AM Dictated Date/Time: 06/02/2018 7:04 AM
[2018-06-02] MEDS ORDERED: FUROSEMIDE INJ 20 MG in SYRINGE 0 ML IV ONE (07:30)
[2018-06-02] MEDS ORDERED: ATORVASTATIN 40 MG TAB PO SCH (08:00)
[2018-06-02] MEDS ORDERED: MULTIVITAMIN TAB PO SCH (08:00)
[2018-06-02] MEDS ORDERED: PANTOprazole SOD 40 MG TAB PO SCH (08:00)
[2018-06-02] MEDS ORDERED: CHOLECALCIFEROL 1000 INTER.UNIT TAB PO SCH (08:00)
[2018-06-02] MEDS: VANCOMYCIN IV 1,250 MG in SODIUM CHLORIDE 0.9% 250ML 250 ML IV SCH ×2 (08:05→22:53)
[2018-06-02] MEDS: BUDESONIDE/FORMOTEROL FUMARATE 160/4.5 60 PUFFS/INHALER INH SCH ×2 (08:05→21:16)
[2018-06-02] MEDS: FINASTERIDE 5 MG TAB PO SCH (08:05)
[2018-06-02] MEDS: GABAPENTIN 100 MG CAP PO SCH ×3 (08:06→21:17)
[2018-06-02] MEDS: NYSTATIN SUSP 500,000 U/5 ML UDC PO SCH ×4 (08:07→21:17)
[2018-06-02] MEDS: ASPIRIN 81 MG ECTAB PO SCH (08:07)
[2018-06-02] MEDS: PRAMIPEXOLE DIHYDROCHLORIDE 0.5 MG TAB PO SCH ×3 (08:12→21:16)
[2018-06-02] MEDS: INSULIN ASPART 100 UNITS/ML 3 ML PEN SC SCH ×4 (08:19→21:18)
--- NOTE | 2018-06-02 12:47 | Pulmonary Consultation ---
History General Date of Service: Jun 02, 2018. Stated Complaint: Neutropenic Fever HPI The patient is a 72 year old male who presents to [facility] with complaints of Neutropenic Fever. The patient's primary care provider is Abdoul Gordon M.D.. 72-year-old male admitted with neutropenic fever after starting chemotherapy for recently diagnosed small cell lung cancer. He has a significant PmHx: CAD/ [place] (CABG x2 & 09/1994 as well as stent x3- 4 BRITTNY-SVT), Moderate COPD, GERD, hypertension, carotid artery stenosis s/p left endarterectomy (50% YNES), peripheral artery disease, DM II, former smoker 50-pack year, quit 06/2017 squamous cell carcinoma stage 1B (s/p XRT @ [place]), DM, diastolic dysfunction. Patient was started chemotherapy last week and started to note fevers documented up to 103 at home along with dysphagia, intermittently productive cough and hoarseness of voice. During our interview the patient denied: Hemoptysis, productive sputum, lymphadenopathy, change in bowel habitus , night sweats, pleurisy or classic cardiac chest pain. Current in hospital workup: EKG: Sinus tachycardia rate 115 anterior nonspecific T-wave changes CTA chest: Severe pulmonary emphysema, left lower lobe airspace opacity with notable air bronchograms, interval development of right lower lobe airspace opacity along with a 15 mm RLL nodule, 11mm RLL nodule/infiltrate, right-sided nephrolithiasis, proximal celiac artery stenosis, no evidence of acute thromboembolism CXR: Chronic infiltrate/fibrotic scarring left base, central venous catheter with no signs of pneumothorax CT neck: Within normal limits WBC: 0.23K 0.17K Hemoglobin: 9.9 PLT: 31K11K Sodium: 133 Albumin: 2.7 Current in hospital treatment ED: Zosyn, morphine, ondansetron, magnesium sulfate IV, In-hospital: Pantoprazole, vancomycin, methylprednisolone, leave albuterol nebulizer, Symbicort 160-4.5, cefepime, nystatin suspension q.i.d., SaO2: 90-100 % FiO2: 2-5 liters PmHx: 1. Benign prostatic hyperplasia with urinary obstruction 2. CHF (EF=55-60% - 06/2013) + grade I diastolic dysfunction (LVED=24) 3. CAD (coronary artery disease), [place] coronary artery /myocardial infarction 4. Carotid artery stenosis 5. 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 COPD, moderate (FEV1: 66% with abnormally low DLCO: 36%) 7. Diabetes mellitus 8. Hypertension 9. Peripheral arterial disease 10. Renal artery aneurysm 11. ISLEA with PLM (11cm H20 with supplemental oxygen @ 2L) 12. Squamous cell carcinoma of lung 13. Renal calculus 14. History of adrenal adenoma 15. History of Displacement of lumbar intervertebral disc without myelopathy 16. History of Diverticulosis, sigmoid 17. History of Osteoarthritis of shoulder 18. History of Peyronie disease 19. History of Reflux esophagitis 20. History of Vitamin D deficiency 21. Previous long-time chronic tobacco/nicotine dependence PsHx: 1. Ankle Surgery 2. Back Surgery 3. CABG 4. Carotid Thromboendarterectomy 5. PTCA (07/01/2012)/stent placement 6. Status post femoral popliteal bypass surgery 7. Right common femoral arterial endarterectomy 8. Maze procedure 9. Lumbar spinal search Family History 1. Family history of Colon carcinoma 2. Family history of cardiac disorder 3. Family history of myocardial infarction 4. Family history of Parkinson's disease Social History Alcohol: Occasional tobacco: 49ppd hx quite 06/2017 but currently resume smoking on occasional basis marital status: Smokeless tobacco: No significant exposure Occupation: Retired Exposure: Asbestos and cold minds/cold Current Meds 1. Finasteride 5 MG Oral Tablet; TAKE 1 TABLET DAILY DIRECTED; 2. Tamsulosin HCl - 0.4 MG Oral Capsule; TAKE 1 CAPSULE Bedtime; 3. Carvedilol 12.5 MG Oral Tablet; TAKE 1 TABLET TWICE DAILY 4. Ipratropium-Albuterol 0.5-2.5 (3) MG/3ML Inhalation Solution; nebulizer every Q6 5. Spiriva Respimat 2.5 MCG/ACT Inhalation Aerosol Solution; INHALE 2 PUFFS ONCE DAILY 6. Aspirin 81 MG TABS; TAKE 1 TABLET DAILY; 7. Crestor 40 MG Oral Tablet; TAKE 1 TABLET DAILY; 8. Nitroglycerin 0.4 MG Sublingual Tablet Sublingual; TONGUE NEEDED FOR CHEST PAIN 9. Joi 180 MG TABS; TAKE 1 TABLET DAILY NEEDED 10. Gabapentin 100 MG Oral Capsule; TAKE 1 CAPSULE TWICE DAILY; 11. Incruse Ellipta 62.5 MCG/INH Inhalation Aerosol Powder Breath Activated QD 12. Pantoprazole Sodium 40 MG Oral Tablet Delayed Release; TAKE 1 TABLET DAILY 13. ProAir HFA 108 (90 Base) MCG/ACT Inhalation Aerosol Solution; 2 PUFFS Q4-6 prn 14. Symbicort 160-4.5 MCG/ACT Inhalation Aerosol; INHALE 2 PUFFS TWICE DAILY 15. Vitamin D3 TABS; TAKE 2 TABLET Daily Allergy No known drug allergies Review of Systems Constitutional: reports: as stated in HPI Eyes: reports: no symptoms ENT: reports: as stated in HPI Cardiovascular: reports: as stated in HPI Respiratory: reports: as stated in HPI Gastrointestinal: reports: as stated in HPI Genitourinary - Male: reports: no symptoms Musculoskeletal: reports: as stated in HPI Integumentary: reports: no symptoms Neurologic: reports: as stated in HPI Psychiatric: reports: no symptoms Endocrine: no symptoms Hematologic / Lymphatic: no symptoms Allergic / Immunologic: no symptoms Past Medical History Past Medical History: Please refer to HPI Past Surgical History: Please refer to HPI Family History FH: CAD (coronary artery disease) FATHER, Onset:47 ( at age 47) MOTHER ( at 72 ) FH: cancer Please refer to HPI Social History Please refer to HPI Hx Tobacco Use In Past Year?: Yes (QUIT 06/16/17. 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) Immunizations History of Influenza Vaccine: Yes Influenza Vaccine Date: Aug 07, 2012 History of Tetanus Vaccine?: Yes History of Pneumococcal: Yes Pneumococcal Date: Aug 07, 2012 History of Hepatitis B Vaccine: Yes Hepatitis Immunization Date: Sep 22, 2000 History of MDRO History of MDRO: No Allergies Coded Allergies: No Known Allergies (Verified , 06/01/18) Current Medications Reported Home Medications Medications Dose Route/Sig Max Daily Dose Days Date Category Dose Instructions Pramipexole Dihydrochlori (Pramipexole Dihydrochloride) 1 Mg Tab 1 Mg PO TID 06/01/18 Reported Proscar (Finasteride) 5 Mg Tab 5 Mg PO DAILY 06/01/18 Reported Prednisone 20 Mg Tab 40 Mg PO DAILY 06/01/18 Reported Flomax (Tamsulosin Hcl) 0.4 Mg Cap 0.4 Mg PO HS 06/01/18 Reported Compazine (Prochlorperazine Maleate) 10 Mg Tab 10 Mg PO Q6H PRN 06/01/18 Reported Zofran (Ondansetron HCl) 8 Mg Tab 8 Mg PO Q8 PRN 06/01/18 Reported Lipitor (Atorvastatin Calcium) 80 Mg Tab 80 Mg PO QAM 12/24/17 Reported Wellbutrin (Bupropion HCl) 75 Mg Tab 150 Mg PO BID 10/22/17 Reported Multivitamin (Multiple Vitamin) 1 Tab Tab 1 Tab PO QAM 02/13/17 Reported Proventil Hfa (Albuterol Sulfate) 108 Mcg/Act Aer 2 Puffs INH Q4 02/13/17 Reported Aspirin Ec (Aspirin) 81 Mg Tab 81 Mg PO QAM 02/13/17 Reported Symbicort 160/4.5 Inhaler (Budesonide/Formoterol Fumarate) Aero 2 Puffs INH BID 02/13/17 Reported Nitrostat (Nitroglycerin) 0.4 Mg Tab 0.4 Mg UT PRN 06/06/13 Reported NEEDED FOR CHEST PAIN - ONE TABLET UNDER THE TONGUE EVERY 5 MINUTES UP TO THREE DOSES. Vitamin D3 (Cholecalciferol) 1,000 Unit Tab 2,000 Units PO DAILY 06/06/13 Reported Neurontin (Gabapentin) 100 Mg Cap 200 Mg PO TID 06/06/13 Reported Protonix (Pantoprazole Sodium) 40 Mg Tab 40 Mg PO QAM 06/29/12 Reported Physical Physical Exam Vital Signs: Date Time Temp Pulse Resp B/P (MAP) Pulse Ox O2 Delivery O2 Flow Rate FiO2 06/02/18 11:11 36.7 105 16 103/65 (78) 100 Nasal Cannula 2.0 06/02/18 08:30 100 Nasal Cannula 2.0 06/02/18 07:38 37.0 114 16 134/76 (95) 100 Nasal Cannula 2.0 06/02/18 03:21 37.0 112 20 112/69 (83) 94 Nasal Cannula 2.0 06/02/18 02:09 37.2 115 22 100 Nasal Cannula 2.5 06/02/18 00:00 Nasal Cannula 3.0 06/01/18 23:26 112 16 100 Nasal Cannula 5.0 06/01/18 22:31 90 Room Air 2.0 06/01/18 19:05 38.6 131 22 113/68 (83) 90 Room Air 06/01/18 18:41 39.5 101/69 (80) 06/01/18 16:45 37.6 126 21 117/77 93 Room Air 06/01/18 15:38 119 22 142/89 94 06/01/18 15:27 37.3 126 24 184/98 95 Room Air 06/01/18 13:58 115 06/01/18 13:51 115 16 178/86 97 Nasal Cannula 2.0 06/01/18 12:43 115 18 150/89 93 Room Air Skin: Notably intact no perirectal abscesses appreciated General Appearance: NO APPARENT DISTRESS Head: NORMOCEPHALIC, ATRAUMATIC Eyes: PERRLA, NO DISCHARGE, EOMI, SCLERAE NORMAL ENT: other (Mild thrush appreciated at the border of the patient's upper denture plate as well as some mild petechial changes) Neck: NORMAL RANGE OF MOTION, NO TENDERNESS, TRACHEA MIDLINE, SUPPLE Respiratory: other (Mild rhonchi bilaterally) Cardiovasular: REGULAR RATE/RHYTHM, NORMAL S1S2, NO M/G/R, NO MURMUR, other ( Distant heart sounds difficult for me to auscultate) Abdomen: NON TENDER, NORMAL BOWEL SOUNDS, NO REBOUND, NO MASSES, NO GUARDING Genitourinary - Male: EXTERNAL GENITALIA NORMAL Back: NORMAL INSPECTION, NO MIDLINE TENDERNESS, NO CVA TENDERNESS, NO PARAVERTEBRAL TTP Upper Extremities: NO EDEMA, NO DEFORMITY, NORMAL ROM Lower Extremities: NO EDEMA, NO DEFORMITY, NORMAL ROM Pulses: carotid (R) (2+), carotid (L) (2+), popliteal (L) (2+), dorsalis pedis (R) (2+) Neuro: ALERT, ORIENTED x 3, NORMAL MOTOR EXAM, NORMAL SENSATION Reflexes: biceps (R) (2+), bicpes (L) (2+), patellar (R) (2+), patellar (L) (2+ ) Babinski Testing: right (downgoing), left (downgoing) Psychiatric: NORMAL AFFECT, NO SUICIDAL IDEATION Diagnostics Labs Results Past 24 Hours Test 06/01/18 20:30 06/02/18 03:36 06/02/18 07:55 06/02/18 12:22 Range/Units Bedside Glucose 130 234 199 70-99 mg/dl White Blood Count 0.17 4.8-10.8 K/uL Red Blood Count 2.12 4.7-6.1 M/uL Hemoglobin 8.3 14.0-18.0 g/dL Hematocrit 25.6 42-52 % Mean Corpuscular Volume 120.8 80-100 fL Mean Corpuscular Hemoglobin 39.2 25-34 pg Mean Corpuscular Hemoglobin Concent 32.4 32-36 g/dl RDW Standard Deviation 78.8 36.4-46.3 fL RDW Coefficient of Variation 17.7 11.5-14.5 % Platelet Count 11 130-400 K/uL Platelet Estimate SIGNIFIC DECREASED Sodium Level 133 136-145 mmol/L Potassium Level 4.3 3.5-5.1 mmol/L Chloride Level 104 98-107 mmol/L Carbon Dioxide Level 23 21-32 mmol/L Anion Gap 6.0 3-11 mmol/L Blood Urea Nitrogen 19 7-18 mg/dl Creatinine 1.03 0.60-1.40 mg/dl Est Creatinine Clear Calc Drug Dose 65.2 ml/min Estimated GFR () 84.3 Estimated GFR (Non- 72.7 BUN/Creatinine Ratio 18.2 10-20 Random Glucose 164 70-99 mg/dl Calcium Level 7.6 8.5-10.1 mg/dl Magnesium Level 1.9 1.8-2.4 mg/dl Total Bilirubin 1.8 0.2-1 mg/dl Aspartate Amino Transf (AST/SGOT) 10 15-37 U/L Alanine Aminotransferase (ALT/SGPT) 38 12-78 U/L Alkaline Phosphatase 52 45-117 U/L Total Protein 6.5 6.4-8.2 gm/dl Albumin 2.7 3.4-5.0 gm/dl Globulin 3.8 2.5-4.0 gm/dl Albumin/Globulin Ratio 0.7 0.9-2 Microbiology Results 06/01/18 Throat Culture - Preliminary, Resulted BETA-HEMOLYTIC COLONIES PRESENT, KAROL... 06/01/18 MRSA DNA Surveillance Screen - Final, Complete Specimen Negative for MRSA by DNA Probe Diagnostic Radiology Please refer to HPI EKG Please refer to HPI Impression Assessment and Plan 72-year-old male admitted with neutropenic fever and recently started on chemotherapy secondary to small cell lung carcinoma the right lower lobe: 1. Neutropenic fever: This time the patient is being covered with cefepime, vancomycin as well as initiated on fluconazole. Is under very excellent coverage for neutropenic fever including possible oral thrush. We will continue to monitor the patient's oropharynx if no signs of healing and continued fever after 3-4 day window would suggest we initiate caspofungin or voriconazole for more aggressive antifungal therapy. Also patient does appear to be improving but she continues to have fevers I would suggest adding acyclovir. 2. Right lower lobe: Patient recently underwent biopsy right lower lobe with diagnosis of small cell lung CA. He has been initiated on chemotherapeutic regimen. 3. Left lower lobe: History of squamous cell carcinoma underwent chemoradiation with approximately 6000 cGy. Thank you for this consultation.
[2018-06-02] MEDS ORDERED: D5NSS + 20MEQ KCL 1,000 ML IV SCH (14:00)
[2018-06-02] MEDS ORDERED: POTASSIUM CHLORIDE INJ 20 MEQ in D5W AND NSS 1,000 ML IV SCH (14:00)
[2018-06-02] MEDS ORDERED: ACETAMINOPHEN 325 MG TAB PO SCH (15:00)
--- NOTE | 2018-06-02 15:12 | Progress Note ---
Progress Note Date of Service Jun 02, 2018. Progress Note ID Consult Dictated #[id number] A/P: 1. Neutropenic Fever 2. LLL Pna -continue broad spectrum abx for now, follow cultures, follow wbc -Thank you
--- NOTE | 2018-06-02 15:29 | INFECT. DISEASE CONSULTATION ---
DATE OF CONSULTATION: 06/02/2018 HISTORY OF PRESENT ILLNESS: This is a 72-year-old gentleman who was admitted to the hospital secondary to fever, sore throat, worsening cough. He has recently begun chemotherapy for right lung small cell malignancy. He does have a significant tobacco history. He was seen in the office on the and was found to have fever, sore throat, difficulty swallowing, and poor p.o. intake secondary to that. He also was having a productive cough, but denies any hemoptysis. He was sent to the hospital for admission and he was found to be neutropenic. His white blood cell count today is 0.1. His platelets are also low at 11. Blood cultures are pending. A throat culture did have beta hemolytic colonies present and is pending. He did undergo a CAT scan of the neck which was unremarkable. A CAT scan of the chest did show a left lower lobe infiltrate and a right mass. He has been febrile since admission with a T-max overnight of 39.5. He was placed on vancomycin, cefepime, Levaquin, fluconazole, and IV steroids. He is also being followed by pulmonary. He states since admission to the hospital, he is feeling better but continues with sore throat and cough. He is drinking fluids without difficulty. He denies any chest pain or wheezing. He is currently on oxygen, but denies oxygen therapy at home. He denies any nausea, vomiting, diarrhea, or abdominal pain. He has no urinary complaints. A UA was negative. His remaining review of systems is reviewed and are unremarkable except for as noted above. PAST MEDICAL HISTORY: Significant for coronary artery disease, kidney stones, carotid artery occlusion, carotid stenosis, CHF, COPD, type 2 diabetes, diverticulosis, dyslipidemia, GERD, hypertension, hyperlipidemia, small cell lung cancer diagnosed in April of 2018, peripheral arterial disease, renal artery aneurysm. PAST SURGICAL HISTORY: Significant for coronary bypass, maze procedure, carotid endarterectomy, CABG, angioplasty, coronary stent placement, spinal surgery, fem-pop bypass. FAMILY HISTORY: Noncontributory. SOCIAL HISTORY: Significant for daily tobacco use. He drinks occasionally. He is and lives with family. He denies any drug use. He denies any sick contacts, but states he has been around young grandchildren in the recent past; however, he denies any of them being ill. ALLERGIES: He has no known drug allergies. MEDICATIONS: Tylenol, potassium, aspirin, Proscar, Protonix, vancomycin, Solu-Medrol, Dilaudid, Xopenex, subQ heparin, Flomax, insulin, Wellbutrin, Symbicort, Neurontin, Mirapex, cefepime, nystatin, Levaquin, fluconazole, Zofran, Tylenol, Compazine. PHYSICAL EXAMINATION: VITAL SIGNS: He currently is afebrile, T-max overnight is 39.5, pulse 105, respiratory rate 16, blood pressure 103/65, oxygen saturation is 100% on 2 liters nasal cannula. GENERAL: He is awake, alert and oriented x3. He is in no acute distress. HEENT: Mucous membranes are moist. Extraocular muscles are intact. HEART: Without murmur. LUNGS: Coarse bilaterally. A port is in place in the right chest wall. It is clean, dry and intact with no erythema, warmth or tenderness. ABDOMEN: Soft and nontender. It is mildly distended. EXTREMITIES: There is no lower extremity edema. LABORATORY STUDIES: CBC today, white blood cell count 0.17, hemoglobin 8.3, platelets 11. Chemistry panel: Sodium 133, potassium 4.3, chloride 104, bicarbonate 23, BUN 19, creatinine 1.0, glucose 199. LFTs are within normal limits. Blood cultures are pending. A throat culture is pending. IMAGING: As above. ASSESSMENT AND PLAN: 1. Neutropenic fever. 2. Left lower lobe pneumonia. 3. Likely pharyngitis. He will continue on broad spectrum antibiotics. Cultures are pending. We will continue to follow his counts. A hematology/oncology eval is pending as well. Thank you for this consultation.
[2018-06-02] MEDS: LEVOFLOXACIN / D5W 750 MG in PREMIXED IN D5W 150 ML IV SCH (17:43)
[2018-06-02] MEDS: FLUCONAZOLE / NSS 200 MG in PREMIXED NSS 100 ML IV SCH (17:47)
--- NOTE | 2018-06-02 18:10 | Medical Consult ---
Consultation Date of Consultation: Jun 02, 2018. Attending Physician: Flex Oconnor M.D. History of Present Illness 72-year-old male, DIAGNOSIS: Right lower lobe small cell lung cancer, 1.5 cm primary tumor, no definite mediastinal hilar lymph zabrina involvement. 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 S/P SBRT to the left lower lobe lung mass (06/2017) ~~ ~ CURRENT TREATMENT: Patient on~carboplatin/etoposide- completed cycle 1 on 05/26/18 he did receive prophylactic Neulasta. He is also on prednisone therapy at 40 mg per day for underlying emphysematous lung. Follows up with the gluer. ~ Planning for stereotactic radiation treatment to the right lower lobe lung mass at [facility] He presented to the office on [id number] increasing shortness of breath, significant odynophagia, poor oral intake, tachycardia, now admitted hospital for neutropenia. Evaluation done in the hospital: - CT scan of the neck > Negative. - CT scan of the chest > Severe pulmonary emphysema, no evidence of pulmonary embolism, left lower lobe airspace opacity suspicious for pneumonia, right lower lobe airspace opacity measuring 1.5 cm right lower lobe lung nodule, right -sided nephrolithiasis, proximal celiac artery stenosis. - WBC 0.23, H&H of 9.9/29.8, Platelet count of 31,000 (06/01/2018) - WBC 0.17, H&H of 8.3/25.6, MCV 120, Platelet count of 11,000 (06/02/2018) he received 1 unit of platelet transfusion on 06/02/2018. No bleeding from any sites. Presently he is receiving broad-spectrum antibiotic cefepime and Abacavir also has oral trust, started him on Diflucan. Seen by ID during the hospitalization. No fever, receiving nasal cannula supplemental oxygen at 1 L per minute, otherwise hemodynamically stable. O2 saturation around 96-100%. He has some mild right ankle edema which is not a new finding, says that he had vascular surgical intervention in the past and has swelling since then. No fever at this time. He says that he's feeling much better within 24 hour after starting antibiotic treatment, able to swallow some liquid, no increasing abdominal distention, no new back pain, no headache, no focal neurological symptoms. Past Medical/Surgical History Medical Problems: (1) Acute febrile illness Status: Acute (2) Calculus Of Kidney Status: Chronic (3) Carotid Artery Occlusion W O Cerebral Infarction Status: Chronic (4) Chr Airway Obstruct Nec Status: Chronic (5) COPD with exacerbation Status: Acute (6) Coron Atheroscler Nos Type Vessel, [place] Or Graft Status: Chronic (7) Dehydration Status: Acute (8) Diab Sofie Wo Compl, Type Ii Or Unspec Type, Not Uncntrld Status: Chronic (9) Difficulty swallowing Status: Acute (10) Diverticulosis Colon (W/O Ment Of Hemorrhage) Status: Chronic (11) Esophageal Reflux Status: Chronic (12) Hyperlipidemia Nec/Nos Status: Chronic (13) Hypertension Nos Status: Chronic (14) Leukocytosis Status: Acute (15) Neutropenia Status: Acute (16) PAD (peripheral artery disease) Status: Chronic (17) Pneumonia Status: Acute (18) Pneumonia Status: Acute (19) Renal Artery Aneurysm Status: Chronic (20) Tachycardia Status: Acute Family History FH: CAD (coronary artery disease) FATHER, Onset:47 ( at age 47) MOTHER ( at 72 ) FH: cancer Social History Smoking Status: Current Some Day Smoker (Smoked on and off since age 18, approximately 97-bpam-vdtw history, currently smoking half a pack per day) Smokeless Tobacco Use: No Alcohol Use: occasionally (Drinks 5 beers a week) Drug Use: none Marital Status: Housing Status: lives with significant other 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) Allergies Coded Allergies: No Known Allergies (Verified , 06/01/18) Current Inpatient Medications Current Inpatient Medications Medications (Trade) Dose Ordered Sig/Timbo Route Start Time Stop Time Status Last Admin Dose Admin Ioversol (Optiray 320) 100 ml UD PRN IV 06/01/18 13:15 06/05/18 13:14 Acetaminophen (Tylenol Tab) 650 mg Q4H PRN PO 06/01/18 15:15 07/01/18 15:14 06/01/18 18:36 650 MG Ondansetron HCl (Zofran Inj) 4 mg Q6H PRN IV 06/01/18 15:15 07/01/18 15:14 Nystatin (Mycostatin Susp) 10 ml QID PO 06/01/18 17:00 06/11/18 16:59 06/02/18 12:47 10 ML Aspirin (Ecotrin Tab) 81 mg QAM PO 06/02/18 08:00 07/02/18 08:59 06/02/18 08:07 81 MG Budesonide/ Formoterol Fumarate (Symbicort 160/ 4.5 Inh) 2 puffs BID INH 06/01/18 20:00 07/01/18 20:59 06/02/18 08:05 2 PUFFS Bupropion HCl (Wellbutrin Tab) 150 mg BID PO 06/01/18 20:00 07/01/18 20:59 06/02/18 08:08 150 MG Finasteride (Proscar Tab) 5 mg DAILY PO 06/02/18 08:00 07/02/18 08:59 06/02/18 08:05 5 MG Gabapentin (Neurontin Cap) 200 mg TID PO 06/01/18 20:00 07/01/18 20:59 06/02/18 13:30 200 MG Pantoprazole Sodium (Protonix Tab) 40 mg QAM PO 06/02/18 08:00 07/02/18 08:59 06/02/18 08:07 40 MG Prochlorperazine Maleate (Compazine Tab) 10 mg Q6H PRN PO 06/01/18 15:30 07/01/18 15:29 Tamsulosin HCl (Flomax Cap) 0.4 mg HS PO 06/01/18 21:00 07/01/18 20:59 06/01/18 20:12 0.4 MG Pramipexole Dihydrochloride (miraPEX TAB) 1 mg TID PO 06/01/18 20:00 07/01/18 20:59 06/02/18 13:30 1 MG Levofloxacin 750 mg/Prmx 150 ml @ 100 mls/hr Q24H IV 06/01/18 17:00 06/08/18 16:59 06/01/18 17:18 100 MLS/HR Fluconazole/ Sodium Chloride 200 mg/Prmx 100 ml @ 100 mls/hr Q24H IV 06/01/18 17:00 06/11/18 16:59 06/01/18 17:18 100 MLS/HR Vancomycin HCl (Consult) 1 ea UD PRN N/A 06/01/18 16:30 07/01/18 16:29 Insulin Aspart (novoLOG ASPART) SLIDING SCALE If C... ACHS SC 06/01/18 21:00 07/01/18 20:59 06/02/18 12:47 1 UNITS Glucose (Glucose 40% Gel) 15-30 GRAMS 15 GRAMS... UD PRN PO 06/01/18 16:15 07/01/18 16:14 Glucose (Glucose Chew Tab) 4-8 Tablets 4 Tabl... UD PRN PO 06/01/18 16:15 07/01/18 16:14 Dextrose (Dextrose 50% 50ML Syringe) 25-50ML 25ML FOR ... UD PRN IV 06/01/18 16:15 07/01/18 16:14 Glucagon (Glucagon Inj) 1 mg UD PRN SQ 06/01/18 16:15 07/01/18 16:14 Carbohydrates (Carbohydrates For Hypoglycemia) 15-30 GRAMS 15 grams if BSG 54-69... UD PRN PO 06/01/18 16:15 07/01/18 16:14 Cefepime HCl 2000 mg/Syringe 20 ml @ 5 mls/min Q12H IV 06/01/18 18:00 06/08/18 17:59 06/02/18 05:57 5 MLS/MIN Vancomycin HCl 1250 mg/Sodium Chloride 275 ml @ 125 mls/hr Q16H IV 06/02/18 08:00 06/09/18 07:59 06/02/18 08:05 125 MLS/HR Acetaminophen 100 ml @ 400 mls/hr Q8H PRN IV 06/01/18 20:00 07/01/18 19:59 06/01/18 23:17 400 MLS/HR Heparin Sodium (Porcine) (Heparin 100 Unit/ml 5ml Flush) 5 ml PRN PRN IV 06/01/18 23:00 07/01/18 22:59 Levalbuterol (Xopenex 0.63 Mg/ 3 Ml Neb) 0.63 mg Q6H PRN INH 06/01/18 23:15 07/01/18 23:14 Methylprednisolone Sodium Succinate 20 mg/Syringe 0.32 ml @ 1.5 mls/min Q8 IV 06/02/18 06:00 07/02/18 05:59 06/02/18 13:29 1.5 MLS/MIN Hydromorphone HCl (Dilaudid Inj) 0.5 mg Q2H PRN IV 06/02/18 00:15 06/16/18 00:14 06/02/18 05:15 0.5 MG Potassium Chloride/Dextrose/ Sod Cl 1,000 ml @ 100 mls/hr Q10H IV 06/02/18 14:00 07/02/18 13:59 06/02/18 14:24 100 MLS/HR Acetaminophen (Tylenol Tab) 650 mg 1500 PO 06/02/18 15:00 06/02/18 20:00 06/02/18 15:39 650 MG Review of Systems Constitutional: + weakness, + fatigue, No fever, No chills, No sweats, No weight loss ENT: + sore throat, + trouble swallowing Respiratory: + cough, + sputum, + shortness of breath, + dyspnea on exertion, + dyspnea at rest, No hemoptysis Cardiovascular: + edema, No chest pain, No palpitations Abdomen: No pain, No nausea, No diarrhea, No constipation, No GI bleeding Musculoskeletal: No joint pain, No muscle pain Genitourinary - Male: + urinary frequency, No hematuria, No dysuria Neurologic: No memory loss, No paralysis, No numbness/tingling, No balance problems Psychiatric: No depression symptoms Endocrine: + fatigue, + excessive urination Hematologic / Lymphatic: No abnormal bleeding/bruising, No clotting problems, No swollen lymph nodes, No night sweats Integumentary: No rash, No itch, No new/changing skin lesions Physical Exam Date Time Temp Pulse Resp B/P (MAP) Pulse Ox O2 Delivery O2 Flow Rate FiO2 06/02/18 16:59 36.7 100 22 109/67 (81) 100 Nasal Cannula 1.0 06/02/18 16:30 36.7 100 20 112/64 (80) 99 Nasal Cannula 1.0 06/02/18 16:00 36.6 103 20 137/78 (97) 100 Nasal Cannula 1.0 06/02/18 15:45 36.6 106 22 136/75 (95) 100 Nasal Cannula 1.0 06/02/18 15:24 36.6 102 20 126/74 96 1.0 06/02/18 15:15 36.8 102 19 109/67 (81) 100 Nasal Cannula 1.0 06/02/18 11:11 36.7 105 16 103/65 (78) 100 Nasal Cannula 2.0 06/02/18 08:30 100 Nasal Cannula 2.0 06/02/18 07:38 37.0 114 16 134/76 (95) 100 Nasal Cannula 2.0 06/02/18 03:21 37.0 112 20 112/69 (83) 94 Nasal Cannula 2.0 06/02/18 02:09 37.2 115 22 100 Nasal Cannula 2.5 06/02/18 00:00 Nasal Cannula 3.0 06/01/18 23:26 112 16 100 Nasal Cannula 5.0 06/01/18 22:31 90 Room Air 2.0 06/01/18 19:05 38.6 131 22 113/68 (83) 90 Room Air 06/01/18 18:41 39.5 101/69 (80) On exam: - Alert and oriented x3, well built man, not in any distress. - HEENT: no icterus mild pallor noted, Throat: Normal. Mild oral thrush noted. - Neck: No palpable cervical lymphadenopathy. - Chest: emphysematous chest noted. - Abdomen: soft, nontender, no hepatomegaly, no splenomegaly. - No focal neuro deficit. - Extremities: no finger clubbing, mild right ankle edema.. Laboratory Results Last 24 Hours Test 06/01/18 20:30 06/02/18 03:36 06/02/18 07:55 06/02/18 12:22 Bedside Glucose 130 mg/dl 234 mg/dl 199 mg/dl White Blood Count 0.17 K/uL Red Blood Count 2.12 M/uL Hemoglobin 8.3 g/dL Hematocrit 25.6 % Mean Corpuscular Volume 120.8 fL Mean Corpuscular Hemoglobin 39.2 pg Mean Corpuscular Hemoglobin Concent 32.4 g/dl RDW Standard Deviation 78.8 fL RDW Coefficient of Variation 17.7 % Platelet Count 11 K/uL Platelet Estimate SIGNIFIC DECREASED Sodium Level 133 mmol/L Potassium Level 4.3 mmol/L Chloride Level 104 mmol/L Carbon Dioxide Level 23 mmol/L Anion Gap 6.0 mmol/L Blood Urea Nitrogen 19 mg/dl Creatinine 1.03 mg/dl Est Creatinine Clear Calc Drug Dose 65.2 ml/min Estimated GFR () 84.3 Estimated GFR (Non- 72.7 BUN/Creatinine Ratio 18.2 Random Glucose 164 mg/dl Calcium Level 7.6 mg/dl Magnesium Level 1.9 mg/dl Total Bilirubin 1.8 mg/dl Aspartate Amino Transf (AST/SGOT) 10 U/L Alanine Aminotransferase (ALT/SGPT) 38 U/L Alkaline Phosphatase 52 U/L Total Protein 6.5 gm/dl Albumin 2.7 gm/dl Globulin 3.8 gm/dl Albumin/Globulin Ratio 0.7 Test 06/02/18 16:30 Bedside Glucose 183 mg/dl Assessment & Plan ASSESSMENT and PLAN: 72-year-old male, who had left lower lobe non-small cell lung cancer (squamous cell carcinoma) T2a N0 M0, S/P SBRT in June 2017. Now he has new primary tumor in the form of small-cell lung cancer involving the right lower lobe measuring 1.5 cm, no evidence of distant metastatic noted, started him on systemic chemotherapy with Carboplatin Etoposide, received 1st cycle of chemotherapy on 05/26/2018, he did receive prophylactic Neulasta. Now admitted in the hospital for significant odynophagia, found to have oral thrush, blood workup also shows evidence of significant neutropenia, he is receiving broad-spectrum antibiotic along with antifungal Diflucan, significant improvement of his clinical condition noted in the last 24 hour, hemodynamically stable, blood culture result pending. His platelet count dropped down to around 11,000 as of today, no new bleeding comparisons, received platelet transfusion today. I am expecting improvement of his clinical condition in the next 1 to 2 days, as he received prophylactic Neulasta, I would not recommend additional Neupogen support at this time. Would like to keep the platelet count about 20,000. If he is hemoglobin level dropped down to less than 7, will consider for blood transfusion support. He does not require irradiated blood products support. Thanks for the consultation. Ethan Bethea MD Hem/Onc
[2018-06-02] MEDS: TAMSULOSIN HCL 0.4 MG CAP PO SCH (21:16)
--- NOTE | 2018-06-02 21:46 | Progress Note ---
Medicine Progress Note Date & Time of Visit: Jun 02, 2018 at 12:20 . Subjective CC: Follow-up visit for neutropenic fever and other problems. HPI: Febrile last night, but no fever, chills, sweats this morning. Frequent cough, productive of clear-yellow mucus. Stomatitis, pharyngitis, odynophagia somewhat better. No headache, abdominal pain, nausea, vomiting, dysuria. ROS: General- as noted above in HPI Resp- as noted above in HPI Cardiac- no chest pain, no edema GI- as noted above in HPI - as noted above in HPI . Objective Last 8 Hrs Date Time Temp Pulse Resp B/P (MAP) Pulse Ox O2 Delivery O2 Flow Rate FiO2 06/02/18 18:57 36.7 101 20 109/65 (80) 100 Room Air 06/02/18 18:00 36.4 97 20 105/67 (80) 100 Room Air 06/02/18 16:59 36.7 100 22 109/67 (81) 100 Nasal Cannula 1.0 06/02/18 16:30 36.7 100 20 112/64 (80) 99 Nasal Cannula 1.0 06/02/18 16:00 36.6 103 20 137/78 (97) 100 Nasal Cannula 1.0 06/02/18 15:45 36.6 106 22 136/75 (95) 100 Nasal Cannula 1.0 06/02/18 15:24 36.6 102 20 126/74 96 1.0 06/02/18 15:15 36.8 102 19 109/67 (81) 100 Nasal Cannula 1.0 Physical Exam: General- lying in bed, no distress Eyes- anicteric ENT- oral thrush Lungs- scattered rhonchi, diffuse wheezing, less tachypneic; no respiratory distress Cardiovascular- distant heart sounds, RRR, less tachycardic; no murmur or gallop appreciated; no JVD; no pretibial edema Abdomen- + bowel sounds, soft, nontender Extremities- no cyanosis; no calf tenderness Neuro- alert, oriented Skin- warm & dry . Laboratory Results: Last 24 Hours Test 06/02/18 03:36 06/02/18 07:55 06/02/18 12:22 06/02/18 16:30 White Blood Count 0.17 K/uL Red Blood Count 2.12 M/uL Hemoglobin 8.3 g/dL Hematocrit 25.6 % Mean Corpuscular Volume 120.8 fL Mean Corpuscular Hemoglobin 39.2 pg Mean Corpuscular Hemoglobin Concent 32.4 g/dl RDW Standard Deviation 78.8 fL RDW Coefficient of Variation 17.7 % Platelet Count 11 K/uL Platelet Estimate SIGNIFIC DECREASED Sodium Level 133 mmol/L Potassium Level 4.3 mmol/L Chloride Level 104 mmol/L Carbon Dioxide Level 23 mmol/L Anion Gap 6.0 mmol/L Blood Urea Nitrogen 19 mg/dl Creatinine 1.03 mg/dl Est Creatinine Clear Calc Drug Dose 65.2 ml/min Estimated GFR () 84.3 Estimated GFR (Non- 72.7 BUN/Creatinine Ratio 18.2 Random Glucose 164 mg/dl Calcium Level 7.6 mg/dl Magnesium Level 1.9 mg/dl Total Bilirubin 1.8 mg/dl Aspartate Amino Transf (AST/SGOT) 10 U/L Alanine Aminotransferase (ALT/SGPT) 38 U/L Alkaline Phosphatase 52 U/L Total Protein 6.5 gm/dl Albumin 2.7 gm/dl Globulin 3.8 gm/dl Albumin/Globulin Ratio 0.7 Bedside Glucose 234 mg/dl 199 mg/dl 183 mg/dl Test 06/02/18 20:15 Bedside Glucose 189 mg/dl Assessment & Plan NEUTROPENIC FEVER Most likely secondary to pulmonary source. Imaging by plain film and CT demonstrate densities at both bases, but some of these may be chronic. Has implanted vascular access device-consider line sepsis. Has severe odynophagia, suspect Darlyn esophagitis, but consider other etiologies such as HSV or CMV. Blood cultures obtained in the ED. Patient receiving IV vancomycin, levofloxacin, cefepime, fluconazole. ID consulted. SEPSIS Met criteria for sepsis per current CMS definition (fever, tachycardia, tachypnea, leukopenia). Suspected pulmonary source as discussed above. Serum lactate 1.47; no need to repeat. Systolic blood pressures greater than 90. Blood cultures obtained in the ED and received broad-spectrum antibiotic coverage initially with piperacillin/tazobactam and subsequent antibiotics as discussed above. ORAL THRUSH Severe oral thrush and odynophagia, suspect esophageal candidiasis. Has been receiving prednisone for COPD and recent chemotherapy. Continue oral nystatin suspension swish and swallow and IV fluconazole. PANCYTOPENIA Pancytopenia secondary to chemotherapy. CBC at time of admission demonstrated hemoglobin 9.9, white count 230, platelet count 31,000. CBC this morning = hemoglobin 8.3, white count 170, platelet count 11,000. Hematology/Oncology consulted. Received Neulasta last week. Platelet transfusion recommended. Transfuse packed RBCs as necessary to maintain hemoglobin greater than 7-8. 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 Management per Hematology/Oncology. CORONARY ARTERY DISEASE No anginal symptoms. Hold aspirin due to thrombocytopenia. Not on beta-lauren at this time. CHF History of chronic diastolic CHF. Chest x-ray last night demonstrated vascular congestion = acute on chronic left ventricular diastolic heart failure. Received IV furosemide this morning with good diuresis. COPD Continue IV methylprednisolone and bronchodilators. Taper prednisone as able. GERD Continue PPI. BPH Continue finasteride and tamsulosin. DM TYPE 2 Check hemoglobin A1c. Fasting blood sugar this morning = 234. Lantus / NovoLog per protocol. VTE PROPHYLAXIS No anticoagulants due to thrombocytopenia. SCDs. Ambulate as able. RESUSCITATION STATUS DNR. DISPOSITION To be determined. Family Medicine follow-up with Dr. Gordon. Hematology/Oncology follow-up with Dr. Ethan Bethea. visiting today and given update. She requested that I contact gerardofransisco Toshia Encinas ([phone]) and give her an update. . Current Inpatient Medications: Current Inpatient Medications Medications (Trade) Dose Ordered Sig/Timbo Route Start Time Stop Time Status Last Admin Dose Admin Ioversol (Optiray 320) 100 ml UD PRN IV 06/01/18 13:15 06/05/18 13:14 Acetaminophen (Tylenol Tab) 650 mg Q4H PRN PO 06/01/18 15:15 07/01/18 15:14 06/01/18 18:36 650 MG Ondansetron HCl (Zofran Inj) 4 mg Q6H PRN IV 06/01/18 15:15 07/01/18 15:14 Nystatin (Mycostatin Susp) 10 ml QID PO 06/01/18 17:00 06/11/18 16:59 06/02/18 21:17 10 ML Aspirin (Ecotrin Tab) 81 mg QAM PO 06/02/18 08:00 07/02/18 08:59 06/02/18 08:07 81 MG Budesonide/ Formoterol Fumarate (Symbicort 160/ 4.5 Inh) 2 puffs BID INH 06/01/18 20:00 07/01/18 20:59 06/02/18 21:16 2 PUFFS Bupropion HCl (Wellbutrin Tab) 150 mg BID PO 06/01/18 20:00 07/01/18 20:59 06/02/18 21:16 150 MG Finasteride (Proscar Tab) 5 mg DAILY PO 06/02/18 08:00 07/02/18 08:59 06/02/18 08:05 5 MG Gabapentin (Neurontin Cap) 200 mg TID PO 06/01/18 20:00 07/01/18 20:59 06/02/18 21:17 200 MG Pantoprazole Sodium (Protonix Tab) 40 mg QAM PO 06/02/18 08:00 07/02/18 08:59 06/02/18 08:07 40 MG Prochlorperazine Maleate (Compazine Tab) 10 mg Q6H PRN PO 06/01/18 15:30 07/01/18 15:29 Tamsulosin HCl (Flomax Cap) 0.4 mg HS PO 06/01/18 21:00 07/01/18 20:59 06/02/18 21:16 0.4 MG Pramipexole Dihydrochloride (miraPEX TAB) 1 mg TID PO 06/01/18 20:00 07/01/18 20:59 06/02/18 21:16 1 MG Levofloxacin 750 mg/Prmx 150 ml @ 100 mls/hr Q24H IV 06/01/18 17:00 06/08/18 16:59 06/02/18 17:43 100 MLS/HR Fluconazole/ Sodium Chloride 200 mg/Prmx 100 ml @ 100 mls/hr Q24H IV 06/01/18 17:00 06/11/18 16:59 06/02/18 17:47 100 MLS/HR Vancomycin HCl (Consult) 1 ea UD PRN N/A 06/01/18 16:30 07/01/18 16:29 Insulin Aspart (novoLOG ASPART) SLIDING SCALE If C... ACHS SC 06/01/18 21:00 07/01/18 20:59 06/02/18 21:18 1 UNITS Glucose (Glucose 40% Gel) 15-30 GRAMS 15 GRAMS... UD PRN PO 06/01/18 16:15 07/01/18 16:14 Glucose (Glucose Chew Tab) 4-8 Tablets 4 Tabl... UD PRN PO 06/01/18 16:15 07/01/18 16:14 Dextrose (Dextrose 50% 50ML Syringe) 25-50ML 25ML FOR ... UD PRN IV 06/01/18 16:15 07/01/18 16:14 Glucagon (Glucagon Inj) 1 mg UD PRN SQ 06/01/18 16:15 07/01/18 16:14 Carbohydrates (Carbohydrates For Hypoglycemia) 15-30 GRAMS 15 grams if BSG 54-69... UD PRN PO 06/01/18 16:15 07/01/18 16:14 Cefepime HCl 2000 mg/Syringe 20 ml @ 5 mls/min Q12H IV 06/01/18 18:00 06/08/18 17:59 06/02/18 17:42 5 MLS/MIN Vancomycin HCl 1250 mg/Sodium Chloride 275 ml @ 125 mls/hr Q16H IV 06/02/18 08:00 06/09/18 07:59 06/02/18 08:05 125 MLS/HR Acetaminophen 100 ml @ 400 mls/hr Q8H PRN IV 06/01/18 20:00 07/01/18 19:59 06/01/18 23:17 400 MLS/HR Heparin Sodium (Porcine) (Heparin 100 Unit/ml 5ml Flush) 5 ml PRN PRN IV 06/01/18 23:00 07/01/18 22:59 Levalbuterol (Xopenex 0.63 Mg/ 3 Ml Neb) 0.63 mg Q6H PRN INH 06/01/18 23:15 07/01/18 23:14 Methylprednisolone Sodium Succinate 20 mg/Syringe 0.32 ml @ 1.5 mls/min Q8 IV 06/02/18 06:00 07/02/18 05:59 06/02/18 21:16 1.5 MLS/MIN Hydromorphone HCl (Dilaudid Inj) 0.5 mg Q2H PRN IV 06/02/18 00:15 06/16/18 00:14 06/02/18 21:29 0.5 MG Potassium Chloride/Dextrose/ Sod Cl 1,000 ml @ 100 mls/hr Q10H IV 06/02/18 14:00 07/02/18 13:59 06/02/18 14:24 100 MLS/HR
[2018-06-03] VITALS (18 sets, daily range): BP systolic 108–174; BP diastolic 62–93; PULSE 100–124; TEMP 36.3–39.6; O2SAT 91–100
[2018-06-03] MEDS: HYDROmorphone INJ 0.5 MG/0.5 ML SYR IV PRN ×4 (00:24→18:16)
[2018-06-03] MEDS: CEFEPIME IV 2,000 MG in SYRINGE 7.5 ML IV SCH ×2 (05:40→18:16)
[2018-06-03] MEDS: METHYLPREDNISOLONE IV 20 MG in SYRINGE 0 ML IV SCH ×3 (05:40→21:58)
[2018-06-03 06:15] LABS: PLATELET COUNT 17 K/uL (130-400)
[2018-06-03 06:29] LABS: CALCIUM 8.1 mg/dl (8.5-10.1); CREATININE 0.94 mg/dl (0.60-1.40); POTASSIUM 4.1 mmol/L (3.5-5.1)
[2018-06-03 06:33] LABS: HEMATOCRIT 19.8 % (42-52); HEMOGLOBIN 6.8 g/dL (14.0-18.0); MEAN CELL VOLUME 116.5 fL (80-100); MEAN CORPUSCULAR HGB CONC 34.3 g/dl (32-36); MEAN PLATELET VOLUME 8.6 fL (7.4-10.4); RED CELL DISTRIBUTION WIDTH CV 16.3 % (11.5-14.5)
[2018-06-03 06:54] LABS: HEMOGLOBIN A1C 7.4 % (4.5-5.6)
[2018-06-03] MEDS ORDERED: ACETAMINOPHEN 325 MG TAB PO PRN ×2 (07:15→11:00)
[2018-06-03] MEDS: PANTOprazole INJ 40 MG in SYRINGE 0 ML IV SCH ×2 (08:00→20:31)
[2018-06-03] MEDS: BUDESONIDE/FORMOTEROL FUMARATE 160/4.5 60 PUFFS/INHALER INH SCH ×2 (08:01→20:29)
[2018-06-03] MEDS: ASPIRIN 81 MG ECTAB PO SCH (08:01)
[2018-06-03] MEDS: PRAMIPEXOLE DIHYDROCHLORIDE 0.5 MG TAB PO SCH ×3 (08:01→20:29)
[2018-06-03] MEDS: GABAPENTIN 100 MG CAP PO SCH ×3 (08:01→20:29)
[2018-06-03] MEDS: FINASTERIDE 5 MG TAB PO SCH (08:02)
[2018-06-03] MEDS: NYSTATIN SUSP 500,000 U/5 ML UDC PO SCH ×4 (08:02→20:29)
[2018-06-03] MEDS: INSULIN ASPART 100 UNITS/ML 3 ML PEN SC SCH ×4 (08:20→20:31)
--- NOTE | 2018-06-03 08:58 | Clinical Documentation Query ---
CLINICAL DOCUMENTATION QUERY Daily progress notes are stating sepsis from suspected pulmonary source. Query #1/2 In your clinical opinion is this patient being managed for: ( x ) Possible Pneumonia ( ) Not Agree ( ) Other explanation of clinical findings (No explanation is considered a No Response) ( ) Unable to determine ( ) Need to Discuss (Phone CDS or qliq) (No discussion is considered a No Response) The medical record reflects the following clinical findings, treatment, and risk factors. Clinical Indicators: Fever 39.5, tachycardia 126, Chest CT showing left lower lobe airspace opacities with air bronchograms suspicious for pneumonia. Treatment: IV Vancomycin, IV Levofloxacin, IV Fluconazole, IV Cefepime, IV Solumedrol Risk Factors: Age, lung CA, COPD Query #2/2 In your clinical opinion is this patient being managed for: ( x ) Acute diastolic (congestive) heart failure ( ) Not Agree ( ) Other explanation of clinical findings (No explanation is considered a No Response) ( ) Unable to determine ( ) Need to Discuss (Phone CDS or qliq) (No discussion is considered a No Response) The medical record reflects the following clinical findings, treatment, and risk factors. Clinical Indicators: Echo from 06/07/13 showed normal LVEF with grade I diastolic dysfunction. CXR 06/01 showed developing components of congestive failure with bibasilar infiltrative changes. Treatment: IV Lasix Risk Factors: Age, Sepsis, tachycardia, pneumonia Please clarify and document your clinical opinion in the progress notes and discharge summary. Terms such as "probable", "suspected", "likely", "questionable", "possible", or "still to be ruled out" are acceptable. IF IN AGREEMENT, YOU MUST DOCUMENT ABOVE DIAGNOSTIC STATEMENT IN DAILY PROGRESS NOTES AND DISCHARGE SUMMARY. This document is not part of the patient's record. Thank You, Dao Larose, RN [phone] & via [email or web address] VALLEY MEDICAL CENTERECT
[2018-06-03 09:10] LABS: RETIC COUNT % < 0.5 % (0.5-2.0)
[2018-06-03] MEDS ORDERED: FUROSEMIDE INJ 20 MG in SYRINGE 0 ML IV PRN (11:00)
--- NOTE | 2018-06-03 13:50 | Pulmonology Progress Note ---
Pulmonary Progress Note Date of Service Jun 03, 2018. Attending Dr. Herron Subjective Patient does note improvement in his overall respiratory status as well as energy level. Continues to have some dyspnea on exertion. Objective Patient is sitting up in a chair today having full conversation showing no signs of respiratory insufficiency. He notes his respiratory status is greatly improved since his admission. He still has dyspnea with exertion at this time. 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, newly diagnosed small cell lung CA right lower PsHx: Back surgery, CABG, carotid thromboendarterectomy, PTCA (07/01/2012)/ stent placement, femoral popliteal bypass, right common femoral artery endarterectomy, Maze procedure, lumbar spinal surgery Vital signs: T-max 36.7 Respiratory: Inspiratory expiratory wheezing/rhonchi appreciated Cardiac: S1-S2 but distant heart sounds tachycardic Abdomen: Mildly distended but positive bowel sounds soft no tenderness appreciated Extremities: Minimal edema at the dependent regions Work-up EKG 06/03/2018: Sinus tachycardia rate 104 WBC: 0.10K PLT: 17K Current Pulmonary Medications: 1. Pantoprazole 40 mg 2. Vancomycin IV 3. Methylprednisolone 20 mg q.8 hours 4. Xopenex nebulizer 5. Symbicort 160-4.5 6. Cefepime 2 g Q 12 7. Levofloxacin 750 mg Assessment & Plan 72-year-old male admitted with neutropenic fever and recently started on chemotherapy secondary to small cell lung carcinoma the right lower lobe: 1. Neutropenic fever: Infectious disease currently monitoring the patient and he is being treated with cefepime, levofloxacin and vancomycin. His had a defervesced since of his fever and is clinically responding well. No significant microbiologic growth is noted. The patient's MRSA nasal screen is notably negative. Will defer to ID if they would like to discontinue vancomycin are continue as the patient is notably having neutropenic fevers. 2. Right lower lobe: Patient recently underwent biopsy right lower lobe with diagnosis of small cell lung CA with no evidence of distant metastatic disease started on systemic chemotherapy with carboplatin/etoposide receiving 1st cycle on 05/26/2018. He is currently being followed by Dr. Bethea from the [facility] in receiving prophylactic Neulasta. 3. Left lower lobe: History of squamous cell carcinoma underwent chemoradiation with approximately 6000 cGy. 4. COPD: Patient has moderate COPD based off FEV1 of 66% but abnormally low DLCO. This time the patient is responding overall very well to current therapy as far as his respiratory status goes and I will decrease his steroids to 40 mg prednisone daily starting on 07/01/2018. Data Medications: Current Inpatient Medications Medications (Trade) Dose Ordered Sig/Timbo Route Start Time Stop Time Status Last Admin Dose Admin Ioversol (Optiray 320) 100 ml UD PRN IV 06/01/18 13:15 06/05/18 13:14 Acetaminophen (Tylenol Tab) 650 mg Q4H PRN PO 06/01/18 15:15 07/01/18 15:14 06/01/18 18:36 650 MG Ondansetron HCl (Zofran Inj) 4 mg Q6H PRN IV 06/01/18 15:15 07/01/18 15:14 Nystatin (Mycostatin Susp) 10 ml QID PO 06/01/18 17:00 06/11/18 16:59 06/03/18 11:50 10 ML Aspirin (Ecotrin Tab) 81 mg QAM PO 06/02/18 08:00 07/02/18 08:59 06/03/18 08:01 81 MG Budesonide/ Formoterol Fumarate (Symbicort 160/ 4.5 Inh) 2 puffs BID INH 06/01/18 20:00 07/01/18 20:59 06/03/18 08:01 2 PUFFS Bupropion HCl (Wellbutrin Tab) 150 mg BID PO 06/01/18 20:00 07/01/18 20:59 06/03/18 08:02 150 MG Finasteride (Proscar Tab) 5 mg DAILY PO 06/02/18 08:00 07/02/18 08:59 06/03/18 08:02 5 MG Gabapentin (Neurontin Cap) 200 mg TID PO 06/01/18 20:00 07/01/18 20:59 06/03/18 08:01 200 MG Prochlorperazine Maleate (Compazine Tab) 10 mg Q6H PRN PO 06/01/18 15:30 07/01/18 15:29 Tamsulosin HCl (Flomax Cap) 0.4 mg HS PO 06/01/18 21:00 07/01/18 20:59 06/02/18 21:16 0.4 MG Pramipexole Dihydrochloride (miraPEX TAB) 1 mg TID PO 06/01/18 20:00 07/01/18 20:59 06/03/18 08:01 1 MG Levofloxacin 750 mg/Prmx 150 ml @ 100 mls/hr Q24H IV 06/01/18 17:00 06/08/18 16:59 06/02/18 17:43 100 MLS/HR Fluconazole/ Sodium Chloride 200 mg/Prmx 100 ml @ 100 mls/hr Q24H IV 06/01/18 17:00 06/11/18 16:59 06/02/18 17:47 100 MLS/HR Vancomycin HCl (Consult) 1 ea UD PRN N/A 06/01/18 16:30 07/01/18 16:29 Insulin Aspart (novoLOG ASPART) SLIDING SCALE If C... ACHS SC 06/01/18 21:00 07/01/18 20:59 06/03/18 12:30 4 UNITS Glucose (Glucose 40% Gel) 15-30 GRAMS 15 GRAMS... UD PRN PO 06/01/18 16:15 07/01/18 16:14 Glucose (Glucose Chew Tab) 4-8 Tablets 4 Tabl... UD PRN PO 06/01/18 16:15 07/01/18 16:14 Dextrose (Dextrose 50% 50ML Syringe) 25-50ML 25ML FOR ... UD PRN IV 06/01/18 16:15 07/01/18 16:14 Glucagon (Glucagon Inj) 1 mg UD PRN SQ 06/01/18 16:15 07/01/18 16:14 Carbohydrates (Carbohydrates For Hypoglycemia) 15-30 GRAMS 15 grams if BSG 54-69... UD PRN PO 06/01/18 16:15 07/01/18 16:14 Cefepime HCl 2000 mg/Syringe 20 ml @ 5 mls/min Q12H IV 06/01/18 18:00 06/08/18 17:59 06/03/18 05:40 5 MLS/MIN Vancomycin HCl 1250 mg/Sodium Chloride 275 ml @ 125 mls/hr Q16H IV 06/02/18 08:00 06/09/18 07:59 06/02/18 22:53 125 MLS/HR Acetaminophen 100 ml @ 400 mls/hr Q8H PRN IV 06/01/18 20:00 07/01/18 19:59 06/01/18 23:17 400 MLS/HR Heparin Sodium (Porcine) (Heparin 100 Unit/ml 5ml Flush) 5 ml PRN PRN IV 06/01/18 23:00 07/01/18 22:59 06/03/18 10:08 5 ML Levalbuterol (Xopenex 0.63 Mg/ 3 Ml Neb) 0.63 mg Q6H PRN INH 06/01/18 23:15 07/01/18 23:14 Methylprednisolone Sodium Succinate 20 mg/Syringe 0.32 ml @ 1.5 mls/min Q8 IV 06/02/18 06:00 07/02/18 05:59 06/03/18 05:40 1.5 MLS/MIN Hydromorphone HCl (Dilaudid Inj) 0.5 mg Q2H PRN IV 06/02/18 00:15 06/16/18 00:14 06/03/18 11:47 0.5 MG Pantoprazole Sodium 40 mg/ Syringe 10 ml @ 5 mls/min DAILY@09,21 IV 06/03/18 09:00 07/03/18 08:59 06/03/18 08:00 5 MLS/MIN Acetaminophen (Tylenol Tab) 650 mg ONE PRN PO 06/03/18 07:15 06/03/18 23:59 06/03/18 13:02 650 MG Acetaminophen (Tylenol Tab) 650 mg ONE PRN PO 06/03/18 11:00 07/03/18 10:59 Furosemide 20 mg/ Syringe 2 ml @ 4 mls/min ONE PRN IV 06/03/18 11:00 07/03/18 10:59 06/03/18 13:03 4 MLS/MIN I & O: 24-Hour Column 06/04/18 08:00 Intake Total 198 ml Balance 198 ml Vital Signs: Date Time Temp Pulse Resp B/P (MAP) Pulse Ox O2 Delivery O2 Flow Rate FiO2 06/03/18 13:29 36.7 113 127/72 (90) 100 06/03/18 13:10 36.6 116 20 116/64 100 06/03/18 10:00 36.5 116 18 137/66 96 06/03/18 09:20 36.5 124 22 135/87 100 2.0 06/03/18 08:40 36.6 115 21 129/80 100 1.5 06/03/18 08:38 36.7 117 22 145/87 100 1.5 06/03/18 08:23 36.7 116 22 174/93 100 1.5 06/03/18 08:00 100 Nasal Cannula 1.0 06/03/18 07:09 36.6 105 18 119/76 (90) 100 1.0 06/03/18 03:58 36.4 124 20 140/74 (96) 98 Nasal Cannula 1.5 06/02/18 23:31 36.7 110 22 154/74 (100) 98 Nasal Cannula 1.5 06/02/18 21:30 97 Nasal Cannula 1.0 06/02/18 18:57 36.7 101 20 109/65 (80) 100 Room Air 06/02/18 18:00 36.4 97 20 105/67 (80) 100 Room Air 06/02/18 16:59 36.7 100 22 109/67 (81) 100 Nasal Cannula 1.0 06/02/18 16:30 36.7 100 20 112/64 (80) 99 Nasal Cannula 1.0 06/02/18 16:00 36.6 103 20 137/78 (97) 100 Nasal Cannula 1.0 06/02/18 15:45 36.6 106 22 136/75 (95) 100 Nasal Cannula 1.0 06/02/18 15:24 36.6 102 20 126/74 96 1.0 06/02/18 15:15 36.8 102 19 109/67 (81) 100 Nasal Cannula 1.0 Laboratory Results: Last 24 Hours Test 06/02/18 16:30 06/02/18 20:15 06/03/18 05:36 06/03/18 07:34 Bedside Glucose 183 mg/dl 189 mg/dl White Blood Count 0.10 K/uL Red Blood Count 1.70 M/uL Hemoglobin 6.8 g/dL Hematocrit 19.8 % Mean Corpuscular Volume 116.5 fL Mean Corpuscular Hemoglobin 40.0 pg Mean Corpuscular Hemoglobin Concent 34.3 g/dl RDW Standard Deviation 69.0 fL RDW Coefficient of Variation 16.3 % Platelet Count 17 K/uL Mean Platelet Volume 8.6 fL Sodium Level 135 mmol/L Potassium Level 4.1 mmol/L Chloride Level 103 mmol/L Carbon Dioxide Level 26 mmol/L Anion Gap 6.0 mmol/L Blood Urea Nitrogen 19 mg/dl Creatinine 0.94 mg/dl Est Creatinine Clear Calc Drug Dose 72.0 ml/min Estimated GFR () 94.2 Estimated GFR (Non- 81.2 BUN/Creatinine Ratio 20.7 Random Glucose 185 mg/dl Estimated Average Glucose 166 mg/dl Hemoglobin A1c 7.4 % Calcium Level 8.1 mg/dl Magnesium Level 1.8 mg/dl Iron Level 115 mcg/dl Transferrin 121 mg/dl Transferrin % Saturation 67 % Ferritin 1192.4 ng/ml Lactate Dehydrogenase 204 U/L Vitamin B12 Level 324 pg/mL Folate 15.14 ng/mL Test 06/03/18 07:40 06/03/18 07:44 06/03/18 11:51 Absolute Reticulocyte Count < 0.02 10^6/uL Percent Reticulocyte Count < 0.5 % Bedside Glucose 195 mg/dl 225 mg/dl
--- NOTE | 2018-06-03 14:48 | Progress Note ---
Subjective Date of Service: Jun 03, 2018. Subjective Pt evaluation today including: conversation w/ patient, conversation w/ family , physical exam, chart review, lab review pt seen in followup, doing much better. counts remain low, no additional g csf planned. afebrile overnight. cough resolving. still with sore throat, throat culture nml chino. blood cultures negative. tolerating abx. no abd pain, no n/v/ d. no cp, no sob, O2 removed. all remaining ros reviewed and are negative. Problem List Medical Problems: (1) Acute febrile illness Status: Acute (2) Calculus Of Kidney Status: Chronic (3) Carotid Artery Occlusion W O Cerebral Infarction Status: Chronic (4) Chr Airway Obstruct Nec Status: Chronic (5) COPD with exacerbation Status: Acute (6) Coron Atheroscler Nos Type Vessel, [place] Or Graft Status: Chronic (7) Dehydration Status: Acute (8) Diab Sofie Wo Compl, Type Ii Or Unspec Type, Not Uncntrld Status: Chronic (9) Difficulty swallowing Status: Acute (10) Diverticulosis Colon (W/O Ment Of Hemorrhage) Status: Chronic (11) Esophageal Reflux Status: Chronic (12) Hyperlipidemia Nec/Nos Status: Chronic (13) Hypertension Nos Status: Chronic (14) Leukocytosis Status: Acute (15) Neutropenia Status: Acute (16) PAD (peripheral artery disease) Status: Chronic (17) Pneumonia Status: Acute (18) Pneumonia Status: Acute (19) Renal Artery Aneurysm Status: Chronic (20) Tachycardia Status: Acute Objective Vital Signs Date Time Temp Pulse Resp B/P (MAP) Pulse Ox O2 Delivery O2 Flow Rate FiO2 06/03/18 14:10 36.3 100 154/84 99 06/03/18 13:29 36.7 113 127/72 (90) 100 06/03/18 13:20 39.6 116 124/72 06/03/18 13:10 36.6 116 20 116/64 100 06/03/18 10:00 36.5 116 18 137/66 96 06/03/18 09:20 36.5 124 22 135/87 100 2.0 06/03/18 08:40 36.6 115 21 129/80 100 1.5 06/03/18 08:38 36.7 117 22 145/87 100 1.5 06/03/18 08:23 36.7 116 22 174/93 100 1.5 06/03/18 08:00 100 Nasal Cannula 1.0 06/03/18 07:09 36.6 105 18 119/76 (90) 100 1.0 06/03/18 03:58 36.4 124 20 140/74 (96) 98 Nasal Cannula 1.5 06/02/18 23:31 36.7 110 22 154/74 (100) 98 Nasal Cannula 1.5 06/02/18 21:30 97 Nasal Cannula 1.0 06/02/18 18:57 36.7 101 20 109/65 (80) 100 Room Air 06/02/18 18:00 36.4 97 20 105/67 (80) 100 Room Air 06/02/18 16:59 36.7 100 22 109/67 (81) 100 Nasal Cannula 1.0 06/02/18 16:30 36.7 100 20 112/64 (80) 99 Nasal Cannula 1.0 06/02/18 16:00 36.6 103 20 137/78 (97) 100 Nasal Cannula 1.0 06/02/18 15:45 36.6 106 22 136/75 (95) 100 Nasal Cannula 1.0 06/02/18 15:24 36.6 102 20 126/74 96 1.0 06/02/18 15:15 36.8 102 19 109/67 (81) 100 Nasal Cannula 1.0 Physical Exam General Appearance: WD/WN, no apparent distress, + mild distress Eyes: EOMI Neck: supple Respiratory/Chest: lungs clear, normal breath sounds, no respiratory distress Cardiovascular: regular rate, rhythm, no edema Abdomen: non tender, soft Extremities: non-tender, no pedal edema Neurologic/Psychiatric: alert, oriented x 3 Skin: normal color Laboratory Results Item Value Date Time Throat Culture - Final Complete 06/01/18 1645 Pharyngeal Swab HEAVY NORMAL [place] Blood Culture - Preliminary Resulted 06/01/18 1100 Blood NO GROWTH TO DATE. Blood Culture - Preliminary Resulted 06/01/18 1100 Blood NO GROWTH TO DATE. Last 24 Hours Test 06/02/18 16:30 06/02/18 20:15 06/03/18 05:36 06/03/18 07:34 Bedside Glucose 183 mg/dl 189 mg/dl White Blood Count 0.10 K/uL Red Blood Count 1.70 M/uL Hemoglobin 6.8 g/dL Hematocrit 19.8 % Mean Corpuscular Volume 116.5 fL Mean Corpuscular Hemoglobin 40.0 pg Mean Corpuscular Hemoglobin Concent 34.3 g/dl RDW Standard Deviation 69.0 fL RDW Coefficient of Variation 16.3 % Platelet Count 17 K/uL Mean Platelet Volume 8.6 fL Sodium Level 135 mmol/L Potassium Level 4.1 mmol/L Chloride Level 103 mmol/L Carbon Dioxide Level 26 mmol/L Anion Gap 6.0 mmol/L Blood Urea Nitrogen 19 mg/dl Creatinine 0.94 mg/dl Est Creatinine Clear Calc Drug Dose 72.0 ml/min Estimated GFR () 94.2 Estimated GFR (Non- 81.2 BUN/Creatinine Ratio 20.7 Random Glucose 185 mg/dl Estimated Average Glucose 166 mg/dl Hemoglobin A1c 7.4 % Calcium Level 8.1 mg/dl Magnesium Level 1.8 mg/dl Iron Level 115 mcg/dl Transferrin 121 mg/dl Transferrin % Saturation 67 % Ferritin 1192.4 ng/ml Lactate Dehydrogenase 204 U/L Vitamin B12 Level 324 pg/mL Folate 15.14 ng/mL Test 06/03/18 07:40 06/03/18 07:44 06/03/18 11:51 Absolute Reticulocyte Count < 0.02 10^6/uL Percent Reticulocyte Count < 0.5 % Bedside Glucose 195 mg/dl 225 mg/dl Assessment and Plan (1) Neutropenic fever Assessment & Plan: continue current abx for now, follow counts and cultures. If continues to improve, will likely begin narrow abx. (2) PNA (pneumonia)
[2018-06-03] MEDS ORDERED: VANCOMYCIN TROUGH ONE (15:30)
[2018-06-03] MEDS: LEVOFLOXACIN / D5W 750 MG in PREMIXED IN D5W 150 ML IV SCH (16:46)
[2018-06-03] MEDS: FLUCONAZOLE / NSS 200 MG in PREMIXED NSS 100 ML IV SCH (16:46)
[2018-06-03] MEDS: VANCOMYCIN IV 1,250 MG in SODIUM CHLORIDE 0.9% 250ML 250 ML IV SCH (16:50)
[2018-06-03] MEDS: PROCHLORPERAZINE MALEATE 10 MG TAB PO PRN (18:15)
[2018-06-03] MEDS: TAMSULOSIN HCL 0.4 MG CAP PO SCH (20:31)
--- NOTE | 2018-06-03 20:38 | Pharmacy Progress Note ---
Pharmacy Abx Dose Short Note Date of Service Jun 03, 2018. Assessment & Plan Assessment 72 year old male receiving Vancomycin for treatment of neutropenic fever Day # 3 of antimicrobial therapy. Plan Item Value Date Time Vancomycin Level Trough 10.9 mcg/ml 06/03/18 1531 Vancomycin * Trough level of 10.9 mcg/mL is subtherapeutic * Change to 1250 mg IV every 14 hours * Goal trough level : 15 to 20 mcg/mL * Trough level ordered for: 06/05/18 @ 1030 Pharmacy will continue to follow and will adjust dose/frequency as necessary. Thank you.
--- NOTE | 2018-06-03 23:41 | Progress Note ---
Medicine Progress Note Date & Time of Visit: Jun 03, 2018 at 11:30 . Subjective CC: Follow-up visit for neutropenic fever and other problems. HPI: Better. No fever or chills last night. Cough improved. No SOB. No chest pain. Stomatitis, pharyngitis, odynophagia better. No headache, abdominal pain, nausea, vomiting, dysuria. ROS: General- as noted above in HPI Resp- as noted above in HPI Cardiac- no chest pain, no edema GI- as noted above in HPI - as noted above in HPI . Objective Last 8 Hrs Date Time Temp Pulse Resp B/P (MAP) Pulse Ox O2 Delivery O2 Flow Rate FiO2 06/03/18 22:57 36.6 106 20 108/62 (77) 91 Room Air 06/03/18 19:15 36.4 104 24 134/83 (100) 100 Room Air 06/03/18 17:28 100 Room Air 06/03/18 16:12 36.4 102 18 146/91 100 Physical Exam: General- sitting in chair, no distress Eyes- anicteric ENT- oral thrush improved Lungs- diffuse wheezing; no respiratory distress Cardiovascular- distant heart sounds, RRR; no murmur or gallop appreciated; no JVD; no pretibial edema Abdomen- + bowel sounds, soft, nontender Extremities- no cyanosis; no calf tenderness Neuro- alert, oriented Skin- warm & dry . Laboratory Results: Last 24 Hours Test 06/03/18 05:36 06/03/18 07:34 06/03/18 07:40 06/03/18 07:44 White Blood Count 0.10 K/uL Red Blood Count 1.70 M/uL Hemoglobin 6.8 g/dL Hematocrit 19.8 % Mean Corpuscular Volume 116.5 fL Mean Corpuscular Hemoglobin 40.0 pg Mean Corpuscular Hemoglobin Concent 34.3 g/dl RDW Standard Deviation 69.0 fL RDW Coefficient of Variation 16.3 % Platelet Count 17 K/uL Mean Platelet Volume 8.6 fL Sodium Level 135 mmol/L Potassium Level 4.1 mmol/L Chloride Level 103 mmol/L Carbon Dioxide Level 26 mmol/L Anion Gap 6.0 mmol/L Blood Urea Nitrogen 19 mg/dl Creatinine 0.94 mg/dl Est Creatinine Clear Calc Drug Dose 72.0 ml/min Estimated GFR () 94.2 Estimated GFR (Non- 81.2 BUN/Creatinine Ratio 20.7 Random Glucose 185 mg/dl Estimated Average Glucose 166 mg/dl Hemoglobin A1c 7.4 % Calcium Level 8.1 mg/dl Magnesium Level 1.8 mg/dl Iron Level 115 mcg/dl Transferrin 121 mg/dl Transferrin % Saturation 67 % Ferritin 1192.4 ng/ml Lactate Dehydrogenase 204 U/L Vitamin B12 Level 324 pg/mL Folate 15.14 ng/mL Absolute Reticulocyte Count < 0.02 10^6/uL Percent Reticulocyte Count < 0.5 % Bedside Glucose 195 mg/dl Test 06/03/18 11:51 06/03/18 15:35 06/03/18 16:41 06/03/18 20:09 Bedside Glucose 225 mg/dl 273 mg/dl 159 mg/dl Vancomycin Level Trough 10.9 mcg/ml Assessment & Plan NEUTROPENIC FEVER Possible pneumonia. Imaging by plain film and CT demonstrate densities at both bases, but some of these may be chronic. Has implanted vascular access device-consider line sepsis. Has severe odynophagia, suspect Darlyn esophagitis, but consider other etiologies such as HSV or CMV. Blood cultures obtained in the ED and negative so far. Patient receiving IV vancomycin, levofloxacin, cefepime, fluconazole. ID consulted. SEPSIS Met criteria for sepsis per current CMS definition (fever, tachycardia, tachypnea, leukopenia). Suspected pulmonary source as discussed above. Serum lactate 1.47; no need to repeat. Systolic blood pressures greater than 90. Blood cultures obtained in the ED and received broad-spectrum antibiotic coverage initially with piperacillin/tazobactam and subsequent antibiotics as discussed above. ORAL THRUSH Severe oral thrush and odynophagia, suspect esophageal candidiasis. Has been receiving prednisone for COPD and recent chemotherapy. Continue oral nystatin suspension swish and swallow and IV fluconazole. PANCYTOPENIA Pancytopenia secondary to chemotherapy. CBC at time of admission demonstrated hemoglobin 9.9, white count 230, platelet count 31,000. CBC this morning = hemoglobin 6.8, white count 100, platelet count 17,000. Hematology/Oncology consulted. Received Neulasta last week. Platelet transfusions recommended to keep plt count > 20,000- 2nd bag ordered. Transfuse packed RBCs as necessary to maintain hemoglobin greater than 7-8- transfuse 1 unit today. 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 Management per Hematology/Oncology. CORONARY ARTERY DISEASE No anginal symptoms. Hold aspirin due to thrombocytopenia. Not on beta-lauren at this time. CHF History of chronic diastolic CHF. Chest x-ray 06/01 demonstrated vascular congestion. Acute on chronic left ventricular diastolic heart failure. Received IV furosemide with improvement. COPD Continue IV methylprednisolone and bronchodilators. Taper steroids as able. GERD Continue PPI. BPH Continue finasteride and tamsulosin. DM TYPE 2 Check hemoglobin A1c. Fasting blood sugar this morning = 195. Lantus / NovoLog per protocol. VTE PROPHYLAXIS No anticoagulants due to thrombocytopenia. SCDs. Ambulate as able. RESUSCITATION STATUS DNR. DISPOSITION To be determined. Family Medicine follow-up with Dr. Gordon. Hematology/Oncology follow-up with Dr. Ethan Bethea. Shira Pope Huang ([phone]) to be given updates upon request per patient and his . . Current Inpatient Medications: Current Inpatient Medications Medications (Trade) Dose Ordered Sig/Timbo Route Start Time Stop Time Status Last Admin Dose Admin Ioversol (Optiray 320) 100 ml UD PRN IV 06/01/18 13:15 06/05/18 13:14 Acetaminophen (Tylenol Tab) 650 mg Q4H PRN PO 06/01/18 15:15 07/01/18 15:14 06/01/18 18:36 650 MG Ondansetron HCl (Zofran Inj) 4 mg Q6H PRN IV 06/01/18 15:15 07/01/18 15:14 Nystatin (Mycostatin Susp) 10 ml QID PO 06/01/18 17:00 06/11/18 16:59 06/03/18 20:29 10 ML Aspirin (Ecotrin Tab) 81 mg QAM PO 06/02/18 08:00 07/02/18 08:59 06/03/18 08:01 81 MG Budesonide/ Formoterol Fumarate (Symbicort 160/ 4.5 Inh) 2 puffs BID INH 06/01/18 20:00 07/01/18 20:59 06/03/18 20:29 2 PUFFS Bupropion HCl (Wellbutrin Tab) 150 mg BID PO 06/01/18 20:00 07/01/18 20:59 06/03/18 20:30 150 MG Finasteride (Proscar Tab) 5 mg DAILY PO 06/02/18 08:00 07/02/18 08:59 06/03/18 08:02 5 MG Gabapentin (Neurontin Cap) 200 mg TID PO 06/01/18 20:00 07/01/18 20:59 06/03/18 20:29 200 MG Prochlorperazine Maleate (Compazine Tab) 10 mg Q6H PRN PO 06/01/18 15:30 07/01/18 15:29 06/03/18 18:15 10 MG Tamsulosin HCl (Flomax Cap) 0.4 mg HS PO 06/01/18 21:00 07/01/18 20:59 06/03/18 20:31 0.4 MG Pramipexole Dihydrochloride (miraPEX TAB) 1 mg TID PO 06/01/18 20:00 07/01/18 20:59 06/03/18 20:29 1 MG Levofloxacin 750 mg/Prmx 150 ml @ 100 mls/hr Q24H IV 06/01/18 17:00 06/08/18 16:59 06/03/18 16:46 100 MLS/HR Fluconazole/ Sodium Chloride 200 mg/Prmx 100 ml @ 100 mls/hr Q24H IV 06/01/18 17:00 06/11/18 16:59 06/03/18 16:46 100 MLS/HR Vancomycin HCl (Consult) 1 ea UD PRN N/A 06/01/18 16:30 07/01/18 16:29 Insulin Aspart (novoLOG ASPART) SLIDING SCALE If C... ACHS SC 06/01/18 21:00 07/01/18 20:59 06/03/18 18:10 7 UNITS Glucose (Glucose 40% Gel) 15-30 GRAMS 15 GRAMS... UD PRN PO 06/01/18 16:15 07/01/18 16:14 Glucose (Glucose Chew Tab) 4-8 Tablets 4 Tabl... UD PRN PO 06/01/18 16:15 07/01/18 16:14 Dextrose (Dextrose 50% 50ML Syringe) 25-50ML 25ML FOR ... UD PRN IV 06/01/18 16:15 07/01/18 16:14 Glucagon (Glucagon Inj) 1 mg UD PRN SQ 06/01/18 16:15 07/01/18 16:14 Carbohydrates (Carbohydrates For Hypoglycemia) 15-30 GRAMS 15 grams if BSG 54-69... UD PRN PO 06/01/18 16:15 07/01/18 16:14 Cefepime HCl 2000 mg/Syringe 20 ml @ 5 mls/min Q12H IV 06/01/18 18:00 06/08/18 17:59 06/03/18 18:16 5 MLS/MIN Acetaminophen 100 ml @ 400 mls/hr Q8H PRN IV 06/01/18 20:00 07/01/18 19:59 06/01/18 23:17 400 MLS/HR Heparin Sodium (Porcine) (Heparin 100 Unit/ml 5ml Flush) 5 ml PRN PRN IV 06/01/18 23:00 07/01/18 22:59 06/03/18 10:08 5 ML Levalbuterol (Xopenex 0.63 Mg/ 3 Ml Neb) 0.63 mg Q6H PRN INH 06/01/18 23:15 07/01/18 23:14 Methylprednisolone Sodium Succinate 20 mg/Syringe 0.32 ml @ 1.5 mls/min Q8 IV 06/02/18 06:00 07/02/18 05:59 06/03/18 21:58 1.5 MLS/MIN Hydromorphone HCl (Dilaudid Inj) 0.5 mg Q2H PRN IV 06/02/18 00:15 06/16/18 00:14 06/03/18 18:16 0.5 MG Pantoprazole Sodium 40 mg/ Syringe 10 ml @ 5 mls/min DAILY@,21 IV 06/03/18 09:00 07/03/18 08:59 06/03/18 20:31 5 MLS/MIN Acetaminophen (Tylenol Tab) 650 mg ONE PRN PO 06/03/18 07:15 06/03/18 23:59 06/03/18 13:02 650 MG Acetaminophen (Tylenol Tab) 650 mg ONE PRN PO 06/03/18 11:00 07/03/18 10:59 Furosemide 20 mg/ Syringe 2 ml @ 4 mls/min ONE PRN IV 06/03/18 11:00 07/03/18 10:59 06/03/18 13:03 4 MLS/MIN Vancomycin HCl 1250 mg/Sodium Chloride 275 ml @ 125 mls/hr Q14H IV 06/04/18 07:00 06/09/18 06:59
[2018-06-04] VITALS (7 sets, daily range): BP systolic 106–131; BP diastolic 55–72; PULSE 77–99; TEMP 36.4–36.9; O2SAT 92–98
[2018-06-04 06:18] LABS: HEMATOCRIT 24.6 % (42-52); HEMOGLOBIN 8.4 g/dL (14.0-18.0); MEAN CELL VOLUME 107.4 fL (80-100); MEAN CORPUSCULAR HEMOGLOBIN 36.7 pg (25-34); MEAN CORPUSCULAR HGB CONC 34.1 g/dl (32-36); MEAN PLATELET VOLUME 9.2 fL (7.4-10.4); PLATELET COUNT 24 K/uL (130-400); RED CELL DISTRIBUTION WIDTH CV 23.3 % (11.5-14.5); RED CELL DISTRIBUTION WIDTH SD 87.9 fL (36.4-46.3); WHITE BLOOD COUNT 0.21 K/uL (4.8-10.8)
[2018-06-04 06:20] LABS: CALCIUM 8.5 mg/dl (8.5-10.1); CREATININE 1.03 mg/dl (0.60-1.40); POTASSIUM 4.2 mmol/L (3.5-5.1)
[2018-06-04] MEDS: CEFEPIME IV 2,000 MG in SYRINGE 7.5 ML IV SCH ×2 (06:23→16:35)
[2018-06-04] MEDS: METHYLPREDNISOLONE IV 20 MG in SYRINGE 0 ML IV SCH ×3 (06:23→21:08)
[2018-06-04] MEDS ORDERED: VANCOMYCIN IV 1,250 MG in SODIUM CHLORIDE 0.9% 250ML 250 ML IV SCH (07:00)
[2018-06-04] MEDS: BUDESONIDE/FORMOTEROL FUMARATE 160/4.5 60 PUFFS/INHALER INH SCH ×2 (08:03→20:42)
[2018-06-04] MEDS: NYSTATIN SUSP 500,000 U/5 ML UDC PO SCH ×4 (08:03→20:44)
[2018-06-04] MEDS: ASPIRIN 81 MG ECTAB PO SCH (08:04)
[2018-06-04] MEDS: FINASTERIDE 5 MG TAB PO SCH (08:04)
[2018-06-04] MEDS: PANTOprazole INJ 40 MG in SYRINGE 0 ML IV SCH ×2 (08:04→20:57)
[2018-06-04] MEDS: GABAPENTIN 100 MG CAP PO SCH ×3 (08:05→20:51)
[2018-06-04] MEDS: PRAMIPEXOLE DIHYDROCHLORIDE 0.5 MG TAB PO SCH ×3 (08:05→20:56)
[2018-06-04] MEDS: HYDROmorphone INJ 0.5 MG/0.5 ML SYR IV PRN ×4 (08:09→20:52)
[2018-06-04] MEDS: INSULIN ASPART 100 UNITS/ML 3 ML PEN SC SCH ×4 (08:18→21:07)
--- NOTE | 2018-06-04 14:02 | Pulmonology Progress Note ---
Pulmonary Progress Note Date of Service Jun 04, 2018. Attending Dr. 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, newly diagnosed small cell lung CA right lower PsHx: Back surgery, CABG, carotid thromboendarterectomy, PTCA (07/01/2012)/ stent placement, femoral popliteal bypass, right common femoral artery endarterectomy, Maze procedure, lumbar spinal surgery Vital signs: T-max 36.8 Respiratory: Inspiratory expiratory wheezing/rhonchi appreciated Cardiac: S1-S2 but distant heart sounds tachycardic Abdomen: Mildly distended but positive bowel sounds soft no tenderness appreciated Extremities: Minimal edema at the dependent regions Work-up EKG 06/03/2018: Sinus tachycardia rate 104 WBC: 0.21K PLT: 24K MRSA DNA nasal swab: Negative Current Pulmonary Medications: 1. Pantoprazole 40 mg 2. Vancomycin IV 3. Methylprednisolone 20 mg q.8 hours 4. Xopenex nebulizer 5. Symbicort 160-4.5 6. Cefepime 2 g Q 12 7. Levofloxacin 750 mg 8. Fluconazole 200 mg Q 24 Assessment & Plan 72-year-old male admitted with neutropenic fever and recently started on chemotherapy secondary to small cell lung carcinoma the right lower lobe: 1. Neutropenic Fever: Patient has been afebrile over the last 24 hours currently responding well to vancomycin, cefepime, levofloxacin and fluconazole. Will defer to Infectious Disease team for total length of antibiotic time. As for his thrush show total of 7-14 days fluconazole is recommended. At this time I would continue the fluconazole at least until the patient's neutropenia has resolved. 2. Right lower lobe: Patient recently underwent biopsy right lower lobe with diagnosis of small cell lung CA with no evidence of distant metastatic disease started on systemic chemotherapy with carboplatin/etoposide receiving 1st cycle on 05/26/2018. He is currently being followed by Dr. Bethea from the [facility] Oncology group in receiving prophylactic Neulasta. 3. Left lower lobe: History of squamous cell carcinoma underwent chemoradiation with approximately 6000 cGy. 4. COPD: Patient has moderate COPD based off FEV1 of 66% but abnormally low DLCO. Patient is responding well to therapy I have discontinued his IV methylprednisolone starting 06/05/2018 and switch to p.o. prednisone 40 mg daily at that time. Sign off: As the patient has notably improved the pulmonary team will sign off at this time please Re consult if clinical situation requires. Data Medications: Current Inpatient Medications Medications (Trade) Dose Ordered Sig/Timbo Route Start Time Stop Time Status Last Admin Dose Admin Ioversol (Optiray 320) 100 ml UD PRN IV 06/01/18 13:15 06/05/18 13:14 Acetaminophen (Tylenol Tab) 650 mg Q4H PRN PO 06/01/18 15:15 07/01/18 15:14 06/01/18 18:36 650 MG Ondansetron HCl (Zofran Inj) 4 mg Q6H PRN IV 06/01/18 15:15 07/01/18 15:14 Nystatin (Mycostatin Susp) 10 ml QID PO 06/01/18 17:00 06/11/18 16:59 06/04/18 12:00 10 ML Aspirin (Ecotrin Tab) 81 mg QAM PO 06/02/18 08:00 07/02/18 08:59 06/04/18 08:04 81 MG Budesonide/ Formoterol Fumarate (Symbicort 160/ 4.5 Inh) 2 puffs BID INH 06/01/18 20:00 07/01/18 20:59 06/04/18 08:03 2 PUFFS Bupropion HCl (Wellbutrin Tab) 150 mg BID PO 06/01/18 20:00 07/01/18 20:59 06/04/18 08:05 150 MG Finasteride (Proscar Tab) 5 mg DAILY PO 06/02/18 08:00 07/02/18 08:59 06/04/18 08:04 5 MG Gabapentin (Neurontin Cap) 200 mg TID PO 06/01/18 20:00 07/01/18 20:59 06/04/18 08:05 200 MG Prochlorperazine Maleate (Compazine Tab) 10 mg Q6H PRN PO 06/01/18 15:30 07/01/18 15:29 06/03/18 18:15 10 MG Tamsulosin HCl (Flomax Cap) 0.4 mg HS PO 06/01/18 21:00 07/01/18 20:59 06/03/18 20:31 0.4 MG Pramipexole Dihydrochloride (miraPEX TAB) 1 mg TID PO 06/01/18 20:00 07/01/18 20:59 06/04/18 08:05 1 MG Levofloxacin 750 mg/Prmx 150 ml @ 100 mls/hr Q24H IV 06/01/18 17:00 06/08/18 16:59 06/03/18 16:46 100 MLS/HR Fluconazole/ Sodium Chloride 200 mg/Prmx 100 ml @ 100 mls/hr Q24H IV 06/01/18 17:00 06/11/18 16:59 06/03/18 16:46 100 MLS/HR Vancomycin HCl (Consult) 1 ea UD PRN N/A 06/01/18 16:30 07/01/18 16:29 Insulin Aspart (novoLOG ASPART) SLIDING SCALE If C... ACHS SC 06/01/18 21:00 07/01/18 20:59 06/04/18 12:39 5 UNITS Glucose (Glucose 40% Gel) 15-30 GRAMS 15 GRAMS... UD PRN PO 06/01/18 16:15 07/01/18 16:14 Glucose (Glucose Chew Tab) 4-8 Tablets 4 Tabl... UD PRN PO 06/01/18 16:15 07/01/18 16:14 Dextrose (Dextrose 50% 50ML Syringe) 25-50ML 25ML FOR ... UD PRN IV 06/01/18 16:15 07/01/18 16:14 Glucagon (Glucagon Inj) 1 mg UD PRN SQ 06/01/18 16:15 07/01/18 16:14 Carbohydrates (Carbohydrates For Hypoglycemia) 15-30 GRAMS 15 grams if BSG 54-69... UD PRN PO 06/01/18 16:15 07/01/18 16:14 Cefepime HCl 2000 mg/Syringe 20 ml @ 5 mls/min Q12H IV 06/01/18 18:00 06/08/18 17:59 06/04/18 06:23 5 MLS/MIN Acetaminophen 100 ml @ 400 mls/hr Q8H PRN IV 06/01/18 20:00 07/01/18 19:59 06/01/18 23:17 400 MLS/HR Heparin Sodium (Porcine) (Heparin 100 Unit/ml 5ml Flush) 5 ml PRN PRN IV 06/01/18 23:00 07/01/18 22:59 06/03/18 10:08 5 ML Levalbuterol (Xopenex 0.63 Mg/ 3 Ml Neb) 0.63 mg Q6H PRN INH 06/01/18 23:15 07/01/18 23:14 Methylprednisolone Sodium Succinate 20 mg/Syringe 0.32 ml @ 1.5 mls/min Q8 IV 06/02/18 06:00 07/02/18 05:59 06/04/18 06:23 1.5 MLS/MIN Hydromorphone HCl (Dilaudid Inj) 0.5 mg Q2H PRN IV 06/02/18 00:15 06/16/18 00:14 06/04/18 11:49 0.5 MG Pantoprazole Sodium 40 mg/ Syringe 10 ml @ 5 mls/min DAILY@09,21 IV 06/03/18 09:00 07/03/18 08:59 06/04/18 08:04 5 MLS/MIN Acetaminophen (Tylenol Tab) 650 mg ONE PRN PO 06/03/18 11:00 07/03/18 10:59 Furosemide 20 mg/ Syringe 2 ml @ 4 mls/min ONE PRN IV 06/03/18 11:00 07/03/18 10:59 06/03/18 13:03 4 MLS/MIN Vancomycin HCl 1250 mg/Sodium Chloride 275 ml @ 125 mls/hr Q14H IV 06/04/18 07:00 06/09/18 06:59 06/04/18 06:23 125 MLS/HR I & O: 24-Hour Column 06/05/18 08:00 Intake Total 1020 ml Output Total 650 ml Balance 370 ml Vital Signs: Date Time Temp Pulse Resp B/P (MAP) Pulse Ox O2 Delivery O2 Flow Rate FiO2 06/04/18 11:52 36.6 77 20 115/68 (84) 97 06/04/18 08:00 95 Room Air 06/04/18 07:24 36.5 79 20 107/55 (72) 95 Room Air 06/04/18 04:15 36.8 83 20 131/72 (91) 98 Room Air 06/04/18 00:00 Room Air 06/03/18 22:57 36.6 106 20 108/62 (77) 91 Room Air 06/03/18 19:15 36.4 104 24 134/83 (100) 100 Room Air 06/03/18 17:28 100 Room Air 06/03/18 16:12 36.4 102 18 146/91 100 06/03/18 15:41 36.6 101 20 138/79 99 06/03/18 14:40 36.4 111 20 123/79 100 1.5 06/03/18 14:10 36.3 100 154/84 99 Laboratory Results: Last 24 Hours Test 06/03/18 15:35 06/03/18 16:41 06/03/18 20:09 06/04/18 05:35 Vancomycin Level Trough 10.9 mcg/ml Bedside Glucose 273 mg/dl 159 mg/dl Sodium Level 134 mmol/L Potassium Level 4.2 mmol/L Chloride Level 102 mmol/L Carbon Dioxide Level 24 mmol/L Anion Gap 8.0 mmol/L Blood Urea Nitrogen 22 mg/dl Creatinine 1.03 mg/dl Est Creatinine Clear Calc Drug Dose 65.3 ml/min Estimated GFR () 84.3 Estimated GFR (Non- 72.7 BUN/Creatinine Ratio 21.5 Random Glucose 220 mg/dl Calcium Level 8.5 mg/dl Test 06/04/18 05:36 06/04/18 07:43 06/04/18 11:31 White Blood Count 0.21 K/uL Red Blood Count 2.29 M/uL Hemoglobin 8.4 g/dL Hematocrit 24.6 % Mean Corpuscular Volume 107.4 fL Mean Corpuscular Hemoglobin 36.7 pg Mean Corpuscular Hemoglobin Concent 34.1 g/dl RDW Standard Deviation 87.9 fL RDW Coefficient of Variation 23.3 % Platelet Count 24 K/uL Mean Platelet Volume 9.2 fL Bedside Glucose 210 mg/dl 245 mg/dl
--- NOTE | 2018-06-04 15:35 | Progress Note ---
Subjective Date of Service: Jun 04, 2018. Subjective Pt evaluation today including: conversation w/ patient, physical exam, chart review, lab review pt continues to improve. tolerating abx. throat pain improving. no f/c. counts remain low but improving. afebrile. thrush better. denies cough, cp, sob, wheeze. on RA. no n/v/d/abd pain. cultures negative. all remaining ros reviewed and are negativ.e Problem List Medical Problems: (1) Acute febrile illness Status: Acute (2) Calculus Of Kidney Status: Chronic (3) Carotid Artery Occlusion W O Cerebral Infarction Status: Chronic (4) Chr Airway Obstruct Nec Status: Chronic (5) COPD with exacerbation Status: Acute (6) Coron Atheroscler Nos Type Vessel, [place] Or Graft Status: Chronic (7) Dehydration Status: Acute (8) Diab Sofie Wo Compl, Type Ii Or Unspec Type, Not Uncntrld Status: Chronic (9) Difficulty swallowing Status: Acute (10) Diverticulosis Colon (W/O Ment Of Hemorrhage) Status: Chronic (11) Esophageal Reflux Status: Chronic (12) Hyperlipidemia Nec/Nos Status: Chronic (13) Hypertension Nos Status: Chronic (14) Leukocytosis Status: Acute (15) Neutropenia Status: Acute (16) PAD (peripheral artery disease) Status: Chronic (17) Pneumonia Status: Acute (18) Pneumonia Status: Acute (19) Renal Artery Aneurysm Status: Chronic (20) Tachycardia Status: Acute Objective Vital Signs Date Time Temp Pulse Resp B/P (MAP) Pulse Ox O2 Delivery O2 Flow Rate FiO2 06/04/18 15:08 36.4 94 18 117/64 (81) 92 Room Air 06/04/18 11:52 36.6 77 20 115/68 (84) 97 06/04/18 08:00 95 Room Air 06/04/18 07:24 36.5 79 20 107/55 (72) 95 Room Air 06/04/18 04:15 36.8 83 20 131/72 (91) 98 Room Air 06/04/18 00:00 Room Air 06/03/18 22:57 36.6 106 20 108/62 (77) 91 Room Air 06/03/18 19:15 36.4 104 24 134/83 (100) 100 Room Air 06/03/18 17:28 100 Room Air 06/03/18 16:12 36.4 102 18 146/91 100 06/03/18 15:41 36.6 101 20 138/79 99 Physical Exam General Appearance: WD/WN, no apparent distress Eyes: normal inspection, EOMI Neck: supple Respiratory/Chest: lungs clear, normal breath sounds, no respiratory distress Cardiovascular: no edema Abdomen: non tender, soft Extremities: non-tender, no pedal edema Neurologic/Psychiatric: alert, oriented x 3 Skin: normal color Laboratory Results Item Value Date Time Blood Culture - Preliminary Resulted 06/01/18 1100 Blood NO GROWTH TO DATE. Blood Culture - Preliminary Resulted 06/01/18 1100 Blood NO GROWTH TO DATE. Throat Culture - Final Complete 06/01/18 1645 Pharyngeal Swab HEAVY NORMAL CHINO Last 24 Hours Test 06/03/18 15:35 06/03/18 16:41 06/03/18 20:09 06/04/18 05:35 Vancomycin Level Trough 10.9 mcg/ml Bedside Glucose 273 mg/dl 159 mg/dl Sodium Level 134 mmol/L Potassium Level 4.2 mmol/L Chloride Level 102 mmol/L Carbon Dioxide Level 24 mmol/L Anion Gap 8.0 mmol/L Blood Urea Nitrogen 22 mg/dl Creatinine 1.03 mg/dl Est Creatinine Clear Calc Drug Dose 65.3 ml/min Estimated GFR () 84.3 Estimated GFR (Non- 72.7 BUN/Creatinine Ratio 21.5 Random Glucose 220 mg/dl Calcium Level 8.5 mg/dl Test 06/04/18 05:36 06/04/18 07:43 06/04/18 11:31 White Blood Count 0.21 K/uL Red Blood Count 2.29 M/uL Hemoglobin 8.4 g/dL Hematocrit 24.6 % Mean Corpuscular Volume 107.4 fL Mean Corpuscular Hemoglobin 36.7 pg Mean Corpuscular Hemoglobin Concent 34.1 g/dl RDW Standard Deviation 87.9 fL RDW Coefficient of Variation 23.3 % Platelet Count 24 K/uL Mean Platelet Volume 9.2 fL Bedside Glucose 210 mg/dl 245 mg/dl Assessment and Plan (1) Neutropenic fever Assessment & Plan: continue cefepime and levquin for now. will stop vanco. ok to change fluconazole to po from ID standpoint. would give 14 days total for thrush If counts improve and clinically improves would give 7 days levaquin for pna. (2) PNA (pneumonia)
[2018-06-04] MEDS: LEVOFLOXACIN / D5W 750 MG in PREMIXED IN D5W 150 ML IV SCH (16:39)
[2018-06-04] MEDS: FLUCONAZOLE / NSS 200 MG in PREMIXED NSS 100 ML IV SCH (16:39)
--- NOTE | 2018-06-04 16:41 | Hematology/Oncology Prog Note ---
Hematology/Onc Progress Note Date of Service Jun 04, 2018. Subjective Patient was rounded on at bedside. He states his mouth is feeling better, eating and drinking better. He denies dyspnea now. He states has been a few days since last BM. No bleeding noted from any sites. He denies leg pain. Tmax this hospitalization was yesterday at 39.6. Afebrile since. Review of Systems: ENT: + see HPI Respiratory: No cough, No shortness of breath Abdomen: + see HPI Male : No hematuria Vital Signs Vital Signs Past 12 Hours Date Time Temp Pulse Resp B/P (MAP) Pulse Ox O2 Delivery O2 Flow Rate FiO2 06/04/18 15:08 36.4 94 18 117/64 (81) 92 Room Air 06/04/18 11:52 36.6 77 20 115/68 (84) 97 06/04/18 08:00 95 Room Air 06/04/18 07:24 36.5 79 20 107/55 (72) 95 Room Air Physical Exam Constitutional: Level of Distress: NAD ENMT: hearing grossly normal, pharynx normal Lungs: Respiratory Effort: no dyspnea Auscuitation: breath sounds normal Abdomen: Bowel Sounds: normal Inspection & Palpation: non-distended, no tenderness, guarding & rebound Extremities: no edema Laboratory Last 24 Hours Test 06/03/18 16:41 06/03/18 20:09 06/04/18 05:35 06/04/18 05:36 Bedside Glucose 273 mg/dl 159 mg/dl Sodium Level 134 mmol/L Potassium Level 4.2 mmol/L Chloride Level 102 mmol/L Carbon Dioxide Level 24 mmol/L Anion Gap 8.0 mmol/L Blood Urea Nitrogen 22 mg/dl Creatinine 1.03 mg/dl Est Creatinine Clear Calc Drug Dose 65.3 ml/min Estimated GFR () 84.3 Estimated GFR (Non- 72.7 BUN/Creatinine Ratio 21.5 Random Glucose 220 mg/dl Calcium Level 8.5 mg/dl White Blood Count 0.21 K/uL Red Blood Count 2.29 M/uL Hemoglobin 8.4 g/dL Hematocrit 24.6 % Mean Corpuscular Volume 107.4 fL Mean Corpuscular Hemoglobin 36.7 pg Mean Corpuscular Hemoglobin Concent 34.1 g/dl RDW Standard Deviation 87.9 fL RDW Coefficient of Variation 23.3 % Platelet Count 24 K/uL Mean Platelet Volume 9.2 fL Test 06/04/18 07:43 06/04/18 11:31 Bedside Glucose 210 mg/dl 245 mg/dl Assessment & Plan 1. Febrile neutropenia in setting of thrush and possible lung infection 2. pancytopenia * Patient is clinically improved * ANC remains severely depressed, should improve in next few days * PLTs in 20 range today, last PLT transfusion was yesterday * S/p 1 unit PRBC yesterday with appropriate response in Hgb to 8 range * Continue to monitor CBCD daily * Neutropenia precautions * Vit B 12/folate/iron tests not consistent with deficiency * Antibiotics/antifungal per primary service/ID Dr. Bethea is attending medical oncologist.
[2018-06-04] MEDS: ONDANSETRON INJ 2 MG/ML 2 ML VIAL IV PRN (20:51)
[2018-06-04] MEDS: TAMSULOSIN HCL 0.4 MG CAP PO SCH (20:56)
--- NOTE | 2018-06-04 21:39 | Progress Note ---
Medicine Progress Note Date & Time of Visit: Jun 04, 2018 at ~ 12:00 . Subjective CC: Follow-up visit for neutropenic fever and other problems. HPI: Feels much better. No fever or chills last night or this morning. Cough improved. No SOB. No chest pain. Stomatitis, pharyngitis, odynophagia persist, but improving. No headache, abdominal pain, nausea, vomiting, dysuria. ROS: General- as noted above in HPI Resp- as noted above in HPI Cardiac- no chest pain, no edema GI- as noted above in HPI - as noted above in HPI . Objective Last 8 Hrs Date Time Temp Pulse Resp B/P (MAP) Pulse Ox O2 Delivery O2 Flow Rate FiO2 06/04/18 17:57 36.9 99 18 113/65 (81) 94 Room Air 06/04/18 15:08 36.4 94 18 117/64 (81) 92 Room Air Physical Exam: General- sitting in chair, no distress Eyes- anicteric ENT- oral thrush improved Lungs- diffuse wheezing; no respiratory distress Cardiovascular- distant heart sounds, RRR; no murmur or gallop appreciated; no JVD; no pretibial edema Abdomen- + bowel sounds, soft, nontender Extremities- no cyanosis; no calf tenderness Neuro- alert, oriented Skin- warm & dry . Laboratory Results: Last 24 Hours Test 06/04/18 05:35 06/04/18 05:36 06/04/18 07:43 06/04/18 11:31 Sodium Level 134 mmol/L Potassium Level 4.2 mmol/L Chloride Level 102 mmol/L Carbon Dioxide Level 24 mmol/L Anion Gap 8.0 mmol/L Blood Urea Nitrogen 22 mg/dl Creatinine 1.03 mg/dl Est Creatinine Clear Calc Drug Dose 65.3 ml/min Estimated GFR () 84.3 Estimated GFR (Non- 72.7 BUN/Creatinine Ratio 21.5 Random Glucose 220 mg/dl Calcium Level 8.5 mg/dl White Blood Count 0.21 K/uL Red Blood Count 2.29 M/uL Hemoglobin 8.4 g/dL Hematocrit 24.6 % Mean Corpuscular Volume 107.4 fL Mean Corpuscular Hemoglobin 36.7 pg Mean Corpuscular Hemoglobin Concent 34.1 g/dl RDW Standard Deviation 87.9 fL RDW Coefficient of Variation 23.3 % Platelet Count 24 K/uL Mean Platelet Volume 9.2 fL Bedside Glucose 210 mg/dl 245 mg/dl Test 06/04/18 16:39 06/04/18 20:16 Bedside Glucose 246 mg/dl 188 mg/dl Assessment & Plan NEUTROPENIC FEVER Possible pneumonia. Imaging by plain film and CT demonstrate densities at both bases, but some of these may be chronic. Has implanted vascular access device-consider line sepsis. Has severe odynophagia, suspect Darlyn esophagitis, but consider other etiologies such as HSV or CMV. Blood cultures obtained in the ED and negative so far. Patient initially received IV vancomycin, levofloxacin, cefepime, fluconazole. ID consulted. Blood cultures negative and nasal MRSA screen negative. Vancomycin discontinued. Continue levofloxacin and cefepime. SEPSIS Met criteria for sepsis per current CMS definition (fever, tachycardia, tachypnea, leukopenia). Suspected pulmonary source as discussed above. Serum lactate 1.47; no need to repeat. Systolic blood pressures greater than 90. Blood cultures obtained in the ED and received broad-spectrum antibiotic coverage initially with piperacillin/tazobactam and subsequent antibiotics as discussed above. ORAL THRUSH Severe oral thrush and odynophagia, suspect esophageal candidiasis. Has been receiving prednisone for COPD and recent chemotherapy. Continue oral nystatin suspension swish and swallow and IV fluconazole. PANCYTOPENIA Pancytopenia secondary to chemotherapy. CBC at time of admission demonstrated hemoglobin 9.9, white count 230, platelet count 31,000. CBC this morning = hemoglobin 8.4, white count 210, platelet count 24,000. Hematology/Oncology consulted. Received Neulasta last week. Platelet transfusions recommended to keep plt count > 20,000- has received 2 bags. Transfuse packed RBCs as necessary to maintain hemoglobin greater than 7-8- has received 1 unit. 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 Management per Hematology/Oncology. CORONARY ARTERY DISEASE No anginal symptoms. Hold aspirin due to thrombocytopenia. Not on beta-lauren at this time. CHF History of chronic diastolic CHF. Chest x-ray 06/01 demonstrated vascular congestion. Acute on chronic left ventricular diastolic heart failure. Received IV furosemide with improvement. COPD Continue IV methylprednisolone and bronchodilators. Taper steroids as able. GERD Continue PPI. BPH Continue finasteride and tamsulosin. DM TYPE 2 Check hemoglobin A1c. Fasting blood sugar this morning = 210. Lantus / NovoLog per protocol. VTE PROPHYLAXIS No anticoagulants due to thrombocytopenia. SCDs. Ambulate as able. RESUSCITATION STATUS DNR. DISPOSITION To be determined. Family Medicine follow-up with Dr. Gordon. Hematology/Oncology follow-up with Dr. Ethan Bethea. Shira Encinas ([phone]) to be given updates upon request per patient and his . . Current Inpatient Medications: Current Inpatient Medications Medications (Trade) Dose Ordered Sig/Timbo Route Start Time Stop Time Status Last Admin Dose Admin Ioversol (Optiray 320) 100 ml UD PRN IV 06/01/18 13:15 06/05/18 13:14 Acetaminophen (Tylenol Tab) 650 mg Q4H PRN PO 06/01/18 15:15 07/01/18 15:14 06/01/18 18:36 650 MG Ondansetron HCl (Zofran Inj) 4 mg Q6H PRN IV 06/01/18 15:15 07/01/18 15:14 06/04/18 20:51 4 MG Nystatin (Mycostatin Susp) 10 ml QID PO 06/01/18 17:00 06/11/18 16:59 06/04/18 20:44 10 ML Aspirin (Ecotrin Tab) 81 mg QAM PO 06/02/18 08:00 07/02/18 08:59 06/04/18 08:04 81 MG Budesonide/ Formoterol Fumarate (Symbicort 160/ 4.5 Inh) 2 puffs BID INH 06/01/18 20:00 07/01/18 20:59 06/04/18 20:42 2 PUFFS Bupropion HCl (Wellbutrin Tab) 150 mg BID PO 06/01/18 20:00 07/01/18 20:59 06/04/18 20:58 150 MG Finasteride (Proscar Tab) 5 mg DAILY PO 06/02/18 08:00 07/02/18 08:59 06/04/18 08:04 5 MG Gabapentin (Neurontin Cap) 200 mg TID PO 06/01/18 20:00 07/01/18 20:59 06/04/18 20:51 200 MG Prochlorperazine Maleate (Compazine Tab) 10 mg Q6H PRN PO 06/01/18 15:30 07/01/18 15:29 06/03/18 18:15 10 MG Tamsulosin HCl (Flomax Cap) 0.4 mg HS PO 06/01/18 21:00 07/01/18 20:59 06/04/18 20:56 0.4 MG Pramipexole Dihydrochloride (miraPEX TAB) 1 mg TID PO 06/01/18 20:00 07/01/18 20:59 06/04/18 20:56 1 MG Levofloxacin 750 mg/Prmx 150 ml @ 100 mls/hr Q24H IV 06/01/18 17:00 06/08/18 16:59 06/04/18 16:39 100 MLS/HR Fluconazole/ Sodium Chloride 200 mg/Prmx 100 ml @ 100 mls/hr Q24H IV 06/01/18 17:00 06/11/18 16:59 06/04/18 16:39 100 MLS/HR Insulin Aspart (novoLOG ASPART) SLIDING SCALE If C... ACHS SC 06/01/18 21:00 07/01/18 20:59 06/04/18 21:07 1 UNITS Glucose (Glucose 40% Gel) 15-30 GRAMS 15 GRAMS... UD PRN PO 06/01/18 16:15 07/01/18 16:14 Glucose (Glucose Chew Tab) 4-8 Tablets 4 Tabl... UD PRN PO 06/01/18 16:15 07/01/18 16:14 Dextrose (Dextrose 50% 50ML Syringe) 25-50ML 25ML FOR ... UD PRN IV 06/01/18 16:15 07/01/18 16:14 Glucagon (Glucagon Inj) 1 mg UD PRN SQ 06/01/18 16:15 07/01/18 16:14 Carbohydrates (Carbohydrates For Hypoglycemia) 15-30 GRAMS 15 grams if BSG 54-69... UD PRN PO 06/01/18 16:15 07/01/18 16:14 Cefepime HCl 2000 mg/Syringe 20 ml @ 5 mls/min Q12H IV 06/01/18 18:00 06/08/18 17:59 06/04/18 16:35 5 MLS/MIN Acetaminophen 100 ml @ 400 mls/hr Q8H PRN IV 06/01/18 20:00 07/01/18 19:59 06/01/18 23:17 400 MLS/HR Heparin Sodium (Porcine) (Heparin 100 Unit/ml 5ml Flush) 5 ml PRN PRN IV 06/01/18 23:00 07/01/18 22:59 06/04/18 20:52 5 ML Levalbuterol (Xopenex 0.63 Mg/ 3 Ml Neb) 0.63 mg Q6H PRN INH 06/01/18 23:15 07/01/18 23:14 Methylprednisolone Sodium Succinate 20 mg/Syringe 0.32 ml @ 1.5 mls/min Q8 IV 06/02/18 06:00 06/05/18 07:00 06/04/18 21:08 1.5 MLS/MIN Hydromorphone HCl (Dilaudid Inj) 0.5 mg Q2H PRN IV 06/02/18 00:15 06/16/18 00:14 06/04/18 20:52 0.5 MG Pantoprazole Sodium 40 mg/ Syringe 10 ml @ 5 mls/min DAILY@,21 IV 06/03/18 09:00 07/03/18 08:59 06/04/18 20:57 5 MLS/MIN Acetaminophen (Tylenol Tab) 650 mg ONE PRN PO 06/03/18 11:00 07/03/18 10:59 Furosemide 20 mg/ Syringe 2 ml @ 4 mls/min ONE PRN IV 06/03/18 11:00 07/03/18 10:59 06/03/18 13:03 4 MLS/MIN Prednisone (PredniSONE TAB) 40 mg DAILY PO 06/05/18 08:00 07/05/18 07:59
[2018-06-05] VITALS (7 sets, daily range): BP systolic 23–144; BP diastolic 62–83; PULSE 82–99; TEMP 36.4–36.7; O2SAT 92–97; BMI 30.9
[2018-06-05] MEDS: HYDROmorphone INJ 0.5 MG/0.5 ML SYR IV PRN ×6 (00:12→18:48)
[2018-06-05] MEDS: CEFEPIME IV 2,000 MG in SYRINGE 7.5 ML IV SCH ×2 (05:42→18:47)
[2018-06-05] MEDS: METHYLPREDNISOLONE IV 20 MG in SYRINGE 0 ML IV SCH (05:42)
[2018-06-05 06:22] LABS: CALCIUM 8.5 mg/dl (8.5-10.1); CREATININE 1.17 mg/dl (0.60-1.40); POTASSIUM 4.4 mmol/L (3.5-5.1)
[2018-06-05 06:29] LABS: HEMATOCRIT 25.3 % (42-52); HEMOGLOBIN 8.4 g/dL (14.0-18.0); MEAN CELL VOLUME 110.5 fL (80-100); MEAN CORPUSCULAR HEMOGLOBIN 36.7 pg (25-34); MEAN CORPUSCULAR HGB CONC 33.2 g/dl (32-36); MEAN PLATELET VOLUME 9.8 fL (7.4-10.4); PLATELET COUNT 26 K/uL (130-400); RED CELL DISTRIBUTION WIDTH CV 22.8 % (11.5-14.5); RED CELL DISTRIBUTION WIDTH SD 88.9 fL (36.4-46.3); WHITE BLOOD COUNT 0.52 K/uL (4.8-10.8)
[2018-06-05] MEDS ORDERED: INSULIN GLARGINE SOLOSTAR 100 UNITS/ML 3 ML PEN SC SCH (08:00)
[2018-06-05] MEDS: NYSTATIN SUSP 500,000 U/5 ML UDC PO SCH ×4 (08:04→20:39)
[2018-06-05] MEDS: ONDANSETRON INJ 2 MG/ML 2 ML VIAL IV PRN ×2 (08:05→18:48)
[2018-06-05] MEDS: FINASTERIDE 5 MG TAB PO SCH (08:05)
[2018-06-05] MEDS: BUDESONIDE/FORMOTEROL FUMARATE 160/4.5 60 PUFFS/INHALER INH SCH ×2 (08:05→19:01)
[2018-06-05] MEDS: PRAMIPEXOLE DIHYDROCHLORIDE 0.5 MG TAB PO SCH ×3 (08:05→20:38)
[2018-06-05] MEDS: PANTOprazole INJ 40 MG in SYRINGE 0 ML IV SCH ×2 (08:05→21:10)
[2018-06-05] MEDS: GABAPENTIN 100 MG CAP PO SCH ×3 (08:06→21:10)
[2018-06-05] MEDS: INSULIN ASPART 100 UNITS/ML 3 ML PEN SC SCH ×4 (08:52→21:25)
[2018-06-05] MEDS ORDERED: VANCOMYCIN TROUGH ONE (10:30)
[2018-06-05] MEDS ORDERED: POLYETHYLENE (MIRALAX) 17 GM PACK PO ONE (12:10)
[2018-06-05] MEDS: PROCHLORPERAZINE MALEATE 10 MG TAB PO PRN (12:13)
[2018-06-05] MEDS ORDERED: CEFEPIME CONSULT ACTIVE PRN (14:30)
[2018-06-05] MEDS: FLUCONAZOLE / NSS 200 MG in PREMIXED NSS 100 ML IV SCH (19:06)
[2018-06-05] MEDS: LEVOFLOXACIN / D5W 750 MG in PREMIXED IN D5W 150 ML IV SCH (20:34)
[2018-06-05] MEDS: POLYETHYLENE (MIRALAX) 17 GM PACK PO SCH (20:37)
--- NOTE | 2018-06-05 20:55 | Progress Note ---
Medicine Progress Note Date & Time of Visit: Jun 05, 2018 at 07:50 . Subjective CC: Follow-up visit for neutropenic fever and other problems. HPI: Improved. No fever, chills, sweats. Cough improved. No SOB. No chest pain. Stomatitis, pharyngitis, odynophagia improving. No headache, abdominal pain, nausea, vomiting, dysuria. Ambulating. ROS: General- as noted above in HPI Resp- as noted above in HPI Cardiac- no chest pain, no edema GI- as noted above in HPI - as noted above in HPI . Objective Last 8 Hrs Date Time Temp Pulse Resp B/P (MAP) Pulse Ox O2 Delivery O2 Flow Rate FiO2 06/05/18 19:21 36.4 99 18 144/83 (103) 97 Room Air 06/05/18 14:57 36.5 99 20 119/65 (83) 94 Room Air Physical Exam: General- sitting in chair, no distress Eyes- anicteric ENT- oral thrush improved Lungs- diffuse wheezing; no respiratory distress Cardiovascular- distant heart sounds, RRR; no murmur or gallop appreciated; no JVD; no pretibial edema Abdomen- + bowel sounds, soft, nontender Extremities- no cyanosis; no calf tenderness Neuro- alert, oriented Skin- warm & dry . Laboratory Results: Last 24 Hours Test 06/05/18 05:26 06/05/18 07:46 06/05/18 11:25 06/05/18 17:23 White Blood Count 0.52 K/uL Red Blood Count 2.29 M/uL Hemoglobin 8.4 g/dL Hematocrit 25.3 % Mean Corpuscular Volume 110.5 fL Mean Corpuscular Hemoglobin 36.7 pg Mean Corpuscular Hemoglobin Concent 33.2 g/dl Platelet Count 26 K/uL Mean Platelet Volume 9.8 fL RDW Standard Deviation 88.9 fL RDW Coefficient of Variation 22.8 % Neutrophils % (Manual) 43.1 % Lymphocytes % (Manual) 39.5 % Monocytes % (Manual) 17.4 % Neutrophils # (Manual) 0.22 K/uL Total Absolute Neutrophils 0.22 K/uL Lymphocytes # (Manual) 0.21 K/uL Total Absolute Lymphocytes 0.21 K/uL Monocytes # (Manual) 0.09 K/uL Dohle Bodies 2+ Anisocytosis PRESENT Macrocytosis PRESENT Sodium Level 136 mmol/L Potassium Level 4.4 mmol/L Chloride Level 102 mmol/L Carbon Dioxide Level 26 mmol/L Anion Gap 8.0 mmol/L Blood Urea Nitrogen 26 mg/dl Creatinine 1.17 mg/dl Est Creatinine Clear Calc Drug Dose 57.7 ml/min Estimated GFR () 72.3 Estimated GFR (Non- 62.4 BUN/Creatinine Ratio 22.3 Random Glucose 238 mg/dl Calcium Level 8.5 mg/dl Bedside Glucose 209 mg/dl 225 mg/dl 163 mg/dl Test 06/05/18 20:19 Bedside Glucose 271 mg/dl Assessment & Plan NEUTROPENIC FEVER Possible pneumonia. Imaging by plain film and CT demonstrate densities at both bases, but some of these may be chronic. Has implanted vascular access device-consider line sepsis. Has severe odynophagia, suspect Darlyn esophagitis, but consider other etiologies such as HSV or CMV. Blood cultures obtained in the ED and negative so far. Patient initially received IV vancomycin, levofloxacin, cefepime, fluconazole. ID consulted. Blood cultures negative and nasal MRSA screen negative. Vancomycin discontinued. Continue levofloxacin and cefepime. Transition to oral therapy with levofloxacin. SEPSIS Met criteria for sepsis per current CMS definition (fever, tachycardia, tachypnea, leukopenia). Suspected pulmonary source as discussed above. Serum lactate 1.47; no need to repeat. Systolic blood pressures greater than 90. Blood cultures obtained in the ED and received broad-spectrum antibiotic coverage initially with piperacillin/tazobactam and subsequent antibiotics as discussed above. ORAL THRUSH Severe oral thrush and odynophagia, suspect esophageal candidiasis. Has been receiving prednisone for COPD and recent chemotherapy. Continue oral nystatin suspension swish and swallow and IV fluconazole. PANCYTOPENIA Pancytopenia secondary to chemotherapy. CBC at time of admission demonstrated hemoglobin 9.9, white count 230, platelet count 31,000. CBC this morning = hemoglobin 8.4, white count 520, platelet count 26,000. Hematology/Oncology consulted. Received Neulasta last week. Platelet transfusions recommended to keep plt count > 20,000- has received 2 bags. Transfuse packed RBCs as necessary to maintain hemoglobin greater than 7-8- has received 1 unit. 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 Management per Hematology/Oncology. CORONARY ARTERY DISEASE No anginal symptoms. Hold aspirin due to thrombocytopenia. Not on beta-lauren at this time. CHF History of chronic diastolic CHF. Chest x-ray 06/01 demonstrated vascular congestion. Acute on chronic left ventricular diastolic heart failure. Received IV furosemide with improvement. COPD Acute exacerbation secondary to probable pneumonia. Received IV methylprednisolone and bronchodilators. Steroids transitioned to prednisone 40 mg daily. Has been on 40 mg of prednisone for some time, so taper slowly as tolerated. GERD Continue PPI. BPH Continue finasteride and tamsulosin. DM TYPE 2 Hemoglobin A1c = 7.4. Fasting blood sugar this morning = 209. Steroids tapered. Insulin dose adjusted. Continue Lantus / NovoLog per protocol. VTE PROPHYLAXIS No anticoagulants due to thrombocytopenia. SCDs. Ambulate as able. RESUSCITATION STATUS DNR (wishes confirmed 06/05/18) DISPOSITION Expected discharge to home. Family Medicine follow-up with Dr. Gordon. Hematology/Oncology follow-up with Dr. Ethan Bethea. Shira Pope Huang ([phone]) to be given updates upon request per patient and his . . Current Inpatient Medications: Current Inpatient Medications Medications (Trade) Dose Ordered Sig/Timbo Route Start Time Stop Time Status Last Admin Dose Admin Acetaminophen (Tylenol Tab) 650 mg Q4H PRN PO 06/01/18 15:15 07/01/18 15:14 06/01/18 18:36 650 MG Ondansetron HCl (Zofran Inj) 4 mg Q6H PRN IV 06/01/18 15:15 07/01/18 15:14 06/05/18 18:48 4 MG Nystatin (Mycostatin Susp) 10 ml QID PO 06/01/18 17:00 06/11/18 16:59 06/05/18 20:39 10 ML Aspirin (Ecotrin Tab) 81 mg QAM PO 06/02/18 08:00 07/02/18 08:59 Future Hold 06/04/18 08:04 81 MG Budesonide/ Formoterol Fumarate (Symbicort 160/ 4.5 Inh) 2 puffs BID INH 06/01/18 20:00 07/01/18 20:59 06/05/18 19:01 2 PUFFS Bupropion HCl (Wellbutrin Tab) 150 mg BID PO 06/01/18 20:00 8/30/18 20:59 06/05/18 20:41 150 MG Finasteride (Proscar Tab) 5 mg DAILY PO 06/02/18 08:00 07/02/18 08:59 06/05/18 08:05 5 MG Gabapentin (Neurontin Cap) 200 mg TID PO 06/01/18 20:00 07/01/18 20:59 06/05/18 12:11 200 MG Prochlorperazine Maleate (Compazine Tab) 10 mg Q6H PRN PO 06/01/18 15:30 07/01/18 15:29 06/05/18 12:13 10 MG Tamsulosin HCl (Flomax Cap) 0.4 mg HS PO 06/01/18 21:00 07/01/18 20:59 06/04/18 20:56 0.4 MG Pramipexole Dihydrochloride (miraPEX TAB) 1 mg TID PO 06/01/18 20:00 07/01/18 20:59 06/05/18 20:38 1 MG Levofloxacin 750 mg/Prmx 150 ml @ 100 mls/hr Q24H IV 06/01/18 17:00 06/08/18 16:59 06/05/18 20:34 100 MLS/HR Fluconazole/ Sodium Chloride 200 mg/Prmx 100 ml @ 100 mls/hr Q24H IV 06/01/18 17:00 06/11/18 16:59 06/05/18 19:06 100 MLS/HR Insulin Aspart (novoLOG ASPART) SLIDING SCALE If C... ACHS SC 06/01/18 21:00 07/01/18 20:59 06/05/18 19:20 7 UNITS Glucose (Glucose 40% Gel) 15-30 GRAMS 15 GRAMS... UD PRN PO 06/01/18 16:15 07/01/18 16:14 Glucose (Glucose Chew Tab) 4-8 Tablets 4 Tabl... UD PRN PO 06/01/18 16:15 07/01/18 16:14 Dextrose (Dextrose 50% 50ML Syringe) 25-50ML 25ML FOR ... UD PRN IV 06/01/18 16:15 07/01/18 16:14 Glucagon (Glucagon Inj) 1 mg UD PRN SQ 06/01/18 16:15 07/01/18 16:14 Carbohydrates (Carbohydrates For Hypoglycemia) 15-30 GRAMS 15 grams if BSG 54-69... UD PRN PO 06/01/18 16:15 07/01/18 16:14 Cefepime HCl 2000 mg/Syringe 20 ml @ 5 mls/min Q12H IV 06/01/18 18:00 06/08/18 17:59 06/05/18 18:47 5 MLS/MIN Acetaminophen 100 ml @ 400 mls/hr Q8H PRN IV 06/01/18 20:00 07/01/18 19:59 06/01/18 23:17 400 MLS/HR Heparin Sodium (Porcine) (Heparin 100 Unit/ml 5ml Flush) 5 ml PRN PRN IV 06/01/18 23:00 07/01/18 22:59 06/05/18 18:49 5 ML Levalbuterol (Xopenex 0.63 Mg/ 3 Ml Neb) 0.63 mg Q6H PRN INH 06/01/18 23:15 07/01/18 23:14 Hydromorphone HCl (Dilaudid Inj) 0.5 mg Q2H PRN IV 06/02/18 00:15 06/16/18 00:14 06/05/18 18:48 0.5 MG Pantoprazole Sodium 40 mg/ Syringe 10 ml @ 5 mls/min DAILY@09,21 IV 06/03/18 09:00 07/03/18 08:59 06/05/18 08:05 5 MLS/MIN Acetaminophen (Tylenol Tab) 650 mg ONE PRN PO 06/03/18 11:00 07/03/18 10:59 Furosemide 20 mg/ Syringe 2 ml @ 4 mls/min ONE PRN IV 06/03/18 11:00 07/03/18 10:59 06/03/18 13:03 4 MLS/MIN Prednisone (PredniSONE TAB) 40 mg DAILY PO 06/05/18 08:00 07/05/18 07:59 06/05/18 08:05 40 MG Insulin Glargine (Lantus Solostar Pen) BID SC 06/05/18 20:00 07/05/18 07:59 Polyethylene (Miralax Powder Packet) 17 gm BID PO 06/05/18 20:00 07/05/18 19:59 06/05/18 20:37 17 GM Cefepime HCl (Consult) 1 ea UD PRN N/A 06/05/18 14:30 07/05/18 14:29
[2018-06-05] MEDS: TAMSULOSIN HCL 0.4 MG CAP PO SCH (21:10)
[2018-06-05] MEDS: INSULIN GLARGINE SOLOSTAR 100 UNITS/ML 3 ML PEN SC SCH (21:24)
[2018-06-06 04:23] VITALS: BP 111/57; PULSE 97; TEMP 36.6; O2SAT 96
[2018-06-06] MEDS: CEFEPIME IV 2,000 MG in SYRINGE 7.5 ML IV SCH (06:05)
[2018-06-06 06:30] VITALS: Ht 165.1 cm; Wt 83.2 kg
[2018-06-06 06:45] LABS: HEMATOCRIT 24.7 % (42-52); HEMOGLOBIN 8.3 g/dL (14.0-18.0); MEAN CELL VOLUME 110.3 fL (80-100); MEAN CORPUSCULAR HEMOGLOBIN 37.1 pg (25-34); MEAN CORPUSCULAR HGB CONC 33.6 g/dl (32-36); MEAN PLATELET VOLUME 10.6 fL (7.4-10.4); PLATELET COUNT 30 K/uL (130-400); RED CELL DISTRIBUTION WIDTH CV 22.5 % (11.5-14.5); RED CELL DISTRIBUTION WIDTH SD 89.4 fL (36.4-46.3); WHITE BLOOD COUNT 1.64 K/uL (4.8-10.8)
[2018-06-06 06:58] VITALS: BP 107/61; PULSE 77; TEMP 36.5; O2SAT 94
[2018-06-06 07:04] LABS: CALCIUM 8.5 mg/dl (8.5-10.1); CREATININE 1.12 mg/dl (0.60-1.40); POTASSIUM 4.1 mmol/L (3.5-5.1)
[2018-06-06] MEDS: POLYETHYLENE (MIRALAX) 17 GM PACK PO SCH (08:00)
[2018-06-06] MEDS: BUDESONIDE/FORMOTEROL FUMARATE 160/4.5 60 PUFFS/INHALER INH SCH (08:21)
[2018-06-06] MEDS: NYSTATIN SUSP 500,000 U/5 ML UDC PO SCH ×2 (08:22→12:00)
[2018-06-06] MEDS: GABAPENTIN 100 MG CAP PO SCH ×2 (08:23→14:21)
[2018-06-06] MEDS: PRAMIPEXOLE DIHYDROCHLORIDE 0.5 MG TAB PO SCH ×2 (08:23→14:20)
[2018-06-06] MEDS: FINASTERIDE 5 MG TAB PO SCH (08:24)
[2018-06-06] MEDS: INSULIN ASPART 100 UNITS/ML 3 ML PEN SC SCH ×2 (08:29→12:51)
[2018-06-06] MEDS: INSULIN GLARGINE SOLOSTAR 100 UNITS/ML 3 ML PEN SC SCH (08:30)
[2018-06-06] MEDS: PANTOprazole INJ 40 MG in SYRINGE 0 ML IV SCH (08:31)
[2018-06-06] MEDS ORDERED: LEVOFLOXACIN 750 MG TAB PO SCH (11:00)
[2018-06-06 11:32] VITALS: BP 120/73; PULSE 84; TEMP 36.5; O2SAT 96
--- NOTE | 2018-06-06 13:04 | Progress Note ---
Medicine Progress Note Date & Time of Visit: Jun 06, 2018 at 13:04 . Subjective Doing well. No fever. Pharyngitis / odynophagia much better; swallowing without difficulty. Minimal cough. No SOB. No nausea, vomiting, diarrhea. Ambulating. Ready to go home. . Objective Last 8 Hrs Date Time Temp Pulse Resp B/P (MAP) Pulse Ox O2 Delivery O2 Flow Rate FiO2 06/06/18 11:32 36.5 84 18 120/73 (89) 96 Room Air 06/06/18 08:00 Room Air 06/06/18 06:58 36.5 77 20 107/61 (76) 94 Room Air Physical Exam: General- no distress Eyes- anicteric ENT- oral thrush improved Lungs- diffuse mild wheezing; no respiratory distress Cardiovascular- distant heart sounds, RRR; no murmur or gallop appreciated; no JVD; no pretibial edema Abdomen- + bowel sounds, soft, nontender Extremities- no cyanosis; no calf tenderness Neuro- alert, oriented Skin- warm & dry . Laboratory Results: Last 24 Hours Test 06/05/18 17:23 06/05/18 20:19 06/06/18 05:33 06/06/18 07:30 Bedside Glucose 163 mg/dl 271 mg/dl 152 mg/dl White Blood Count 1.64 K/uL Red Blood Count 2.24 M/uL Hemoglobin 8.3 g/dL Hematocrit 24.7 % Mean Corpuscular Volume 110.3 fL Mean Corpuscular Hemoglobin 37.1 pg Mean Corpuscular Hemoglobin Concent 33.6 g/dl Platelet Count 30 K/uL Mean Platelet Volume 10.6 fL RDW Standard Deviation 89.4 fL RDW Coefficient of Variation 22.5 % Neutrophils % (Manual) 44.0 % Lymphocytes % (Manual) 49.1 % Monocytes % (Manual) 5.2 % Metamyelocytes % 1.7 % Neutrophils # (Manual) 0.72 K/uL Total Absolute Neutrophils 0.72 K/uL Lymphocytes # (Manual) 0.81 K/uL Total Absolute Lymphocytes 0.81 K/uL Monocytes # (Manual) 0.09 K/uL Metamyelocytes # 0.03 K/uL Toxic Granulation 1+ Dohle Bodies 2+ Platelet Estimate SIGNIFIC DECREASED Anisocytosis PRESENT Macrocytosis PRESENT Sodium Level 138 mmol/L Potassium Level 4.1 mmol/L Chloride Level 105 mmol/L Carbon Dioxide Level 28 mmol/L Anion Gap 5.0 mmol/L Blood Urea Nitrogen 28 mg/dl Creatinine 1.12 mg/dl Est Creatinine Clear Calc Drug Dose 60.0 ml/min Estimated GFR () 76.2 Estimated GFR (Non- 65.7 BUN/Creatinine Ratio 24.8 Random Glucose 121 mg/dl Calcium Level 8.5 mg/dl Test 06/06/18 11:38 Bedside Glucose 219 mg/dl Assessment & Plan NEUTROPENIC FEVER Possible pneumonia. Imaging by plain film and CT demonstrate densities at both bases, but some of these may be chronic. Has implanted vascular access device-considered line sepsis. Had severe odynophagia, suspect Darlyn esophagitis, but considered other etiologies such as HSV or CMV. Blood cultures obtained in the ED and negative so far. Patient initially received IV vancomycin, levofloxacin, cefepime, fluconazole. ID consulted. Blood cultures negative and nasal MRSA screen negative. Vancomycin discontinued. Transition to oral therapy with levofloxacin to complete total of 10 days of antibiotic therapy. SEPSIS Met criteria for sepsis per current CMS definition (fever, tachycardia, tachypnea, leukopenia). Suspected pulmonary source as discussed above. Serum lactate 1.47; no need to repeat. Systolic blood pressures were greater than 90. Blood cultures obtained in the ED and received broad-spectrum antibiotic coverage initially with piperacillin/tazobactam and subsequent antibiotics as discussed above. ORAL THRUSH Severe oral thrush and odynophagia, suspect esophageal candidiasis. Has been receiving prednisone and recent chemotherapy. Received oral nystatin suspension swish and swallow and IV fluconazole. Discharge on fluconazole to complete 10 day course of therapy; continue nystatin suspension until clear, then PRN. PANCYTOPENIA Pancytopenia secondary to chemotherapy. CBC at time of admission demonstrated hemoglobin 9.9, white count 230, platelet count 31,000. Hgb fell as low as 6.8. WBC fell as low as 100. Plts fell as low as 11,000. Hematology/Oncology consulted. Received Neulasta last week with chemo. Platelet transfusions recommended to keep plt count > 20,000- received 2 bags. Transfuse packed RBCs as necessary to maintain hemoglobin greater than 7-8- received 1 unit. CBC this morning = hemoglobin 8.3, white count 1620, ANC 720, platelet count 30, 000. 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 Management per Hematology/Oncology. CORONARY ARTERY DISEASE No anginal symptoms. Hold aspirin due to thrombocytopenia. Not on beta-lauren at this time. CHF History of chronic diastolic CHF. Chest x-ray 06/01 demonstrated vascular congestion. Acute on chronic left ventricular diastolic heart failure. Received IV furosemide with improvement. COPD Acute exacerbation secondary to probable pneumonia. Received IV methylprednisolone and bronchodilators. Steroids transitioned to prednisone 40 mg daily. Has been on 40 mg of prednisone for some time, so taper slowly as tolerated. GERD Continue PPI. BPH Continue finasteride and tamsulosin. DM TYPE 2 Recently diet-controlled. Hemoglobin A1c = 7.4. Elevated blood sugars due to steroids and acute illness. Received Lantus / NovoLog per protocol Fasting blood sugar this morning = 152. Steroids tapered to recent dose of prednisone 40 mg daily. Follow blood sugars as outpatient. Taper prednisone further if OK with Radiation Oncology. VTE PROPHYLAXIS No anticoagulants due to thrombocytopenia. SCDs. Ambulating. RESUSCITATION STATUS DNR (wishes confirmed 06/05/18) DISPOSITION Discharged to home. Family Medicine follow-up with Dr. Gordon. Hematology/Oncology follow-up with Dr. Ethan Bethea. . Current Inpatient Medications: Current Inpatient Medications Medications (Trade) Dose Ordered Sig/Timbo Route Start Time Stop Time Status Last Admin Dose Admin Acetaminophen (Tylenol Tab) 650 mg Q4H PRN PO 06/01/18 15:15 07/01/18 15:14 06/01/18 18:36 650 MG Ondansetron HCl (Zofran Inj) 4 mg Q6H PRN IV 06/01/18 15:15 07/01/18 15:14 06/05/18 18:48 4 MG Nystatin (Mycostatin Susp) 10 ml QID PO 06/01/18 17:00 06/11/18 16:59 06/06/18 12:00 10 ML Aspirin (Ecotrin Tab) 81 mg QAM PO 06/02/18 08:00 07/02/18 08:59 Future Hold 06/04/18 08:04 81 MG Budesonide/ Formoterol Fumarate (Symbicort 160/ 4.5 Inh) 2 puffs BID INH 06/01/18 20:00 07/01/18 20:59 06/06/18 08:21 2 PUFFS Bupropion HCl (Wellbutrin Tab) 150 mg BID PO 06/01/18 20:00 07/01/18 20:59 06/06/18 08:25 150 MG Finasteride (Proscar Tab) 5 mg DAILY PO 06/02/18 08:00 07/02/18 08:59 06/06/18 08:24 5 MG Gabapentin (Neurontin Cap) 200 mg TID PO 06/01/18 20:00 07/01/18 20:59 06/06/18 08:23 200 MG Prochlorperazine Maleate (Compazine Tab) 10 mg Q6H PRN PO 06/01/18 15:30 07/01/18 15:29 06/05/18 12:13 10 MG Tamsulosin HCl (Flomax Cap) 0.4 mg HS PO 06/01/18 21:00 07/01/18 20:59 06/05/18 21:10 0.4 MG Pramipexole Dihydrochloride (miraPEX TAB) 1 mg TID PO 06/01/18 20:00 07/01/18 20:59 06/06/18 08:23 1 MG Fluconazole/ Sodium Chloride 200 mg/Prmx 100 ml @ 100 mls/hr Q24H IV 06/01/18 17:00 06/11/18 16:59 06/05/18 19:06 100 MLS/HR Insulin Aspart (novoLOG ASPART) SLIDING SCALE If C... ACHS SC 06/01/18 21:00 07/01/18 20:59 06/06/18 12:51 9 UNITS Glucose (Glucose 40% Gel) 15-30 GRAMS 15 GRAMS... UD PRN PO 06/01/18 16:15 07/01/18 16:14 Glucose (Glucose Chew Tab) 4-8 Tablets 4 Tabl... UD PRN PO 06/01/18 16:15 07/01/18 16:14 Dextrose (Dextrose 50% 50ML Syringe) 25-50ML 25ML FOR ... UD PRN IV 06/01/18 16:15 07/01/18 16:14 Glucagon (Glucagon Inj) 1 mg UD PRN SQ 06/01/18 16:15 07/01/18 16:14 Carbohydrates (Carbohydrates For Hypoglycemia) 15-30 GRAMS 15 grams if BSG 54-69... UD PRN PO 06/01/18 16:15 07/01/18 16:14 Cefepime HCl 2000 mg/Syringe 20 ml @ 5 mls/min Q12H IV 06/01/18 18:00 06/08/18 17:59 06/06/18 06:05 5 MLS/MIN Acetaminophen 100 ml @ 400 mls/hr Q8H PRN IV 06/01/18 20:00 07/01/18 19:59 06/01/18 23:17 400 MLS/HR Heparin Sodium (Porcine) (Heparin 100 Unit/ml 5ml Flush) 5 ml PRN PRN IV 06/01/18 23:00 07/01/18 22:59 06/06/18 08:32 5 ML Levalbuterol (Xopenex 0.63 Mg/ 3 Ml Neb) 0.63 mg Q6H PRN INH 06/01/18 23:15 07/01/18 23:14 Hydromorphone HCl (Dilaudid Inj) 0.5 mg Q2H PRN IV 06/02/18 00:15 06/16/18 00:14 06/05/18 18:48 0.5 MG Pantoprazole Sodium 40 mg/ Syringe 10 ml @ 5 mls/min DAILY@09,21 IV 06/03/18 09:00 07/03/18 08:59 06/06/18 08:31 5 MLS/MIN Acetaminophen (Tylenol Tab) 650 mg ONE PRN PO 06/03/18 11:00 07/03/18 10:59 Furosemide 20 mg/ Syringe 2 ml @ 4 mls/min ONE PRN IV 06/03/18 11:00 07/03/18 10:59 06/03/18 13:03 4 MLS/MIN Prednisone (PredniSONE TAB) 40 mg DAILY PO 06/05/18 08:00 07/05/18 07:59 06/06/18 08:24 40 MG Insulin Glargine (Lantus Solostar Pen) BID SC 06/05/18 20:00 07/05/18 07:59 06/06/18 08:30 12 UNITS Polyethylene (Miralax Powder Packet) 17 gm BID PO 06/05/18 20:00 07/05/18 19:59 06/05/18 20:37 17 GM Cefepime HCl (Consult) 1 ea UD PRN N/A 06/05/18 14:30 07/05/18 14:29 Levofloxacin (Levaquin Tab) 750 mg DAILY@11 PO 06/06/18 11:00 06/10/18 11:01 06/06/18 11:59 750 MG
[2018-06-06] MEDS ORDERED: NYSSO PO (13:17)
[2018-06-06] MEDS ORDERED: DFL100 PO (13:17)
[2018-06-06] MEDS ORDERED: LVQ750 PO (13:17)
--- NOTE | 2018-06-06 13:31 | Discharge Instructions ---
Discharge Instructions Date of Service Jun 06, 2018. Admission Reason for Admission: Neutropenic Fever . Discharge Discharge Diagnosis / Problem: fever, low white blood count, pneumonia, thrush Discharge Goals Goal(s): Decrease discomfort, Improve disease control Activity Recommendations Activity Limitations: resume your previous activity . Instructions / Follow-Up Instructions / Follow-Up APPOINTMENTS: FAMILY MEDICINE 06/11/2018 1:20 PM Abdoul Gordno MD MEDICAL ONCOLOGY 06/15/2018 9:00 AM Ethan Bethea MD RADIATION ONCOLOGY Dr. Galvez OTHER INSTRUCTIONS: Take levofloxacin (Levaquin) 750 mg daily for pneumonia until gone. Take fluconazole (Diflucan) 100 mg daily for thrush until gone. Take nystatin suspension 5 ml (1 tsp) swish and swallow 4 times a day. Continue until thrush completely gone (no sore throat, no burning or pain when you swallow). After that, use 4 times a day as needed if thrush comes back. Blood sugars are running high, probably because of prednisone. Be careful with your diet. Have Dr. Gordon keep an eye on your blood sugars. Ask Dr. Galvez when you can cut down on prednisone dose. Do not stop taking prednisone suddenly- you need to gradually decrease the dose. Seek medical attention if you have: * temperature above 101 * severe sore throat * trouble swallowing * chest pain * cough or trouble breathing * abdominal pain, nausea, vomiting * diarrhea, dark stools or bloody stools * any unanswered questions or concerns Call 911 if symptoms are severe. Call if you have any questions or problems. My cell # is [phone]. You can also reach a [facility] hospitalist on duty at [facility] 24 hours a day by calling [phone]. Please take good care of yourself. [facility] . Current Hospital Diet Patient's current hospital diet: AHA Diet (Heart Healthy), Diabetes Type 2 Diet Discharge Diet Recommended Diet: AHA Diet (Heart Healthy), Diabetes Type 2 Diet Pending Studies Studies pending at discharge: no Laboratory Results Hemoglobin A1c Test 06/03/18 05:36 Range/Units Estimated Average Glucose 166 mg/dl Hemoglobin A1c 7.4 H 4.5-5.6 % Medical Emergencies . Who to Call and When: Medical Emergencies: If at any time you feel your situation is an emergency, please call 911 immediately. . Non-Emergent Contact Non-Emergency issues call your: Primary Care Provider, Health Economist, Hospital Doctor, Oncologist . . "Provider Documentation" section prepared by [facility]. .
[2018-06-06 14:00] VITALS: BP 120/73; PULSE 84; TEMP 36.5; O2SAT 96
--- NOTE | 2018-06-07 06:23 | Discharge Summary ---
Discharge Summary Date of Service Jun 07, 2018. Discharge Summary Admission Date: Jun 01, 2018 at 16:04 Discharge Date: Jun 06, 2018 Discharge Disposition: Home Principal Diagnosis: neutropenic fever OTHER ACUTE DIAGNOSES: pancytopenia . Secondary Diagnoses/Problems: Chronic and Resolved Medical Problems: (1) ACEI/ARB contraindicated Permanent Comment: due to hypotension Status: Chronic (2) CAD (coronary artery disease) Status: Chronic (3) Calculus Of Kidney Status: Chronic (4) Carotid Artery Occlusion W O Cerebral Infarction Status: Chronic (5) Carotid stenosis Status: Chronic (6) Chr Airway Obstruct Nec Status: Chronic (7) Chronic systolic CHF (congestive heart failure) Permanent Comment: as per [facility] problem list, although last 2 echo's in system had normal EF; (55-60% in 06/2013) + grade I diastolic dysfunction Status: Chronic (8) COPD (chronic obstructive pulmonary disease) Status: Chronic (9) Coron Atheroscler Nos Type Vessel, [place] Status: Chronic (10) Diab Sofie Wo Compl, Type Ii Or Unspec Type, Not Uncntrld Status: Chronic (11) Diverticulosis Colon (W/O Ment Of Hemorrhage) Status: Chronic (12) DM type 2 (diabetes mellitus, type 2) Status: Chronic (13) Dyslipidemia Status: Chronic (14) Esophageal Reflux Status: Chronic (15) GERD (gastroesophageal reflux disease) Status: Chronic (16) HTN (hypertension) Status: Chronic (17) Hyperlipidemia Nec/Nos Status: Chronic (18) Hypertension Nos Status: Chronic (19) Lung cancer Permanent Comment: LLL SCC s/p Radiation therapy x 5 dx 2016; RUL/RLL Small Cell Lung CA dx 04/2018 Status: Chronic (20) PAD (peripheral artery disease) Status: Chronic (21) Renal Artery Aneurysm Status: Chronic (22) Subclavian artery stenosis, right Status: Chronic (23) Tobacco abuse Status: Chronic Surgical Problems: (1) Aortocoronary Bypass Status: Resolved (2) H/O maze procedure Status: Chronic (3) History of left-sided carotid endarterectomy Status: Chronic (4) Hx of CABG Status: Chronic (5) Percutaneous Translum Coron Angioplasty Status Status: Resolved (6) S/P coronary artery stent placement Status: Chronic (7) S/p lumbar spinal surgery Status: Chronic (8) Status post femoral-popliteal bypass surgery Permanent Comment: right Status: Chronic . Procedures: CT neck CTA chest IV meds IV fluids . Consultations: ID Hematology / Oncology . Pending Studies/Follow-Up: Please check CBC and BMP in clinic. . Medication Reconciliation New Medications: Fluconazole (Fluconazole) 100 Mg Tab 100 MG PO DAILY, #4 TAB Levofloxacin (Levofloxacin) 750 Mg Tab 750 MG PO DAILY, #4 TAB Nystatin (Nystatin) 60 Ml/Btl Susp 5 ML PO QID, #240 ML 3 Refills 1 tsp swish and swallow 4 times a day until thrush gone, then use 4 times a day as needed for thrush Continued Medications: Albuterol Sulfate (Proventil Hfa) 108 Mcg/Act Aer 2 PUFFS INH Q4 Aspirin (Aspirin Ec) 81 Mg Tab 81 MG PO QAM Atorvastatin (Lipitor) 80 Mg Tab 80 MG PO QAM, TAB Budesonide/Formoterol Fumarate (Symbicort 160/4.5 Inhaler ) Aero 2 PUFFS INH BID, INHALER Bupropion (Wellbutrin) 75 Mg Tab 150 MG PO BID Cholecalciferol (Vitamin D3) 1,000 Unit Tab 2000 UNITS PO DAILY Finasteride (Proscar) 5 Mg Tab 5 MG PO DAILY, TAB Gabapentin (Neurontin) 100 Mg Cap 200 MG PO TID, CAP Multiple Vitamin (Multivitamin) 1 Tab Tab 1 TAB PO QAM, TAB Nitroglycerin (Nitrostat) 0.4 Mg Tab 0.4 MG UT PRN, BTL NEEDED FOR CHEST PAIN - ONE TABLET UNDER THE TONGUE EVERY 5 MINUTES UP TO THREE DOSES. 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 is present at bedside. Patient saw Susu Conrad PA-C in office today for consultation, was reported to have fever, odynophagia, poor p.o. intake, dyspnea , tachycardia with HR 120s which patient recommended to be seen in the ED. He reports painful swallowing, decreased appetite and p.o. intake secondary to discomfort, weakness, chest discomfort with swallowing. He has chronic shortness of breath at rest and with exertion; however he feels his breathing is at baseline, chronic productive cough of occasional clear, yellow sputum. He is not on oxygen at home. Overall he feels weak. He denies chills, sweats, lightheadedness, dizziness, chest pain, emesis, diarrhea, abdominal pain, dysuria, increased frequency with urination, increased urgency with urination, hemoptysis, hematochezia, melena. In ED initial evaluation revealed neutropenia , WBC 0.23, macrocytic anemia with H&H 9.9/29.8, platelet count 31, sodium 133, potassium 4.2 BUN 21, creatinine 1.06, mag 1.6, lactic acid 1.4, EKG sinus tachycardia vent rate 115 bpm. Imaging reviewed chest x-ray Chronic infiltrate/ fibrotic scarring left base. Central catheters placed in the superior vena cava , CT neck unremarkable, CTA chest negative for PE, concern for left lower lobe air bronchograms/pneumonia, right lung/left lung nodules noted. . Physical Exam (per Admitting): General Appearance: WD/WN, + mild distress, + obese (Elderly male, lying in bed, appears age), + pertinent finding (chronic ill appearing) Head: normocephalic, atraumatic Eyes: normal inspection, PERRL, sclerae normal ENT: hearing grossly normal, + pertinent finding (Mucous membranes moist, thrush noted throughout oral, mucosal and pharyngeal mucosa) Neck: supple, no adenopathy, thyroid normal, no JVD Respiratory/Chest: chest non-tender, normal breath sounds, no respiratory distress, no accessory muscle use, + wheezing (R>L) Cardiovascular: no JVD, no murmur, + tachycardia (with regular rate) Abdomen/GI: normal bowel sounds, non tender, soft, no organomegaly Back: normal inspection, normal range of motion Extremities/Musculoskelatal: normal inspection, normal capillary refill, no pedal edema Neurologic/Psych: alert, normal mood/affect, oriented x 3 Skin: normal color, no rash, + pallor Hospital Course (1) Neutropenic fever (2) Pneumonia (3) Odynophagia (4) Thrush (5) Hypomagnesemia (6) Lung cancer (7) COPD (chronic obstructive pulmonary disease) (8) CAD (coronary artery disease) (9) HTN (hypertension) (10) DM type 2 (diabetes mellitus, type 2) (11) Dyslipidemia (12) BPH (benign prostatic hyperplasia) (13) GERD (gastroesophageal reflux disease) NEUTROPENIC FEVER Presented with fever, cough, pharyngitis, odynophagia. Neutropenic secondary to recent chemotherapy. Possible pneumonia. Imaging by plain film and CT demonstrate densities at both bases, but some of these may be chronic. Has implanted vascular access device-considered line sepsis. Had severe odynophagia, suspect D[place]n esophagitis, but considered other etiologies such as HSV or CMV. Blood cultures obtained in the ED and negative so far. Patient initially received IV vancomycin, levofloxacin, cefepime, fluconazole. ID consulted. Blood cultures negative and nasal MRSA screen negative. Vancomycin discontinued. Transitioned to oral therapy with levofloxacin to complete total of 10 days of antibiotic therapy. SEPSIS Met criteria for sepsis per current CMS definition (fever, tachycardia, tachypnea, leukopenia). Suspected pulmonary source as discussed above. Serum lactate 1.47; no need to repeat. Systolic blood pressures were greater than 90. Blood cultures obtained in the ED and received broad-spectrum antibiotic coverage initially with piperacillin/tazobactam and subsequent antibiotics as discussed above. ORAL THRUSH Severe oral thrush and odynophagia, suspect esophageal candidiasis. Has been receiving prednisone and recent chemotherapy. Received oral nystatin suspension swish and swallow and IV fluconazole. Discharged on fluconazole to complete 10 day course of therapy; continue nystatin suspension until clear, then PRN. PANCYTOPENIA Pancytopenia secondary to chemotherapy. CBC at time of admission demonstrated hemoglobin 9.9, white count 230, platelet count 31,000. Hgb fell as low as 6.8. WBC fell as low as 100. Plts fell as low as 11,000. Hematology/Oncology consulted. Received Neulasta last week with chemo. Platelet transfusions recommended to keep plt count > 20,000- received 2 bags. Transfuse packed RBCs as necessary to maintain hemoglobin greater than 7-8- received 1 unit. CBC day of discharge: hemoglobin 8.3, white count 1620, ANC 720, platelet count 30,000. 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 Management per Hematology/Oncology. CORONARY ARTERY DISEASE No anginal symptoms. Hold aspirin due to thrombocytopenia. Not on beta-lauren at this time. CHF History of chronic diastolic CHF. Chest x-ray 06/01 demonstrated vascular congestion. Acute on chronic left ventricular diastolic heart failure. Received IV furosemide with improvement. COPD / RADIATION FIBROSIS Acute exacerbation secondary to probable pneumonia. Received IV methylprednisolone and bronchodilators. Steroids transitioned to prednisone 40 mg daily. Has been on 40 mg of prednisone for some time, so taper slowly as tolerated. GERD Continue PPI. BPH Continue finasteride and tamsulosin. DM TYPE 2 Recently diet-controlled. Hemoglobin A1c = 7.4. Elevated blood sugars due to steroids and acute illness. Received Lantus / NovoLog per protocol Fasting blood sugar day of discharge was 152. Steroids tapered to recent dose of prednisone 40 mg daily. Follow blood sugars as outpatient. Taper prednisone further if OK with Radiation Oncology. VTE PROPHYLAXIS No anticoagulants due to thrombocytopenia. SCDs. Ambulating. DISPOSITION Discharged to home. Family Medicine follow-up with Dr. Gordon. Hematology/Oncology follow-up with Dr. Ethan Bethea. . Total time spent on discharge = 45 min. This includes examination of the patient, discharge planning, medication reconciliation, and communication with other providers. . Discharge Instructions Discharge Instructions Date of Service Jun 06, 2018. Admission Reason for Admission: Neutropenic Fever . Discharge Discharge Diagnosis / Problem: fever, low white blood count, pneumonia, thrush Discharge Goals Goal(s): Decrease discomfort, Improve disease control Activity Recommendations Activity Limitations: resume your previous activity . Instructions / Follow-Up Instructions / Follow-Up APPOINTMENTS: FAMILY MEDICINE 06/11/2018 1:20 PM Abdoul Gordon MD MEDICAL ONCOLOGY 06/15/2018 9:00 AM Ethan Bethea MD RADIATION ONCOLOGY Dr. Galvez OTHER INSTRUCTIONS: Take levofloxacin (Levaquin) 750 mg daily for pneumonia until gone. Take fluconazole (Diflucan) 100 mg daily for thrush until gone. Take nystatin suspension 5 ml (1 tsp) swish and swallow 4 times a day. Continue until thrush completely gone (no sore throat, no burning or pain when you swallow). After that, use 4 times a day as needed if thrush comes back. Blood sugars are running high, probably because of prednisone. Be careful with your diet. Have Dr. Gordon keep an eye on your blood sugars. Ask Dr. Galvez when you can cut down on prednisone dose. Do not stop taking prednisone suddenly- you need to gradually decrease the dose. Seek medical attention if you have: * temperature above 101 * severe sore throat * trouble swallowing * chest pain * cough or trouble breathing * abdominal pain, nausea, vomiting * diarrhea, dark stools or bloody stools * any unanswered questions or concerns Call 911 if symptoms are severe. Call if you have any questions or problems. My cell # is [phone]. You can also reach a [facility] hospitalist on duty at [facility] 24 hours a day by calling [phone]. Please take good care of yourself. Flex Oconnor . Current Hospital Diet Patient's current hospital diet: AHA Diet (Heart Healthy), Diabetes Type 2 Diet Discharge Diet Recommended Diet: AHA Diet (Heart Healthy), Diabetes Type 2 Diet Pending Studies Studies pending at discharge: no Laboratory Results Hemoglobin A1c Test 06/03/18 05:36 Range/Units Estimated Average Glucose 166 mg/dl Hemoglobin A1c 7.4 H 4.5-5.6 % Medical Emergencies . Who to Call and When: Medical Emergencies: If at any time you feel your situation is an emergency, please call 911 immediately. . Non-Emergent Contact Non-Emergency issues call your: Primary Care Provider, Supervisor Sewing Department, Hospital Doctor, Oncologist . . "Provider Documentation" section prepared by Flex Oconnor. . . Additional Copies To [employer] [facility]
== END 2018-06-06 14:25 | disposition home or self-care (01) | DRG 871 ==
LOC: C.EDB 10:42 → ENRESERV 15:31 → C.2E 16:04 → EDBEDREQSVC 16:06 → EDBEDREQTM 16:07 → C.4E 16:25
PROVIDERS: ADMIT Hospitalist; ATTEND Hospitalist
DX: A41.9 Sepsis, unspecified organism (principal); J18.1 Lobar pneumonia, unspecified organism; D61.810 Antineoplastic chemotherapy induced pancytopenia; I50.33 Acute on chronic diastolic (congestive) heart failure; B37.0 Candidal stomatitis; B37.81 Candidal esophagitis; J44.0 Chronic obstructive pulmonary disease with (acute) lower respiratory infection; J44.1 Chronic obstructive pulmonary disease with (acute) exacerbation; C34.31 Malignant neoplasm of lower lobe, right bronchus or lung; C34.32 Malignant neoplasm of lower lobe, left bronchus or lung; D70.1 Agranulocytosis secondary to cancer chemotherapy; E83.42 Hypomagnesemia; I25.10 Atherosclerotic heart disease of native coronary artery without angina pectoris; I11.0 Hypertensive heart disease with heart failure; E11.65 Type 2 diabetes mellitus with hyperglycemia; E11.51 Type 2 diabetes mellitus with diabetic peripheral angiopathy without gangrene; E78.5 Hyperlipidemia, unspecified; N40.0 Benign prostatic hyperplasia without lower urinary tract symptoms; K21.9 Gastro-esophageal reflux disease without esophagitis; F17.200 Nicotine dependence, unspecified, uncomplicated; Z66 Do not resuscitate; Z79.52 Long term (current) use of systemic steroids; Z79.82 Long term (current) use of aspirin; Z79.899 Other long term (current) drug therapy; Z95.1 Presence of aortocoronary bypass graft; Z95.5 Presence of coronary angioplasty implant and graft; Z98.62 Peripheral vascular angioplasty status; Z98.890 Other specified postprocedural states

== ENCOUNTER 2018-06-23 09:09 | Inpatient (IN) | payer OTHER, MEDICARE ==
[~2018-06-23] VITALS: Ht 170.2 cm; Wt 84.9 kg
[~2018-06-23 09:09] MED LIST changes: -CRG125 PO; +DFL100 PO; +ETOMIDATE 2 MG/ML 20 ML VIAL IV ONE; -FEXO1TAB49 PO; +FINA5TAB PO; -IPRA-64 INH; -LISI-729 PO; -LSX40 PO; +NYSSO PO; +ONDA-170 PO; -OXYC-57 PO; -PHEN-1042 PO; +PRAM1TAB10 PO; +PRED20TA PO; +PROC10TA PO; +SUCCINYLCHOLINE CHLORIDE 20 MG/ML 10 ML VIAL IV ONE; +TAMS0.4C38 PO; -XYLG2 EXT
[2018-06-23 09:10] VITALS: TEMP 37.1
[2018-06-23 09:15] VITALS: PULSE 155
[2018-06-23] MEDS ORDERED: ALBUT/IPRATROP 3MG/0.5MG NEB 3 ML VIAL INH STA (09:24)
--- NOTE | 2018-06-23 09:37 | EMERGENCY ROOM VISIT NOTE ---
History Report prepared by Idalmis: Lebron Arora Under the Supervision of: Dr. Monique Guan D.O. First contact with patient: 09:23 Stated Complaint: SHORTNESS OF BREATH/BACK PAIN History of Present Illness The patient is a 72 year old male who presents to the Emergency Room with complaints of shortness of breath that has been worsening for the past 3 days per the patient's son. The patient does have a diagnosis of Lung Cancer and received a double cycle of chemotherapy last week. The son also notes that the patient's told him that he began to vomit this morning at 0500, 4 hours and 15 minutes ago. Upon arrival to the ED the patient was 87% on room air. The son notes that the patient has c-pap for sleeping as well as inhalers and nebulizer treatments at home, but he is not always compliant with his medications. Upon arrival to the ED the patient does not his head that he is feeling better on Bi-pap. The son notes that he does have a history of a NC as well as CABG and stent placement. Source of History: patient Onset: 3 days Position: chest Quality: other (SOB) Timing: worsening Associated Symptoms: + vomiting Review of Systems See HPI for pertinent positives & negatives. A total of 10 systems reviewed and were otherwise negative. Past Medical & Surgical Medical Problems: (1) ACEI/ARB contraindicated (2) BPH (benign prostatic hyperplasia) (3) CAD (coronary artery disease) (4) Calculus Of Kidney (5) Carotid Artery Occlusion W O Cerebral Infarction (6) Carotid stenosis (7) Chr Airway Obstruct Nec (8) Chronic systolic CHF (congestive heart failure) (9) Claudication in peripheral vascular disease (10) Comfort measures only status (11) COPD (chronic obstructive pulmonary disease) (12) Coron Atheroscler Nos Type Vessel, [place] Or Graft (13) Diab Sofie Wo Compl, Type Ii Or Unspec Type, Not Uncntrld (14) Diverticulosis Colon (W/O Ment Of Hemorrhage) (15) DM type 2 (diabetes mellitus, type 2) (16) Dyslipidemia (17) Esophageal Reflux (18) Fever (19) GERD (gastroesophageal reflux disease) (20) HCAP (healthcare-associated pneumonia) (21) HTN (hypertension) (22) Hyperlipidemia Nec/Nos (23) Hypertension Nos (24) Hypomagnesemia (25) Lung cancer (26) Neutropenic fever (27) Odynophagia (28) PAD (peripheral artery disease) (29) PNA (pneumonia) (30) Renal Artery Aneurysm (31) Sepsis (32) Septic shock (33) Subclavian artery stenosis, right (34) Thrush (35) Tobacco abuse Surgical Problems: (1) Aortocoronary Bypass (2) H/O maze procedure (3) History of left-sided carotid endarterectomy (4) Hx of CABG (5) Percutaneous Translum Coron Angioplasty Status (6) S/P coronary artery stent placement (7) S/p lumbar spinal surgery (8) Status post femoral-popliteal bypass surgery Family History FH: CAD (coronary artery disease) FATHER, Onset:47 ( at age 47) MOTHER ( at 72 ) FH: cancer Social History Smoking Status: Current Some Day Smoker Drug Use: none Marital Status: Housing Status: lives with significant other Occupation Status: retired Current/Historical Medications Scheduled Albuterol Sulfate (Proventil Hfa), 2 PUFFS INH Q4 Aspirin (Aspirin Ec), 81 MG PO QAM Atorvastatin (Lipitor), 80 MG PO QAM Budesonide/Formoterol Fumarate (Symbicort 160/4.5 Inhaler ), 2 PUFFS INH BID Bupropion (Wellbutrin), 150 MG PO BID Cholecalciferol (Vitamin D3), 2,000 UNITS PO DAILY Finasteride (Proscar), 5 MG PO DAILY Gabapentin (Neurontin), 200 MG PO TID Multiple Vitamin (Multivitamin), 1 TAB PO QAM Nitroglycerin (Nitrostat), 0.4 MG UT PRN Pantoprazole Sodium (Protonix), 40 MG PO QAM Pramipexole Dihydrochloride (Pramipexole Dihydrochlori), 1 MG PO TID Prednisone (Prednisone), 40 MG PO DAILY Tamsulosin Hcl (Flomax), 0.4 MG PO HS Scheduled PRN Ondansetron Hcl (Zofran), 8 MG PO Q8 PRN for Nausea Prochlorperazine Maleate (Compazine), 10 MG PO Q6H PRN for Nausea Allergies Coded Allergies: No Known Allergies (Verified , 06/23/18) Physical Exam Vital Signs Date Time Temp Pulse Resp B/P (MAP) Pulse Ox O2 Delivery O2 Flow Rate FiO2 06/23/18 12:16 82/55 06/23/18 12:11 143 06/23/18 12:08 145 28 100 06/23/18 12:01 93/54 06/23/18 11:53 147 27 100 06/23/18 11:47 89/63 06/23/18 11:45 50 06/23/18 11:38 147 26 93/64 100 06/23/18 11:34 89/56 06/23/18 11:23 141 19 06/23/18 11:18 180/145 06/23/18 11:14 143 28 06/23/18 11:11 /128 06/23/18 11:09 143 14 06/23/18 11:04 142 27 06/23/18 11:00 100 06/23/18 10:59 142 32 06/23/18 10:54 142 23 06/23/18 10:49 100 06/23/18 10:49 144 35 06/23/18 10:44 147 33 06/23/18 10:39 146 32 06/23/18 10:34 151 30 06/23/18 10:29 152 30 06/23/18 10:27 /162 06/23/18 10:26 152 31 100/ BiPAP 50 06/23/18 10:24 153 28 06/23/18 10:19 154 34 06/23/18 10:15 155 35 BiPAP/CPAP 50 06/23/18 10:14 157 32 06/23/18 10:09 157 30 06/23/18 10:04 160 36 06/23/18 09:54 80 28 82 06/23/18 09:49 76 30 06/23/18 09:44 73 36 86 06/23/18 09:39 153 34 06/23/18 09:34 151 38 06/23/18 09:29 152 44 06/23/18 09:27 153 06/23/18 09:15 155 100 06/23/18 09:10 89 CPAP 15.0 06/23/18 09:10 37.1 152 46 119/78 90 BiPAP Physical Exam GENERAL: alert, in moderate distress, showing increased work of breathing. Feels improved on Bi-Pap EYE EXAM: normal conjunctiva, PERRL and EOM's grossly intact OROPHARYNX: no exudate, no erythema, lips, buccal mucosa, and tongue normal and mucous membranes are moist NECK: supple, no nuchal rigidity, no adenopathy, non-tender LUNGS: Increased work of breathing. Wheezes and rhonchi bilaterally. Feels improved on Bi-Pap HEART: no murmurs, S1 normal and S2 normal CHEST: There is a well healed vertical midline incision consistent with prior CABG. There is a port in the right anterior superior chest wall with steristrips in place. There is ecchymosis noted to the mid-right chest which is likely from gravitational pull of contusion from port placement. ABDOMEN: abdomen soft, non-tender, normo-active bowel sounds, no masses, no rebound or guarding. BACK: Back is symmetrical on inspection and there is no deformity, no midline tenderness, no CVA tenderness. SKIN: no rashes and no bruising UPPER EXTREMITIES: upper extremities are grossly normal. LOWER EXTREMITIES: No pitting edema. NEURO EXAM: Normal sensorium, cranial nerves II-XII grossly intact, normal speech, no gross weakness of arms, no gross weakness of legs. Medical Decision & Procedures ER Provider Diagnostic Interpretation: Radiology results have been interpreted by the radiologist and reviewed by me. CHEST ONE VIEW PORTABLE CLINICAL HISTORY: Respiratory failure COMPARISON STUDY: 06/23/2018 FINDINGS: The endotracheal tube has been repositioned and is currently 47 mm above the blayne. There is a right internal A-Port catheter projected over the atriocaval junction. The heart is enlarged. There are persistent left mid and lower lung zone airspace opacities.[ IMPRESSION: 1. Endotracheal tube 4.7 cm above the blayne 2. Persistent left mid and lower lung zone airspace opacities Electronically signed by: Vamshi Gar M.D. 06/23/2018 11:35 AM Dictated Date/Time: 06/23/2018 11:34 AM CHEST ONE VIEW PORTABLE CLINICAL HISTORY: Post intubation. COMPARISON STUDY: Chest radiograph June 23, 2018 at 9:31 AM. FINDINGS: Tip of endotracheal tube is 2.5 cm above the blayne. There is no pneumothorax. There may be a trace left pleural effusion. Left lung airspace opacity is noted. There is mild cardiomegaly. Interstitial thickening persists. Right internal jugular [id number]-[id number] is in place. Mediastinal and left neck surgical clips are noted. IMPRESSION: 1. Tip of endotracheal tube 2.5 cm above the blayne. 2. Left lung airspace opacity which favors pneumonia. 3. Suspected trace left pleural effusion. Electronically signed by: Maninder Meyer M.D. 06/23/2018 11:30 AM Dictated Date/Time: 06/23/2018 11:28 AM CHEST ONE VIEW PORTABLE CLINICAL HISTORY: Shortness of breath. COMPARISON STUDY: Chest radiograph and chest CT June 01, 2018. FINDINGS: Evaluation is suboptimal due to difficulty positioning the patient. Right sided [id number]-Kkmz is in place. There is no pneumothorax. There may be a small left pleural effusion. Underlying emphysema is noted. Left basilar opacity has increased. Left upper lung airspace opacity is likely developmental. Cardiomegaly is unchanged. There is mild interstitial thickening. IMPRESSION: 1. Increasing left basilar opacity and interval development of left upper lobe airspace opacity which favor pneumonia. Radiographic follow-up to ensure resolution is recommended. 2. Mild pulmonary vascular congestion. Electronically signed by: Maninder Meyer M.D. 06/23/2018 9:55 AM Dictated Date/Time: 06/23/2018 9:46 AM Laboratory Results 06/23/18 09:35 Red Blood Count 1.70, Mean Corpuscular Volume 112.9, Mean Corpuscular Hemoglobin 37.1, Mean Corpuscular Hemoglobin Concent 32.8, Mean Platelet Volume 9.9, Neutrophils (%) (Auto) 0.0, Lymphocytes (%) (Auto) 97.8, Monocytes (%) ( Auto) 1.1, Eosinophils (%) (Auto) 1.1, Basophils (%) (Auto) 0.0, Neutrophils # ( Auto) 0.00, Lymphocytes # (Auto) 0.90, Monocytes # (Auto) 0.01, Eosinophils # ( Auto) 0.01, Basophils # (Auto) 0.00 06/23/18 09:35 Test 06/23/18 09:35 06/23/18 09:58 06/23/18 11:36 White Blood Count 0.92 K/uL (4.8-10.8) Red Blood Count 1.70 M/uL (4.7-6.1) Hemoglobin 6.3 g/dL (14.0-18.0) Hematocrit 19.2 % (42-52) Mean Corpuscular Volume 112.9 fL (80-100) Mean Corpuscular Hemoglobin 37.1 pg (25-34) Mean Corpuscular Hemoglobin Concent 32.8 g/dl (32-36) Platelet Count 50 K/uL (130-400) Mean Platelet Volume 9.9 fL (7.4-10.4) Neutrophils (%) (Auto) 0.0 % Lymphocytes (%) (Auto) 97.8 % Monocytes (%) (Auto) 1.1 % Eosinophils (%) (Auto) 1.1 % Basophils (%) (Auto) 0.0 % Neutrophils # (Auto) 0.00 K/uL (1.4-6.5) Lymphocytes # (Auto) 0.90 K/uL (1.2-3.4) Monocytes # (Auto) 0.01 K/uL (0.11-0.59) Eosinophils # (Auto) 0.01 K/uL (0-0.5) Basophils # (Auto) 0.00 K/uL (0-0.2) RDW Standard Deviation 86.6 fL (36.4-46.3) RDW Coefficient of Variation 21.5 % (11.5-14.5) Immature Granulocyte % (Auto) 0.0 % Immature Granulocyte # (Auto) 0.00 K/uL (0.00-0.02) Anisocytosis PRESENT Macrocytosis PRESENT Prothrombin Time 11.4 SECONDS (9.0-12.0) Prothromb Time International Ratio 1.1 (0.9-1.1) Anion Gap 21.0 mmol/L (3-11) Est Creatinine Clear Calc Drug Dose 23.4 ml/min Estimated GFR () 23.1 Estimated GFR (Non- 19.9 BUN/Creatinine Ratio 14.0 (10-20) Calcium Level 8.7 mg/dl (8.5-10.1) Magnesium Level 1.2 mg/dl (1.8-2.4) Total Bilirubin 0.7 mg/dl (0.2-1) Aspartate Amino Transf (AST/SGOT) 18 U/L (15-37) Alanine Aminotransferase (ALT/SGPT) 49 U/L (12-78) Alkaline Phosphatase 72 U/L (45-117) Troponin I 0.086 ng/ml (0-0.045) Pro-B-Type Natriuretic Peptide 3521 pg/ml (0-900) Total Protein 6.4 gm/dl (6.4-8.2) Albumin 2.7 gm/dl (3.4-5.0) Globulin 3.7 gm/dl (2.5-4.0) Albumin/Globulin Ratio 0.7 (0.9-2) Lipase 146 U/L (73-393) Thyroid Stimulating Hormone (TSH) 7.410 uIu/ml (0.300-4.500) Bedside Lactic Acid Venous 13.58 mmol/L (0.90-1.70) Bedside Blood Gas pH (LAB) 7.12 (7.35-7.45) Bedside Blood Gas pCO2 (LAB) 42 mmHg (35-46) Bedside Blood Gas pO2 (LAB) 354 mmHg (80-95) Bedside Blood Gas HCO3 (LAB) 14 meq/L (19-24) Bedside Blood Gas Total CO2 15 mEq/l (24-31) Bedside Blood Gas Base Excess (LAB) -16.0 meq/L (-9-1.8) Bedside Blood Gas O2 Saturation 100.0 % (90-95) Laboratory results per my review. Medications Administered Medications (Trade) Dose Ordered Sig/Timbo Route Start Time Stop Time Status Last Admin Dose Admin Fentanyl Citrate (Fentanyl Inj) 100 mcg STK-MED ONCE .ROUTE 06/23/18 09:38 06/23/18 09:39 DC 06/23/18 09:46 50 MCG Piperacillin Sod/ Tazobactam Sod (Zosyn Iv) 4.5 gm NOW STAT IV 06/23/18 09:55 06/23/18 09:58 DC 06/23/18 10:19 4.5 GM Vancomycin HCl 2000 mg/Sodium Chloride 540 ml @ 200 mls/hr TODAY@1200 ONCE IV 06/23/18 12:00 06/23/18 14:31 DC 06/23/18 12:05 200 MLS/HR Methylprednisolone Sodium Succinate (Solu-Medrol IV) 125 mg NOW STAT IV 06/23/18 10:07 06/23/18 10:08 DC 06/23/18 10:19 125 MG Sodium Chloride 1,000 ml @ 999 mls/hr Q1H1M STAT IV 06/23/18 10:55 06/23/18 11:55 DC 06/23/18 10:55 999 MLS/HR Fentanyl Citrate (Fentanyl Inj) 100 mcg NOW STAT IV 06/23/18 10:55 06/23/18 10:56 DC 8/22/18 10:59 100 MCG Lorazepam (Ativan Inj) 1 mg NOW STAT IV 06/23/18 10:55 06/23/18 10:56 DC 06/23/18 10:55 1 MG Sodium Chloride 1,000 ml @ 999 mls/hr Q1H1M STAT IV 06/23/18 10:58 06/23/18 11:58 DC 06/23/18 10:58 999 MLS/HR Lorazepam (Ativan Inj) 2 mg NOW STAT IV 06/23/18 11:44 06/23/18 11:47 DC 06/23/18 11:52 2 MG Procedure Endotracheal Intubation Indication respiratory failure. The patient was on 100% oxygen via NRB prior to the procedure. Suction, airway equipment, RSI drugs, respiratory equipment, and appropriate personnel were prepared prior to the initiation of the procedure. A time out was taken. Induction was performed with 25 mg Etomidate. After observing the clinical benefit of the medications, the airway was easily visualized utilizing a GlideScope . A 8-0 size ETT tube was placed atraumatically to 25 cm using standard technique. The cuff inflated without signs of malfunction. There were bilateral breath sounds, positive colormetric change, no gastric sounds, a good capnography waveform, and post procedure pulse oximetry was 98%. Post intubation sedation was administered using Ativan. There were no complications. ECG Per My Interpretation Indication: SOB/dyspnea Rate (beats per minute): 155 Rhythm: sinus tachycardia Findings: no acute ischemic change, no ectopy, other (No MELANIE/STD, normal axis and interval) ED Course 0916: The patient was evaluated in room A9. A complete history and physical exam was performed. 0924: Ordered DuoNeb 3 mL INH, Fentanyl 100 mch. 0951: I discussed the case with the patient's son and family. The son initially said they want CPR, but not intubation. Pt now full code after additional discussion with other family. 0955: Ordered Zosyn 4.5 gm IV. 1007: Ordered Solu-Medrol 125 mg IV. 1030: Ordered Levalbuterol 2.5 mg IMH. 1035: I discussed with the family members again at this time. More family has arrived. They want full code. 1050: I performed an intubation. See procedure note for further detail 1055: Ordered Fentanyl Citrate 100 mcg IV, Sodium Chloride 1000 mL @ 999 mL/hr IV. 1058: Ordered Sodium Chloride 1000 mL @ 999 mL/hr IV. 1102: I discussed the case with Dr. Mendez - ICU. He suggests discussing with medicine. 1115: Ordered Norepinephrine 1130: Ordered Propofol 1 dose. 1144: Ordered Lorazepam 2 mg IV. 1145: Ordered Fentanyl Citrate 100 mcg IV. 1153: I discussed the case with Candi Ching [facility] Hospitalist. She will evaluate the patient for further treatment. 1200: Ordered Vancomycin HCl 540 mL @ 200 mL/hr IV. 1228: I obtained consent for triple lumen placement. 1241: ICU has spoken with family. They no longer want any additional aggressive interventions. They do not want a central line. The patient will be terminally extubated with comfort measures. Medical Decision Prior records/ancillary studies reviewed. Triage Nursing notes reviewed. Differential diagnosis: Etiologies such as infections, reactive airway disease, pneumonia, pneumothorax , COPD, CHF, cardiac ischemia, pulmonary embolism, musculoskeletal, gastrointestinal, as well as others were entertained. Patient initially ill-appearing requiring CPAP from EMS and immediately changed over to BiPAP on his arrival with us. Nebs ordered and history initially obtained from the son as the patient was in too much distress to be able to answer questions. I was able to obtain some information from him in 1 word yes or no questions. Patient did initially report improvement in his work of breathing due to use of the BiPAP. While blood work was being drawn and sent and chest x-ray performed, patient slowly began to appear worse. We were having persistent difficulty obtaining blood pressure readings as well as accurate pulse ox readings. Patient still appeared clinically well perfused, however was continuing to work to breathe and respiratory rate was in the 30s. I began to discuss with the son his wishes given his significant pulmonary history and the son became significantly upset and immediately contacted his mother, the patient's . When I asked the patient if he wanted intubated he shook his head no. When the son then came in and said that he had spoken to his mother and she wanted everything done, the patient then relented and agreed. I explained both of them want intubation would include as well as the fact that given his significant pulmonary history he may never be able to come off of a ventilator after this. Patient was moved to a resuscitation room and or intubation. Additional family arrived shortly thereafter and I again discussed with them while we were preparing the implications of intubation and whether or not these were his wishes. On patient's last admission he was a DNR. They again were all in agreement that everything should be done including aggressive interventions including CPR and intubation. I discussed with them my concern regarding the patient's abnormal blood work and possible etiology and differential diagnosis for this. I discussed with them the patient was critically ill and may not survive. They elected to proceed. Following this patient was intubated. My initial view of the postintubation chest x-ray appeared slightly right mainstem so the tube was pulled back and repeat chest x- ray was taken. Patient's oxygenation was improved however he continued to overbreathing the vent. Careful sedation was given as patient's blood pressures were borderline and slightly low. Patient was receiving IV fluids at this time as well as fluids and the antibiotics were ordered. Case was discussed with the ICU. I then discuss with family again possible need for central venous access and use of pressors. After significant bedside discussion they again wanted to proceed with this intervention and signed a consent form. While preparing to perform this procedure, nursing informatics analyst and staff showed up and after prolonged discussion with them regarding patient's critical condition and history, family then elected to abort any additional procedures. Family wanted to wait for additional members to arrive and then wanted to proceed with an extubation. Case discussed with hospitalist as patient would be made comfort care at this time with palliative measures only following the extubation. Patient likely with multiple etiology of his respiratory failure and hypoxia, combined with his anemia, likely underlying sepsis, and known history of pulmonary malignancy. Patient was never stable for any additional imaging including CAT scan of the chest or abdomen and pelvis to the other potential causes of his tachycardia, hypoxia, anemia, and kidney failure. Medication Reconcilliation Current Medication List: was personally reviewed by me Blood Pressure Screening Patient's blood pressure: Elevated blood pressure Referred to hospitalist. Consults Time Called: 1055 Consulting Physician: Dr. Vanessa Reina ICU Returned Call: 1109 I discussed the case with Dr. Vanessa ALBERTO. He suggests discussing with medicine. Additional Consults: Time Called: 114 Consulted Physician: Candi Marrero Hospitalist. Returned Call: [phone] Additional Comments: I discussed the case with Candi Gibbser Hospitalist. She will evaluate the patient for further treatment. Impression Primary Impression: Respiratory failure Additional Impressions: Hypoxia Anemia Acute renal failure COPD (chronic obstructive pulmonary disease) Congestive heart failure Septic shock Critical Care I have personally spent 125 minutes of critical care time in the direct management of this patient. This includes bedside care, interpretation of diagnostic studies, and testing, discussion with consultants, patient, and family members, and other required patient management activities. This 125 minutes is in excess of all separately billable procedures. Scribe Attestation The scribe's documentation has been prepared under my direction and personally reviewed by me in its entirety. I confirm that the note above accurately reflects all work, treatment, procedures, and medical decision making performed by me. Departure Information Dispostion Being Evaluated By Hospitalist Abdoul Zavala M.D. (PCP) Problem Qualifiers Primary Impression: Respiratory failure Chronicity: acute on chronic Respiratory failure complication: hypoxia Qualified Codes: J96.21 - Acute and chronic respiratory failure with hypoxia Additional Impressions: Anemia Anemia type: unspecified type Qualified Codes: D64.9 - Anemia, unspecified Acute renal failure Acute renal failure type: unspecified Qualified Codes: N17.9 - Acute kidney failure, unspecified COPD (chronic obstructive pulmonary disease) COPD type: COPD with acute exacerbation Qualified Codes: J44.1 - Chronic obstructive pulmonary disease with (acute) exacerbation Congestive heart failure Heart failure type: unspecified Heart failure chronicity: acute on chronic Qualified Codes: I50.9 - Heart failure, unspecified
[2018-06-23] MEDS ORDERED: FENTANYL CITRATE INJ 50 MCG/1 ML 2 ML VIAL ONE (09:38)
[2018-06-23 09:54] LABS: MEAN PLATELET VOLUME 9.9 fL (7.4-10.4); PLATELET COUNT 50 K/uL (130-400)
[2018-06-23] MEDS ORDERED: PIPERACILLIN/TAZOBACTAM 4.5 GM/100ML D5W IV STA (09:55)
--- NOTE | 2018-06-23 09:56 | DIAGNOSTIC IMAGING REPORT ---
CHEST ONE VIEW PORTABLE CLINICAL HISTORY: Shortness of breath. COMPARISON STUDY: Chest radiograph and chest CT June 01, 2018. FINDINGS: Evaluation is suboptimal due to difficulty positioning the patient. Right sided Nfozdq-t-[id number] is in place. There is no pneumothorax. There may be a small left pleural effusion. Underlying emphysema is noted. Left basilar opacity has increased. Left upper lung airspace opacity is likely developmental. Cardiomegaly is unchanged. There is mild interstitial thickening. IMPRESSION: 1. Increasing left basilar opacity and interval development of left upper lobe airspace opacity which favor pneumonia. Radiographic follow-up to ensure resolution is recommended. 2. Mild pulmonary vascular congestion. Electronically signed by: Maninder Meyer M.D. 06/23/2018 9:55 AM Dictated Date/Time: 06/23/2018 9:46 AM
[2018-06-23 09:59] LABS: INR 1.1 (0.9-1.1)
[2018-06-23] MEDS ORDERED: VANCOMYCIN CONSULT ACTIVE PRN (10:00)
[2018-06-23 10:02] LABS: HEMATOCRIT 19.2 % (42-52); HEMOGLOBIN 6.3 g/dL (14.0-18.0); MEAN CELL VOLUME 112.9 fL (80-100); MEAN CORPUSCULAR HEMOGLOBIN 37.1 pg (25-34); MEAN CORPUSCULAR HGB CONC 32.8 g/dl (32-36); RED CELL DISTRIBUTION WIDTH CV 21.5 % (11.5-14.5); RED CELL DISTRIBUTION WIDTH SD 86.6 fL (36.4-46.3); WHITE BLOOD COUNT 0.92 K/uL (4.8-10.8)
[2018-06-23] MEDS ORDERED: METHYLPREDNISOLONE 125 MG VIAL IV STA (10:07)
[2018-06-23 10:15] VITALS: PULSE 155
[2018-06-23 10:17] LABS: EOS % 1.1 %; EOS ABS # 0.01 K/uL (0-0.5); LYMPH % 97.8 %; MONO % 1.1 %; MONO ABS # 0.01 K/uL (0.11-0.59)
[2018-06-23 10:26] LABS: CREATININE 3.01 mg/dl (0.60-1.40)
[2018-06-23 10:27] LABS: ALBUMIN 2.7 gm/dl (3.4-5.0); CALCIUM 8.7 mg/dl (8.5-10.1); TOTAL PROTEIN 6.4 gm/dl (6.4-8.2)
[2018-06-23] MEDS ORDERED: LEVALBUTEROL 1.25MG/3ML NEB INH ONE (10:30)
[2018-06-23] MEDS ORDERED: RAPID SEQUENCE INDUCTION BAG ONE (10:34)
[2018-06-23] MEDS ORDERED: SODIUM CHLORIDE 0.9% 1000ML 1,000 ML IV STA ×2 (10:55→10:58)
[2018-06-23] MEDS ORDERED: LORAZEPAM 2 MG/ML 1 ML VIAL IV STA ×2 (10:55→11:44)
[2018-06-23] MEDS ORDERED: FENTANYL CITRATE INJ 50 MCG/1 ML 2 ML VIAL IV STA (10:55)
[2018-06-23] MEDS ORDERED: NOREPINEPHRINE BIT INJ 8 MG in DEXTROSE 5% 500ML 500 ML IV PRN (11:15)
[2018-06-23] MEDS ORDERED: PROPOFOL IV EMULSION 10 MG/ML 100 ML VIAL IV PRN (11:30)
--- NOTE | 2018-06-23 11:32 | DIAGNOSTIC IMAGING REPORT ---
CHEST ONE VIEW PORTABLE CLINICAL HISTORY: Post intubation. COMPARISON STUDY: Chest radiograph June 23, 2018 at 9:31 AM. FINDINGS: Tip of endotracheal tube is 2.5 cm above the blayne. There is no pneumothorax. There may be a trace left pleural effusion. Left lung airspace opacity is noted. There is mild cardiomegaly. Interstitial thickening persists. Right internal jugular Wcomhq-m-Lwzz is in place. Mediastinal and left neck surgical clips are noted. IMPRESSION: 1. Tip of endotracheal tube 2.5 cm above the blayne. 2. Left lung airspace opacity which favors pneumonia. 3. Suspected trace left pleural effusion. Electronically signed by: Maninder Meyer M.D. 06/23/2018 11:30 AM Dictated Date/Time: 06/23/2018 11:28 AM
--- NOTE | 2018-06-23 11:36 | DIAGNOSTIC IMAGING REPORT ---
CHEST ONE VIEW PORTABLE CLINICAL HISTORY: Respiratory failure COMPARISON STUDY: 06/23/2018 FINDINGS: The endotracheal tube has been repositioned and is currently 47 mm above the blayne. There is a right internal A-Port catheter projected over the atriocaval junction. The heart is enlarged. There are persistent left mid and lower lung zone airspace opacities.[ IMPRESSION: 1. Endotracheal tube 4.7 cm above the blayne 2. Persistent left mid and lower lung zone airspace opacities Electronically signed by: Vamshi Gar M.D. 06/23/2018 11:35 AM Dictated Date/Time: 06/23/2018 11:34 AM
[2018-06-23] MEDS ORDERED: FENTANYL CITRATE INJ 50 MCG/1 ML 2 ML VIAL IV PRN (11:45)
[2018-06-23] MEDS ORDERED: VANCOMYCIN IV 2,000 MG in SODIUM CHLORIDE 0.9% 500ML 500 ML IV ONE (12:00)
[2018-06-23 13:10] VITALS: O2SAT 100; Ht 170.2 cm; Wt 84.9 kg
[2018-06-23 13:20] VITALS: BP 77/52; PULSE 129; O2SAT 100
[2018-06-23] MEDS ORDERED: MoRPHine SULFATE 2 MG/ML CARP IV PRN (13:30)
[2018-06-23] MEDS ORDERED: LORAZEPAM 2 MG/ML 1 ML VIAL IV SCH (13:30)
[2018-06-23] MEDS ORDERED: MoRPHine SULFATE 2 MG/ML CARP ONE (14:02)
[2018-06-23] MEDS ORDERED: LORAZEPAM 2 MG/ML 1 ML VIAL ONE (14:02)
--- NOTE | 2018-06-23 14:24 | History and Physical ---
History & Physical Date & Time of Service: Jun 23, 2018 at 13:42 Chief Complaint: Shortness Of Breath/Back Pain Primary Care Physician: Abdoul Gordon M.D. 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 History provided by family as patient currently is intubated. Patient received and finished cycle 2 of chemotherapy carboplatin/etoposide in which he completed on 06/17/18 when he developed increased weakness, shortness of breath, nonproductive cough, fever 1 at 102 max. Last evening had an episode of emesis. Overall poor appetite. On 06/21/18 he went to [place] for measurements regarding radiation; however, he did not receive any treatment. Of significance patient was recently hospitalized after cycle 1 of chemotherapy on 06/01/18 with neutropenic fever, pneumonia, thrush. He was treated with IV antibiotics, antifungals and his condition overall improved. Per family he continues on fluconazole and nystatin swish and swallow for thrush. In ED patient was noted to be pancytopenic with WBC of 0.92, H&H 6.3 and 19.2 respectively, platelet count 50, initial ABG showed pH of 7.31 with a subsequent ABG pH of 7.12, BUN 42, creatinine 3.01, sodium 135, potassium 5.2, anion gap 21, lactic acid 13.58, troponin 0 0.81, BNP 3521, TSH 7.41. Unfortunately patient deteriorated rapidly which resulted in intubation, despite last admission patient being deemed DNR. Per family they wished for full treatment. Empiric antibiotics IV vancomycin and Zosyn were given, IV fluid resuscitation and IV methylprednisolone. There was discussion regarding central line placement; however, after conversation with family, optical worker it was opted to begin comfort measures as well as eventual extubation. He is being admitted for comfort and palliative measures. Past Medical/Surgical History Medical Problems: (1) ACEI/ARB contraindicated Permanent Comment: due to hypotension Status: Chronic (2) CAD (coronary artery disease) Status: Chronic (3) Calculus Of Kidney Status: Chronic (4) Carotid Artery Occlusion W O Cerebral Infarction Status: Chronic (5) Carotid stenosis Status: Chronic (6) Chr Airway Obstruct Nec Status: Chronic (7) Chronic systolic CHF (congestive heart failure) Permanent Comment: as per [facility] problem list, although last 2 echo's in system had normal EF; (55-60% in 06/2013) + grade I diastolic dysfunction Status: Chronic (8) COPD (chronic obstructive pulmonary disease) Status: Chronic (9) Coron Atheroscler Nos Type Vessel, [place] Or Graft Status: Chronic (10) Diab Sofie Wo Compl, Type Ii Or Unspec Type, Not Uncntrld Status: Chronic (11) Diverticulosis Colon (W/O Ment Of Hemorrhage) Status: Chronic (12) DM type 2 (diabetes mellitus, type 2) Status: Chronic (13) Dyslipidemia Status: Chronic (14) Esophageal Reflux Status: Chronic (15) GERD (gastroesophageal reflux disease) Status: Chronic (16) HTN (hypertension) Status: Chronic (17) Hyperlipidemia Nec/Nos Status: Chronic (18) Hypertension Nos Status: Chronic (19) Lung cancer Permanent Comment: LLL SCC s/p Radiation therapy x 5 dx 2017; RUL/RLL Small Cell Lung CA dx 04/2018 Status: Chronic (20) PAD (peripheral artery disease) Status: Chronic (21) Renal Artery Aneurysm Status: Chronic (22) Subclavian artery stenosis, right Status: Chronic (23) Tobacco abuse Status: Chronic Surgical Problems: (1) Aortocoronary Bypass Status: Resolved (2) H/O maze procedure Status: Chronic (3) History of left-sided carotid endarterectomy Status: Chronic (4) Hx of CABG Status: Chronic (5) Percutaneous Translum Coron Angioplasty Status Status: Resolved (6) S/P coronary artery stent placement Status: Chronic (7) S/p lumbar spinal surgery Status: Chronic (8) Status post femoral-popliteal bypass surgery Permanent Comment: right Status: Chronic Family History FH: CAD (coronary artery disease) FATHER, Onset:47 ( at age 47) MOTHER ( at 72 ) FH: cancer Social History Smoking Status: Current Some Day Smoker (approx 50 pack year history) Smokeless Tobacco Use: No Alcohol Use: none Drug Use: none Marital Status: Housing status: lives with family Occupational Status: retired Immunizations History of Influenza Vaccine: Yes Influenza Vaccine Date: Aug 07, 2012 History of Tetanus Vaccine?: Yes History of Pneumococcal: Yes Pneumococcal Date: Aug 07, 2012 History of Hepatitis B Vaccine: Yes Hepatitis Immunization Date: Sep 22, 2000 Allergies Coded Allergies: No Known Allergies (Verified , 06/23/18) Home Medications Scheduled Albuterol Sulfate (Proventil Hfa), 2 PUFFS INH Q4 Aspirin (Aspirin Ec), 81 MG PO QAM Atorvastatin (Lipitor), 80 MG PO QAM Budesonide/Formoterol Fumarate (Symbicort 160/4.5 Inhaler ), 2 PUFFS INH BID Bupropion (Wellbutrin), 150 MG PO BID Cholecalciferol (Vitamin D3), 2,000 UNITS PO DAILY Finasteride (Proscar), 5 MG PO DAILY Gabapentin (Neurontin), 200 MG PO TID Multiple Vitamin (Multivitamin), 1 TAB PO QAM Nitroglycerin (Nitrostat), 0.4 MG UT PRN Pantoprazole Sodium (Protonix), 40 MG PO QAM Pramipexole Dihydrochloride (Pramipexole Dihydrochlori), 1 MG PO TID Prednisone (Prednisone), 40 MG PO DAILY Tamsulosin Hcl (Flomax), 0.4 MG PO HS Scheduled PRN Ondansetron Hcl (Zofran), 8 MG PO Q8 PRN for Nausea Prochlorperazine Maleate (Compazine), 10 MG PO Q6H PRN for Nausea Review of Systems ROS unable to obtain secondary to patient being intubate Physical Exam Vital Signs Date Time Temp Pulse Resp B/P (MAP) Pulse Ox O2 Delivery O2 Flow Rate FiO2 06/23/18 13:20 129 24 77/52 100 06/23/18 12:16 82/55 06/23/18 12:11 143 06/23/18 12:08 145 28 100 06/23/18 12:01 93/54 06/23/18 11:53 147 27 100 06/23/18 11:47 89/63 06/23/18 11:45 50 06/23/18 11:38 147 26 93/64 100 06/23/18 11:34 89/56 06/23/18 11:23 141 19 06/23/18 11:18 180/145 06/23/18 11:14 143 28 06/23/18 11:11 /128 06/23/18 11:09 143 14 06/23/18 11:04 142 27 06/23/18 11:00 100 06/23/18 10:59 142 32 06/23/18 10:54 142 23 06/23/18 10:49 100 06/23/18 10:49 144 35 06/23/18 10:44 147 33 06/23/18 10:39 146 32 06/23/18 10:34 151 30 06/23/18 10:29 152 30 06/23/18 10:27 /162 06/23/18 10:26 152 31 100/ BiPAP 50 06/23/18 10:24 153 28 06/23/18 10:19 154 34 06/23/18 10:15 155 35 BiPAP/CPAP 50 06/23/18 10:14 157 32 06/23/18 10:09 157 30 06/23/18 10:04 160 36 06/23/18 09:54 80 28 82 06/23/18 09:49 76 30 06/23/18 09:44 73 36 86 06/23/18 09:39 153 34 06/23/18 09:34 151 38 06/23/18 09:29 152 44 06/23/18 09:27 153 06/23/18 09:15 155 100 06/23/18 09:10 89 CPAP 15.0 06/23/18 09:10 37.1 152 46 119/78 90 BiPAP General Appearance: + moderate distress, + obese (Male, lying in bed, intubated ) Head: normocephalic, atraumatic ENT: + pertinent finding (+intubation, membranes dry) Neck: no JVD, trachea midline Respiratory/Chest: + respiratory distress, + accessory muscle use, + pertinent finding (intubated) Cardiovascular: + tachycardia (but regular rhythm) Abdomen/GI: soft, no pulsatile mass, + distended (secondary to obesity) Neurologic/Psych: + pertinent finding (patient not responsive, intubated, unable to assess neurologic status) Skin: no rash, + pallor, + pertinent finding Diagnostics Laboratory Results Results Past 24 Hours Test 06/23/18 09:35 06/23/18 09:50 06/23/18 09:58 06/23/18 11:36 Range/Units White Blood Count 0.92 4.8-10.8 K/uL Red Blood Count 1.70 4.7-6.1 M/uL Hemoglobin 6.3 14.0-18.0 g/dL Hematocrit 19.2 42-52 % Mean Corpuscular Volume 112.9 80-100 fL Mean Corpuscular Hemoglobin 37.1 25-34 pg Mean Corpuscular Hemoglobin Concent 32.8 32-36 g/dl Platelet Count 50 130-400 K/uL Mean Platelet Volume 9.9 7.4-10.4 fL Neutrophils (%) (Auto) 0.0 % Lymphocytes (%) (Auto) 97.8 % Monocytes (%) (Auto) 1.1 % Eosinophils (%) (Auto) 1.1 % Basophils (%) (Auto) 0.0 % Neutrophils # (Auto) 0.00 1.4-6.5 K/uL Lymphocytes # (Auto) 0.90 1.2-3.4 K/uL Monocytes # (Auto) 0.01 0.11-0.59 K/uL Eosinophils # (Auto) 0.01 0-0.5 K/uL Basophils # (Auto) 0.00 0-0.2 K/uL RDW Standard Deviation 86.6 36.4-46.3 fL RDW Coefficient of Variation 21.5 11.5-14.5 % Immature Granulocyte % (Auto) 0.0 % Immature Granulocyte # (Auto) 0.00 0.00-0.02 K/uL Anisocytosis PRESENT Macrocytosis PRESENT Prothrombin Time 11.4 9.0-12.0 SECONDS Prothromb Time International Ratio 1.1 0.9-1.1 Sodium Level 135 136-145 mmol/L Potassium Level 5.0 3.5-5.1 mmol/L Chloride Level 98 98-107 mmol/L Carbon Dioxide Level 17 21-32 mmol/L Anion Gap 21.0 3-11 mmol/L Blood Urea Nitrogen 42 7-18 mg/dl Creatinine 3.01 0.60-1.40 mg/dl Est Creatinine Clear Calc Drug Dose 23.4 ml/min Estimated GFR () 23.1 Estimated GFR (Non- 19.9 BUN/Creatinine Ratio 14.0 10-20 Random Glucose 234 70-99 mg/dl Calcium Level 8.7 8.5-10.1 mg/dl Magnesium Level 1.2 1.8-2.4 mg/dl Total Bilirubin 0.7 0.2-1 mg/dl Aspartate Amino Transf (AST/SGOT) 18 15-37 U/L Alanine Aminotransferase (ALT/SGPT) 49 12-78 U/L Alkaline Phosphatase 72 45-117 U/L Troponin I 0.086 0-0.045 ng/ml Pro-B-Type Natriuretic Peptide 3521 0-900 pg/ml Total Protein 6.4 6.4-8.2 gm/dl Albumin 2.7 3.4-5.0 gm/dl Globulin 3.7 2.5-4.0 gm/dl Albumin/Globulin Ratio 0.7 0.9-2 Lipase 146 73-393 U/L Thyroid Stimulating Hormone (TSH) 7.410 0.300-4.500 uIu/ml Bedside Blood Gas pH (LAB) 7.31 7.12 7.35-7.45 Bedside Blood Gas pCO2 (LAB) 29 42 35-46 mmHg Bedside Blood Gas pO2 (LAB) 292 354 80-95 mmHg Bedside Blood Gas HCO3 (LAB) 14 14 19-24 meq/L Bedside Blood Gas Total CO2 15 15 24-31 mEq/l Bedside Blood Gas Base Excess (LAB) -12.0 -16.0 -9-1.8 meq/L Bedside Blood Gas O2 Saturation 100.0 100.0 90-95 % Bedside Lactic Acid Venous 13.58 0.90-1.70 mmol/L Microbiology Results 06/23/18 Blood Culture, Received Pending 06/23/18 Blood Culture, Received Pending Diagnostic Radiology CXR: IMPRESSION: 1. Increasing left basilar opacity and interval development of left upper lobe airspace opacity which favor pneumonia. Radiographic follow-up to ensure resolution is recommended. 2. Mild pulmonary vascular congestion. 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 In ED patient was noted to be pancytopenic with WBC of 0.92, H&H 6.3 and 19.2 respectively, platelet count 50, initial ABG showed pH of 7.31 with a subsequent ABG pH of 7.12, BUN 42, creatinine 3.01, sodium 135, potassium 5.2, anion gap 21, lactic acid 13.58, troponin 0 0.81, BNP 3521, TSH 7.41. Unfortunately patient deteriorated rapidly which resulted in intubation, despite last admission patient being deemed DNR. Per family they wished for full treatment. Empiric antibiotics IV vancomycin and Zosyn were given, IV fluid resuscitation and IV methylprednisolone. There was discussion regarding central line placement; however, after conversation with family, optical worker it was opted to begin comfort measures as well as eventual extubation. He is being admitted for comfort and palliative measures. 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 Benny Bethea oncology Had lengthy discussion with family, [employer] Dr. Mendez, Amor Neil regarding current condition, assessment and treatment plan for patient. At time of evaluation patient was intubated. Discussed with family regarding patient with significantly poor outcome due to above diagnosis. Past hospital admission patient wished for DNR. After further discussion family wishes to not under go extraordinary measures including intubation, IV pressors or further treatment of patients current condition. They wish to opt for comfort measures only and revoke all current and past treatment. -Admit to med/surg oncology under comfort measures -will add IV ativan, morphine until evaluated by Palliative care -Spoke with DOMENICO Aly with Palliative care who is going to assess patient and provide appropriate comfort treatment -Will stop all IV medications, patient now extubated -Back [employer] called in by family -Hold all home medications >45 minutes was spent reviewing records, discussing with family and coordination of care for this patient. OTHER Dx include COPD CAD HTN TYPE 2 DM HLD BPH GERD ADDENDUM: This is a 72 year old male with a past medical history of R sided small cell lung CA - presented to the ER with weakness, lethargy, shortness of breath. In the ER, patient clinically deteriorated, ABGs were performed, showing significantly worsened acidosis. He was emergently intubated. Previously, patient had been a DNR/DNI. After discussion with family, decided to extubate patient and make comfort measures only status. Palliative care consulted. Patient placed on a morphine drip. Poor prognosis and will likely pass away in the hospital. Resuscitation Status DNR, Patient comfort measures only VTE Prophylaxis Will order VTE Prophylaxis: No (patient comfort measures only) Reason for no VTE drug order: Contraindicated Reason no Mechanical VTE Order: Contraindicated
[2018-06-23] MEDS ORDERED: SCOPOLAMINE 1.5 MG TDSY TD SCH (14:30)
[2018-06-23] MEDS ORDERED: LORAZEPAM 2 MG/ML 1 ML VIAL IV PRN (14:30)
[2018-06-23] MEDS ORDERED: NURSING VERBAL MED ORDER ONE (14:30)
--- NOTE | 2018-06-23 14:39 | Palliative Care Consultation ---
Consultation Date of Consultation: Jun 23, 2018. Requesting Physician: Carlos Ching PA-C Attending Physician: Dr. Almanza Reason for Consultation: Comfort measures only History of Present Illness This 72 year old male patient with right sided small cell lung cancer and left sided non-small cell lung cancer presented to the ED today with SOB. Patient was here in hospital 06/07 with neutropenic fever. He was discharged home, received chemo on 06/17. He was a DNR upon discharge. Today, he presents with lactic acid 13, pancytopenia, hypotension with SBP in 70s. He decompensated and required intubation in ED per the family's wish. After discussion with the attending provider in the ED, patient's family made the decision to withdraw care and terminally extubate. There is a stat palliative consult to assist with comfort care. Patient is in room 415. He is obtunded, but respirations are labored and tachypneic. Moist secretions are noted. Patient did not wake up or respond at all while i was in room. There were two daughters at bedside and probably 10 other family members outside of room. They all confirmed that patient is comfort measures only and they do understand that he will pass in the next hours to days. The family just wants patient to be comfortable and are okay with starting morphine infusion. We discussed his care while here in hospital. Family is tearful, but appreciative of the care he is receiving. They have no further questions/concerns. Past Medical/Surgical History Medical History: (1) ACEI/ARB contraindicated Permanent Comment: due to hypotension Status: Chronic (2) CAD (coronary artery disease) Status: Chronic (3) Calculus Of Kidney Status: Chronic (4) Carotid Artery Occlusion W O Cerebral Infarction Status: Chronic (5) Carotid stenosis Status: Chronic (6) Chr Airway Obstruct Nec Status: Chronic (7) Chronic systolic CHF (congestive heart failure) Permanent Comment: as per Epic problem list, although last 2 echo's in system had normal EF; (55-60% in 06/2013) + grade I diastolic dysfunction Status: Chronic (8) COPD (chronic obstructive pulmonary disease) Status: Chronic (9) Coron Atheroscler Nos Type Vessel, [place] Or Graft Status: Chronic (10) Diab Sofie Wo Compl, Type Ii Or Unspec Type, Not Uncntrld Status: Chronic (11) Diverticulosis Colon (W/O Ment Of Hemorrhage) Status: Chronic (12) DM type 2 (diabetes mellitus, type 2) Status: Chronic (13) Dyslipidemia Status: Chronic (14) Esophageal Reflux Status: Chronic (15) GERD (gastroesophageal reflux disease) Status: Chronic (16) HTN (hypertension) Status: Chronic (17) Hyperlipidemia Nec/Nos Status: Chronic (18) Hypertension Nos Status: Chronic (19) Lung cancer Permanent Comment: LLL SCC s/p Radiation therapy x 5 dx 2017; RUL/RLL Small Cell Lung CA dx 04/2018 Status: Chronic (20) PAD (peripheral artery disease) Status: Chronic (21) Renal Artery Aneurysm Status: Chronic (22) Subclavian artery stenosis, right Status: Chronic (23) Tobacco abuse Status: Chronic Surgical Problems: (1) Aortocoronary Bypass Status: Resolved (2) H/O maze procedure Status: Chronic (3) History of left-sided carotid endarterectomy Status: Chronic (4) Hx of CABG Status: Chronic (5) Percutaneous Translum Coron Angioplasty Status Status: Resolved (6) S/P coronary artery stent placement Status: Chronic (7) S/p lumbar spinal surgery Status: Chronic (8) Status post femoral-popliteal bypass surgery Permanent Comment: right Status: Chronic Social History Smoking Status: Former Smoker History of Alcohol Use: Yes (2-3 SOCIAL DRINKS PER WEEK) Drug Use: none Marital Status: Housing Status: lives with family Occupation Status: retired Review of Systems unable to obtain due to obtundation Allergies Coded Allergies: No Known Allergies (Verified , 06/23/18) Medications Current Inpatient Medications Medications (Trade) Dose Ordered Sig/Timbo Route Start Time Stop Time Status Last Admin Dose Admin Vancomycin HCl 2000 mg/Sodium Chloride 540 ml @ 200 mls/hr TODAY@1200 ONCE IV 06/23/18 12:00 06/23/18 14:41 06/23/18 12:05 200 MLS/HR Fentanyl Citrate (Fentanyl Inj) 100 mcg NOW PRN IV 06/23/18 11:45 07/07/18 11:44 Lorazepam (Ativan Inj) 0.5 mg Q4H IV 06/23/18 13:30 07/23/18 13:29 06/23/18 14:05 0.5 MG Morphine Sulfate (MoRPHine SULFATE INJ) 2 mg Q2H PRN IV 06/23/18 13:30 07/07/18 13:29 Miscellaneous Information (Nursing Verbal Med Order) 1 ea ONE ONCE N/A 06/23/18 14:30 06/23/18 14:31 UNV Physical Exam Date Time Temp Pulse Resp B/P (MAP) Pulse Ox O2 Delivery O2 Flow Rate FiO2 06/23/18 14:07 32 06/23/18 13:20 129 24 77/52 100 06/23/18 13:10 100 BiPAP 15.0 50 06/23/18 12:16 82/55 06/23/18 12:11 143 06/23/18 12:08 145 28 100 06/23/18 12:01 93/54 06/23/18 11:53 147 27 100 06/23/18 11:47 89/63 06/23/18 11:45 50 06/23/18 11:38 147 26 93/64 100 06/23/18 11:34 89/56 06/23/18 11:23 141 19 06/23/18 11:18 180/145 06/23/18 11:14 143 28 06/23/18 11:11 /128 06/23/18 11:09 143 14 06/23/18 11:04 142 27 06/23/18 11:00 100 06/23/18 10:59 142 32 06/23/18 10:54 142 23 06/23/18 10:49 100 06/23/18 10:49 144 35 06/23/18 10:44 147 33 06/23/18 10:39 146 32 06/23/18 10:34 151 30 06/23/18 10:29 152 30 06/23/18 10:27 /162 06/23/18 10:26 152 31 100/ BiPAP 50 06/23/18 10:24 153 28 06/23/18 10:19 154 34 06/23/18 10:15 155 35 BiPAP/CPAP 50 06/23/18 10:14 157 32 06/23/18 10:09 157 30 06/23/18 10:04 160 36 06/23/18 09:54 80 28 82 06/23/18 09:49 76 30 06/23/18 09:44 73 36 86 06/23/18 09:39 153 34 06/23/18 09:34 151 38 06/23/18 09:29 152 44 06/23/18 09:27 153 8/22/18 09:15 155 100 06/23/18 09:10 89 CPAP 15.0 06/23/18 09:10 37.1 152 46 119/78 90 BiPAP General Appearance: no apparent distress ENT: + pertinent finding (moist secretions in throat) Neck: no JVD Respiratory: + accessory muscle use, + crackles, + rhonchi, + pertinent finding (tachypneic) Cardiovascular: regular rate, rhythm, + pertinent finding (weak/thready pedal and radial pulses) Abdomen: normal bowel sounds, non tender, soft Neurologic/Psychiatric: + pertinent finding (obtunded) Skin: normal color Laboratory Results Last 24 Hours Test 06/23/18 09:35 06/23/18 09:50 06/23/18 09:58 06/23/18 11:36 White Blood Count 0.92 K/uL Red Blood Count 1.70 M/uL Hemoglobin 6.3 g/dL Hematocrit 19.2 % Mean Corpuscular Volume 112.9 fL Mean Corpuscular Hemoglobin 37.1 pg Mean Corpuscular Hemoglobin Concent 32.8 g/dl Platelet Count 50 K/uL Mean Platelet Volume 9.9 fL Neutrophils (%) (Auto) 0.0 % Lymphocytes (%) (Auto) 97.8 % Monocytes (%) (Auto) 1.1 % Eosinophils (%) (Auto) 1.1 % Basophils (%) (Auto) 0.0 % Neutrophils # (Auto) 0.00 K/uL Lymphocytes # (Auto) 0.90 K/uL Monocytes # (Auto) 0.01 K/uL Eosinophils # (Auto) 0.01 K/uL Basophils # (Auto) 0.00 K/uL RDW Standard Deviation 86.6 fL RDW Coefficient of Variation 21.5 % Immature Granulocyte % (Auto) 0.0 % Immature Granulocyte # (Auto) 0.00 K/uL Anisocytosis PRESENT Macrocytosis PRESENT Prothrombin Time 11.4 SECONDS Prothromb Time International Ratio 1.1 Sodium Level 135 mmol/L Potassium Level 5.0 mmol/L Chloride Level 98 mmol/L Carbon Dioxide Level 17 mmol/L Anion Gap 21.0 mmol/L Blood Urea Nitrogen 42 mg/dl Creatinine 3.01 mg/dl Est Creatinine Clear Calc Drug Dose 23.4 ml/min Estimated GFR () 23.1 Estimated GFR (Non- 19.9 BUN/Creatinine Ratio 14.0 Random Glucose 234 mg/dl Calcium Level 8.7 mg/dl Magnesium Level 1.2 mg/dl Total Bilirubin 0.7 mg/dl Aspartate Amino Transf (AST/SGOT) 18 U/L Alanine Aminotransferase (ALT/SGPT) 49 U/L Alkaline Phosphatase 72 U/L Troponin I 0.086 ng/ml Pro-B-Type Natriuretic Peptide 3521 pg/ml Total Protein 6.4 gm/dl Albumin 2.7 gm/dl Globulin 3.7 gm/dl Albumin/Globulin Ratio 0.7 Lipase 146 U/L Thyroid Stimulating Hormone (TSH) 7.410 uIu/ml Bedside Blood Gas pH (LAB) 7.31 7.12 Bedside Blood Gas pCO2 (LAB) 29 mmHg 42 mmHg Bedside Blood Gas pO2 (LAB) 292 mmHg 354 mmHg Bedside Blood Gas HCO3 (LAB) 14 meq/L 14 meq/L Bedside Blood Gas Total CO2 15 mEq/l 15 mEq/l Bedside Blood Gas Base Excess (LAB) -12.0 meq/L -16.0 meq/L Bedside Blood Gas O2 Saturation 100.0 % 100.0 % Bedside Lactic Acid Venous 13.58 mmol/L Assessment & Plan Palliative Performance Scale: 10 % Problem list: Dyspnea Obtundation Lung cancer Severe sepsis Comfort measures only Palliative care recs: -Per discussion held in ED with patient's family, admitting provider, and harpooner team, patient is comfort measures only. Stop all medications unrelated to treatment, terminally extubated in ED. -Increase lorazepam to 1mg IV Q4h PRN agitation. -Start continuous morphine infusion at 2mg/hr, titrate by 1mg/hr Q15 min PRN pain or SOB. -Atropine 1% oph soln 4 drops SL Q1h PRN secretions. -Scopolamine patch 1.5mg TD patch Q72h. -Oxygen via nasal cannula for comfort. -Support and education given to family at bedside. -Family is aware patient's prognosis is hours to days at maximum. Continue comfort care, no possibility for transfer out of facility at this time. Thank you kindly for this consult. I will follow as needed. Total time spent 50 minutes with >50% of time spent at bedside with patient and his family discussing RN PAIN MANAGEMENT and plan of care as well as collaborating with nursing staff and physician to coordinate care.
[2018-06-23] MEDS ORDERED: LORAZEPAM INJ 1 MG in SYRINGE 0.5 ML IV PRN (14:45)
[2018-06-23] MEDS: MORPHINE SULF/NSS 250MG/250ML IV PRN ×6 (14:46→20:28)
[2018-06-23] MEDS: ATROPINE SULFATE 1% OP SOLN 2 ML BTL SL PRN ×6 (14:50→21:06)
[2018-06-23] MEDS: CHECK SCOPOLAMINE PATCH PLACEMENT SCH (15:13)
--- NOTE | 2018-06-23 23:34 | Progress Note ---
Internal Med Progress Note Date of Service: Jun 23, 2018. Provider Documentation: SUBJECTIVE: Was called as patient ceased to breathe at 9:50pm. Seen and examined the patient OBJECTIVE: Vital Signs-as noted below Exam: General-unresponsive Eyes-pupils fixed, dilated and non reactive to light Neck-No palpable carotid pulse Lungs-no spontaneous breathing seen, no breath sounds on auscultation Heart-No heart sounds on auscultation Lab data as noted below. ASSESSMENT & PLAN: Patient pronounced at 9:50pm on June. Vital Signs: Date Time Temp Pulse Resp B/P (MAP) Pulse Ox O2 Delivery O2 Flow Rate FiO2 06/23/18 20:00 Nasal Cannula 2.0 06/23/18 14:07 32 06/23/18 13:20 129 24 77/52 100 06/23/18 13:10 100 BiPAP 15.0 50 06/23/18 12:16 82/55 06/23/18 12:11 143 06/23/18 12:08 145 28 100 06/23/18 12:01 93/54 06/23/18 11:53 147 27 100 06/23/18 11:47 89/63 06/23/18 11:45 50 06/23/18 11:38 147 26 93/64 100 06/23/18 11:34 89/56 06/23/18 11:23 141 19 06/23/18 11:18 180/145 06/23/18 11:14 143 28 06/23/18 11:11 /128 06/23/18 11:09 143 14 06/23/18 11:04 142 27 06/23/18 11:00 100 06/23/18 10:59 142 32 06/23/18 10:54 142 23 06/23/18 10:49 100 06/23/18 10:49 144 35 06/23/18 10:44 147 33 06/23/18 10:39 146 32 06/23/18 10:34 151 30 06/23/18 10:29 152 30 06/23/18 10:27 /162 06/23/18 10:26 152 31 100/ BiPAP 50 06/23/18 10:24 153 28 06/23/18 10:19 154 34 06/23/18 10:15 155 35 BiPAP/CPAP 50 06/23/18 10:14 157 32 06/23/18 10:09 157 30 06/23/18 10:04 160 36 06/23/18 09:54 80 28 82 06/23/18 09:49 76 30 06/23/18 09:44 73 36 86 06/23/18 09:39 153 34 06/23/18 09:34 151 38 06/23/18 09:29 152 44 06/23/18 09:27 153 06/23/18 09:15 155 100 06/23/18 09:10 89 CPAP 15.0 06/23/18 09:10 37.1 152 46 119/78 90 BiPAP Lab Results: Results Past 24 Hours Test 06/23/18 09:35 06/23/18 09:50 06/23/18 09:58 06/23/18 11:36 Range/Units White Blood Count 0.92 4.8-10.8 K/uL Red Blood Count 1.70 4.7-6.1 M/uL Hemoglobin 6.3 14.0-18.0 g/dL Hematocrit 19.2 42-52 % Mean Corpuscular Volume 112.9 80-100 fL Mean Corpuscular Hemoglobin 37.1 25-34 pg Mean Corpuscular Hemoglobin Concent 32.8 32-36 g/dl Platelet Count 50 130-400 K/uL Mean Platelet Volume 9.9 7.4-10.4 fL Neutrophils (%) (Auto) 0.0 % Lymphocytes (%) (Auto) 97.8 % Monocytes (%) (Auto) 1.1 % Eosinophils (%) (Auto) 1.1 % Basophils (%) (Auto) 0.0 % Neutrophils # (Auto) 0.00 1.4-6.5 K/uL Lymphocytes # (Auto) 0.90 1.2-3.4 K/uL Monocytes # (Auto) 0.01 0.11-0.59 K/uL Eosinophils # (Auto) 0.01 0-0.5 K/uL Basophils # (Auto) 0.00 0-0.2 K/uL RDW Standard Deviation 86.6 36.4-46.3 fL RDW Coefficient of Variation 21.5 11.5-14.5 % Immature Granulocyte % (Auto) 0.0 % Immature Granulocyte # (Auto) 0.00 0.00-0.02 K/uL Anisocytosis PRESENT Macrocytosis PRESENT Prothrombin Time 11.4 9.0-12.0 SECONDS Prothromb Time International Ratio 1.1 0.9-1.1 Sodium Level 135 136-145 mmol/L Potassium Level 5.0 3.5-5.1 mmol/L Chloride Level 98 98-107 mmol/L Carbon Dioxide Level 17 21-32 mmol/L Anion Gap 21.0 3-11 mmol/L Blood Urea Nitrogen 42 7-18 mg/dl Creatinine 3.01 0.60-1.40 mg/dl Est Creatinine Clear Calc Drug Dose 23.4 ml/min Estimated GFR () 23.1 Estimated GFR (Non- 19.9 BUN/Creatinine Ratio 14.0 10-20 Random Glucose 234 70-99 mg/dl Calcium Level 8.7 8.5-10.1 mg/dl Magnesium Level 1.2 1.8-2.4 mg/dl Total Bilirubin 0.7 0.2-1 mg/dl Aspartate Amino Transf (AST/SGOT) 18 15-37 U/L Alanine Aminotransferase (ALT/SGPT) 49 12-78 U/L Alkaline Phosphatase 72 45-117 U/L Troponin I 0.086 0-0.045 ng/ml Pro-B-Type Natriuretic Peptide 3521 0-900 pg/ml Total Protein 6.4 6.4-8.2 gm/dl Albumin 2.7 3.4-5.0 gm/dl Globulin 3.7 2.5-4.0 gm/dl Albumin/Globulin Ratio 0.7 0.9-2 Lipase 146 73-393 U/L Thyroid Stimulating Hormone (TSH) 7.410 0.300-4.500 uIu/ml Bedside Blood Gas pH (LAB) 7.31 7.12 7.35-7.45 Bedside Blood Gas pCO2 (LAB) 29 42 35-46 mmHg Bedside Blood Gas pO2 (LAB) 292 354 80-95 mmHg Bedside Blood Gas HCO3 (LAB) 14 14 19-24 meq/L Bedside Blood Gas Total CO2 15 15 24-31 mEq/l Bedside Blood Gas Base Excess (LAB) -12.0 -16.0 -9-1.8 meq/L Bedside Blood Gas O2 Saturation 100.0 100.0 90-95 % Bedside Lactic Acid Venous 13.58 0.90-1.70 mmol/L Microbiology Results 06/23/18 Blood Culture, Received Pending 06/23/18 Blood Culture, Received Pending
[2018-06-24] MEDS: CHECK SCOPOLAMINE PATCH PLACEMENT SCH
--- NOTE | 2018-06-25 07:36 | Discharge Summary ---
Discharge Summary Date of Service Jun 25, 2018. 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 History provided by family as patient currently is intubated. Patient received and finished cycle 2 of chemotherapy carboplatin/etoposide in which he completed on 06/17/18 when he developed increased weakness, shortness of breath, nonproductive cough, fever 1 at 102 max. Last evening had an episode of emesis. Overall poor appetite. On 06/21/18 he went to [place] for measurements regarding radiation; however, he did not receive any treatment. Of significance patient was recently hospitalized after cycle 1 of chemotherapy on 06/01/18 with neutropenic fever, pneumonia, thrush. He was treated with IV antibiotics, antifungals and his condition overall improved. Per family he continues on fluconazole and nystatin swish and swallow for thrush. In ED patient was noted to be pancytopenic with WBC of 0.92, H&H 6.3 and 19.2 respectively, platelet count 50, initial ABG showed pH of 7.31 with a subsequent ABG pH of 7.12, BUN 42, creatinine 3.01, sodium 135, potassium 5.2, anion gap 21, lactic acid 13.58, troponin 0 0.81, BNP 3521, TSH 7.41. Unfortunately patient deteriorated rapidly which resulted in intubation, despite last admission patient being deemed DNR. Per family they wished for full treatment. Empiric antibiotics IV vancomycin and Zosyn were given, IV fluid resuscitation and IV methylprednisolone. There was discussion regarding central line placement; however, after conversation with family, bark scaler it was opted to begin comfort measures as well as eventual extubation. He is being admitted for comfort and palliative measures. Physical Exam (per Admitting): General Appearance: + moderate distress, + obese (Male, lying in bed, intubated) Head: normocephalic, atraumatic ENT: + pertinent finding (+intubation, membranes dry) Neck: no JVD, trachea midline Respiratory/Chest: + respiratory distress, + accessory muscle use, + pertinent finding (intubated) Cardiovascular: + tachycardia (but regular rhythm) Abdomen/GI: soft, no pulsatile mass, + distended (secondary to obesity) Neurologic/Psych: + pertinent finding (patient not responsive, intubated, unable to assess neurologic status) Skin: no rash, + pallor, + pertinent finding Hospital Course Per FELISA Bobby and Dr. 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 Benny Bethea oncology Had lengthy discussion with family, Lead Radiation Therapist Dr. Mendez, Amor Neil regarding current condition, assessment and treatment plan for patient. At time of evaluation patient was intubated. Discussed with family regarding patient with significantly poor outcome due to above diagnosis. Past hospital admission patient wished for DNR. After further discussion family wishes to not under go extraordinary measures including intubation, IV pressors or further treatment of patients current condition. They wish to opt for comfort measures only and revoke all current and past treatment. -Admitted to med/surg oncology under comfort measures ordered IV ativan, morphine until evaluated by Palliative care -Spoke with DOMENICO Aly with Palliative care who is going to assess patient and provide appropriate comfort treatment held all IV medications, patient extubated -Tour Bus Driver/Guide called in by family -Hold all home medications OTHER Dx include COPD CAD HTN TYPE 2 DM HLD BPH GERD ADDENDUM: This is a 72 year old male with a past medical history of R sided small cell lung CA - presented to the ER with weakness, lethargy, shortness of breath. In the ER, patient clinically deteriorated, ABGs were performed, showing significantly worsened acidosis. He was emergently intubated. Previously, patient had been a DNR/DNI. After discussion with family, decided to extubate patient and make comfort measures only status. Palliative care consulted. Patient placed on a morphine drip. Patient pronounced at 9:50pm on June. Total time spent on discharge = This includes examination of the patient, discharge planning, medication reconciliation, and communication with other providers. Discharge Instructions Patient .
== END 2018-06-24 01:25 | disposition expired | DRG 871 ==
LOC: EDBD 09:09 → C.EDA 09:10 → C.4E 12:55 → ENRESERV 13:07
PROVIDERS: ADMIT Family Medicine; ATTEND Internal Medicine
PROC: 0T9B70Z Drainage of Bladder with Drainage Device, Via Natural or Artificial Opening (ICD-10-PCS; principal; 2018-06-23)
PROC: 0BH17EZ Insertion of Endotracheal Airway into Trachea, Via Natural or Artificial Opening (ICD-10-PCS; principal; 2018-06-23)
DX: A41.9 Sepsis, unspecified organism (principal); R65.21 Severe sepsis with septic shock; J18.9 Pneumonia, unspecified organism; J44.1 Chronic obstructive pulmonary disease with (acute) exacerbation; E87.2 Acidosis; D61.818 Other pancytopenia; C34.91 Malignant neoplasm of unspecified part of right bronchus or lung; C34.92 Malignant neoplasm of unspecified part of left bronchus or lung; Z51.5 Encounter for palliative care; I25.10 Atherosclerotic heart disease of native coronary artery without angina pectoris; I10 Essential (primary) hypertension; E11.51 Type 2 diabetes mellitus with diabetic peripheral angiopathy without gangrene; E78.5 Hyperlipidemia, unspecified; N40.0 Benign prostatic hyperplasia without lower urinary tract symptoms; K21.9 Gastro-esophageal reflux disease without esophagitis; M47.816 Spondylosis without myelopathy or radiculopathy, lumbar region; F17.200 Nicotine dependence, unspecified, uncomplicated; Z66 Do not resuscitate; Z79.82 Long term (current) use of aspirin; Z79.52 Long term (current) use of systemic steroids; Z79.899 Other long term (current) drug therapy